=== PATIENT | female | born 1945 | race Caucasian/White ===

== ENCOUNTER → 2022-01-06 | Outpatient (CLI) | payer MEDICARE, BC, SELFPAY ==
--- NOTE | 2022-01-06 12:54 | ECHOD_ITS ---
Reason For Study: AFIB/FLUTTER Procedure This was a 2D Doppler, Color Flow transthoracic echocardiogram. Exam performed in department. Left Ventricle Normal LV size. Left ventricular systolic function is normal. The estimated ejection fraction is 55 %. Normal diastology for age. No regional wall motion abnormalities noted. Right Ventricle Normal RV size. Normal systolic function. Atria The left atrium is mildly enlarged. Normal right atrium. Mitral Valve Normal mitral valve. Tricuspid Valve Normal tricuspid valve. Aortic Valve Trisinus/trileaflet aortic valve. Pulmonic Valve Normal pulmonic valve. Great Vessels Normal aortic root. The pulmonary artery is normal size. Normal inferior vena cava. Pericardium/Pleural No pericardial effusion. MMode/2D Measurements & Calculations LVIDd: 4.5 cm IVSd: 0.91 cm LVOT diam: 2.0 cm LVIDs: 3.0 cm LVPWd: 0.97 cm LVOT area: 3.1 cm2 RVDd: 3.0 cm FS: 33.0 % Ao root diam: 3.1 cm LAV(MOD-bp): 73.2 ml LA A4 area: 23.8 cm2 LAV(MOD-bp) Indexed: 37.7 ml/m2 LAV(MOD-sp2): 73.8 ml LAV(MOD-sp4): 74.2 ml LA dimension(2D): 3.8 cm RA A4 area: 20.1 cm2 Time Measurements MV dec time: 0.25 sec Doppler Measurements & Calculations MV E max robi: 93.7 cm/sec Lat Peak E' Robi: 11.1 cm/sec Med Peak E' Robi: 9.5 cm/sec MV A max robi: 78.0 cm/sec E/E' lat: 8.4 E/E' med: 9.9 MV E/A: 1.2 MV dec slope: 375.1 cm/sec2 Ao V2 max: 186.8 cm/sec LV V1 max: 123.8 cm/sec Ao max P.0 mmHg LV V1 max P.2 mmHg Ao V2 mean: 124.2 cm/sec LV V1 mean P.4 mmHg Ao mean P.2 mmHg LV V1 mean: 87.3 cm/sec Ao V2 VTI: 43.5 cm LV V1 VTI: 29.2 cm TRISHA(I,D): 2.1 cm2 TRISHA(V,D): 2.0 cm2 SV(LVOT): 89.3 ml PA V2 max: 164.3 cm/sec ECHO/Echo Complete Interpretation Summary Normal LV size. Left ventricular systolic function is normal. The estimated ejection fraction is 55 %. Normal tricuspid valve. Trisinus/trileaflet aortic valve. The left atrium is mildly enlarged. Normal diastology for age. Ordering Physician: Mark Lay Referring Physician: Jeramie Alba Performed By: Shaylee Benavidez RDCS, RVT
== END | disposition home or self-care (01) ==
LOC: CVS 12:52
PROVIDERS: PCP Family Medicine; Referring Provider Internal Medicine Cardiovascular Disease; Visit Provider Internal Medicine Cardiovascular Disease
DX: I48.0 Paroxysmal atrial fibrillation (principal)
CPT/HCPCS: 93306

== ENCOUNTER 2022-01-15 19:15 | Inpatient (IN) | payer MEDICARE, BC, SELFPAY ==
[2022-01-15 19:31] VITALS: BMI 35.9
[2022-01-15 19:42] VITALS: BP 130/85; PULSE 61; RESP 16; TEMP 36.4; O2SAT 96
[2022-01-15 22:00] VITALS: PULSE 62; RESP 16; O2SAT 96
[2022-01-15] MEDS: Acetaminophen 500 MG Tablet 1000 MG PO (22:04)
[2022-01-15] MEDS: APIXABAN 5 MG TABLET PO (22:07)
[2022-01-15] MEDS: Senna/Docusate Sodium 1 Tablet 2 TABLET PO (22:07)
[2022-01-15 22:38] VITALS: BP 136/86; PULSE 76; RESP 16; TEMP 36.3; O2SAT 96
[2022-01-16] MEDS: Acetaminophen 500 MG Tablet 1000 MG PO ×3 (07:16→22:26)
[2022-01-16] MEDS: Multivitamins,Therapeutic Tablet 1 TABLET PO (07:17)
[2022-01-16] MEDS: oxyCODONE 5 MG Tablet PO ×2 (07:17→22:53)
[2022-01-16 07:59] LABS: Absolute Lymphocyte Count 2.54 X10^3/uL (0.83-4.51); Absolute Neutrophil Count 6.5 X10^3/uL (2.0-7.7); Basophil# 0.02 X10^3/uL; Basophil% 0.2 % (0-1); Eosinophil# 0.05 X10^3/uL; Eosinophils% 0.5 % (0-5); Hematocrit 34.3 % (37-47); Hemoglobin 11.2 g/dL (12.0-15.0); Lymphocyte # 2.54 X10^3/ul (0.83-4.51); Lymphocyte % 23.9 % (19-41); Mean Corp Hgb Conc 32.7 g/dL (32-36); Mean Corpuscular Hgb 30.9 pg (27.0-32.0); Mean Corpuscular Volume 94.5 fL (81-99); Mean Platelet Vol. 12.7 fl (6.2-12.0); Monocyte# 1.45 X10^3/uL; Monocyte% 13.6 % (0-10); NRBC Flagged by Analyzer 0 % (0-5); Neutrophil # 6.54 X10^3/uL (2.7-7.7); Neutrophil % 61.5 % (47-70); Platelet Count 213 K/mm3 (150-450); RBC Distribution Width CV 13.7 % (11.6-14.6); RBC Distribution Width SD 47.9 fl (35.1-43.9); Red Blood Count 3.63 M/mm3 (4.2-5.4); White Blood Count 10.6 K/mm3 (4.4-11.0)
[2022-01-16 08:13] LABS: Magnesium 2.2 mg/dL (1.6-2.6)
[2022-01-16 08:22] LABS: ALB/GLOB Ratio 0.9 RATIO (0.9-2.4); AST(SGOT) 39 U/L (15-37); Alanine Aminotransfer ALT/SGPT 40 U/L (13-56); Albumin, Serum 3.2 g/dL (3.2-5.0); Alkaline Phosphatase 61 U/L (45-117); Anion Gap 3 (5-15); BUN 25 mg/dL (7-18); BUN/Creat Ratio 30.6 RATIO (10-20); Calcium,Total 9.5 mg/dL (8.5-10.1); Chloride 103 mmol/L (98-107); Creatinine, Serum 0.82 mg/dL (0.55-1.02); EST Glomerular Filtration Rate 72 mL/min (>60); Est Glom Filt Rate - Afr Amer 87 mL/min (>60); Estimated Creatinine Clearance 46.16 ml/min; Globulin 3.7 g/dL (2.2-4.2); Glucose 108 mg/dL (74-106); Potassium 4.2 mmol/L (3.5-5.1); Protein, Total 6.9 g/dL (6.4-8.2); Sodium Level 137 mmol/L (136-145)
[2022-01-16 08:23] LABS: Phosphorus 3.3 mg/dL (2.5-4.9)
[2022-01-16] MEDS: Sertraline 50 MG Tablet 25 MG PO (08:47)
[2022-01-16] MEDS: Cefadroxil 500 MG CAPSULE PO ×2 (08:47→22:08)
[2022-01-16] MEDS: Cholecalciferol (VIT D3) 25 MCG TABLET (1,000 UNITS) PO (08:47)
[2022-01-16 08:48] VITALS: PULSE 66
[2022-01-16] MEDS: Metoprolol(XL)Succ 50 MG Tablet PO (08:48)
[2022-01-16] MEDS: Lisinopril 5 MG Tablet PO (08:48)
[2022-01-16] MEDS: APIXABAN 5 MG TABLET PO ×2 (08:48→22:08)
[2022-01-16] MEDS: Pantoprazole Sodium 40 MG Tablet PO (08:50)
[2022-01-16] MEDS: Senna/Docusate Sodium 1 Tablet 2 TABLET PO (08:50)
[2022-01-16] MEDS: Ascorbic Acid 500 MG Tablet PO (08:50)
[2022-01-16 09:02] VITALS: BP 123/60; PULSE 66; RESP 16; TEMP 36.4; O2SAT 99
--- NOTE | 2022-01-16 13:00 | NURSING ---
Patient reported she was tired and fatigued during therapy session and staff had assisted patient to lay down. This nurse told patient to drink more water post op to prevent dehydration. Patient changed code status after this nurse explained to her what each discipline meant. Patient thinks that her niece has her Living Will and POA papers but she does not think she can get them from niece and she is not sure where her copies are. Message left for SW to help patient on this topic.
[2022-01-16 15:30] VITALS: O2SAT 99
[2022-01-16 20:35] VITALS: BP 129/49; PULSE 67; RESP 16; TEMP 36.4; O2SAT 98
--- NOTE | 2022-01-17 00:03 | NURSING ---
PT REMAINS IS CALMER BUT CONTINUES TO BE MOANING IN PAIN FROM L KNEE WHICH PT STATES CAME ON SUDDENLY AT 2245 01/16/22. ICE IS IN PLACE, [facility] CLINICAL ACCOUNT SPECIALIST TO WILDA IGLESIAS-HOSPITALIST.
--- NOTE | 2022-01-17 00:17 | NURSING ---
DR IGLESIAS INFORMED OF PT'S UNRELIEVED L KNEE PAIN, BUT THAT PT HAS,JUST NOW, APPEARED TO FALL ASLEEP. ORDERS GIVEN.
[2022-01-17] MEDS: oxyCODONE 5 MG Tablet PO ×5 (02:37→23:33)
--- NOTE | 2022-01-17 02:44 | NURSING ---
Pt given prn Oxycodone 5 mg per order @ 2253 01/16/22, next dose given at 0237 01/17/22 with error of given early. With time change this shift, medication was given in 4 hour parameter per order.
[2022-01-17] MEDS: Acetaminophen 500 MG Tablet 1000 MG PO ×3 (06:31→21:04)
[2022-01-17 08:53] VITALS: BP 117/57; PULSE 67; RESP 18; TEMP 37.1; O2SAT 98
[2022-01-17 09:05] VITALS: O2SAT 98
[2022-01-17] MEDS: APIXABAN 5 MG TABLET PO ×2 (09:42→21:03)
[2022-01-17] MEDS: Senna/Docusate Sodium 1 Tablet 2 TABLET PO ×2 (09:42→21:04)
[2022-01-17 09:43] VITALS: PULSE 67
[2022-01-17] MEDS: Cholecalciferol (VIT D3) 25 MCG TABLET (1,000 UNITS) PO (09:43)
[2022-01-17] MEDS: Multivitamins,Therapeutic Tablet 1 TABLET PO (09:43)
[2022-01-17] MEDS: Lisinopril 5 MG Tablet PO (09:43)
[2022-01-17] MEDS: Metoprolol(XL)Succ 50 MG Tablet PO (09:43)
[2022-01-17] MEDS: Pantoprazole Sodium 40 MG Tablet PO (09:44)
[2022-01-17] MEDS: Sertraline 50 MG Tablet 25 MG PO (09:44)
[2022-01-17] MEDS: Ascorbic Acid 500 MG Tablet PO (09:45)
[2022-01-17] MEDS: Cefadroxil 500 MG CAPSULE PO ×2 (09:45→21:03)
--- NOTE | 2022-01-17 10:46 | HP.PCM_ITS ---
HPI - General General Date of Admission: 01/15/22 Date of Service: 01/17/22 Chief Complaint: Debility due to recent TKA HPI Narrative CONCHA SLADE, is a 76 YO F with a PMH of hypertension, osteoarthritis, obesity, paroxysmal atrial fibrillation, dry macular degeneration, seasonal allergies, skin cancer, anxiety (on Sertraline) and chronic anticoagulation with apixaban who presents to the acute rehab unit at [facility] on 01/15/22 with physical debility following a TKA of the left knee on 01/14/22. She lives alone in a condo and is not able to care for herself at this time. She will have 3 hours of therapy daily to restore function/independence at or near her level prior to the TKA. [facility] Medical History Anxiety Chronic anticoagulation Dyspnea on minimal exertion Enlarged LA (left atrium) Essential hypertension Headache History of malignant neoplasm of skin Intermittent palpitations Left knee pain Obesity Osteoarthritis Paroxysmal atrial fibrillation Home Medications apixaban 5 mg tablet (Eliquis) 5 mg PO BID blood thinner 12/18/21 [History Last Taken Unknown] ascorbate calcium (vitamin C) 500 mg tablet 500 mg PO DAILY supplement 12/18/21 [History Last Taken Unknown] cholecalciferol (vitamin D3) 25 mcg (1,000 unit) capsule 25 mcg PO DAILY supplement 12/18/21 [History Last Taken Unknown] lisinopril 5 mg tablet 5 mg PO DAILY HTN 12/18/21 [History Last Taken Unknown] metoprolol succinate 50 mg tablet,extended release 24 hr 50 mg PO DAILY 12/18/21 [History Last Taken Unknown] multivitamin 1 tab PO DAILY supplement 12/18/21 [History Last Taken Unknown] omeprazole 40 mg capsule,delayed release 40 mg PO DAILY stomach 12/18/21 [History Last Taken Unknown] sertraline 25 mg tablet (Zoloft) 25 mg PO DAILY depression 12/18/21 [History Last Taken Unknown] Allergy/AdvReac Type Severity Reaction Status Date / Time No Known Allergies Allergy Unverified 12/18/21 14:31 Family History Other Cancer Surgical History H/O arthroscopy of knee History of appendectomy History of cataract surgery History of cholecystectomy History of cosmetic surgery History of left knee replacement History of tonsillectomy Social History (Updated 01/17/22 @ 11:[address] Tanisha Jain DO) household members: other details: Lives alone. She is a . housing: [facility] number of children: 0 current occupational status: retired leisure activities: games do you think of yourself as: straight/heterosexual current gender identity: female Smoking Status: Never smoker alcohol intake: never substance use type: does not use ROS Constitutional Constitutional: Reports difficulty sleeping and fatigue; Denies anorexia, change in weight, chills, fever(s), night sweats or weakness Eyes Eyes: Denies blurry vision, change in vision, eye pain or loss of vision ENT HEENT: Reports abnormal hearing; Denies dysphagia, headache(s), hearing loss, nasal congestion or sore throat Cardiovascular Cardiovascular: Reports dyspnea on exertion; Denies chest pain, edema, lightheadedness, orthopnea, palpitations, paroxysmal nocturnal dyspnea or syncope Respiratory/Chest Respiratory/Chest: Reports shortness of breath with exertion; Denies cough, dyspnea, shortness of breath at rest or wheezing Gastrointestinal Gastrointestinal: Denies abdominal pain, constipation, diarrhea, dyspepsia, hematemesis, hematochezia, nausea or vomiting Genitourinary Genitourinary: Denies dysuria, hematuria, nocturia, urinary frequency, urinary hesitancy, urinary incontinence or urinary urgency Musculoskeletal Musculoskeletal: Reports joint pain and other Details: Left knee pain.....This is only POD #3 from L TKR ; Denies back pain, joint swelling or neck pain Integumentary Integumentary: Denies alopecia or jaundice Neurologic Neurologic: Reports weakness; Denies confusion, disequilibrium, dizziness, focal weakness, headache(s), paresthesias, seizures or tremor(s) Psychiatric Psychiatric: Reports anxiety; Denies depression, homicidal ideation or suicidal ideation Endocrine Endocrinology: Denies change in body appearance, polydipsia or polyuria Hematologic/Lymphatic Hematologic/Lymphatic: Reports easy bleeding, easy bruising and other Details: She is chronically anticoagulated with Eliquis for paroxysmal atrial fibrillation. ; Denies lymphadenopathy Allergic/Immunologic Allergic/Immunologic: Denies rhinitis, eczemia or asthma Vital Signs Vital Signs Vital Signs: 01/16/22 15:30 01/16/22 20:35 01/16/22 22:05 Temperature 97.6 F L Temperature Source Temporal Pulse Rate 67 Pulse Strength Normal (2+) Respiratory Rate 16 Blood Pressure 129/49 H Blood Pressure Mean 75 Blood Pressure Source Monitor Blood Pressure Position Sitting Blood Pressure Location Right Arm Pulse Ox 99 98 Oxygen Delivery Method Room Air Room Air 01/17/22 08:53 01/17/22 08:55 01/17/22 09:43 Temperature 98.7 F Temperature Source Temporal Pulse Rate 67 67 Pulse Strength Normal (2+) Respiratory Rate 18 Blood Pressure 117/57 L Blood Pressure Mean 77 Blood Pressure Source Monitor Blood Pressure Position Sitting Blood Pressure Location Left Arm Pulse Ox 98 Oxygen Delivery Method Room Air 01/17/22 09:05 Temperature Temperature Source Pulse Rate Pulse Strength Respiratory Rate Blood Pressure Blood Pressure Mean Blood Pressure Source Blood Pressure Position Blood Pressure Location Pulse Ox 98 Oxygen Delivery Method Room Air Weight Weight: 217 lb 2.485 oz Body Mass Index (BMI) 35.9 Physical Exam Const alert, oriented x3 and no apparent distress Constitutional Narrative: Making good eye contact, appropriate General Appearance: cooperative, comfortable, well kempt and well developed HEENT HEENT Narrative: Mucous membranes are dry Eyes PERRL, EOMs intact bilaterally, conjunctivae normal and no scleral icterus Neck no lymphadenopathy, supple, no JVD, No nodes and no carotid bruits Chest Chest: symmetrical chest wall rise Resp normal respiratory effort, no use of accessory muscles and clear to auscultation bilaterally Resp Narrative: Not tachypneic and no conversational dyspnea. Cardio S1 normal heart sound, S2 normal heart sound, no murmurs, no rub and no gallops Cardio Narrative: Irreg irreg with good rate control. GI normal to inspection, nondistended, normoactive bowel sounds, soft to palpation and non-tender GI Narrative: No guarding with palpation. Extremity normal capillary refill and no clubbing, cyanosis or edema Extremity Narrative: Intact sensation in both feet. Skin Skin Narrative: No rashes, no skin breakdown. Rashes: no rashes Wound Narrative: I will examine the wound when the dressing is to be changed. Neuro oriented x3, CN's II-XII intact bilaterally, moves all extremities, no focal motor deficits and no sensory deficits noted Motor Exam: strength 5/5 throughout Psych affect normal Psych Narrative: Appropriate, making good eye contact. Able to stay on topic and focus. No flight of ideas. Does not appear anxious or depressed. Conversant and relating well to staff. Appearance: grossly normal Attitude: calm Results Lab / Micro Data Result Diagrams: 01/16/22 07:08 01/16/22 07:08 Assessment & Plan Assessment/Plan (1) Physical debility: (2) History of left knee replacement: (3) Acute blood loss as cause of postoperative anemia: (4) Paroxysmal atrial fibrillation: (5) Chronic anticoagulation: (6) Essential hypertension: (7) Obesity: PLAN: Plan PLAN PT for gait stability OT for ADL's ST for evaluation Analgesics as needed Bowel protocol Fall precautions Assess for Anxiety/Depression GI prophylaxis - she is chronically on Protonix DVT prophylaxis with TEDhose and Eliquis which is takes for PAF Follow up with Dr. Jeramie Alba and Dr. Edmond (orthopedic surgeon at [facility]) following DC from Rehab. She has seen Dr. Lay from cardiology. AM lab including CMP, CBC, Mag and Phos were all personally reviewed today Unit Exclusion This patient is an acute care inpatient being housed in the excluded unit because of capacity issues related to the disaster or emergency.: Yes Charges/Coding Visit Charges Inpatient E&M: 56021 Init Hosp L2
--- NOTE | 2022-01-17 11:53 | NURSING ---
Patient has been encouraged to increase PO fluid intake since admission. Patient needs constant reminders. This nurse told patient she has 500cc in her water pitcher and it needs to be consumed by this afternoon. Patient agreed. Patient reported, I never drink enough.
[2022-01-17] MEDS: VIT C/E/ZN/COPPR/LUTEIN/ZEAXAN 1 EACH CAPSULE PO (17:56)
[2022-01-17 21:05] VITALS: BP 139/70; PULSE 75; RESP 18; TEMP 36.4; O2SAT 96
--- NOTE | 2022-01-18 03:03 | NURSING ---
REVIEWED AND AGREE WITH EMBEDDED PROCESSOR'S FUNCTIONAL ASSESSMENT AND HANDOFF CHARTING.
[2022-01-18] MEDS: oxyCODONE 5 MG Tablet PO ×3 (03:38→13:37)
[2022-01-18] MEDS: Acetaminophen 500 MG Tablet 1000 MG PO ×3 (06:29→20:55)
[2022-01-18 07:27] VITALS: BP 136/64; PULSE 68; RESP 18; TEMP 35.8; O2SAT 96
[2022-01-18] MEDS: Cholecalciferol (VIT D3) 25 MCG TABLET (1,000 UNITS) PO (07:50)
[2022-01-18] MEDS: Ascorbic Acid 500 MG Tablet PO (07:50)
[2022-01-18] MEDS: VIT C/E/ZN/COPPR/LUTEIN/ZEAXAN 1 EACH CAPSULE PO ×2 (07:50→16:31)
[2022-01-18] MEDS: Sertraline 50 MG Tablet 25 MG PO (07:50)
[2022-01-18] MEDS: Pantoprazole Sodium 40 MG Tablet PO (07:51)
[2022-01-18] MEDS: Senna/Docusate Sodium 1 Tablet 2 TABLET PO (07:51)
[2022-01-18] MEDS: Multivitamins,Therapeutic Tablet 1 TABLET PO (07:54)
[2022-01-18 10:12] VITALS: PULSE 68
[2022-01-18] MEDS: Metoprolol(XL)Succ 50 MG Tablet PO (10:12)
[2022-01-18] MEDS: APIXABAN 5 MG TABLET PO ×2 (10:12→20:54)
[2022-01-18] MEDS: Lisinopril 5 MG Tablet PO (10:12)
[2022-01-18] MEDS: Cefadroxil 500 MG CAPSULE PO ×2 (10:12→20:54)
--- NOTE | 2022-01-18 13:35 | CASEMGMT ---
Social Work Team meeting held. Patient present. No support person present. Patient reports main support people to be patient adrian that lives in [place] and patient friend, Tiffany. Patient reports plan to discharge to home alone at time of discharge. This social services communicating to patient that Medicare approved 11 days for patient on the Rehab Unit with discharge on or by 01/26. Patient voiced understanding and inquired about options if patient is not able to discharge to home on 01/26. This social services communicating patient insurance benefits through Medicare and educated patient on skilled benefit. Patient reports to want TCU if patient is unable to discharge to home alone. This social services voiced understanding and will make note on patient chart if patient is not able to discharge to the community within the 11 days provided by Medicare. Patient to be re-teamed next week. Patient to continue with further care and treatment on the Rehab Unit. Patient declined for this social services to contact any support person in regards to team meeting, patient reports plan to contact Tiffany. Social Work to continue to follow. Sam SANTANA, JAN
--- NOTE | 2022-01-18 13:45 | NURSING ---
Per Dr. Jain order, pt to have Oxycodone 10mg at HS nightly, order added.
--- NOTE | 2022-01-18 15:14 | PCM.RU.PYE ---
Admission Information Primary Diagnosis:: Debility due to recent left total knee replacement. Status Changes from Prescreening?: No changes Identified Actual Problem List:: Skin Intergrity, Pain, ALteration in Cmfrt, Alteration in Sleep, Mobility Impaired and Alteration-Leisure Activ. Potential Problem List:: DVT, Bleeding, Infection, UTI, Aspiration, Falls, Skin Integrity and Depression Risk of Complications DVT: RAPHAEL Gil and - (She was started back on apixaban for paroxysmal atrial fibrillation which will also prevent DVT.) Bleeding: Monitor Lab Values, Nursing to Teach Precautions for anti-coagulation therapy., Wound, if applicable, to be assessed every shift. and Stroke patients assessed for lethargy or change in status. Infection: Clinical Staff to Monitor for S/S of infection: and S/S of infection include fever, redness, warmth, etc. Urinary Tract Infection: Monitor for frequency, burning, discomfort, or incontinence. and Nursing will obtain urine sample for urinalysis and C&S when ordered. Aspiration: Clinical staff will monitor for coughing, drooling, congestion., Speech will evaluate swallowing and dsyphasia. and Nursing will monitor patient swallowing during meals. Falls: Patient will be evaluated for Fall Precautions and Patient will be placed on Fall Precautions as indicated per protocol. Skin Breakdown: Nursing will assess skin daily using assessment tool. and Nursing will place on Skin Breakdown Precautions as indicated. Pain: Clinical staff will assess patient's pain level per protocol., Medications will be given, if needed, and the pain level reassessed. and Other methods: Massage, distraction, decrease stimulus, etc. used PRN. Plan of Care Patient requires physician specializing in physical medicine and rehab oversight to provide close medical supervision of rehab issues including: Pain Management, Sleep Problems, Bowel and Bladder, Medical and co-morbidity Management, DVT prophylaxis, Rehabilitation Leadership and Coordination of treatment team Patient needs Physical Therapy: For a minimum of 1 hour and At least 5 out of 7 days Patient needs Physical Therapy to improve:: Mobility, Strengthening, Transfers, Stretching, ROM, Endurance, Stairs, Gait and Balance Patient needs Occupational Therapy: For a minimum of 1 hour and At least 5 out of 7 days Patient needs Occupational Therapy to improve ADL's incl.: Eating, Grooming, Bathing, Dressing, Toileting, Toilet transfers, Community Reintegration, Higher functioning activities, Household tasks, Adaptive Equipment, Splinting and Other activities as determined Patient requires 24/7 Rehabilitation Nursing for: Pain Issues, Identifying and preventing risk factors, Monitoring and reporting current medical conditions, Assisting with ambulation, transfer, and all ADL's, Teaching patients about disease process and medications, Family teaching, Providing safe environment, Bowel and Bladder Issues, Skin integrity and Medication Management Patient needs Venue Coordinator/ Case Management for: Discharge Planning, Arranging Home Equipment or Services and Family Interventions Patient needs Dietary and Nutrition Services for: Adequate Nutrition, Nutritional Supplements and Nutritional Education Goals Patient will remain: free from falls and or injury at time of discharge. Patient will perform bed mobility at: MOD I level of assist. Patient will complete transfers from bed to chair at: MOD I level of assist. Patient will ambulate: 100 feet and with LRD Patient will propel wheelchair: - (150 feet with least restrictive adaptive device at mod I) Patient will complete upper body dressing at: MOD I level of assist. Patient will complete lower body dressing at: MOD I level of assist. (With adaptive equipment) Patient will complete toileting at: MOD I level of assist. Patient will perform bathing at: MOD I level of assist. Patient will complete grooming at: MOD I level of assist. Patient will complete home management skills at: MOD I level of assist. Patient will achieve: - (2 steps with left grab bar at mod I) Patient will have pain level of: of 3 or less Patient's skin will: remain intact Patient will receive: adequate nutrition. Discharge Planning Pt Prognosis for Sig. Practical Improv. w/in Reasonable Time: Good Estimated Length of stay (days): 21 Anticipated D/C Destination: Home with Home Health Was Preadmission Assessment Accurate?: Yes
--- NOTE | 2022-01-18 15:20 | PN_ITS ---
Subjective Subjective Kalie was seen on team rounds today. No family was available to participate however her niece who lives in [place] will be assisting her when she is discharged. Her friend from [place] brought her Pres[employer]Vision in yesterday and the anxiety about being without has resolved. Afebrile VSS Maintaining appropriate oxygen saturation on RA Oral intake is good Discussed with nursing - no problems that need addressed Reviewed the PT/OT/ST notes Medication list reviewed. She awoke last night with severe pain. she tells me the pain seems worse at night. she was able to do therapy today with 5 mg of Oxycodone. She denies AP, SOB, calf pain, N/V/abd pain, confusion, lightheadedness, dysuria. Has been urinating frequently. PVR's are 0-35. Objective Data Objective Data Vital Signs: Vital Signs Temp Pulse Resp BP Pulse Ox O2 Del Method 96.5 F L 68 18 136/64 H 96 Room Air 01/18/22 07:27 01/18/22 10:12 01/18/22 07:27 01/18/22 07:27 01/18/22 07:27 01/18/22 07:27 Oxygen Delivery Method Room Air Weight: 217 lb 2.485 oz Body Mass Index (BMI) 35.9 Intake & Output: Intake and Output for Last 24 Hours 01/17/22 01/17/22 01/18/22 00:59 23:59 23:59 Intake Total Output Total Balance Lab / Micro Data Result Diagrams: 01/16/22 07:08 01/16/22 07:08 Physical Exam Const alert, oriented x3 and no apparent distress Constitutional Narrative: Making good eye contact, appropriate General Appearance: cooperative and comfortable Resp normal respiratory effort, no use of accessory muscles and clear to auscultation bilaterally Resp Narrative: Not tachypneic and no conversational dyspnea. Cardio S1 normal heart sound, S2 normal heart sound, no murmurs, no rub and no gallops Cardio Narrative: Irreg irreg with good rate control. GI normal to inspection, nondistended, normoactive bowel sounds, soft to palpation and non-tender GI Narrative: No guarding with palpation. Extremity normal capillary refill Extremity Narrative: Intact sensation in both feet. Skin Skin Narrative: No rashes, no skin breakdown. Rashes: no rashes Wound Narrative: I will examine the wound when the dressing is to be changed. Neuro Motor Exam: strength 5/5 throughout Psych affect normal Psych Narrative: Appropriate, making good eye contact. Able to stay on topic and focus. No flight of ideas. Does not appear anxious or depressed. Conversant and relating well to staff. Assessment & Plan Assessment/Plan (1) Physical debility: (2) History of left knee replacement: (3) Acute blood loss as cause of postoperative anemia: (4) Paroxysmal atrial fibrillation: (5) Chronic anticoagulation: (6) Essential hypertension: (7) Obesity: PLAN: Plan 1. Continue therapy 2. Increase oxycodone to 10 mg at at bedtime only Charges/Coding Visit Charges Inpatient E&M: 09841 Subs Hosp L1
[2022-01-18 15:28] VITALS: O2SAT 95
[2022-01-18 19:17] VITALS: BP 150/50; PULSE 70; RESP 20; TEMP 36.6; O2SAT 98
[2022-01-18 20:47] VITALS: BP 139/46; PULSE 69; RESP 18; TEMP 36.3; O2SAT 98
[2022-01-18] MEDS: oxyCODONE 5 MG Tablet 10 MG PO (20:55)
[2022-01-19] VITALS (7 sets, daily range): BP systolic 116–138; BP diastolic 50–57; PULSE 70; RESP 18–19; TEMP 36.6–37.1; O2SAT 96–97
[2022-01-19] MEDS: oxyCODONE 5 MG Tablet PO ×5 (02:35→18:51)
--- NOTE | 2022-01-19 03:24 | NURSING ---
Reviewed and agree with Iraida Gil LPN, documentation and assessment charting.
[2022-01-19] MEDS: Acetaminophen 500 MG Tablet 1000 MG PO ×3 (06:34→22:14)
[2022-01-19] MEDS: Sertraline 50 MG Tablet 25 MG PO (08:37)
[2022-01-19] MEDS: Multivitamins,Therapeutic Tablet 1 TABLET PO (08:37)
[2022-01-19] MEDS: Ascorbic Acid 500 MG Tablet PO (08:37)
[2022-01-19] MEDS: Metoprolol(XL)Succ 50 MG Tablet PO (08:39)
[2022-01-19] MEDS: Lisinopril 5 MG Tablet PO (08:40)
[2022-01-19] MEDS: Cefadroxil 500 MG CAPSULE PO ×2 (08:40→22:15)
[2022-01-19] MEDS: Cholecalciferol (VIT D3) 25 MCG TABLET (1,000 UNITS) PO (08:41)
[2022-01-19] MEDS: Senna/Docusate Sodium 1 Tablet 2 TABLET PO ×2 (08:41→22:15)
[2022-01-19] MEDS: APIXABAN 5 MG TABLET PO ×2 (08:41→22:15)
[2022-01-19] MEDS: VIT C/E/ZN/COPPR/LUTEIN/ZEAXAN 1 EACH CAPSULE PO ×2 (08:42→17:51)
[2022-01-19] MEDS: Pantoprazole Sodium 40 MG Tablet PO (08:42)
--- NOTE | 2022-01-19 15:42 | CHAPLAIN ---
Type of Pastoral Visit _x__ Initial Visit ___ Follow-up Visit ___ On-call Visit ___ General Patient Visit ___ Spiritual Assessment ___ Family Conference ___ Bereavement ___ Rapid Response ___ Code Blue ___ Other (describe below) Pastoral Care Referral From _x__ Patient ___ Family ___ Nurse ___ Physician ___ [facility] ___ Pharmacy Student ___ Other (describe below) Sacrament/Intervention _x__ Active listening ___ Anointing ___ Confucianism ___ Bereavement ___ Communion ___ Carmita exploration ___ _x__ Life review _x__ Prayer ___ Reconciliation ___ Sacrament of Sick _x__ Supportive presence ___ Wedding ___ Other (describe below) Pastoral Comments patient is very welcoming and invites this knowledge management consultant for discussion; pt describes her surgery and recent move back to [place], [place] from [place]; pt is thankful to be close to [facility] and appreciates good care received here so far; pt has very little family support but has some friends that are available in the area for help; pt will be looking for a bahai connection and more involvement once her health improves; pt gives more life review about moves and being a for last 17 years; pt welcomes presence and prayers for spiritual care support
[2022-01-19] MEDS: oxyCODONE 5 MG Tablet 10 MG PO (22:15)
[2022-01-20] VITALS (7 sets, daily range): BP systolic 128–146; BP diastolic 48–69; PULSE 62–101; RESP 16–18; TEMP 36.6–36.8; O2SAT 94–98
[2022-01-20] MEDS: oxyCODONE 5 MG Tablet PO ×3 (03:06→14:25)
[2022-01-20] MEDS: Acetaminophen 500 MG Tablet 1000 MG PO ×3 (05:59→21:42)
[2022-01-20] MEDS: Multivitamins,Therapeutic Tablet 1 TABLET PO (07:42)
[2022-01-20] MEDS: VIT C/E/ZN/COPPR/LUTEIN/ZEAXAN 1 EACH CAPSULE PO ×2 (07:43→16:54)
--- NOTE | 2022-01-20 10:21 | PCM.PROGNOTE ---
Subjective Subjective Afebrile VSS-blood pressure is well controlled with no hypotension. Maintaining appropriate oxygen saturation on RA Oral intake is adequate Discussed with nursing - no problems that need addressed Reviewed the PT/OT/ST notes Medication list reviewed. Kalie is complaining that she had severe pain when doing her physical therapy this morning. She did not take an oxycodone until around 8 AM and it had not kicked in yet when she started PT. After it became effective she would able to complete her physical therapy session. She got 10 mg of gabapentin last night at bedtime and still woke up approximately 4 AM and took another 5 mg. She describes the pain at times as electric shock like pain. Kalie denies lightheadedness, vertigo, chest pain, shortness of breath at rest, nausea/vomiting/heartburn, abdominal pain, dysuria, calf tenderness and palpitations. Her only real complaints are pain in the left knee and not sleeping well at night due to pain. Objective Data Objective Data Vital Signs: Vital Signs Temp Pulse Resp BP Pulse Ox O2 Del Method 97.8 F 65 16 144/69 H 98 Room Air 01/20/22 08:08 01/20/22 08:08 01/20/22 08:08 01/20/22 08:08 01/20/22 08:08 01/20/22 08:08 Oxygen Delivery Method Room Air Weight: 217 lb 2.485 oz Body Mass Index (BMI) 35.9 Intake & Output: Intake and Output for Last 24 Hours 01/18/22 01/19/22 01/20/22 23:59 23:59 23:59 Intake Total 240 / 240 Balance 240 / 240 Lab / Micro Data Result Diagrams: 01/16/22 07:08 01/16/22 07:08 Physical Exam Const alert, oriented x3 and no apparent distress Constitutional Narrative: Sitting in the recliner at the bedside. Resp normal respiratory effort and clear to auscultation bilaterally Cardio regular rate, regular rhythm and no gallops GI normal to inspection, nondistended, normoactive bowel sounds, soft to palpation and non-tender GI Narrative: No guarding with palpation Extremity no calf tenderness Extremity Narrative: The L knee incision is intact with no juana-incisional redness and no DC, serous or purulent. General Extremity: edema left (expected due to recent L TKR. BEATRIZ wraps are in place. ) Skin General Skin Exam: no breakdown Rashes: no rashes Psych Psych Narrative: Anxious and overwhelmed. Her house in [place] sold 1 day after her surgery. She recently moved to [place] from [place]. There were some problems with her house in [place] and she got less than what she would have liked for it. She is worried about her finances and going home too soon. She lives by herself. I suspect all this is affecting her perception of pain/pain tolerance. Assessment & Plan Assessment/Plan (1) Left knee pain: (2) Physical debility: (3) History of left knee replacement: (4) Acute blood loss as cause of postoperative anemia: PLAN: Plan 1. Schedule 5 milligrams of oxycodone 3 times daily and continue 10 mg at at bedtime. She does not always remember to ask for pain medications. 2. Add Gabapentin 200 mg at 2100 to improve pain control at night and allow her to sleep through the night. I suspect the electric shock pain' is radicular, possibly due to positioning in surgery. 3. Continue therapy. Charges/Coding Visit Charges Inpatient E&M: 37468 Subs Hosp L2
[2022-01-20] MEDS: Lisinopril 5 MG Tablet PO (10:40)
[2022-01-20] MEDS: Cholecalciferol (VIT D3) 25 MCG TABLET (1,000 UNITS) PO (10:40)
[2022-01-20] MEDS: Ascorbic Acid 500 MG Tablet PO (10:40)
[2022-01-20] MEDS: Sertraline 50 MG Tablet 25 MG PO (10:40)
[2022-01-20] MEDS: Metoprolol(XL)Succ 50 MG Tablet PO (10:40)
[2022-01-20] MEDS: Cefadroxil 500 MG CAPSULE PO ×2 (10:40→21:41)
[2022-01-20] MEDS: APIXABAN 5 MG TABLET PO ×2 (10:40→21:41)
[2022-01-20] MEDS: Pantoprazole Sodium 40 MG Tablet PO (10:41)
[2022-01-20] MEDS: Senna/Docusate Sodium 1 Tablet 2 TABLET PO (10:41)
[2022-01-20] MEDS: Gabapentin 100 MG Capsule 200 MG PO (20:42)
[2022-01-20] MEDS: oxyCODONE 5 MG Tablet 10 MG PO (21:40)
[2022-01-21] VITALS (8 sets, daily range): BP systolic 98–122; BP diastolic 38–67; PULSE 62–88; RESP 16–18; TEMP 36.4–37.2; O2SAT 96–100
[2022-01-21] MEDS: oxyCODONE 5 MG Tablet PO ×3 (05:13→17:29)
[2022-01-21] MEDS: Acetaminophen 500 MG Tablet 1000 MG PO ×3 (06:19→21:35)
[2022-01-21] MEDS: VIT C/E/ZN/COPPR/LUTEIN/ZEAXAN 1 EACH CAPSULE PO ×2 (08:26→17:29)
[2022-01-21] MEDS: Multivitamins,Therapeutic Tablet 1 TABLET PO (08:26)
[2022-01-21] MEDS: Cefadroxil 500 MG CAPSULE PO ×2 (10:35→21:35)
[2022-01-21] MEDS: Pantoprazole Sodium 40 MG Tablet PO (10:36)
[2022-01-21] MEDS: Metoprolol(XL)Succ 50 MG Tablet PO (10:36)
[2022-01-21] MEDS: APIXABAN 5 MG TABLET PO ×2 (10:36→21:36)
[2022-01-21] MEDS: Senna/Docusate Sodium 1 Tablet 2 TABLET PO ×2 (10:36→21:35)
[2022-01-21] MEDS: Cholecalciferol (VIT D3) 25 MCG TABLET (1,000 UNITS) PO (10:37)
[2022-01-21] MEDS: Sertraline 50 MG Tablet 25 MG PO (10:37)
[2022-01-21] MEDS: Ascorbic Acid 500 MG Tablet PO (10:37)
[2022-01-21] MEDS: Lisinopril 5 MG Tablet PO (10:37)
[2022-01-21] MEDS: Gabapentin 100 MG Capsule 200 MG PO (21:35)
[2022-01-21] MEDS: oxyCODONE 5 MG Tablet 10 MG PO (22:19)
[2022-01-22] VITALS (7 sets, daily range): BP systolic 106–134; BP diastolic 55–71; PULSE 62–71; RESP 16–18; TEMP 36.2–37.2; O2SAT 95–98
[2022-01-22] MEDS: Acetaminophen 500 MG Tablet 1000 MG PO ×3 (05:20→21:23)
[2022-01-22] MEDS: oxyCODONE 5 MG Tablet PO ×3 (05:25→17:21)
[2022-01-22] MEDS: VIT C/E/ZN/COPPR/LUTEIN/ZEAXAN 1 EACH CAPSULE PO ×2 (07:57→17:23)
[2022-01-22] MEDS: Senna/Docusate Sodium 1 Tablet 2 TABLET PO ×2 (08:04→21:22)
[2022-01-22] MEDS: Cefadroxil 500 MG CAPSULE PO ×2 (08:04→21:24)
[2022-01-22] MEDS: APIXABAN 5 MG TABLET PO ×2 (08:05→21:22)
[2022-01-22] MEDS: Metoprolol(XL)Succ 50 MG Tablet PO (08:05)
[2022-01-22] MEDS: Ascorbic Acid 500 MG Tablet PO (08:05)
[2022-01-22] MEDS: Multivitamins,Therapeutic Tablet 1 TABLET PO (08:05)
[2022-01-22] MEDS: Sertraline 50 MG Tablet 25 MG PO (08:06)
[2022-01-22] MEDS: Pantoprazole Sodium 40 MG Tablet PO (08:06)
[2022-01-22] MEDS: Cholecalciferol (VIT D3) 25 MCG TABLET (1,000 UNITS) PO (08:06)
[2022-01-22] MEDS: Lisinopril 5 MG Tablet PO (08:07)
--- NOTE | 2022-01-22 13:25 | CASEMGMT ---
Addendum entered by Sophie Juarez 01/22/22 16:24: 7000 started in HENS. w/c transport scheduled through [facility] for 01/26 at 1300 Addendum entered by Sophie Juarez 01/22/22 16:16: Appeal is filed. . Notified pt [facility] is able to accept pt. Pt requested w/c transport as she has no family/friends to take her. Pt still would more time on RU, if appeal is won, but DC plan is [facility]. SW offered to complete advanced directives. Pt denied at this time. Pt has [employer] service rack card to contact and make an appt at a later date [facility]. Pt appreciative. Original Note: Social Work Received update that TCU may not have a bed available for pt's DC date 01/26. SW met with pt to discuss above. Introduced self and role. Explained about TCU's bed availability and requesting alternate choice. Pt flustered and still not feeling ready to go; was looking forward to going to TCU. Pt explained she felt robbed of the first three days since she was admitted on a Tuesday evening. Acknowledged feelings and educated to Medicare appeal rights. Pt interested in appealing. Provided Medicare letter with appeal information and encouraged to contact today to hopefully have an outcome by DC date. SW also provided pt with printed list of SNFs with quality and resource data via [employer] to choose other choices. Pt very interested in [facility] and wants that to be her first choice now for several personal reasons. SW agreed to update TCU and make referral to [facility]. Referral made via [facility]. [facility] is able to accept pt on 01/26. Pt removed from TCU list. Plan: DC to [facility] skilled 01/26 Sophie Juarez, MAX EUGENE
[2022-01-22] MEDS: Gabapentin 100 MG Capsule 200 MG PO (21:22)
[2022-01-22] MEDS: oxyCODONE 5 MG Tablet 10 MG PO (21:23)
[2022-01-23 00:56] VITALS: BP 123/56; PULSE 68; RESP 18; TEMP 37.2; O2SAT 98
[2022-01-23] MEDS: Acetaminophen 500 MG Tablet 1000 MG PO ×3 (05:37→21:01)
[2022-01-23] MEDS: oxyCODONE 5 MG Tablet PO ×3 (05:37→16:29)
[2022-01-23] MEDS: VIT C/E/ZN/COPPR/LUTEIN/ZEAXAN 1 EACH CAPSULE PO ×2 (08:57→16:29)
[2022-01-23] MEDS: Multivitamins,Therapeutic Tablet 1 TABLET PO (08:57)
[2022-01-23 09:02] VITALS: BP 129/57; PULSE 63; RESP 16; TEMP 36.1; O2SAT 95
[2022-01-23] MEDS: Pantoprazole Sodium 40 MG Tablet PO (09:59)
[2022-01-23] MEDS: APIXABAN 5 MG TABLET PO ×2 (09:59→21:02)
[2022-01-23] MEDS: Senna/Docusate Sodium 1 Tablet 2 TABLET PO ×2 (09:59→21:02)
[2022-01-23 10:00] VITALS: PULSE 63
[2022-01-23] MEDS: Metoprolol(XL)Succ 50 MG Tablet PO (10:00)
[2022-01-23] MEDS: Sertraline 50 MG Tablet 25 MG PO (10:01)
[2022-01-23] MEDS: Cholecalciferol (VIT D3) 25 MCG TABLET (1,000 UNITS) PO (10:01)
[2022-01-23] MEDS: Ascorbic Acid 500 MG Tablet PO (10:01)
[2022-01-23] MEDS: Lisinopril 5 MG Tablet PO (10:02)
[2022-01-23 19:00] VITALS: BP 129/62; PULSE 72; RESP 18; TEMP 36.7; O2SAT 97
[2022-01-23 19:38] VITALS: BP 105/34; PULSE 55; RESP 16; TEMP 37.1; O2SAT 96
[2022-01-23] MEDS: Gabapentin 100 MG Capsule 200 MG PO (21:02)
[2022-01-23 21:16] VITALS: BP 129/62
[2022-01-23] MEDS: oxyCODONE 5 MG Tablet 10 MG PO (22:52)
[2022-01-24 01:00] VITALS: BP 125/76; PULSE 72; RESP 18; TEMP 36.7; O2SAT 97
[2022-01-24] MEDS: oxyCODONE 5 MG Tablet PO ×3 (04:12→16:52)
[2022-01-24] MEDS: Acetaminophen 500 MG Tablet 1000 MG PO ×3 (06:24→23:22)
[2022-01-24 07:52] VITALS: BP 143/66; PULSE 62; RESP 16; TEMP 36.6; O2SAT 96
[2022-01-24] MEDS: Multivitamins,Therapeutic Tablet 1 TABLET PO (08:06)
[2022-01-24] MEDS: APIXABAN 5 MG TABLET PO ×2 (08:06→23:24)
[2022-01-24] MEDS: VIT C/E/ZN/COPPR/LUTEIN/ZEAXAN 1 EACH CAPSULE PO ×2 (08:06→16:52)
[2022-01-24] MEDS: Pantoprazole Sodium 40 MG Tablet PO (08:06)
[2022-01-24 08:07] VITALS: PULSE 62
[2022-01-24] MEDS: Ascorbic Acid 500 MG Tablet PO (08:07)
[2022-01-24] MEDS: Senna/Docusate Sodium 1 Tablet 2 TABLET PO ×2 (08:07→23:23)
[2022-01-24] MEDS: Metoprolol(XL)Succ 50 MG Tablet PO (08:07)
[2022-01-24] MEDS: Sertraline 50 MG Tablet 25 MG PO (08:08)
[2022-01-24] MEDS: Lisinopril 5 MG Tablet PO (08:08)
[2022-01-24] MEDS: Cholecalciferol (VIT D3) 25 MCG TABLET (1,000 UNITS) PO (08:08)
[2022-01-24] MEDS: Gabapentin 100 MG Capsule PO (16:52)
[2022-01-24 20:00] VITALS: BP 120/41; PULSE 71; RESP 16; TEMP 36.9; O2SAT 97
[2022-01-24] MEDS: Gabapentin 100 MG Capsule 200 MG PO (20:06)
[2022-01-24] MEDS: Arthritis Pain Compound 60 CLICK TUBE TOPICAL (23:22)
[2022-01-24] MEDS: oxyCODONE 5 MG Tablet 10 MG PO (23:24)
[2022-01-25] MEDS: oxyCODONE 5 MG Tablet PO ×3 (05:49→17:13)
[2022-01-25] MEDS: Acetaminophen 500 MG Tablet 1000 MG PO ×4 (05:49→23:51)
[2022-01-25] MEDS: VIT C/E/ZN/COPPR/LUTEIN/ZEAXAN 1 EACH CAPSULE PO ×2 (07:42→17:13)
[2022-01-25] MEDS: Multivitamins,Therapeutic Tablet 1 TABLET PO (07:43)
[2022-01-25] MEDS: Gabapentin 100 MG Capsule PO ×2 (07:45→17:14)
[2022-01-25 10:00] VITALS: BP 107/52; PULSE 64; RESP 18; TEMP 37.3; O2SAT 99
[2022-01-25] MEDS: Arthritis Pain Compound 60 CLICK TUBE TOPICAL ×2 (10:07→23:52)
[2022-01-25] MEDS: Pantoprazole Sodium 40 MG Tablet PO (10:08)
[2022-01-25] MEDS: APIXABAN 5 MG TABLET PO ×2 (10:08→22:14)
[2022-01-25 10:09] VITALS: BP 107/52; PULSE 64
[2022-01-25] MEDS: Sertraline 50 MG Tablet 25 MG PO (10:09)
[2022-01-25] MEDS: Ascorbic Acid 500 MG Tablet PO (10:09)
[2022-01-25] MEDS: Lisinopril 5 MG Tablet PO (10:09)
[2022-01-25] MEDS: Cholecalciferol (VIT D3) 25 MCG TABLET (1,000 UNITS) PO (10:09)
[2022-01-25] MEDS: Metoprolol(XL)Succ 50 MG Tablet PO (10:09)
[2022-01-25] MEDS: Senna/Docusate Sodium 1 Tablet 2 TABLET PO ×2 (10:09→22:14)
--- NOTE | 2022-01-25 12:05 | PCM.PROGNOTE ---
Subjective Subjective Kaile was seen on team rounds today. No family was available. Afebrile VSS Maintaining appropriate oxygen saturation on RA Oral intake is good Discussed with nursing - Kalie is c/o inadequate pain control multiple times a day. She apparently was crying for 3 hours this morning prior to breakfast but, after she ate breakfast she was fine and has no complained since then. Reviewed the PT/OT/ST notes Medication list reviewed. Arthritis pain cream was added to the drug regimen yesterday and also Gabapentin 100 mg BID. She is also getting 5 mg of Oxycodone TID and 10 mg at HS. She is on scheduled Tylenol. This is Post op day #11. She continues to c/o severe electric shock like pain in the left knee. She tells me that she has been sleeping well at night since the Gabapentin was added. Gabapentin 100 mg BID was added to her drug regimen yesterday and arthritis pain cream was also added to her drug regimen. She tells me that the cream is helping but, wonders if she could have it TID. She continues to be very anxious about what the insurance will pay for and what medications will be covered. She is also concerned about having to pay for transportation to the [facility]. She denies chest pain, shortness of breath, palpitations, lightheadedness, nausea/vomiting, abdominal pain, dysuria and calf pain. Objective Data Objective Data Vital Signs: Vital Signs Temp Pulse Resp BP Pulse Ox O2 Del Method 99.1 F 64 18 107/52 L 99 Room Air 01/25/22 10:00 01/25/22 10:09 01/25/22 10:00 01/25/22 10:09 01/25/22 10:00 01/25/22 10:00 Oxygen Delivery Method Room Air Weight: 217 lb 2.485 oz Body Mass Index (BMI) 35.9 Lab / Micro Data Result Diagrams: 01/16/22 07:08 01/16/22 07:08 Physical Exam Const alert and oriented x3 Constitutional Narrative: Very anxious with many questions during rounds, mostly about what insurance will cover and how much medications will cost. General Appearance: cooperative Resp normal respiratory effort and clear to auscultation bilaterally Resp Narrative: No conversational dyspnea. Cardio regular rate, regular rhythm and no gallops Cardio Narrative: She has never been in AF any time I have examined her while she has been in rehab GI normal to inspection, nondistended, normoactive bowel sounds, soft to palpation and non-tender Extremity Extremity Narrative: I could not examine the left knee today because she was sitting in the recliner and her pant leg is too tight to raise it above the knee. She will not get dressed until I examine the knee in the AM prior to DC. Skin General Skin Exam: no breakdown Rashes: no rashes Assessment & Plan Assessment/Plan (1) Physical debility: PLAN: Continue therapy (2) History of left knee replacement: (3) Acute blood loss as cause of postoperative anemia: (4) Left knee pain: (5) Anxiety: PLAN: Plan 1. BMP and CBC in the AM. 2. Increase the arthritis pain cream to 3 times daily 3. Ice to the left knee after each therapy session and as needed 4. DC to [facility] tomorrow for additional therapy prior to returning home to live by herself. 5. Increase the Sertraline to 50 mg daily to help with anxiety. Charges/Coding Visit Charges Inpatient E&M: 98956 Subs Hosp L2
--- NOTE | 2022-01-25 13:42 | CASEMGMT ---
Addendum entered by Sophie Juarez 01/26/22 09:35: 7000 completed and DC paperwork sent to [facility]. Original Note: Social Work IDT met with patient for Team meeting. Discussed patient's progress in PT/OT/SN. Educated to Medicare approval of 11 days with DC 01/26. Pt did appeal and lost appeal. Plan remains for pt to DC to [facility] SNF, skilled 01/26. W/C transport scheduled for 1300. No other needs. Plan: DC 01/26, [facility] skilled [facility]
--- NOTE | 2022-01-25 15:25 | CHAPLAIN ---
Type of Pastoral Visit ___ Initial Visit _x__ Follow-up Visit ___ On-call Visit ___ General Patient Visit ___ Spiritual Assessment ___ Family Conference ___ Bereavement ___ Rapid Response ___ Code Blue ___ Other (describe below) Pastoral Care Referral From _x__ Patient ___ Family ___ Nurse ___ Physician ___ Property Portfolio Officer ___ Radiation Officer ___ Other (describe below) Sacrament/Intervention _x__ Active listening ___ Anointing ___ Lutheran ___ Bereavement ___ Communion ___ Carmita exploration ___ _x__ Life review _x__ Prayer ___ Reconciliation ___ Sacrament of Sick ___ Supportive presence ___ Wedding ___ Other (describe below) Pastoral Comments patient is sitting in chair and waves arm to come on in and visit with her; pt is upbeat in attitude and speaks of going tomorrow to [facility] which she is thankful for; pt states her progress; pt gives some more life review and general conversation; pt is positive about her care; prayer welcomed
--- NOTE | 2022-01-25 16:47 | TREXTCAR_ITS ---
Diet Diet Order/Speech Therapy: 01/15/22 20:23 Diet: Regular - General Routine Orders/Code Status Enema Type: Fleetz Enema Frequency: Daily PRN Suppository Type: Dulcolax 10mg Suppository Frequency: Daily PRN O2 Liters per Minute: 1-2 O2 Frequency: PRN Keep PO Greater than or Equal to (%): 90 Code Status: Full Code Wound(s) Left Knee: Wound Type: Surgical Incision (Left knee) Therapies Weight Bearing: Weight bearing as tolerated (Left leg) Extremity Affected:: Left Lower Physical Therapy: Eval and Treat Occupational Therapy: Eval and Treat Problem/Diagnosis (1) Physical debility: Status: Acute Code(s): R53.81 - Other malaise (2) History of left knee replacement: Status: Acute Code(s): Z96.652 - Presence of left artificial knee joint Plan: Elective surgery on 01/14/[address] Veras at [facility]. (3) Acute blood loss as cause of postoperative anemia: Status: Acute Code(s): D62 - Acute posthemorrhagic anemia (4) Paroxysmal atrial fibrillation: Status: Chronic Code(s): I48.0 - Paroxysmal atrial fibrillation Plan: On chronic anticoagulation with Eliquis. Comment: Diagnosed 07/2020 (5) Chronic anticoagulation: Status: Acute Code(s): Z79.01 - intermediate designer (current) use of anticoagulants (6) Essential hypertension: Status: Chronic Code(s): I10 - Essential (primary) hypertension Comment: Controlled (7) Obesity: Status: Chronic Code(s): E66.9 - Obesity, unspecified Plan 1. Discharge to the [facility] on 01/26/2022 for additional fpc prior to returning home. 2. Continue oxycodone 5 mg p.o. 3 times daily, acetaminophen 1 g p.o. every 6 hours, gabapentin 200 mg at at bedtime and 100 mg twice daily and compounded arthritis cream (Baclofen, Lidocaine and Voltaren) TID Allergies/Procedures Done in Hospital Allergies No Known Allergies Allergy (Unverified 12/18/21 14:31) Procedures: None Type of Care/Length of Stay Estimated LOS: Convalescent Care Less Than 30 days Type of Care Needed: Skilled Rehab Potential: Good Prognosis: Good Additional Orders/Day of Discharge H&P will serve as current which was dated: 01/17/22 Day of Discharge: 01/26/22 Dietary and Speech Recommendations Dietitian Recommendations/Changes: Please consult if change in pt nutritional status Follow Up Care Please follow up with your Primary Care Physician in: Dr. Jeramie Alba following discharge from the [facility]. Please Follow Up With: Dr. Edmond When: 02/17/2022 at 09:30. Discharge Plan Admission Admit Date/Time: 01/15/22 19:15 Primary Reason for Your Visit: Physical debility secondary to left total knee replacement on 01/14/2022. Attending Provider: Tanisha Jain Primary Care Provider: Jeramie Alba Instructions Additional Instructions / Restrictions: 1. Apply ice to the L knee after therapy and PRN for pain control. Discharge Orders/Prescriptions Prescriptions: New Arthritis Pain Compound cream 2 click topical TID Qty: 1 5RF Rx Instructions: Only available at [facility] retail pharmacy. Apply TID to the Left knee sparing the incision. ondansetron HCl 8 mg Tablet 4 mg PO Q8H PRN PRN (Reason: NAUSEA) Qty: 1 0RF acetaminophen 500 mg Tablet 1,000 mg PO Q6 Qty: 0 0RF magnesium hydroxide 400 mg/5 mL Suspension 30 ml PO .PRN X 1 PRN (Reason: Constipation) Qty: 0 0RF bisacodyl 10 mg Suppository 10 mg MD .PRN X 1 PRN (Reason: Constipation) Qty: 0 0RF gabapentin 100 mg Capsule 200 mg PO 2100 Qty: 1 0RF gabapentin 100 mg Capsule 100 mg PO BIDCM Qty: 1 0RF albuterol sulfate 90 mcg/actuation Hfa Aerosol Inhaler 2 puff inhalation Q4H PRN PRN (Reason: SHORTNESS OF BREATH) Qty: 1 0RF sertraline 50 mg Tablet 50 mg PO DAILY Qty: 1 0RF oxycodone 5 mg Tablet 5 - 10 mg PO 0500,1100,1700,2200 7 Days Qty: 35 0RF Rx Instructions: 5 mg at 0500,1100,1700 and 10 mg at 2200 sennosides-docusate sodium [Stool Softener-Stimulant Laxat] 8.6-50 mg Tablet 2 tab PO BID Qty: 1 0RF PreserVision AREDS-2 250-90-40-1 mg Capsule 1 ea PO BIDCM Qty: 1 0RF Continued metoprolol succinate 50 mg tablet extended release 24 hr 50 mg PO DAILY omeprazole 40 mg capsule,delayed release(DR/EC) 40 mg PO DAILY Eliquis 5 mg tablet 5 mg PO BID lisinopril 5 mg tablet 5 mg PO DAILY multivitamin Tablet 1 tab PO DAILY ascorbate calcium (vitamin C) 500 mg tablet 500 mg PO DAILY cholecalciferol (vitamin D3) 25 mcg (1,000 unit) capsule 25 mcg PO DAILY Discontinued sertraline [Zoloft] 25 mg tablet 25 mg PO DAILY Referrals / Follow Up: Dr Edmond [Other] - 02/17/22 9:30 am (x-rays prior) Jeramie Alba MD [Primary Care Provider] - 05/10/22 2:00 pm Disposition Disposition (needs filled in before D/C Order can be placed): [facility]
[2022-01-25 19:09] VITALS: BP 131/53; PULSE 60; RESP 18; TEMP 36.6; O2SAT 96
[2022-01-25] MEDS: Gabapentin 100 MG Capsule 200 MG PO (20:41)
[2022-01-25] MEDS: oxyCODONE 5 MG Tablet 10 MG PO (22:15)
[2022-01-26] MEDS: oxyCODONE 5 MG Tablet PO ×3 (05:01→16:15)
[2022-01-26 05:41] LABS: Hematocrit 31.6 % (37-47); Hemoglobin 10.3 g/dL (12.0-15.0); Mean Corp Hgb Conc 32.6 g/dL (32-36); Mean Corpuscular Hgb 30.7 pg (27.0-32.0); Mean Corpuscular Volume 94.3 fL (81-99); Mean Platelet Vol. 11.7 fl (6.2-12.0); Platelet Count 334 K/mm3 (150-450); RBC Distribution Width CV 13.2 % (11.6-14.6); RBC Distribution Width SD 45.8 fl (35.1-43.9); Red Blood Count 3.35 M/mm3 (4.2-5.4); White Blood Count 6.3 K/mm3 (4.4-11.0)
[2022-01-26] MEDS: Acetaminophen 500 MG Tablet 1000 MG PO ×2 (05:47→13:46)
[2022-01-26] MEDS: Arthritis Pain Compound 60 CLICK TUBE TOPICAL ×2 (05:53→13:49)
[2022-01-26 06:06] LABS: Anion Gap 6 (5-15); BUN 21 mg/dL (7-18); BUN/Creat Ratio 25.5 RATIO (10-20); Calcium,Total 8.9 mg/dL (8.5-10.1); Chloride 103 mmol/L (98-107); Creatinine, Serum 0.82 mg/dL (0.55-1.02); EST Glomerular Filtration Rate 72 mL/min (>60); Est Glom Filt Rate - Afr Amer 87 mL/min (>60); Estimated Creatinine Clearance 45.44 ml/min; Glucose 105 mg/dL (74-106); Sodium Level 138 mmol/L (136-145)
[2022-01-26 08:04] VITALS: BP 130/59; PULSE 69; RESP 16; TEMP 36.9; O2SAT 96
[2022-01-26] MEDS: APIXABAN 5 MG TABLET PO (08:32)
[2022-01-26] MEDS: Gabapentin 100 MG Capsule PO ×2 (08:32→16:14)
[2022-01-26] MEDS: Multivitamins,Therapeutic Tablet 1 TABLET PO (08:32)
[2022-01-26] MEDS: VIT C/E/ZN/COPPR/LUTEIN/ZEAXAN 1 EACH CAPSULE PO (08:32)
[2022-01-26 08:33] VITALS: PULSE 69
[2022-01-26] MEDS: Ascorbic Acid 500 MG Tablet PO (08:33)
[2022-01-26] MEDS: Cholecalciferol (VIT D3) 25 MCG TABLET (1,000 UNITS) PO (08:33)
[2022-01-26] MEDS: Pantoprazole Sodium 40 MG Tablet PO (08:33)
[2022-01-26] MEDS: Metoprolol(XL)Succ 50 MG Tablet PO (08:33)
[2022-01-26] MEDS: Sertraline 50 MG Tablet PO (08:34)
[2022-01-26] MEDS: Lisinopril 5 MG Tablet PO (08:34)
[2022-01-26] MEDS: Senna/Docusate Sodium 1 Tablet 2 TABLET PO (08:35)
--- NOTE | 2022-01-26 12:08 | PCM.DC.SUM ---
Providers Date of Admission: 01/15/22 Date of Discharge: 01/26/22 Primary Care Physician: Dr. Jeramie Alba MD Reason For Visit: Debility post L TKR Diagnosis Discharge Diagnosis (1) Physical debility: Status: Acute Code(s): R53.81 - Other malaise Plan: Continue therapy (2) History of left knee replacement: Status: Acute Code(s): Z96.652 - Presence of left artificial knee joint (3) Acute blood loss as cause of postoperative anemia: Status: Acute Code(s): D62 - Acute posthemorrhagic anemia (4) Left knee pain: Status: Acute Code(s): M25.562 - Pain in left knee (5) Anxiety: Status: Acute Code(s): F41.9 - Anxiety disorder, unspecified Plan 1. DC to [facility] today for additional therapy prior to returning home. 2. All morning lab today was personally reviewed and the HGBA dropped from 11.2 on 01/17/2020 2-10.3 on 01/26/2022. I suspect this is secondary to expected blood loss from the surgery. We will have the [facility] check a Hemoccult stool after she arrives there. Kidney function is stable and the creatinine is 0.82. 3. She is sleeping well at night and she feels the recent changes in her medications is helping with the pain. 4. she was given a RX for the compounded arthritis cream she is using on the left knee. [facility] Retail pharmacy is the only place she will be able to fill this RX. If she runs out and does not want to refill Voltaren Gel can be used instead. Z 5. Zoloft was recently increased to 50 mg daily to better treat her anxiety. Medications at Discharge Home Medications apixaban 5 mg tablet (Eliquis) 5 mg PO BID blood thinner 12/18/21 ascorbate calcium (vitamin C) 500 mg tablet 500 mg PO DAILY supplement 12/18/21 cholecalciferol (vitamin D3) 25 mcg (1,000 unit) capsule 25 mcg PO DAILY supplement 12/18/21 lisinopril 5 mg tablet 5 mg PO DAILY HTN 12/18/21 metoprolol succinate 50 mg tablet,extended release 24 hr 50 mg PO DAILY 12/18/21 multivitamin 1 tab PO DAILY supplement 12/18/21 omeprazole 40 mg capsule,delayed release 40 mg PO DAILY stomach 12/18/21 Arthritis Pain Compound 2 click topical TID #1 BOTTLE 01/25/22 acetaminophen 500 mg tablet 1,000 mg PO Q6 #0 tabs 01/25/22 albuterol sulfate 90 mcg/actuation aerosol inhaler 2 puff inhalation Q4H PRN PRN SHORTNESS OF BREATH #1 g 01/25/22 bisacodyl 10 mg rectal suppository 10 mg AK .PRN X 1 PRN Constipation #0 ea 01/25/22 gabapentin 100 mg capsule 100 mg PO BIDCM #1 cap 01/25/22 gabapentin 100 mg capsule 200 mg PO 2100 #1 cap 01/25/22 magnesium hydroxide 400 mg/5 mL oral suspension 30 ml PO .PRN X 1 PRN Constipation #0 mL 01/25/22 ondansetron HCl 8 mg tablet 4 mg PO Q8H PRN PRN NAUSEA #1 TAB 01/25/22 oxycodone 5 mg tablet 5 - 10 mg PO 0500,1100,1700,2200 7 days #35 tabs 01/25/22 sennosides 8.6 mg-docusate sodium 50 mg tablet (Stool Softener-Stimulant Laxative) 2 tab PO BID #1 TAB 01/25/22 sertraline 50 mg tablet 50 mg PO DAILY #1 TAB 01/25/22 vit C 250 mg-vit E 90 mg-zinc 40 mg-copper 1 yd-tbogic-dftnub capsule (PreserVision AREDS-2) 1 ea PO BIDCM #1 cap 01/25/22 Hospital Course Operations total knee replacement (01/14/2022 at [facility] by Dr. Edmond.) Procedures None Summary of Care Provided Minutes Spent on Discharge: 35 Hospital Course: KALIE SLADE, is a 76 YO F with a PMH of hypertension, osteoarthritis, obesity, paroxysmal atrial fibrillation, dry macular degeneration, seasonal allergies, skin cancer, anxiety (on Sertraline) and chronic anticoagulation with apixaban who presented to the acute rehab unit at [facility] on 01/15/22 with physical debility following a TKA of the left knee on 01/14/22 at [facility] by Dr. Edmond.? She lives alone in a condo and is not able to care for herself at this time.? She will have 3 hours of therapy daily to restore function/independence at or near her level prior to the TKA.? We have had a difficult time controlling Kalie's pain to her satisfaction. I suspect in addition pain associated with the surgery she has radicular pain in the left knee which she describes as shock like. She was on Scheduled Oxycodone 5 mg TID and 10 mg at HS and was still not sleeping due to pain. She was also receiving Scheduled Tylenol. Gabapentin 200 mg was added to the drug regimen and she began sleeping better at night. She continued to c/o severe pain in the left knee in the AM until her scheduled Oxycodone kicked in. Gabapentin 100 mg BID was added in addition to the 200 mg at HS. We also added a compounded arthritic cream to the Left knee TID. On the day of DC Kalie feels her pain is under adequate control. Kalie has had a lot of change in her life recently. She moved to [place] from [place] recently and sold her home ( for loss than she wanted to get). She purchased a condo in [place]. She is perseverating on finances and what insurance will cover for her post-op rehabilitation and what medications are covered by insurance. She has mild flight of ideas and is anxious. Sertraline was increased to 50 mg daily on 01/25/22 to better control her anxiety. If this continues to be a problem I would consider adding Buspar to her drug regimen. Kalie did well in therapy. At the time of discharge from rehab she was independent with eating and standby assist for grooming. She is requiring minimal assistance with bathing and she is supervision/set up for upper body dressing. She still needs minimal assistance with lower body dressing. She is standby assist for toilet transfer and supervision/set up for toileting. She is contact-guard assist for tub/shower transfer. She he is mod assist of 1 to go from supine to sitting and standby for sit to stand and stand pivot. She is using a wheeled walker. She can negotiate 3 steps at 4 inches with 2 handrails at standby assist/contact-guard assist but failed attempt with 1 handrail.....she has 1 HR to enter her condo. She has ambulated up to 160 feet with a front wheel walker and standby assist. The left knee jennifer at times. Lab on the day of discharge shows a hemoglobin of 10.3 which is down from 11.2 at admission. Stool is brown and she has no epigastric pain or nausea. BMP is remarkable for an elevated BUN at 21 which is actually decreased from admission. Her creatinine is stable at 0.82 and potassium was 4. Calcium is within normal limits. Kalie was transferred to the [facility] on 01/26/2022 for additional therapy prior to [facility] Will have [facility] check a hemoccult stool and also repeat a HH in 5-7 days. Physical Exam Const alert, oriented x3 and no apparent distress Constitutional Narrative: Smiling and talkative. Slept well last night. General Appearance: cooperative Eyes PERRL and EOMs intact bilaterally Eyes Narrative: No scleral icterus, no conjunctival injection and no discharge from the eyes. Resp normal respiratory effort, normal air movement and clear to auscultation bilaterally Resp Narrative: No conversational dyspnea Effort and Inspection: Negative for tachypneic Cardio regular rate, regular rhythm, no murmurs and no gallops Cardio Narrative: She has been in a regular rhythm with no ectopy every time I examined her during her admission to acute rehab. GI normal to inspection, nondistended, normoactive bowel sounds, soft to palpation and non-tender Extremity no calf tenderness Extremity Narrative: There is swelling of the Left knee, less than at admission. Mild swelling of the the left ankle. Skin General Skin Exam: no breakdown Rashes: no rashes Neuro CN's II-XII intact bilaterally and no focal motor deficits Psych Psych Narrative: Anxious and perseverating on finances and money. Appearance: appropriate Weight / BMI Weight Weight: 217 lb 2.485 oz Body Mass Index (BMI) 35.9 ABG / Lab / Microbiology Data Result Diagrams: 01/26/22 05:27 01/26/22 05:27 Laboratory: Laboratory Results - last 24 hr 01/26/22 05:27: WBC 6.3, RBC 3.35 L, Hgb 10.3 L, Hct 31.6 L, MCV 94.3, MCH 30.7, MCHC 32.6, RDW Std Deviation 45.8 H, RDW Coeff of Osiris 13.2, Plt Count 334, MPV 11.7 01/26/22 05:27: Sodium 138, Potassium 4.0, Chloride 103, Carbon Dioxide 29.0, Anion Gap 6, BUN 21 H, Creatinine 0.82, Estim Creat Clear Calc 45.44, Est GFR (MDRD) Af Amer 87, Est GFR (MDRD) Non-Af 72, BUN/Creatinine Ratio 25.5 H, Glucose 105, Calcium 8.9 Microbiology: Microbiology 01/26/22 08:43 Nasal Secretion SARS-CoV-2 Antigen (Rapid) - Final D/C Instructions Please Follow Up With: Dr. Edmond Meaningful Use Info Meaningful Use Diagnoses (Choose all that apply): None applicable Discharge Plan Admission Admit Date/Time: 01/15/22 19:15 Primary Reason for Your Visit: Physical debility secondary to left total knee replacement on 01/14/2022. Attending Provider: Tanisha Jain Primary Care Provider: Jeramie Alba Instructions Additional Instructions / Restrictions: 1. Apply ice to the L knee after therapy and PRN for pain control. Discharge Orders/Prescriptions Prescriptions: New Arthritis Pain Compound cream 2 click topical TID Qty: 1 5RF Rx Instructions: Only available at [facility] retail pharmacy. Apply TID to the Left knee sparing the incision. ondansetron HCl 8 mg Tablet 4 mg PO Q8H PRN PRN (Reason: NAUSEA) Qty: 1 0RF acetaminophen 500 mg Tablet 1,000 mg PO Q6 Qty: 0 0RF magnesium hydroxide 400 mg/5 mL Suspension 30 ml PO .PRN X 1 PRN (Reason: Constipation) Qty: 0 0RF bisacodyl 10 mg Suppository 10 mg AK .PRN X 1 PRN (Reason: Constipation) Qty: 0 0RF gabapentin 100 mg Capsule 200 mg PO 2100 Qty: 1 0RF gabapentin 100 mg Capsule 100 mg PO BIDCM Qty: 1 0RF albuterol sulfate 90 mcg/actuation Hfa Aerosol Inhaler 2 puff inhalation Q4H PRN PRN (Reason: SHORTNESS OF BREATH) Qty: 1 0RF sertraline 50 mg Tablet 50 mg PO DAILY Qty: 1 0RF oxycodone 5 mg Tablet 5 - 10 mg PO 0500,1100,1700,2200 7 Days Qty: 35 0RF Rx Instructions: 5 mg at 0500,1100,1700 and 10 mg at 2200 sennosides-docusate sodium [Stool Softener-Stimulant Laxat] 8.6-50 mg Tablet 2 tab PO BID Qty: 1 0RF PreserVision AREDS-2 250-90-40-1 mg Capsule 1 ea PO BIDCM Qty: 1 0RF Continued metoprolol succinate 50 mg tablet extended release 24 hr 50 mg PO DAILY omeprazole 40 mg capsule,delayed release(DR/EC) 40 mg PO DAILY Eliquis 5 mg tablet 5 mg PO BID lisinopril 5 mg tablet 5 mg PO DAILY multivitamin Tablet 1 tab PO DAILY ascorbate calcium (vitamin C) 500 mg tablet 500 mg PO DAILY cholecalciferol (vitamin D3) 25 mcg (1,000 unit) capsule 25 mcg PO DAILY Discontinued sertraline [Zoloft] 25 mg tablet 25 mg PO DAILY Referrals / Follow Up: Dr Edmond [Other] - 02/17/22 9:30 am (x-rays prior) Jeramie Alba MD [Primary Care Provider] - 05/10/22 2:00 pm Disposition Disposition (needs filled in before D/C Order can be placed): Assisted Facility Charges/Coding Visit Charges Inpatient E&M: 34795 Disch Hosp
--- NOTE | 2022-01-26 17:41 | NURSING ---
[facility] Report called to Susannah
[2022-01-26 17:43] VITALS: BP 128/70; PULSE 70; RESP 17; TEMP 37; O2SAT 97
== END 2022-01-26 17:45 | disposition skilled nursing facility (03) | DRG 560 ==
PROVIDERS: Admitting Provider Internal Medicine; PCP Family Medicine; Visit Provider Internal Medicine
DX: Z47.1 Aftercare following joint replacement surgery (principal); D62 Acute posthemorrhagic anemia; I48.0 Paroxysmal atrial fibrillation; F41.9 Anxiety disorder, unspecified; I10 Essential (primary) hypertension; E66.9 Obesity, unspecified; Z60.2 Problems related to living alone; Z79.01 Long term (current) use of anticoagulants; Z96.652 Presence of left artificial knee joint; Z68.35 Body mass index [BMI] 35.0-35.9, adult; Z79.899 Other long term (current) drug therapy
CPT/HCPCS: 36415; 80048; 80053; 83735; 84100; 85025; 85027; 87811; 97110; 97116; 97162; 97166; 97530; 97535; 97802; 99251; G0463

== ENCOUNTER → 2022-04-09 | Outpatient (CLI) | payer MEDICARE, BC, SELFPAY ==
[2022-04-09 15:22] LABS: Hematocrit 43.4 % (37-47); Hemoglobin 13.8 g/dL (12.0-15.0); Mean Corp Hgb Conc 31.8 g/dL (32-36); Mean Corpuscular Hgb 28.6 pg (27.0-32.0); Mean Platelet Vol. 12.3 fl (6.2-12.0); Platelet Count 310 K/mm3 (150-450); RBC Distribution Width CV 14.6 % (11.6-14.6); RBC Distribution Width SD 48.2 fl (35.1-43.9); Red Blood Count 4.82 M/mm3 (4.2-5.4); White Blood Count 9.8 K/mm3 (4.4-11.0)
[2022-04-09 16:00] LABS: Anion Gap 7 (5-15); BUN 18 mg/dL (7-18); BUN/Creat Ratio 19.4 RATIO (10-20); Calcium,Total 9.3 mg/dL (8.5-10.1); Chloride 104 mmol/L (98-107); Creatinine, Serum 0.93 mg/dL (0.55-1.02); EST Glomerular Filtration Rate 62 mL/min (>60); Est Glom Filt Rate - Afr Amer 75 mL/min (>60); Glucose 127 mg/dL (74-106); Potassium 4.1 mmol/L (3.5-5.1); Sodium Level 140 mmol/L (136-145)
== END | disposition home or self-care (01) ==
LOC: MTLAB 13:48
PROVIDERS: PCP Family Medicine; Referring Provider Nurse Practitioner Gerontology; Visit Provider Nurse Practitioner Gerontology
DX: R55 Syncope and collapse (principal); Z79.01 Long term (current) use of anticoagulants; Z86.2 Personal history of diseases of the blood and blood-forming organs and certain disorders involving the immune mechanism
CPT/HCPCS: 36415; 80048; 85027

== ENCOUNTER 2022-04-13 02:01 | Emergency (ER) | payer MEDICARE, BC, SELFPAY ==
[2022-04-13 02:02] VITALS: BP 166/76; PULSE 73; RESP 18; TEMP 36.6; O2SAT 99; BMI 36.6
--- NOTE | 2022-04-13 02:20 | EKG12_ITS ---
Test Reason : NAUSEA & V Blood Pressure : / mmHG Vent. Rate : 072 BPM Atrial Rate : 072 BPM P-R Int : 168 ms QRS Dur : 080 ms QT Int : 408 ms P-R-T Axes : 031 021 -41 degrees QTc Int : 446 ms Sinus rhythm with Premature atrial complexes Nonspecific ST and T wave abnormality Abnormal ECG Confirmed by TYLER TELLEZ, AIDA ([id number]), sports editor AVINASH GARCIA ([id number]) on 04/15/2022 10:11:56 AM Referred By: BONITA Confirmed By:AIDA SCOTT MD
--- NOTE | 2022-04-13 02:20 | CT_ITS ---
INDICATION: pain, vomiting EXAMINATION: CT ABDOMEN AND PELVIS WITH CONTRAST - CT Abdomen And Pelvis W/ Contrast Injection TECHNIQUE: Helically acquired images were obtained of the abdomen and pelvis following IV contrast. A radiation dose optimization technique was used for this scan. IV Contrast dosage and agent: Oral contrast: None. COMPARISON: None. FINDINGS: LOWER CHEST: Lung bases are clear. No cardiomegaly or pericardial effusion. LIVER: Homogeneous. No focal mass. GALLBLADDER AND BILIARY TREE: Cholecystectomy. No intra- or extrahepatic biliary ductal dilation. PANCREAS: No focal cystic or solid mass. SPLEEN: Normal size without focal cystic or solid mass. ADRENAL GLANDS: No nodules. KIDNEYS AND URETERS: Normal renal size and position. No hydronephrosis. PERITONEUM: No ascites or free air. No other fluid collection. BOWEL: No stomach or bowel distension. Sigmoid diverticulosis. No focal inflammatory change. LYMPH NODES: No enlarged mesenteric or retroperitoneal lymph nodes. VESSELS: Aorta is non-dilated. URINARY BLADDER: Unremarkable. REPRODUCTIVE ORGANS: No pelvic masses. ABDOMINAL WALL: No discrete abdominal or pelvic wall hernia. BONES: No lytic or blastic abnormality. CT/Abdomen/Pelvis W IV Cont ONLY IMPRESSION: Sigmoid diverticulosis. Electronically Signed: Iris Montez MD at 3:25 EST ,
--- NOTE | 2022-04-13 02:21 | EX.ED.GENINJ ---
HPI History of Present Illness Chief Complaint: Nausea/Vomiting Informant: patient Narrative Narrative: Patient presents with nausea vomiting abdominal pain. The triage note says she has an episode of dizziness that was similar to March. Patient denies that when I talk with her specifically. She states on 18 March she had an episode where she got lightheaded dizziness and felt like she was going to pass out. She went into her room and did pass out onto her bed but no injury. She had a mild episode of this last . But she did not pass out. She saw her primary physician. They think it might of been runs of A. zenon because she does have a history of atrial fibrillation. Episode tonight. Tonight she stated that she was a little bit queasy when she went to bed. But she woke up at about midnight. She had more nausea and she vomited a couple times. When she was vomiting she felt mildly lightheaded but it was nothing like she had at the beginning of March or last . She was not presyncopal with it. She did not have chest pain with it. She is not dizzy or lightheaded now. She states after vomiting she started to get some abdominal pain. She states she cannot say where it is because it moves all over the place. She does not have routine nausea and vomiting. She has not seen any blood in the vomitus nor in the stool recently. No fevers or chills. She cannot think of anything she ate that caused this. Prior surgeries in her abdomen include appendicitis and cholecystectomy. She is on Eliquis and is taking it twice a day. Patient also states that she lives alone at home. She gets concerned when things like this happen. This is certainly understandable. [facility] Medical History Anxiety Chronic anticoagulation Dyspnea on minimal exertion Enlarged LA (left atrium) Essential hypertension Headache History of malignant neoplasm of skin Intermittent palpitations Left knee pain Obesity Osteoarthritis Paroxysmal atrial fibrillation Home Medications apixaban 5 mg tablet (Eliquis) 5 mg PO BID blood thinner 12/18/21 [History Last Taken Unknown] ascorbate calcium (vitamin C) 500 mg tablet 500 mg PO DAILY supplement 12/18/21 [History Last Taken Unknown] cholecalciferol (vitamin D3) 25 mcg (1,000 unit) capsule 25 mcg PO DAILY supplement 12/18/21 [History Last Taken Unknown] lisinopril 5 mg tablet 5 mg PO DAILY HTN 12/18/21 [History Last Taken Unknown] metoprolol succinate 50 mg tablet,extended release 24 hr 50 mg PO DAILY 12/18/21 [History Last Taken Unknown] multivitamin 1 tab PO DAILY supplement 12/18/21 [History Last Taken Unknown] omeprazole 40 mg capsule,delayed release 40 mg PO DAILY stomach 12/18/21 [History Last Taken Unknown] Arthritis Pain Compound 2 click topical TID #1 BOTTLE 01/25/22 [Rx Last Taken Unknown] acetaminophen 500 mg tablet 1,000 mg PO Q6 #0 tabs 01/25/22 [Rx Last Taken Unknown] albuterol sulfate 90 mcg/actuation aerosol inhaler 2 puff inhalation Q4H PRN PRN SHORTNESS OF BREATH #1 g 01/25/22 [Rx Last Taken Unknown] bisacodyl 10 mg rectal suppository 10 mg KS .PRN X 1 PRN Constipation #0 ea 01/25/22 [Rx Last Taken Unknown] gabapentin 100 mg capsule 200 mg PO 2100 #1 cap 01/25/22 [Rx Last Taken Unknown] magnesium hydroxide 400 mg/5 mL oral suspension 30 ml PO .PRN X 1 PRN Constipation #0 mL 01/25/22 [Rx Last Taken Unknown] sertraline 50 mg tablet 50 mg PO DAILY #1 TAB 01/25/22 [Rx Last Taken Unknown] vit C 250 mg-vit E 90 mg-zinc 40 mg-copper 1 [id number] capsule (PreserVision AREDS-2) 1 ea PO BIDCM #1 cap 01/25/22 [Rx Last Taken Unknown] cephalexin 500 mg capsule 500 mg PO Q12 #14 CAPSULES 04/13/22 [Rx Last Taken Unknown] gabapentin 100 mg capsule 100 mg PO DAILY 04/13/22 [History Last Taken Unknown] ondansetron 4 mg disintegrating tablet 4 mg PO Q8H PRN PRN Nausea #10 tabs 04/13/22 [Rx Last Taken Unknown] Allergy/AdvReac Type Severity Reaction Status Date / Time No Known Allergies Allergy Unverified 12/18/21 14:31 Family History Other Cancer Surgical History H/O arthroscopy of knee History of appendectomy History of cataract surgery History of cholecystectomy History of cosmetic surgery History of left knee replacement History of tonsillectomy Social History (Updated 01/17/22 @ 11:[address] Tanisha Jain DO) household members: other details: Lives alone. She is a . housing: [facility] number of children: 0 current occupational status: retired leisure activities: games Smoking Status: Never smoker alcohol intake: never substance use type: does not use ROS ROS ED Constitutional Constitutional ED: Denies chills or fever(s) Eyes Eyes: Denies change in vision ENT ENT ED: Denies rhinorrhea or sore throat Cardiovascular Cardiovascular: Denies chest pain, palpitations or racing heartbeat Respiratory/Chest Respiratory/Chest: Denies cough or dyspnea Gastrointestinal Gastrointestinal: Reports abdominal pain, nausea and vomiting; Denies constipation, diarrhea or melena Genitourinary Genitourinary ED: Denies hematuria or urinary frequency Musculoskeletal Musculoskeletal: Denies myalgias Integumentary Denies rash Neurologic Neurologic: Denies headache(s) Psychiatric Psychiatric: Reports anxiety Endocrine Endocrinology: Denies polydipsia or polyuria Hematologic/Lymphatic Hematologic/Lymphatic: Reports easy bleeding and easy bruising; Denies lymphadenopathy Allergic/Immunologic Allergic/Immunologic ED: Denies urticaria EXAM Physical Exam Narrative Exam Narrative: Patient is awake and alert. She is sitting calmly in bed. She is holding an emesis bag but no vomiting initially. HEENT: Mucous membranes are minimally dry. No nasal discharge Neck shows no JVD Lungs are clear no pain with a deep breath. Oxygen saturation is normal. Heart is regular without murmur gallop or rub. She has a normal sinus rhythm with occasional PACs on the monitor. No sign of atrial fibrillation. Peripheral pulses are equal. Abdomen is soft. Bowel sounds are slightly increased over baseline. She has some mild mid abdomen to epigastric tenderness but no rebound or guarding. She states the pain that she has in her abdomen moves all over the place. There is no rash or hernia that is felt. : No suprapubic or CVA tenderness Extremities show no mottling. She has peripheral pulses. No edema. No tenderness. Patient is anxious but she also looks a bit uncomfortable which is certainly contributing to this. While I am in the room she then starts getting dry heaves. At this point we believes we can get her some medicines to help her. Const Vital Signs: 04/13/22 02:02 04/13/22 04:27 Temperature 97.8 F Temperature Source Temporal Pulse Rate 73 79 Respiratory Rate 18 16 Blood Pressure 166/76 H Blood Pressure Mean 106 Pulse Ox 99 98 Oxygen Delivery Method Room Air MDM MDM MDM Narrative Medical decision making narrative: My independent interpretation of the patient's CT of the abdomen with IV contrast shows no sign of obstruction or ileus. I see no inflammatory changes. No mass. I see no bleeding or free air. Official reading by radiology showed some sigmoid diverticulosis but no sign of diverticulitis. Patient's white count was significantly elevated at 23,200. Although this can certainly happen with demargination pain this is concerning for infection. Electrolytes show no marked abnormalities. Glucose was mildly up at 154. Mild dehydration with an elevated BUN to creatinine ratio. Patient was treated with some IV fluids. Liver function test and lipase showed no abnormality. Urine was cloudy with increased leukocyte Estrace white cells and 1+ bacteria. This was a clean-catch. I talk with the patient more about urinary symptoms. She was hesitating. She said she has had some problems urinating over the last few weeks maybe a month. But it did not seem to occur with just the symptoms today. She states she has to go to the bathroom quickly but does not urinate much volume and it does not have much force. She occasionally has noted an odor but it has not been consistent. It does not burn. I discussed options with her. She states she has been concerned about the urine because this is new over the last few weeks. For this reason with her symptoms the urine and her white count we will treat this as UTI. My initial thought is that she may need to come in for admission. But she states her abdomen feels fine. She did not want the morphine so she did not get that. She did get the Zofran. She has no nausea now. She feels very well. She would like to go home. I explained that antibiotics can cause upset stomach. But we will give Rocephin that will cover her for the first 24 hours and then she can start oral antibiotics. I will write for Zofran if needed. But if she develops recurrent pain, fevers, vomiting, cannot keep the meds down or any other concerns she needs to return. Urine has been sent for culture. She will follow-up with her physician later this week. Lab Data Labs: Laboratory Results - last 24 hr 04/13/22 04/13/22 04/13/22 02:12 02:12 02:35 WBC 23.2 H RBC 4.67 Hgb 13.0 Hct 41.9 MCV 89.7 MCH 27.8 MCHC 31.0 L RDW Std Deviation 48.3 H RDW Coeff of Osiris 14.7 H Plt Count 287 MPV 11.9 Immature Gran % (Auto) 0.400 Neut % (Auto) 83.8 H Lymph % (Auto) 8.3 L Luce % (Auto) 6.9 Eos % (Auto) 0.4 Baso % (Auto) 0.2 Absolute Neuts (auto) 19.4 H Absolute Lymphs (auto) 1.92 Nucleated RBC % 0 Differential Comment SCANNED Diff Path Review July foll Sodium 141 Potassium 4.0 Chloride 107 Carbon Dioxide 26.0 Anion Gap 8 BUN 19 H Creatinine 0.92 Estim Creat Clear Calc 40.50 Est GFR (MDRD) Af Amer 76 Est GFR (MDRD) Non-Af 63 BUN/Creatinine Ratio 20.7 H Glucose 154 H Calcium 9.2 Total Bilirubin 0.30 AST 24 ALT 29 Alkaline Phosphatase 90 Troponin I High Sens 6 Total Protein 7.7 Albumin 3.9 Globulin 3.8 Albumin/Globulin Ratio 1.0 Lipase 143 Urine Color Yellow Urine Clarity Sl. Cloudy Urine pH 5.0 Ur Specific [place] 1.030 Urine Protein 30 H Urine Glucose (UA) Normal Urine Ketones 5 H Urine Occult Blood 10 H Urine Nitrite Negative Urine Bilirubin Negative Urine Urobilinogen Normal Ur Leukocyte Esterase 500 H Urine RBC 0-5 SEEN Urine WBC 10-25 SEEN Ur Squamous Epith Cells 0 SEEN Urine Bacteria 1+ Urine Mucus 0 SEEN Radiography Diagnostic Testing: Clinical Impression(s) from Imaging Studies Abdomen/Pelvis CT 04/13/22 02:20 IMPRESSION: Sigmoid diverticulosis. Electronically Signed: Iris Montez MD at 3:25 EST , EKG Initial EKG: Comments: My independent interpretation of an EKG done for nonspecific abdominal pain and history of atrial fibrillation shows actually a normal sinus rhythm with overall rate of 72. There are occasional premature atrial contractions but no PVCs. Nonspecific ST and T wave flattening but no sign of acute ST elevation or depression. KS interval, QRS duration and QTc are normal. Discharge Plan Triage Chief Complaint: Nausea/Vomiting ED Provider: Parminder Hernandez Dx/Rx/DC Orders Clinical Impression: Acute UTI, Leukocytosis, Nausea and vomiting Instructions: Urinary Tract Infections in Women, ED Vomiting (Adult) Prescriptions: New cephalexin [cephalexin] 500 mg capsule 500 mg PO Q12 Qty: 14 0RF ondansetron [ondansetron] 4 mg tablet,disintegrating 4 mg PO Q8H PRN PRN (Reason: Nausea) Qty: 10 0RF No Action metoprolol succinate 50 mg tablet extended release 24 hr 50 mg PO DAILY omeprazole 40 mg capsule,delayed release(DR/EC) 40 mg PO DAILY Eliquis 5 mg tablet 5 mg PO BID lisinopril 5 mg tablet 5 mg PO DAILY multivitamin Tablet 1 tab PO DAILY ascorbate calcium (vitamin C) 500 mg tablet 500 mg PO DAILY cholecalciferol (vitamin D3) 25 mcg (1,000 unit) capsule 25 mcg PO DAILY Arthritis Pain Compound cream 2 click topical TID Qty: 1 5RF Rx Instructions: Only available at [facility] retail pharmacy. Apply TID to the Left knee sparing the incision. acetaminophen 500 mg Tablet 1,000 mg PO Q6 Qty: 0 0RF magnesium hydroxide 400 mg/5 mL Suspension 30 ml PO .PRN X 1 PRN (Reason: Constipation) Qty: 0 0RF bisacodyl 10 mg Suppository 10 mg KS .PRN X 1 PRN (Reason: Constipation) Qty: 0 0RF gabapentin 100 mg Capsule 200 mg PO 2100 Qty: 1 0RF albuterol sulfate 90 mcg/actuation Hfa Aerosol Inhaler 2 puff inhalation Q4H PRN PRN (Reason: SHORTNESS OF BREATH) Qty: 1 0RF sertraline 50 mg Tablet 50 mg PO DAILY Qty: 1 0RF PreserVision AREDS-2 250-90-40-1 mg Capsule 1 ea PO BIDCM Qty: 1 0RF gabapentin 100 mg capsule 100 mg PO DAILY Primary Care Provider: Jeramie Alba Referrals: Jeramie Alba MD [Primary Care Provider] - 3-5 Days Disposition Disposition: Home, Self Care
[2022-04-13 02:28] LABS: Absolute Lymphocyte Count 1.92 X10^3/uL (0.83-4.51); Absolute Neutrophil Count 19.4 X10^3/uL (2.0-7.7); Basophil# 0.05 X10^3/uL; Basophil% 0.2 % (0-1); Eosinophil# 0.09 X10^3/uL; Eosinophils% 0.4 % (0-5); Hematocrit 41.9 % (37-47); Lymphocyte # 1.92 X10^3/ul (0.83-4.51); Lymphocyte % 8.3 % (19-41); Mean Corpuscular Hgb 27.8 pg (27.0-32.0); Mean Corpuscular Volume 89.7 fL (81-99); Mean Platelet Vol. 11.9 fl (6.2-12.0); Monocyte# 1.61 X10^3/uL; Monocyte% 6.9 % (0-10); NRBC Flagged by Analyzer 0 % (0-5); Neutrophil # 19.43 X10^3/uL (2.7-7.7); Neutrophil % 83.8 % (47-70); POSITIVE DIFFERENTIAL YES; Platelet Count 287 K/mm3 (150-450); RBC Distribution Width CV 14.7 % (11.6-14.6); RBC Distribution Width SD 48.3 fl (35.1-43.9); Red Blood Count 4.67 M/mm3 (4.2-5.4); White Blood Count 23.2 K/mm3 (4.4-11.0)
[2022-04-13 02:35] LABS: Differential Indicated SCAN CRITERIA MET
[2022-04-13 02:38] LABS: Color, Urine Yellow (Yellow); Glucose, Dipstick Normal (Normal); Ketone-Dipstick 5 mg/dl (Negative); Leukocyte Esterase-Dipstick 500 /ul (Negative); Mucous, Urine 0 SEEN /hpf (<or=2+); Nitrite-Dipstick Negative (Negative); Occult Blood-Urine 10 /ul (Negative); Protein-Dipstick 30 mg/dl (Negative); Squamous Epithelial Cells - UA 0 SEEN /hpf (5-10); Urine Bilirubin Dipstick Negative (Negative); Urine Clarity Sl. Cloudy (Clear); Urine Urobilinogen Normal (Normal)
[2022-04-13] MEDS: Ondansetron 4 MG/2 ML Vial IV (02:40)
[2022-04-13 02:45] LABS: Bacteria 1+ /hpf (None Seen); Red Blood Cells-Urine 0-5 SEEN /hpf (0-5); White Blood Cells 10-25 SEEN /hpf (0-5)
[2022-04-13 02:46] LABS: AST(SGOT) 24 U/L (15-37); Alanine Aminotransfer ALT/SGPT 29 U/L (13-56); Albumin, Serum 3.9 g/dL (3.2-5.0); Alkaline Phosphatase 90 U/L (45-117); Anion Gap 8 (5-15); BUN 19 mg/dL (7-18); BUN/Creat Ratio 20.7 RATIO (10-20); Calcium,Total 9.2 mg/dL (8.5-10.1); Chloride 107 mmol/L (98-107); Creatinine, Serum 0.92 mg/dL (0.55-1.02); EST Glomerular Filtration Rate 63 mL/min (>60); Est Glom Filt Rate - Afr Amer 76 mL/min (>60); Globulin 3.8 g/dL (2.2-4.2); Glucose 154 mg/dL (74-106); Lipase 143 U/L (73-393); Protein, Total 7.7 g/dL (6.4-8.2); Sodium Level 141 mmol/L (136-145); Troponin-I HS 6 pg/mL (3.0-54.0)
[2022-04-13 02:53] LABS: Differential Comment SCANNED
[2022-04-13] MEDS: Ceftriaxone 1 GM/50 ML BAG IV (04:06)
[2022-04-13 04:27] VITALS: PULSE 79; RESP 16; O2SAT 98
[2022-04-13 12:34] LABS: Pathologist Review Reviewed
== END 2022-04-13 04:27 | disposition home or self-care (01) ==
PROVIDERS: Emergency Provider Emergency Medicine; PCP Family Medicine; Visit Provider Emergency Medicine
DX: N39.0 Urinary tract infection, site not specified (principal); I48.0 Paroxysmal atrial fibrillation; I10 Essential (primary) hypertension; Z79.01 Long term (current) use of anticoagulants; Z79.899 Other long term (current) drug therapy
CPT/HCPCS: 74177; 80053; 81001; 83690; 84484; 85025; 87086; 87088; 93005; 96361; 96365; 96375; 99285; J7030; Q9967; A4216; J2405

== ENCOUNTER → 2022-04-28 | Outpatient (CLI) | payer MEDICARE, BC, SELFPAY ==
--- NOTE | 2022-04-28 16:34 | STRESSREP ---
Stress Test Report Pharmacologic myocardial perfusion stress test. 77-year-old lady with a history of angina and syncope Resting EKG demonstrates with a rate of 62 bpm. Resting blood pressure is 142/70 mmHg. 0.4 mg of regadenoson was infused per usual protocol followed by rapid intravenous saline flush injection. Continuous EKG monitoring was performed. The maximum heart rate was 92 bpm which was 64% of max impacted heart rate the maximum workload was 1 metabolic equivalent. At rest there were no ST or T wave changes noted to suggest ischemia and at peak infusion nonspecific ST changes were noted which did not meet the criteria for ischemia. No clinical angina is noted. The final blood pressure was 140/70 mmHg. Myocardial perfusion protocol. 12 mCi of technetium 99m sestamibi was injected at rest. 0.4 mg of regadenoson was infused per usual protocol. At peak infusion 34.9 mCi of technetium 99m sestamibi was injected stress images were obtained stress and rest images were reconstructed and compared in the short axis vertical long and horizontal long axis. Gated images were also obtained. Perfusion SPECT analysis: Review of the stress images demonstrate normal uptake of tracer noted in all areas of the myocardium. The resting images similar demonstrated normal uptake of tracer noted in all areas of the myocardium. No areas of reversibility are noted to suggest ischemia and no previous infarct is noted. Gated SPECT analysis: The gated ejection fraction is 74%. Conclusion: Normal pharmacologic myocardial perfusion stress test. Preserved ejection fraction.
== END | disposition home or self-care (01) ==
LOC: CVS 07:06
PROVIDERS: PCP Family Medicine; Visit Provider Nurse Practitioner Gerontology
DX: R55 Syncope and collapse (principal); I20.8 Other forms of angina pectoris
CPT/HCPCS: 78452; 93017; A9500; A4216; J2785

== ENCOUNTER 2022-06-29 09:30 | Outpatient (RCR) | payer MEDICARE, BC, SELFPAY ==
--- NOTE | 2022-03-23 12:50 | HP.PTEVAL ---
Patient's Visit Information CONCHA SLADE is a 77 year old F referred to Physical Therapy by PEYTON MOHAMUD with a diagnosis of L TKR S/P 01-13-2022. Date of Evaluation: 03/23/22 Physical Therapist: WENDI Estrella - Visit Plan Frequency: 2x /Week Duration: 2 Months Plan: 2X/ week for 8 weeks for L knee AROM, PROM, gait training, strengthening, functional activities with HEP - Subjective Pt S/P L TKR on 01-14-2022. Pt reports that her R knee hurts more now than the L knee. [facility] to REHAB at [place] and then had PT at [facility] and then had home PT. Now she is here for PT. She has been walking with the cane for about 3 weeks now. At home she gets around the house without the cane but she does not go out without the cane and she can hold onto stuff at home. She is back to driving. She lives alone in one story home. She reports that she has some trouble getting out of a chair. She has a walk in shower so no trouble getting in and out. 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 Pt fell at home the other day and was kind of light headed and nausea and she was flat on her back on the floor and does not remember falling. She feels that she was dehydrated. She did not hurt her knee. She was not hurt. - Pain L knee Pain Intensity (Out of 10): 1 Pain Intensity Range: 6 Comment: with movement and walking R knee pain Pain Intensity (Out of 10): 8 - Objective Gait: Walks with a straight cane with slow gait pattern with increase WB on the R LE and decrease stride length. L Knee AROM: 0- 107. R knee AROM: 0-112. MMT: R hip flex 8.1# and L hip flex 6.8#. R knee ext 13.7# and L knee ext 8,9#. R knee flex 12.7# and L knee flex 7.2#. L knee patella girth 48.7. L knee 6 inch suprapatellar 59.4. SLR on the L AA is needed 2 X 10. Pt likes to ER her her hip in supine and with gait. TU.74 - Balance/Special Test Scores Lower Extremity Functional Score: 21 WOMAC Total Score: 54 WOMAC Percentatge: 43.7500 - Goals Goal 1:: I HEP Goal Time Frame: 4-6 Weeks Goal 2:: Increase L knee AROM to 120 degrees flexion Goal Time Frame: 4-6 Weeks Goal 3:: Be able to walk without AD and without antalgic gait Goal Time Frame: 4-6 Weeks Goal 4:: Be able to go up and down the steps recip with 1 hand rail Goal Time Frame: 4-6 Weeks - Rehabilitation Potential Rehabilitation Potential: Good - Anticipated Interventions Patient/Client Instruction: Educate patient on: Condition, Plan of Care For the Purpose of:: To decrease pain, To increase ROM, To improve nutrient delivery to tissue, To improve muscle performance and motor function, To improve ability to perform ADL's, To increase tolerance to activity/condition/position, To improve performance and independence with ADL's, To decrease level of supervision to perform tasks, To improve ability of physical actions for home/community/work/leisure, To improve gait and locomotor functions, To improve health of tissue, To decrease soft tissue restriction, To increase flexibility/ROM, To improve balance Therapeutic Exercise to Include: Strength training, Endurance training, Postural training, Flexibilty training, Gait and locomotor training, Neuromotor development, Passive ROM, Active ROM For the Purpose of:: To decrease pain, To increase ROM, To improve nutrient delivery to tissue, To improve muscle performance and motor function, To improve ability to perform ADL's, To increase tolerance to activity/condition/position, To improve performance and independence with ADL's, To decrease level of supervision to perform tasks, To improve ability of physical actions for home/community/work/leisure, To improve gait and locomotor functions, To improve health of tissue, To decrease soft tissue restriction, To increase flexibility/ROM Functional Training to Include: Gait training For the Purpose of:: To improve gait and locomotor functions, To improve safety with gait Manual Therapy Techniques to Include: Mobilization, Passive ROM, Soft tissue mobilization For the Purpose of:: To increase ROM, To improve nutrient delivery to tissue Cryotherapy (ice pack, ice massage): Yes Thermo therapy (hot pack): Yes For the Purpose of:: To decrease pain, To increase ROM, To improve nutrient delivery to tissue Thank you for the opportunity to evaluate your patient. For Medicare and Medicare HMO plans, please review the plan of care and approve it. It will need to be FAXED BACK to us at [phone] for Medicare purposes. For Medicare only, by signing this I certify the plan of care. Please let me know if there are questions or concerns regarding this plan of care. Physician Signature: Date:
--- NOTE | 2022-04-16 13:34 | HP.PTREVAL_ITS ---
PEYTON MOHAMUD, It has been my pleasure to treat CONCHA SLADE over the last 8 visits for L TKR S/P 01-13-2022. Please see the progress note below for an update on the physical therapy plan of care! Subjective: It was in the hospital for a UTI... had to call the squad. She had the full work up. Her white count was high and that indicated an infection. Pt feels that she still needs to work on more ROM and strength. Objective/Function: Stairs: L knee AROM: Gait: HEP: Plan Plan: May want to slow the pace of her ex due to poor breathing but still challenge the pt at the same time. 2X/ week for 8 weeks for L knee AROM, PROM, gait training, strengthening, functional activities with HEP Balance/Gait/Functional tests - Balance/Special Test Scores Lower Extremity Functional Score: 40 WOMAC Total Score: 54 WOMAC Percentage: 43.7500 Goals Goal 1:: I HEP Goal Time Frame: 4-6 Weeks Goal 2:: Increase L knee AROM to 120 degrees flexion Goal Time Frame: 4-6 Weeks Goal 3:: Be able to walk without AD and without antalgic gait Goal Time Frame: 4-6 Weeks Goal 4:: Be able to go up and down the steps recip with 1 hand rail Goal Time Frame: 4-6 Weeks Anticipated Interventions Patient/Client Instruction: Educate patient on: Condition, Plan of Care For the Purpose of:: To decrease pain, To increase ROM, To improve nutrient delivery to tissue, To improve muscle performance and motor function, To improve ability to perform ADL's, To increase tolerance to activity/condition/position, To improve performance and independence with ADL's, To decrease level of supervision to perform tasks, To improve ability of physical actions for home/community/work/leisure, To improve gait and locomotor functions, To improve health of tissue, To decrease soft tissue restriction, To increase flexibility/ROM, To improve balance Therapeutic Exercise to Include: Strength training, Endurance training, Postural training, Flexibilty training, Gait and locomotor training, Neuromotor development, Passive ROM, Active ROM For the Purpose of:: To decrease pain, To increase ROM, To improve nutrient delivery to tissue, To improve muscle performance and motor function, To improve ability to perform ADL's, To increase tolerance to activity/condition/position, To improve performance and independence with ADL's, To decrease level of supervision to perform tasks, To improve ability of physical actions for home/community/work/leisure, To improve gait and locomotor functions, To improve health of tissue, To decrease soft tissue restriction, To increase flexibility/ROM Functional Training to Include: Gait training For the Purpose of:: To improve gait and locomotor functions, To improve safety with gait Manual Therapy Techniques to Include: Mobilization, Passive ROM, Soft tissue m obilization For the Purpose of:: To increase ROM, To improve nutrient delivery to tissue Cryotherapy (ice pack, ice massage): Yes Thermo therapy (hot pack): Yes For the Purpose of:: To decrease pain, To increase ROM, To improve nutrient delivery to tissue Please do not hesitate to contact me at [phone] by phone or if you have questions or concerns regarding this new plan of care! Sincerely, Izabel Carlos, MPT
--- NOTE | 2022-06-01 10:58 | HP.PTREVAL_ITS ---
PEYTON MOHAMUD, It has been my pleasure to treat CONCHA SLADE over the last 25 visits for L TKR S/P 01-13-2022. Please see the progress note below for an update on the physical therapy plan of care! Subjective: She said the Dr said it could take a year to get better. She said that both legs hurt with sit to stand, steps. No pain with walking. She sees the Dr in January at a year check up. She complains of sensitivity across the front of the L knee to the touch. She has trouble getting in and out of a low car. Objective/Function: R knee ext 15.2 and L knee ext 12. R knee flex 9.9 and L 9#. Sit to stand: pt needs UE to get out of a chair and has increase pain in the front of B knees. Gait: walks with good recip gait pattern. Stairs: up the stairs with the L and has to really pull self up with B hand rails.. Pt has decreased ability to eccentric lower herself with 2 hand rails on the L knee bend. L knee flex 117 degress and -1 degree from full ext Plan Plan: Pt is trying Volterin for her pain. Continue 2X/ week for 4 weeks (next 2 weeks on the machines and start teaching indep set up and then after 2 weeks see if can re start some small step ups, sit to stands, and stairs. May do a little MT if needed due to pain of the L knee musculature). Balance/Gait/Functional tests - Balance/Special Test Scores Lower Extremity Functional Score: 41 WOMAC Total Score: 54 WOMAC Percentage: 43.7500 Goals Goal 1:: I HEP and I gym set up for silver sneakers on machines in the gym Goal Time Frame: 4-6 Weeks Goal 2:: Increase L knee AROM to 120 degrees flexion Goal Time Frame: 4-6 Weeks Goal Progress: Progressing Goal 3:: Be able to walk without AD and without antalgic gait Goal Time Frame: 4-6 Weeks Goal Progress: Goal Met Goal 4:: Be able to go up and down the steps recip with 1 hand rail Goal Time Frame: 4-6 Weeks Goal Progress: Progressing Goal 5:: L knee MMT improve (on 06-01-22 L knee ext 12 and L knee flex 9) Anticipated Interventions Patient/Client Instruction: Educate patient on: Condition, Plan of Care For the Purpose of:: To decrease pain, To increase ROM, To improve nutrient delivery to tissue, To improve muscle performance and motor function, To improve ability to perform ADL's, To increase tolerance to activity/condition/position, To improve performance and independence with ADL's, To decrease level of supervision to perform tasks, To improve ability of physical actions for home/community/work/leisure, To improve gait and locomotor functions, To improve health of tissue, To decrease soft tissue restriction, To increase flexibility/ROM, To improve balance Therapeutic Exercise to Include: Strength training, Endurance training, Postural training, Flexibilty training, Gait and locomotor training, Neuromotor developm ent, Passive ROM, Active ROM For the Purpose of:: To decrease pain, To increase ROM, To improve nutrient delivery to tissue, To improve muscle performance and motor function, To improve ability to perform ADL's, To increase tolerance to activity/condition/position, To improve performance and independence with ADL's, To decrease level of supervision to perform tasks, To improve ability of physical actions for home/community/work/leisure, To improve gait and locomotor functions, To improve health of tissue, To decrease soft tissue restriction, To increase flexibility/ROM Functional Training to Include: Gait training For the Purpose of:: To improve gait and locomotor functions, To improve safety with gait Manual Therapy Techniques to Include: Mobilization, Passive ROM, Soft tissue mobilization For the Purpose of:: To increase ROM, To improve nutrient delivery to tissue Cryotherapy (ice pack, ice massage): Yes Thermo therapy (hot pack): Yes For the Purpose of:: To decrease pain, To increase ROM, To improve nutrient delivery to tissue Please do not hesitate to contact me at [phone] by phone or if you have questions or concerns regarding this new plan of care! Sincerely, Izabel Carlos, MPT
--- NOTE | 2022-06-29 11:36 | HP.PTDCSUM ---
It has been my pleasure to treat CONCHA SLADE referred by PEYTON MOHAMUD, with the diagnosis of L TKR S/P 01-13-2022 for a total of 31 visit(s). Discharge Date: 06/29/22 Please see the following information for a summary of their discharge status. Subjective: Pt reports that she wants to do and see another Dr since she has pain in B knees. She reports that going down the stairs was a little easier today. L knee Pain Intensity (Out of 10): 2 R knee pain Pain Intensity (Out of 10): 2 % Improvement: 75 Objective/Function: Stairs: up with 2 hand rails recip at times. She pulls herself up with the handrails and struggles to get full drive through her LE's. Going down the steps are not a continous motion B. L knee AROM: 0-120 L knee flexion. L knee strength: 13.8. 14.1. 11.4 and 8.7 Goal 1:: I HEP and I gym set up for silver sneakers on machines in the gym Goal Progress: Goal Met Goal 2:: Increase L knee AROM to 120 degrees flexion Goal Progress: Goal Met Goal 3:: Be able to walk without AD and without antalgic gait Goal Progress: Goal Met Goal 4:: Be able to go up and down the steps recip with 1 hand rail Goal Progress: Progressing Goal 5:: L knee MMT improve (on 06-01-22 L knee ext 12 and L knee flex 9) Goal Progress: Goal Met Plan: DC PT to I gym routine Discharge Comments: DC PT to HEP and I gym routine. If there are questions or concerns regarding this patient's physical therapy, please feel free to call me at [phone]. Thank you for the referral of this patient. Sincerely, Izabel Carlos, MPT Balance/Gait/Functional tests - Balance/Special Test Scores Lower Extremity Functional Score: 31 WOMAC Total Score: 54 WOMAC Percentage: 43.7500
== END 2022-06-29 19:00 | disposition home or self-care (01) ==
LOC: PT 09:30
PROVIDERS: PCP Family Medicine
DX: Z47.1 Aftercare following joint replacement surgery (principal); Z96.652 Presence of left artificial knee joint; M17.11 Unilateral primary osteoarthritis, right knee
CPT/HCPCS: 97110; 97164; 97530

== ENCOUNTER 2022-07-24 00:29 | Emergency (ER) | payer MEDICARE, BC, SELFPAY ==
[2022-07-24 00:30] VITALS: BP 159/99; PULSE 112; RESP 18; TEMP 36.7; O2SAT 97; BMI 41.5
--- NOTE | 2022-07-24 01:29 | EKG12_ITS ---
Test Reason : DYSRHYTHMIA Blood Pressure : / mmHG Vent. Rate : 104 BPM Atrial Rate : 119 BPM P-R Int : 000 ms QRS Dur : 068 ms QT Int : 312 ms P-R-T Axes : 000 008 264 degrees QTc Int : [address] & T wave abnormality, consider inferior ischemia ST & T wave abnormality, consider anterolateral ischemia Abnormal ECG Confirmed by NANCY TELLEZ, SHERINE ([id number]), photo editor AVINASH GARCIA ([id number]) on 07/26/2022 11:30:13 A M Referred By: RADHA Confirmed By:PILY CRUZ MD
[2022-07-24 01:39] LABS: Absolute Lymphocyte Count 1.22 X10^3/uL (0.83-4.51); Absolute Neutrophil Count 13.5 X10^3/uL (2.0-7.7); Basophil# 0.03 X10^3/uL; Basophil% 0.2 % (0-1); Eosinophil# 0.07 X10^3/uL; Eosinophils% 0.4 % (0-5); Hematocrit 42.9 % (37-47); Hemoglobin 13.8 g/dL (12.0-15.0); Lymphocyte # 1.22 X10^3/ul (0.83-4.51); Lymphocyte % 7.5 % (19-41); Mean Corp Hgb Conc 32.2 g/dL (32-36); Mean Corpuscular Hgb 29.9 pg (27.0-32.0); Mean Corpuscular Volume 93.1 fL (81-99); Mean Platelet Vol. 12.3 fl (6.2-12.0); Monocyte# 1.33 X10^3/uL; Monocyte% 8.2 % (0-10); NRBC Flagged by Analyzer 0 % (0-5); Neutrophil # 13.45 X10^3/uL (2.7-7.7); Neutrophil % 83.1 % (47-70); Platelet Count 270 K/mm3 (150-450); RBC Distribution Width CV 13.8 % (11.6-14.6); RBC Distribution Width SD 46.6 fl (35.1-43.9); Red Blood Count 4.61 M/mm3 (4.2-5.4); White Blood Count 16.2 K/mm3 (4.4-11.0)
[2022-07-24] MEDS: Ondansetron 4 MG/2 ML Vial IV (01:42)
[2022-07-24 01:57] LABS: AST(SGOT) 20 U/L (15-37); Alanine Aminotransfer ALT/SGPT 24 U/L (13-56); Albumin, Serum 3.8 g/dL (3.2-5.0); Alkaline Phosphatase 80 U/L (45-117); Anion Gap 10 (5-15); BUN 12 mg/dL (7-18); BUN/Creat Ratio 14.4 RATIO (10-20); Calcium,Total 9.5 mg/dL (8.5-10.1); Chloride 106 mmol/L (98-107); Creatinine, Serum 0.83 mg/dL (0.55-1.02); EST Glomerular Filtration Rate 71 mL/min (>60); Est Glom Filt Rate - Afr Amer 85 mL/min (>60); Estimated Creatinine Clearance 44.89 ml/min; Globulin 3.8 g/dL (2.2-4.2); Glucose 162 mg/dL (74-106); Lipase 28 U/L (13-75); Potassium 3.9 mmol/L (3.5-5.1); Protein, Total 7.6 g/dL (6.4-8.2); Sodium Level 142 mmol/L (136-145)
--- NOTE | 2022-07-24 02:25 | ED.VIS.GI ---
HPI HPI - GI History of Present Illness Chief Complaint: Nausea/Vomiting Informant: patient Abdominal Pain/Flank Pain Onset: Today Context: Gradual Onset Timing: Waxes and wanes Quality: Cramping Location: RLQ and LLQ Worsened by: Nothing Relieved by: Nothing Nausea/Vomiting/Emesis GI Symptom: Positive for Nausea and Vomiting Onset: Today Quality: Positive for Nonbilious; Negative for Blood streaks, Coffee ground or Hematemesis Diarrhea/Melena/Hematochezia GI Symptom: Negative for Diarrhea, Melena or Hematochezia Associated Symptoms Associated Symptoms: Positive for Frequency; Negative for Dysuria or Hematuria Narrative Narrative: Patient presents with nausea, vomiting, and abdominal pain that began tonight. Patient states her pain is mainly over the lower abdomen. Patient describes it as cramping. Patient states it waxes and wanes. Patient states nothing makes it worse and nothing makes it better. Patient denies any hematemesis or coffee-ground emesis. Patient states she is just vomiting up yellow stomach contents. Patient states she has had loose stools but denies any diarrhea, melena, or hematochezia. Patient admits to some urinary frequency but denies any dysuria or hematuria. Patient states that she can feel some palpitations tonight. Patient states it feels similar to episodes of atrial fibrillation. [facility] Medical History Anxiety Chronic anticoagulation Dyspnea on minimal exertion Enlarged LA (left atrium) Essential hypertension Headache History of malignant neoplasm of skin Intermittent palpitations Left knee pain Obesity Osteoarthritis Paroxysmal atrial fibrillation Home Medications ascorbate calcium (vitamin C) 500 mg tablet 500 mg PO DAILY supplement 12/18/21 [History Last Taken Unknown] cholecalciferol (vitamin D3) 25 mcg (1,000 unit) capsule 25 mcg PO DAILY supplement 12/18/21 [History Last Taken Unknown] lisinopril 5 mg tablet 5 mg PO DAILY HTN 12/18/21 [History Last Taken Unknown] multivitamin 1 tab PO DAILY supplement 12/18/21 [History Last Taken Unknown] omeprazole 40 mg capsule,delayed release 40 mg PO DAILY stomach 12/18/21 [History Last Taken Unknown] Arthritis Pain Compound 2 click topical TID #1 BOTTLE 01/25/22 [Rx Last Taken Unknown] acetaminophen 500 mg tablet 1,000 mg PO Q6 #0 tabs 01/25/22 [Rx Last Taken Unknown] albuterol sulfate 90 mcg/actuation aerosol inhaler 2 puff inhalation Q4H PRN PRN SHORTNESS OF BREATH #1 g 01/25/22 [Rx Last Taken Unknown] bisacodyl 10 mg rectal suppository 10 mg DE .PRN X 1 PRN Constipation #0 ea 01/25/22 [Rx Last Taken Unknown] gabapentin 100 mg capsule 200 mg PO 2100 #1 cap 01/25/22 [Rx Last Taken Unknown] magnesium hydroxide 400 mg/5 mL oral suspension 30 ml PO .PRN X 1 PRN Constipation #0 mL 01/25/22 [Rx Last Taken Unknown] sertraline 50 mg tablet 50 mg PO DAILY #1 TAB 01/25/22 [Rx Last Taken Unknown] vit C 250 mg-vit E 90 mg-zinc 40 mg-copper 1 [id number] capsule (PreserVision AREDS-2) 1 ea PO BIDCM #1 cap 01/25/22 [Rx Last Taken Unknown] cephalexin 500 mg capsule 500 mg PO Q12 #14 CAPSULES 04/13/22 [Rx Last Taken Unknown] gabapentin 100 mg capsule 100 mg PO DAILY 04/13/22 [History Last Taken Unknown] ondansetron 4 mg disintegrating tablet 4 mg PO Q8H PRN PRN Nausea #10 tabs 04/13/22 [Rx Last Taken Unknown] apixaban 5 mg tablet (Eliquis) 5 mg PO BID blood thinner #180 tabs 04/14/22 [Rx Last Taken Unknown] metoprolol succinate 50 mg tablet,extended release 24 hr 50 mg PO BID 04/30/22 [History Last Taken Unknown] Allergy/AdvReac Type Severity Reaction Status Date / Time No Known Allergies Allergy Unverified 07/24/22 00:35 Family History Other Cancer Surgical History H/O arthroscopy of knee History of appendectomy History of cataract surgery History of cholecystectomy History of cosmetic surgery History of left knee replacement History of tonsillectomy Social History household members: other details: Lives alone. She is a . housing: condominium number of children: 0 current occupational status: retired leisure activities: games Smoking Status: Never smoker alcohol intake: never substance use type: does not use ROS ROS ED Constitutional Constitutional ED: Reports chills and subjective; Denies fever(s) Eyes Eyes: Denies blurry vision or change in vision ENT ENT ED: Denies rhinorrhea or sore throat Cardiovascular Cardiovascular: Reports palpitations; Denies chest pain Respiratory/Chest Respiratory/Chest: Reports cough and dyspnea Gastrointestinal Gastrointestinal: Reports abdominal pain, nausea and vomiting Genitourinary Genitourinary ED: Denies dysuria or hematuria Musculoskeletal Musculoskeletal: Denies back pain or neck pain Integumentary Denies abscess or rash Neurologic Neurologic: Reports headache(s); Denies weakness Allergic/Immunologic Allergic/Immunologic ED: Denies mouth swelling or urticaria EXAM Physical Exam Const Vital Signs: 07/24/22 00:30 07/24/22 02:39 07/24/22 03:39 Temperature 98.1 F Temperature Source Temporal Pulse Rate 112 H 110 H 117 H Respiratory Rate 18 18 18 Blood Pressure 159/99 H 166/81 H 137/73 H Blood Pressure Mean 119 109 94 Pulse Ox 97 97 95 Oxygen Delivery Method Room Air Room Air Room Air Positive well nourished and well developed General Appearance ED: well developed HEENT Reports moist mucous membranes Neck supple and no JVD Resp normal respiratory effort and clear to auscultation bilaterally Cardio regular rate Rhythm: abnormal rhythm irregularly irregular GI normal to inspection, nondistended, normoactive bowel sounds Palpation: soft and tender LLQ, RLQ and suprapubic Extremity normal to inspection General Extremety ED: Negative for edema or tenderness General Extremity: Negative for edema Neuro oriented x3, CN's II-XII intact bilaterally and no sensory deficits noted Sensorium / Orientation: alert Motor Exam: strength 5/5 throughout Psych mental status grossly normal Skin no rashes or lesions noted MDM MDM MDM Narrative Medical decision making narrative: Differential diagnosis includes atrial fibrillation, cardiac ischemia, pneumonia, bowel obstruction, pancreatitis, gastroenteritis, urinary tract infection, and pyelonephritis. CT scan of the abdomen pelvis will be obtained to assess for bowel obstruction and perforation. CBC will be obtained to assess for leukocytosis and anemia. Comprehensive metabolic profile will be obtained to assess for hepatic function, renal function, and electrolyte abnormality. Lipase will be obtained to assess for pancreatitis. EKG will be obtained to assess for cardiac dysrhythmia and cardiac ischemia. Urinalysis will be obtained to assess for urinary tract infection and hematuria. Lab Data Attestation: I reviewed the patient's lab results. Lab results narrative: CBC was reviewed. There is a mild leukocytosis of 16.2. Comprehensive metabolic profile was reviewed. Glucose was slightly elevated at 162. The remainder was within normal limits. Lipase was reviewed and was normal. Labs: Laboratory Results - last 24 hr 07/24/22 07/24/22 07/24/22 00:36 00:36 02:35 WBC 16.2 H RBC 4.61 Hgb 13.8 Hct 42.9 MCV 93.1 MCH 29.9 MCHC 32.2 RDW Std Deviation 46.6 H RDW Coeff of Osiris 13.8 Plt Count 270 MPV 12.3 H Immature Gran % (Auto) 0.600 Neut % (Auto) 83.1 H Lymph % (Auto) 7.5 L Steele % (Auto) 8.2 Eos % (Auto) 0.4 Baso % (Auto) 0.2 Absolute Neuts (auto) 13.5 H Absolute Lymphs (auto) 1.22 Nucleated RBC % 0 Sodium 142 Potassium 3.9 Chloride 106 Carbon Dioxide 26.0 Anion Gap 10 BUN 12 Creatinine 0.83 Estim Creat Clear Calc 44.89 Est GFR (MDRD) Af Amer 85 Est GFR (MDRD) Non-Af 71 BUN/Creatinine Ratio 14.4 Glucose 162 H Calcium 9.5 Total Bilirubin 0.40 AST 20 ALT 24 Alkaline Phosphatase 80 Total Protein 7.6 Albumin 3.8 Globulin 3.8 Albumin/Globulin Ratio 1.0 Lipase 28 Urine Color Yellow Urine Clarity Clear Urine pH 6.0 Ur Specific Pelham 1.015 Urine Protein 15 H Urine Glucose (UA) Normal Urine Ketones 5 H Urine Occult Blood Negative Urine Nitrite Negative Urine Bilirubin Negative Urine Urobilinogen Normal Ur Leukocyte Esterase Negative Urine RBC 0 SEEN Urine WBC 0 SEEN Ur Squamous Epith Cells 0 SEEN Urine Bacteria 0 SEEN Urine Mucus 0 SEEN Radiography Diagnostic Testing: Clinical Impression(s) from Imaging Studies Abdomen/Pelvis CT 07/24/22 03:18 IMPRESSION: 1. No acute abnormalities identified in the abdomen/pelvis. 2. Diverticular disease of the colon but no diverticulitis. Electronically Signed: Dario Bustamante MD at 3:59 EDT Reading Location ID and State: [facility] / [place] Tel , Service support , CT scan of the abdomen pelvis was obtained. There is no acute abnormality noted. There is no free air or free fluid. There is diverticulosis but no evidence of diverticulitis. This was interpreted by the radiologist and was also reviewed by myself. EKG Initial EKG: Attestation: I personally reviewed and interpreted this EKG as follows: Interpretation: Atrial Fibrillation (104) and Non-Specific ST Changes Comments: EKG was obtained. On my independent interpretation, it showed a atrial fibrillation with a rate of 104. QRS interval was normal at 68 ms. QTc interval was normal at 410 ms. Temple was normal. There are nonspecific ST-T wave changes. Prior EKG tracings: available for review Prior: Unchanged (04/28/2022) Treatment and Re-Evaluation :: Patient was given IV fluids here. Patient was given Zofran. Patient is feeling better on reevaluation. Patient was advised of her findings. Patient was instructed to continue her medications as previously prescribed. Patient was instructed to follow-up with her primary care physician in 5 to 7 days. Under good and was agreeable with the plan. All questions were answered. Discharge Plan Triage Chief Complaint: Nausea/Vomiting ED Provider: Oz Segundo Dx/Rx/DC Orders Clinical Impression: Abdominal pain, Nausea and vomiting, Atrial fibrillation Instructions: ED Abdominal Pain Unkn Cause Fem Prescriptions: No Action omeprazole 40 mg capsule,delayed release(DR/EC) 40 mg PO DAILY lisinopril 5 mg tablet 5 mg PO DAILY multivitamin Tablet 1 tab PO DAILY ascorbate calcium (vitamin C) 500 mg tablet 500 mg PO DAILY cholecalciferol (vitamin D3) 25 mcg (1,000 unit) capsule 25 mcg PO DAILY Arthritis Pain Compound cream 2 click topical TID Qty: 1 5RF Rx Instructions: Only available at [facility] retail pharmacy. Apply TID to the Left knee sparing the incision. acetaminophen 500 mg Tablet 1,000 mg PO Q6 Qty: 0 0RF magnesium hydroxide 400 mg/5 mL Suspension 30 ml PO .PRN X 1 PRN (Reason: Constipation) Qty: 0 0RF bisacodyl 10 mg Suppository 10 mg DE .PRN X 1 PRN (Reason: Constipation) Qty: 0 0RF gabapentin 100 mg Capsule 200 mg PO 2100 Qty: 1 0RF albuterol sulfate 90 mcg/actuation Hfa Aerosol Inhaler 2 puff inhalation Q4H PRN PRN (Reason: SHORTNESS OF BREATH) Qty: 1 0RF sertraline 50 mg Tablet 50 mg PO DAILY Qty: 1 0RF PreserVision AREDS-2 250-90-40-1 mg Capsule 1 ea PO BIDCM Qty: 1 0RF gabapentin 100 mg capsule 100 mg PO DAILY cephalexin [cephalexin] 500 mg capsule 500 mg PO Q12 Qty: 14 0RF ondansetron [ondansetron] 4 mg tablet,disintegrating 4 mg PO Q8H PRN PRN (Reason: Nausea) Qty: 10 0RF Eliquis 5 mg tablet 5 mg PO BID Qty: 180 4RF metoprolol succinate 50 mg tablet extended release 24 hr 50 mg PO BID Primary Care Provider: Jeramie Alba Referrals: Jeramie Alba MD [Primary Care Provider] - 5-7 Days Melanie Jorge MD [Med Staff - Active Staff] - [facility] appointment Disposition Disposition: Home, Self Care
[2022-07-24 02:39] VITALS: BP 166/81; PULSE 110; RESP 18; O2SAT 97
[2022-07-24 02:41] LABS: Bacteria 0 SEEN /hpf (None Seen); Color, Urine Yellow (Yellow); Glucose, Dipstick Normal (Normal); Ketone-Dipstick 5 mg/dl (Negative); Leukocyte Esterase-Dipstick Negative /ul (Negative); Mucous, Urine 0 SEEN /hpf (<or=2+); Nitrite-Dipstick Negative (Negative); Occult Blood-Urine Negative /ul (Negative); Protein-Dipstick 15 mg/dl (Negative); Red Blood Cells-Urine 0 SEEN /hpf (0-5); Specific Gravity, Urine 1.015 (1.002-1.030); Squamous Epithelial Cells - UA 0 SEEN /hpf (5-10); Urine Bilirubin Dipstick Negative (Negative); Urine Clarity Clear (Clear); Urine Urobilinogen Normal (Normal); White Blood Cells 0 SEEN /hpf (0-5)
--- NOTE | 2022-07-24 03:18 | CT_ITS ---
EXAM: CT ABDOMEN AND PELVIS WITH INTRAVENOUS CONTRAST CLINICAL INDICATION: Abdominal pain -- IV PO Contrast TECHNIQUE: Helically acquired images were obtained of the abdomen and pelvis with intravenous contrast. This CT exam was performed using one or more of the following dose reduction techniques: automated exposure control, adjustment of the mA and/or kV according to patient size, and/or use of iterative reconstruction technique. CONTRAST: Oral and IV Gastrografin and 100mL Isovue-370 COMPARISON: 04/13/2022 FINDINGS: LOWER THORAX: Unremarkable. Lung bases are clear. No cardiomegaly. No significant pericardial effusion. ABDOMEN: LIVER: Unremarkable. Homogeneous. No focal mass. GALLBLADDER AND BILE DUCTS: Cholecystectomy. No intra- or extrahepatic biliary ductal dilation. PANCREAS: Some atrophy of the pancreas. No focal cystic or solid mass. No inflammation around the pancreas. SPLEEN: Unremarkable. Normal size without focal cystic or solid mass. ADRENALS: Unremarkable. No nodules. KIDNEYS AND URETERS: Unremarkable. Normal renal size and position. No urinary stone or renal obstruction. STOMACH AND BOWEL: Diverticular disease of the colon but no diverticulitis. No stomach or bowel distention. PELVIS: APPENDIX: No evidence of acute appendicitis. BLADDER: Unremarkable. REPRODUCTIVE: Unremarkable as visualized. No mass. ABDOMEN and PELVIS: INTRAPERITONEAL SPACE: Unremarkable. No ascites or other fluid collection. No free air. BONES/JOINTS: Degenerative changes of the spine. No suspicious lytic or blastic abnormality. SOFT TISSUES: Unremarkable. No discrete abdominal or pelvic wall hernia. VASCULATURE: Unremarkable. Abdominal aorta is non-dilated. LYMPH NODES: Unremarkable. No enlarged lymph nodes. CT/Abdomen/Pelvis WITH Contrast IMPRESSION: 1. No acute abnormalities identified in the abdomen/pelvis. 2. Diverticular disease of the colon but no diverticulitis. Electronically Signed: Dario Bustamante MD at 3:59 EDT ,
[2022-07-24 03:39] VITALS: BP 137/73; PULSE 117; RESP 18; O2SAT 95
[2022-07-24 04:25] VITALS: BP 127/71; PULSE 107; RESP 18; O2SAT 100
== END 2022-07-24 04:27 | disposition home or self-care (01) ==
PROVIDERS: Emergency Provider Emergency Medicine; PCP Family Medicine; Visit Provider Emergency Medicine
DX: R11.2 Nausea with vomiting, unspecified (principal); I48.0 Paroxysmal atrial fibrillation; R10.32 Left lower quadrant pain; R10.31 Right lower quadrant pain; I10 Essential (primary) hypertension; Z90.49 Acquired absence of other specified parts of digestive tract; Z79.01 Long term (current) use of anticoagulants; Z79.899 Other long term (current) drug therapy
CPT/HCPCS: 74177; 80053; 81001; 83690; 85025; 93005; 96361; 96374; 99285; J7040; Q9967; A4216; J2405

== ENCOUNTER → 2022-09-17 | Outpatient (CLI) | payer MEDICARE, BC, SELFPAY ==
--- NOTE | 2022-09-17 12:48 | BI_ITS ---
MAMMOGRAPHY - BILATERAL SCREENING REASON FOR EXAM: Female, 77 years old. Routine annual screening examination. PERTINENT HISTORY: Aunt with breast cancer. TECHNIQUE: Digital bilateral breast lan (3D mammographic acquisition) in the CC and MLO projections. 2-D mediolateral oblique (MLO) and craniocaudad (CC) views of both breasts were obtained. CAD: Full Field Digital Mammography with Computer Added Detection was performed. COMPARISON: Comparison is made with prior outside examination dated September 08, 2021. FINDINGS: Breast Composition: There are scattered areas of fibroglandular density. There are no dominant masses or suspicious calcifications. Stable fat-containing bilateral axillary lymph nodes. No other significant abnormalities are identified. There has been no significant change since the prior study. BI/SCRN MAMM (CAD)W/LAN BILAT IMPRESSION: Stable bilateral screening mammogram. Yearly follow-up mammogram recommended. (A) ASSESSMENT CATEGORY: BIRADS Category 2: Benign. A letter regarding these results will be sent to the patient by the facility within 30 days. Approximately 10% of breast cancers are not detected by mammography. A normal mammogram should not delay biopsy of a clinically suspicious abnormality. [id number] Electronically Signed: Davon Russo MD at 8:34 EDT ,
== END | disposition home or self-care (01) ==
LOC: OPBI 12:44
PROVIDERS: PCP Family Medicine; Visit Provider Family Medicine
DX: Z12.31 Encounter for screening mammogram for malignant neoplasm of breast (principal)
CPT/HCPCS: 77063; 77067

== ENCOUNTER → 2022-12-22 | Outpatient (CLI) | payer MEDICARE, BC, SELFPAY ==
--- NOTE | 2022-12-22 09:14 | RAD_ITS ---
INDICATION: Cough, WILSON EXAMINATION/TECHNIQUE: X-RAY - XR Chest 2 Views COMPARISON: FINDINGS: LINES/DEVICES: None. LUNGS: No consolidation, edema or effusion. No pneumothorax. MEDIASTINUM AND CARDIOVASCULAR STRUCTURES: Cardiac silhouette not enlarged. Central airways and mediastinal contour are unremarkable. BONES AND SOFT TISSUES: Unremarkable. RAD/Chest PA and Lateral IMPRESSION: No radiographic evidence of acute cardiopulmonary disease. Electronically Signed: Delroy Everett MD at 11:59 EDT ,
[2022-12-22 10:15] LABS: Absolute Lymphocyte Count 1.19 X10^3/uL (0.83-4.51); Absolute Neutrophil Count 5.9 X10^3/uL (2.0-7.7); Basophil# 0.03 X10^3/uL; Basophil% 0.4 % (0-1); Eosinophil# 0.18 X10^3/uL; Eosinophils% 2.2 % (0-5); Hematocrit 44.2 % (37-47); Hemoglobin 13.8 g/dL (12.0-15.0); Lymphocyte # 1.19 X10^3/ul (0.83-4.51); Lymphocyte % 14.3 % (19-41); Mean Corp Hgb Conc 31.2 g/dL (32-36); Mean Corpuscular Hgb 29.6 pg (27.0-32.0); Mean Corpuscular Volume 94.8 fL (81-99); Mean Platelet Vol. 12.2 fl (6.2-12.0); Monocyte# 0.95 X10^3/uL; Monocyte% 11.4 % (0-10); NRBC Flagged by Analyzer 0 % (0-5); Neutrophil # 5.94 X10^3/uL (2.7-7.7); Neutrophil % 71.5 % (47-70); Platelet Count 330 K/mm3 (150-450); RBC Distribution Width CV 14.3 % (11.6-14.6); RBC Distribution Width SD 50.1 fl (35.1-43.9); Red Blood Count 4.66 M/mm3 (4.2-5.4); White Blood Count 8.3 K/mm3 (4.4-11.0)
[2022-12-22 10:51] LABS: Anion Gap 1 (5-15); BUN 14 mg/dL (7-18); BUN/Creat Ratio 15.2 RATIO (10-20); Calcium,Total 9.9 mg/dL (8.5-10.1); Chloride 106 mmol/L (98-107); Creatinine, Serum 0.92 mg/dL (0.55-1.02); EST Glomerular Filtration Rate 63 mL/min (>60); Est Glom Filt Rate - Afr Amer 76 mL/min (>60); Glucose 132 mg/dL (74-106); Potassium 3.7 mmol/L (3.5-5.1); Sodium Level 140 mmol/L (136-145)
[2022-12-22 10:55] LABS: BNP,B-Type NATRIURETIC PEPTIDE 66.5 pg/mL (0-100)
== END | disposition home or self-care (01) ==
LOC: RAD 09:12
PROVIDERS: PCP Family Medicine; Referring Provider Nurse Practitioner Gerontology; Visit Provider Nurse Practitioner Gerontology
DX: R06.09 Other forms of dyspnea (principal); R05.9 Cough, unspecified; R53.83 Other fatigue
CPT/HCPCS: 36415; 71046; 80048; 83880; 85025

== ENCOUNTER → 2023-01-14 | Outpatient (CLI) | payer MEDICARE, BC, SELFPAY | END | disposition home or self-care (01) | LOC: PSN 13:52 | PROVIDERS: PCP Family Medicine; Referring Provider Nurse Practitioner Gerontology; Visit Provider Nurse Practitioner Gerontology | DX: I48.0 Paroxysmal atrial fibrillation (principal) | CPT/HCPCS: 93225; 93226 ==

== ENCOUNTER → 2023-03-23 | Day surgery (SDC) | payer MEDICARE, BC, SELFPAY ==
--- NOTE | 2023-03-15 16:02 | PCM.HP.BLA ---
History and Physical Date of Admission: 03/23/23 This is a pleasant 78-year-old lady who presents for a cardioversion. She has a history of paroxysmal atrial fibrillation, and hypertension. Her atrial fibrillation has been controlled on metoprolol and she has been taking Eliquis. She recently relocated from [place] and thinks that she had a stress test over there. She had a temporal artery biopsy on 01/31/2023. She held her Eliquis 2 days prior and restarted after her procedure. Her most recent Holter monitor demonstrated atrial fibrillation 99%. From a cardiac standpoint, the patient is doing well. She does acknowledge heart palpitations. She describes this as thumping sensation. She denies chest pain, pressure or heaviness. She does have SOB with exertion. She denies Orthopnea, and PND. She does not have bleeding issues; no blood in urine, stool or nosebleeds. She does acknowledge fatigue. She denies myalgias, or claudication. She does not have edema, or sudden weight gain. She denies dizziness, lightheadedness, syncopal or near syncopal episodes, and headaches. Intake Vital Signs See EMR Allergies See EMR Medications See EMR [facility] Medical History Acute sinusitis, unspecified Anxiety Chronic anticoagulation Dyspnea on minimal exertion Enlarged LA (left atrium) Essential hypertension Headache History of malignant neoplasm of skin Intermittent palpitations Left knee pain Obesity Osteoarthritis Paroxysmal atrial fibrillation Surgical History H/O arthroscopy of knee History of appendectomy History of cataract surgery History of cholecystectomy History of cosmetic surgery History of left knee replacement History of tonsillectomy Family History Other Cancer Social History household members: other details: Lives alone. She is a . housing: [facility] number of children: 0 current occupational status: retired leisure activities: games Smoking Status: Never smoker alcohol intake: never substance use type: does not use ROS Const Const: Positive for fatigue; Negative for weakness, fever(s), headache(s), chills, frequent falls, weight gain or weight loss Eyes Eyes: Negative for blind spots, loss of peripheral vision, transient loss of vision, blurry vision, change in vision, double vision, floaters or tunnel vision ENT ENT: Negative for headache(s), dizziness, Nosebleed/epistaxis, balance problems or neck pain Cardio Chest Pain: No Palpitations: Yes (thumping) Edema: None Muscle aches with walking: None Resp Respiratory: Positive for SOB with activity; Negative for SOB at rest or SOB orthopnea\SOB lying down GI GI: Negative nausea, vomiting, heartburn, bloating, vomiting blood/hematemesis, bright, red blood in stools or black,tarry stools Musc Musc: Negative for muscle aches/ myalgia, muscle weakness, joint pain or balance problems Neuro Neuro: Negative for dizziness, lightheadedness, near syncope, syncope, orthostatic symptoms, frequent falls, headache(s), weakness, blurry vision or double vision Luis M Hematologic/Lymphatic: Negative for easy bleeding or easy bruising Endo Endo: Positive for fatigue Cardiology Exam Const Appearance: cooperative, healthy appearing, no acute distress, well developed and well groomed Nutritional Appearance: average body habitus, well nourished and obese Orientation: alert, awake and oriented x3 Head Head: normal to inspection, normocephalic and atraumatic Ears: hearing grossly normal bilaterally and external ears normal Nose: external nose normal and nares normal Face and Sinus: face symmetric Eyes General: appearance normal, both eyes and all related structures Eyelids: eyelids normal Conjunctivae: conjunctivae normal Pupils: PERRL, normal by confrontation and accommodation normal EOM: EOM intact bilaterally Neck Neck: normal visual inspection, trachea midline and no JVD JVD: +5 Carotids: normal carotid upstroke and bounding pulses Chest Chest inspection: normal inspection of the chest, symmetric chest movement and normal respiratory effort Auscultation: Bilateral: Clear to Auscultation Cardio Palpation: normal PMI Rate: regular rate Rhythm: irregularly irregular Heart sounds: S1 normal, S2 normal and normal, physiologic split S2; Negative rub, gallop or murmur GI GI: normal to inspection, soft and obese Neuro General: patient alert, patient awake, patient oriented x3, gait normal, moves all extremities and no focal sensory deficit Skin Skin: no rashes or lesions noted Extremities Pulses: Normal: Right Posterior Tibial Pulse, Left Posterior Tibial Pulse, Right Radial Pulse and Left Radial Pulse Lower Extremity Edema: None: Bilateral Musculoskel Musculoskeletal: No joint tenderness Psych Psychological: normal affect Supplemental Info Supplemental Information Echocardiogram 01/06/2022: Interpretation Summary Normal LV size. Left ventricular systolic function is normal. The estimated ejection fraction is 55 %. Normal tricuspid valve. Trisinus/trileaflet aortic valve. The left atrium is mildly enlarged. Normal diastology for age. Stress Test 04/28/2022: Pharmacologic myocardial perfusion stress test. 77-year-old lady with a history of angina and syncope Resting EKG demonstrates with a rate of 62 bpm. Resting blood pressure is 142/70 mmHg. 0.4 mg of regadenoson was infused per usual protocol followed by rapid intravenous saline flush injection. Continuous EKG monitoring was performed. The maximum heart rate was 92 bpm which was 64% of max impacted heart rate the maximum workload was 1 metabolic equivalent. At rest there were no ST or T wave changes noted to suggest ischemia and at peak infusion nonspecific ST changes were noted which did not meet the criteria for ischemia. No clinical angina is noted. The final blood pressure was 140/70 mmHg. Myocardial perfusion protocol. 12 mCi of technetium 99m sestamibi was injected at rest. 0.4 mg of regadenoson was infused per usual protocol. At peak infusion 34.9 mCi of technetium 99m sestamibi was injected stress images were obtained stress and rest images were reconstructed and compared in the short axis vertical long and horizontal long axis. Gated images were also obtained. Perfusion SPECT analysis: Review of the stress images demonstrate normal uptake of tracer noted in all areas of the myocardium. The resting images similar demonstrated normal uptake of tracer noted in all areas of the myocardium. No areas of reversibility are noted to suggest ischemia and no previous infarct is noted. Gated SPECT analysis: The gated ejection fraction is 74%. Conclusion: Normal pharmacologic myocardial perfusion stress test. Preserved ejection fraction. Assessment and Plan Assessment and Plan (1) Paroxysmal atrial fibrillation: Status: Acute Comment: Diagnosed 07/2020 Plan: Patient has a history of paroxysmal atrial fibrillation. Her echocardiogram from 01/06/2022 demonstrated an ejection fraction of 55%, and mildly enlarged left atrium. Her recent Holter monitor demonstrated atrial fibrillation 99%. This was reviewed with her. Her recent EKG demonstrated atrial fibrillation/flutter, heart rate 107bpm. She does acknowledge palpitations, fatigue, and WILSON. She will proceed with a cardioversion. Cardioversion instructions given to patient, and she verbalizes understanding. She was instructed to not miss any doses of Eliquis. She will continue metoprolol succinate 50mg twice daily, and Eliquis 5mg twice daily. She will continue to monitor for any concerning symptoms of atrial fibrillation.
[2023-03-16 16:49] LABS: Anion Gap 4 (5-15); BUN 14 mg/dL (7-18); BUN/Creat Ratio 13.6 RATIO (10-20); Calcium,Total 9.1 mg/dL (8.5-10.1); Chloride 106 mmol/L (98-107); Creatinine, Serum 1.03 mg/dL (0.55-1.02); EST Glomerular Filtration Rate 55 mL/min (>60); Est Glom Filt Rate - Afr Amer 67 mL/min (>60); Glucose 210 mg/dL (74-106); Sodium Level 139 mmol/L (136-145)
[2023-03-22 07:39] VITALS: BMI 41.3
--- OUTSIDE RECORDS SUMMARY | 2023-03-23 11:31 | XMS RPT_ITS | CCD ---
Author Name Unknown Address [address] [facility] [address] [place] [address] Organization [facility] Care Team Providers Care Survival Specialist Name Role Phone Jeramie Allan MD Primary Care Provider PROVIDER, UNKNOWN Referring Unavailable Jeramie Allan Attending Unavailable Jerrell, Jeramie Primary Care Unavailable PROVIDER, UNKNOWN Referring Unavailable HUE JENKINS Attending Unavailable Jerrell, Jeramie Primary Care Unavailable PROVIDER, UNKNOWN Referring Unavailable Hernandez Jenny Attending Unavailable Jerrell, Jeramie Primary Care Unavailable PROVIDER, UNKNOWN Referring Unavailable Jerrell, Jeramie Attending Unavailable Jerrell, Jeramie Primary Care Unavailable Jeramie Allan MD Primary Care Provider Jeramie Allan MD Primary Care Provider Jeramie Allan MD Primary Care Provider JERRELL, JERAMIE Primary Care Unavailable KOLYCHEV, LUKE Referring Unavailable KOLYCHEV, LUKE Attending Unavailable JERRELLONEILJERAMIE Attending Unavailable JERRELL, JERAMIE Primary Care Unavailable JERRELL, JERAMIE Primary Care Unavailable JANELL FERREIRA Attending Unavailable KOLYCHEV, LUKE Referring Unavailable JERRELL, JERAMIE Primary Care Unavailable KOLYCHEV, LUKE Attending Unavailable SAUD MOHAMUD Attending Unavailable JERRELL, JERAMIE Primary Care Unavailable AUGUSTINEALDEDU Farley Attending Unavailable JERRELL, JERAMIE Attending Unavailable JERRELL, JERAMIE Primary Care Unavailable JERRELL, JERAMIE Attending Unavailable JERRELL, JERAMIE Primary Care Unavailable AUGUSTINEALDO, EDU Attending Unavailable AUGUSTINEALDO, EDU Admitting Unavailable JERRELL, JERAMIE Primary Care Unavailable JERRELL, JERAMIE Primary Care Unavailable JERRELL, JERAMIE Primary Care Unavailable HERNANDEZ, JENNY Attending Unavailable JERRELL, JERAMIE Primary Care Unavailable JERRELL, JERAMIE Primary Care Unavailable BRIDENTHAL, JANELL Attending Unavailable JERRELL, JERAMIE Referring Unavailable JERRELL, JERAMIE Primary Care Unavailable KOLYCHEV, LUKE Attending Unavailable JERRELL, JERAMIE Primary Care Unavailable KOLYCHEV, LUKE Attending Unavailable JERRELL, JERAMIE Primary Care Unavailable JERRELL, JERAMIE Primary Care Unavailable CIRALDO, EDU Attending Unavailable KOLYCHEV, LUKE Referring Unavailable JERRELL, JERAMIE Primary Care Unavailable CIRALDO, EDU Attending Unavailable JERRELL, JERAMIE Primary Care Unavailable KOLYCHEV, LUKE Attending Unavailable SAUD MOHAMUD Referring Unavailable JERRELL, JERAMIE Primary Care Unavailable HERNANDEZ, JENNY Attending Unavailable BONFIGLIMartine SAUD Referring Unavailable HERNANDEZ, JENNY Attending Unavailable JERRELL, JERAMIE Primary Care Unavailable JERRELL, JERAMIE Primary Care Unavailable BRIDENTHAL, JANELL Attending Unavailable JERRELL, JERAMIE Primary Care Unavailable BRIDENTHAL, JANELL Attending Unavailable JERRELL, JERAMIE Attending Unavailable JERRELL, JERAMIE Primary Care Unavailable BRIDENTHAL, AJNELL Attending Unavailable KOLYCHEV, LUKE Referring Unavailable JERRELL, JERAMIE Primary Care Unavailable KOLYCHEV, LUKE Attending Unavailable Allergies Allergy Classification Reported Allergen(s) Allergy Type Date of Onset Reaction(s) Facility (20 sources) Rosuvastatin calcium Propensity to adverse reactions 06-17-2022 [facility] [employer] Phone: Medications Current Medications Medication Drug Class(es) Dates Sig (Normalized) Sig (Original) acetaminophen 325 mg / oxyCODONE hydrochloride 5 mg oral tablet (2 sources) Opioid Agonist Start: 01-31-2023 End: 02-05-2023 take 1 tablet by mouth every six hours as needed for pain oxyCODONE-acetami nophen (Percocet) 5-325 MG tablet Take 1 tablet by mouth every 6 hours as needed for severe pain (7-10) for up to 5 days. 15 tablet 0 01/31/2023 02/05/2023 Active apixaban 5 mg oral tablet (20 sources) Factor Xa Inhibitor Start: 02-15-2022 take 1 tablet by mouth in the morning apixaban (Eliquis) 5 MG tablet Take 1 tablet (5 mg) by mouth in the morning and 1 tablet (5 mg) before bedtime. 180 tablet 1 02/15/2022 Active Completed/Discontinued Medications Medication Drug Class(es) Dates Sig (Normalized) Sig (Original) acetaminophen 500 mg oral tablet (12 sources) Start: 01-31-2023 End: 01-31-2023 acetaminophen (Tylenol) tablet 1,000 mg Problems Active Problems Problem Classification Problem Date Documented Da te Episodic/Chronic Administrative/social admission (5 sources) Patient encounter status; Translations: [Other specified counseling] Onset: 02-15-2023 02-15-2023 Episodic Cardiac dysrhythmias (20 sources) Paroxysmal atrial fibrillation; Translations: [Paroxysmal atrial fibrillation] Onset: 11-04-2021 11-04-2021 Chronic Chronic obstructive pulmonary disease and bronchiectasis (6 sources) Bronchitis; Translations: [Bronchitis, not specified as acute or chronic] Onset: 10-14-2021 Resolved: 11-04-2021 Episodic Disorders of lipid metabolism (20 sources) Hypercholesterolemia ; Translations: [Pure hypercholesterolemia , unspecified] Onset: 06-16-2022 06-16-2022 Chronic Essential hypertension (20 sources) Hypertensive disorder; Translations: [Essential (primary) hypertension] Onset: 11-04-2021 11-04-2021 Chronic Headache; including migraine (3 sources) Episodic paroxysmal hemicrania; Translations: [Episodic paroxysmal hemicrania, not intractable] Onset: 12-26-2021 12-06-2022 Chronic Osteoarthritis (20 sources) Osteoarthritis of left knee joint; Translations: [Unilateral primary osteoarthritis, left knee] Onset: 02-10-2017 02-10-2017 Chronic Other bone disease and musculoskeletal deformities (2 sources) Other specified disorders of bone density and structure, unspecified site; Translations: [Oth disrd of bone density and structure, unspecified site] Onset: 11-18-2021 Episodic Other connective tissue disease (20 sources) History of total knee arthroplasty; Translations: [Presence of left artificial knee joint] Onset: 01-14-2022 01-14-2022 Chronic Other connective tissue disease (2 sources) Presence of left artificial knee joint; Translations: [Presence of left artificial knee joint] Onset: 01-14-2022 Chronic Other lower respiratory disease (14 sources) Cough; Translations: [Subacute cough] Onset: 01-19-2023 01-19-2023 Episodic Other lower respiratory disease (2 sources) Wheezing; Translations: [Wheezing] Onset: 01-19-2023 Episodic Other non-traumatic joint disorders (1 source) Pain in left knee; Translations: [Pain in left knee] Episodic Other non-traumatic joint disorders (2 sources) Pain in left knee; Translations: [Pain in left knee] Onset: 10-14-2021 Episodic Other upper respiratory disease (20 sources) Seasonal allergy; Translations: [Other seasonal allergic rhinitis] Onset: 03-01-2016 03-01-2016 Chronic Residual codes; unclassified (2 sources) Asymptomatic menopausal state; Translations: [Asymptomatic menopausal state] Onset: 11-18-2021 Episodic Retinal detachments; defects; vascular occlusion; and retinopathy (20 sources) Degenerative disorder of macula ; Translations: [Unspecified macular degeneration] Onset: 03-01-2016 03-01-2016 Chronic Systemic lupus erythematosus and connective tissue disorders (10 sources) Temporal arteritis; Translations: [Other giant cell arteritis] Onset: 01-31-2023 01-20-2023 Chronic Unclassified (2 sources) Advanced Directives Onset: 02-15-2023 Unclassified (2 sources) Post-op; Translations: [Post-op] Onset: 05-26-2022 Past or Other Problems Problem Classification Problem Date Documented Date Episodic/Chronic Blindness and vision defects (16 sources) Eye / vision finding; Translations: [Unspecified visual disturbance] Onset: 12-06-2022 12-06-2022 Episodic Conditions associated with dizziness or vertigo (20 sources) Dizziness; Translations: [Dizziness and giddiness] Onset: 03-30-2022 03-31-2022 Episodic Diabetes mellitus without complication (20 sources) Hyperglycemia; Translations: [Hyperglycemia, unspecified] Onset: 05-10-2022 05-10-2022 Episodic Headache; including migraine (20 sources) Headache; Translations: [Nonintractable headache] Onset: 12-08-2021 12-08-2021 Episodic Mood disorders (16 sources) Mood disorders Onset: 11-08-2022 11-08-2022 Nausea and vomiting (20 sources) Nausea and vomiting; Translations: [Nausea with vomiting, unspecified] Onset: 08-17-2022 08-17-2022 Episodic Other connective tissue disease (20 sources) Spasm; Translations: [Other muscle spasm] Onset: 05-10-2022 05-10-2022 Episodic Other connective tissue disease (20 sources) Muscle pain; Translations: [Myalgia, unspecified site] Onset: 06-17-2022 06-17-2022 Episodic Other connective tissue disease (20 sources) Paraparesis; Translations: [Other symptoms and signs involving the musculoskeletal system] Onset: 08-17-2022 08-17-2022 Episodic Other connective tissue disease (20 sources) Pain in left thumb; Translations: [Pain in left finger(s)] Onset: 08-17-2022 08-17-2022 Episodic Other connective tissue disease (2 sources) Other symptoms and signs involving the musculoskeletal system; Translations: [Other symptoms and signs involving the musculoskeletal system] Onset: 08-17-2022 Episodic Other inflammatory condition of skin (13 sources) Itching of skin; Translations: [Pruritus, unspecified] Onset: 06-17-2022 06-17-2022 Episodic Other inflammatory condition of skin (16 sources) Pruritus, unspecified; Translations: [Unspecified pruritic disorder] Onset: 06-17-2022 06-17-2022 Episodic Other nervous system disorders (20 sources) Impairment of balance; Translations: [Other abnormalities of gait and mobility] Onset: 11-04-2021 11-04-2021 Episodic Other non-traumatic joint disorders (12 sources) Shoulder pain; Translations: [Pain in right shoulder] Onset: 11-04-2021 11-04-2021 Episodic Other non-traumatic joint disorders (15 sources) Pain in right shoulder; Translations: [Pain in joint, shoulder region] Onset: 11-04-2021 12-26-2021 Episodic Other screening for suspected conditions (not mental disorders or infectious disease) (6 sources) Encounter for screening for diabetes mellitus; Translations: [Encounter for screening for cardiovascular disorders] Onset: 05-10-2022 Episodic Other skin disorders (20 sources) Dry hair; Translations: [Other hair color and hair shaft abnormalities] Onset: 06-17-2022 06-17-2022 Episodic Other skin disorders (2 sources) Other hair color and hair shaft abnormalities; Translations: [Other hair color and hair shaft abnormalities] Onset: 06-17-2022 Episodic Residual codes; unclassified (20 sources) Menopause present; Translations: [Asymptomatic menopausal state] Onset: 10-14-2021 2 Episodic Residual codes; unclassified (16 sources) Forgetful; Translations: [Other general symptoms and signs] Onset: 12-06-2022 12-06-2022 Episodic Sprains and strains (20 sources) Low back strain; Translations: [Strain of muscle, fascia and tendon of lower back, initial encounter] Onset: 08-17-2022 08-17-2022 Episodic Syncope (20 sources) Syncope; Translations: [Syncope and collapse] Onset: 03-31-2022 03-31-2022 Episodic Results Test Name Value Interpretation Reference Range Facil ity Vital Signs Date Time Vital Sign Value Performing Clinician Faci lity 02-28-2023 12:35-0500 Body height 157.5 cm Luke Terry MD Work Phone: [facility] [employer] 02-28-2023 12:35-0500 Body mass index (BMI) [Ratio] 41.88 kg/m2 Luke Terry MD Work Phone: [facility] [employer] 02-28-2023 12:35-0500 Body weight 103.87 kg Luke Terry MD Work Phone: [facility] [employer] 02-28-2023 12:35-0500 Diastolic blood pressure 68 mm[Hg] Luke Terry MD Work Phone: [facility] 02-28-2023 12:35-0500 Heart rate 74 /min Luke Terry MD Work Phone: [facility] 02-28-2023 12:35-0500 Systolic blood pressure 133 mm[Hg] Luke Terry MD Work Phone: [facility] [employer] 02-15-2023 14:58-0500 Body height 157.5 cm Janell Ferreira GARNISHMENT SPECIALIST - MAINFRAME SYSTEMS ENGINEER Work Phone: [facility] [employer] 02-15-2023 14:58-0500 Body mass index (BMI) [Ratio] 41.7 kg/m2 Janell Ferreira GARNISHMENT SPECIALIST - MAINFRAME SYSTEMS ENGINEER Work Phone: [facility] [employer] 02-15-2023 14:58-0500 Body temperature 97.7 [degF] Janell Barkerenthal GARNISHMENT SPECIALIST - MAINFRAME SYSTEMS ENGINEER Work Phone: [employer] 02-15-2023 14:58-0500 Body weight 103.42 kg Janell Bridenthal GARNISHMENT SPECIALIST - MAINFRAME SYSTEMS ENGINEER Work Phone: [facility] [employer] 02-15-2023 14:58-0500 Diastolic blood pressure 65 mm[Hg] Janell Mjenthal GARNISHMENT SPECIALIST - MAINFRAME SYSTEMS ENGINEER Work Phone: [facility] [employer] 02-15-2023 14:58-0500 Heart rate 75 /min Janell Mjenthal GARNISHMENT SPECIALIST - MAINFRAME SYSTEMS ENGINEER Work Phone: [facility] [employer] 02-15-2023 14:58-0500 SaO2% (BldA) [Mass fraction] 98 % Janell Barkerenthal GARNISHMENT SPECIALIST - MAINFRAME SYSTEMS ENGINEER Work Phone: [facility] [employer] 02-15-2023 14:58-0500 Systolic blood pressure 139 mm[Hg] Janell Bridenthal GARNISHMENT SPECIALIST - MAINFRAME SYSTEMS ENGINEER Work Phone: [facility] [employer] 02-10-2023 12:23-0500 Body height 157.5 cm Edu Fish MD Work Phone: [facility] [employer] 02-10-2023 12:23-0500 Body mass index (BMI) [Ratio] 41.7 kg/m2 Edu Fish MD Work Phone: [facility] [employer] 02-10-2023 12:23-0500 Body weight 103.42 kg Edu Fish MD Work Phone: [facility] 01-31-2023 11:28-0500 Diastolic blood pressure 72 mm[Hg] Edu Fish MD Work Phone: [facility] 01-31-2023 11:28-0500 Heart rate 97 /min Edu Fish MD Work Phone: [facility] 01-31-2023 11:28-0500 Respiratory rate 16 /min Edu Fish MD Work Phone: [facility] 01-31-2023 11:28-0500 SaO2% (BldA) [Mass fraction] 97 % Edu Fish MD Work Phone: [facility] [employer] 01-31-2023 11:28-0500 Systolic blood pressure 138 mm[Hg] Edu Fish MD Work Phone: [facility] [employer] 01-31-2023 09:55-0500 Body temperature 97 [degF] Edu Fish MD Work Phone: [facility] [employer] 01-28-2023 10:53-0500 Body height 157.5 cm Luke Terry MD Work Phone: [facility] 01-28-2023 10:53-0500 Diastolic blood pressure 83 mm[Hg] Luke Terry MD Work Phone: [facility] 01-28-2023 10:53-0500 Heart rate 71 /min Luke Terry MD Work Phone: [facility] 01-28-2023 10:53-0500 Systolic blood pressure 147 mm[Hg] Luke Terry MD Work Phone: [facility] 01-20-2023 13:35-0500 Body height 157.5 cm Edu Fish MD Work Phone: [facility] 01-20-2023 13:35-0500 Body mass index (BMI) [Ratio] 42.43 kg/m2 Edu Fish MD Work Phone: [facility] [employer] 01-20-2023 13:35-0500 Body weight 105.23 kg Edu Fish MD Work Phone: [facility] 01-20-2023 13:35-0500 Diastolic blood pressure 82 mm[Hg] Edu Fish MD Work Phone: [facility] 01-20-2023 13:35-0500 Heart rate 70 /min Edu Fish MD Work Phone: [facility] 01-20-2023 13:35-0500 Systolic blood pressure 152 mm[Hg] Edu Fish MD Work Phone: [facility] 12-31-2022 10:24-0400 Body height 157.5 cm Luke Terry MD Work Phone: [facility] 12-31-2022 10:24-0400 Body mass index (BMI) [Ratio] 40.86 kg/m2 Luke Terry MD Work Phone: [facility] [employer] 12-31-2022 10:24-0400 Body weight 101.33 kg Luke Terry MD Work Phone: [facility] [employer] 12-31-2022 10:24-0400 Diastolic blood pressure 75 mm[Hg] Luke Terry MD Work Phone: [facility] [employer] 12-31-2022 10:24-0400 Heart rate 64 /min Luke Terry MD Work Phone: [facility] [employer] 12-31-2022 10:24-0400 Systolic blood pressure 146 mm[Hg] Luke Terry MD Work Phone: [facility] [employer] 12-06-2022 13:11-0400 Body height 157.5 cm Jeramie Allan MD Work Phone: [facility] [employer] 12-06-2022 13:11-0400 Body mass index (BMI) [Ratio] 41.45 kg/m2 Jeramie Allan MD Work Phone: [facility] [employer] 12-06-2022 13:11-0400 Body weight 102.78 kg Jeramie Allan MD Work Phone: [facility] [employer] 12-06-2022 13:11-0400 Diastolic blood pressure 79 mm[Hg] Jeramie Allan MD Work Phone: [facility] [employer] 12-06-2022 13:11-0400 Heart rate 71 /min Jeramie Allan MD Work Phone: [facility] 12-06-2022 13:11-0400 SaO2% (BldA) [Mass fraction] 96 % Jeramie Allan MD Work Phone: [facility] 12-06-2022 13:11-0400 Systolic blood pressure 117 mm[Hg] Jeramie Allan MD Work Phone: [facility] 11-08-2022 09:23-0400 Body height 157.5 cm Jeramie Allan MD Work Phone: [facility] [employer] 11-08-2022 09:23-0400 Body mass index (BMI) [Ratio] 43.68 kg/m2 Jeramie Allan MD Work Phone: [facility] 11-08-2022 09:23-0400 Body weight 108.32 kg Jeramie Allan MD Work Phone: [facility] 11-08-2022 09:23-0400 Diastolic blood pressure 75 mm[Hg] Jeramie Allan MD Work Phone: [facility] [employer] 11-08-2022 09:23-0400 Heart rate 75 /min Jeramie Allan MD Work Phone: [facility] 11-08-2022 09:23-0400 SaO2% (BldA) [Mass fraction] 95 % Jeramie Allan MD Work Phone: [facility] 11-08-2022 09:23-0400 Systolic blood pressure 122 mm[Hg] Jeramie Allan MD Work Phone: [facility] [employer] 08-17-2022 11:12-0400 Body height 157.5 cm Jeramie Allan MD Work Phone: [employer] 08-17-2022 11:12-0400 Body mass index (BMI) [Ratio] 40.6 kg/m2 Jeramie Allan MD Work Phone: [facility] 08-17-2022 11:12-0400 Body weight 100.7 kg Jeramie Allan MD Work Phone: [facility] 08-17-2022 11:12-0400 Diastolic blood pressure 72 mm[Hg] Jeramie Allan MD Work Phone: [facility] [employer] 08-17-2022 11:12-0400 Heart rate 80 /min Jeramie Allan MD Work Phone: [facility] 08-17-2022 11:12-0400 SaO2% (BldA) [Mass fraction] 96 % Jeramie Allan MD Work Phone: [facility] [employer] 08-17-2022 11:12-0400 Systolic blood pressure 136 mm[Hg] Jeramie Allan MD Work Phone: [facility] 07-14-2022 10:06-0400 Body mass index (BMI) [Ratio] 40.24 kg/m2 Janell Bridenthal GARNISHMENT SPECIALIST - MAINFRAME SYSTEMS ENGINEER Work Phone: [facility] 07-14-2022 10:06-0400 Body weight 99.79 kg Janell Bridenthal GARNISHMENT SPECIALIST - MAINFRAME SYSTEMS ENGINEER Work Phone: [facility] 07-14-2022 10:06-0400 Diastolic blood pressure 68 mm[Hg] Janell Bridenthal GARNISHMENT SPECIALIST - MAINFRAME SYSTEMS ENGINEER Work Phone: [facility] [employer] 07-14-2022 10:06-0400 Heart rate 75 /min Janell Bridenthal GARNISHMENT SPECIALIST - MAINFRAME SYSTEMS ENGINEER Work Phone: [facility] 07-14-2022 10:06-0400 Respiratory rate 20 /min Janell Bridenthal GARNISHMENT SPECIALIST - MAINFRAME SYSTEMS ENGINEER Work Phone: [facility] 07-14-2022 10:06-0400 SaO2% (BldA) [Mass fraction] 96 % Janell Bridenthal GARNISHMENT SPECIALIST - MAINFRAME SYSTEMS ENGINEER Work Phone: [facility] 07-14-2022 10:06-0400 Systolic blood pressure 128 mm[Hg] Janell Bridenthal GARNISHMENT SPECIALIST - MAINFRAME SYSTEMS ENGINEER Work Phone: [facility] 06-17-2022 09:03-0400 Body mass index (BMI) [Ratio] 39.14 kg/m2 Janell Bridenthal GARNISHMENT SPECIALIST - MAINFRAME SYSTEMS ENGINEER Work Phone: [facility] [employer] 06-17-2022 09:03-0400 Body weight 97.07 kg Janell Bridenthal GARNISHMENT SPECIALIST - MAINFRAME SYSTEMS ENGINEER Work Phone: [facility] [employer] 06-17-2022 09:03-0400 Diastolic blood pressure 68 mm[Hg] Janell Bridenthal GARNISHMENT SPECIALIST - MAINFRAME SYSTEMS ENGINEER Work Phone: [facility] [employer] 06-17-2022 09:03-0400 Heart rate 87 /min Janell Bridenthal GARNISHMENT SPECIALIST - MAINFRAME SYSTEMS ENGINEER Work Phone: [facility] [employer] 06-17-2022 09:03-0400 Respiratory rate 20 /min Janell Bridenthal GARNISHMENT SPECIALIST - MAINFRAME SYSTEMS ENGINEER Work Phone: [facility] 06-17-2022 09:03-0400 SaO2% (BldA) [Mass fraction] 98 % Janell Bridenthal GARNISHMENT SPECIALIST - MAINFRAME SYSTEMS ENGINEER Work Phone: [facility] 06-17-2022 09:03-0400 Systolic blood pressure 124 mm[Hg] Janell Bridenthal GARNISHMENT SPECIALIST - MAINFRAME SYSTEMS ENGINEER Work Phone: [facility] 01-01-2022 14:06-0400 Diastolic blood pressure 80 mm[Hg] Jenny Hernandez MD Work Phone: [facility] 01-01-2022 14:06-0400 Systolic blood pressure 164 mm[Hg] Jenny Hernandez MD Work Phone: [facility] 01-01-2022 13:03-0400 Body height 158.8 cm Jenny Hernandez MD Work Phone: [facility] 01-01-2022 13:03-0400 Body mass index (BMI) [Ratio] 37.62 kg/m2 Jenny Hernandez MD Work Phone: [facility] 01-01-2022 13:03-0400 Body temperature 98.01 [degF] Jenny Hernandez MD Work Phone: [facility] 01-01-2022 13:03-0400 Body weight 94.8 kg Jenny Hernandez MD Work Phone: [facility] 01-01-2022 13:03-0400 Heart rate 62 /min Jenny Hernandez MD Work Phone: [facility] 01-01-2022 13:03-0400 Respiratory rate 16 /min Jenny Hernandez MD Work Phone: [facility] 01-01-2022 13:03-0400 SaO2% (BldA) [Mass fraction] 100 % Jenny Hernandez MD Work Phone: [facility] Encounters Encounter Date Encounter Type Care Provider Facility Start: 03-21-2023 Telephone encounter Janell Claudia merritt GARNISHMENT SPECIALIST - MAINFRAME SYSTEMS ENGINEER Work Phone: [facility] Start: 03-12-2023 Telephone encounter Melanie Castillo dalila GARNISHMENT SPECIALIST - MAINFRAME SYSTEMS ENGINEER Work Phone: [facility] Procedures Date Procedure Procedure Detail Performing Clinician Start: 11-08-2022 Adult depression scr eening assessment Jeramie Allan MD Work Phone: Start: 10-18-2022 Lipid 1996 panel - S tao or Plasma Janell Barkerenthal GARNISHMENT SPECIALIST - MAINFRAME SYSTEMS ENGINEER Work Phone: Start: 09-20-2022 Lipid 1996 panel - S tao or Plasma Jeramie Allan MD Work Phone: Start: 06-17-2022 Glucose [Mass/volume ] in Serum or Plasma Janell Ferreira GARNISHMENT SPECIALIST - MAINFRAME SYSTEMS ENGINEER Work Phone: Start: 06-15-2022 Lipid 1996 panel - S tao or Plasma Sudha Iniguez RN Start: 05-26-2022 Follow-up visit Follow-up JENNY MCKEE [facility] Start: 01-01-2022 Blood count complete automated Iris Gonzalez MD Work Phone: Start: 01-01-2022 Ecg routine ecg w/le ast 12 lds w/i&r Iris Gonzalez MD Work Phone: Start: 10-14-2021 Radiologic exam ches t 2 views Jeramie Allan MD Work Phone: Start: 10-14-2021 Radiologic examinati on knee 1/2 views Hue Jenkins MD Work Phone: Plan of Treatment Date Care Activity Detail Author Start: 12-26-2031 DTaP/Tdap/Td vaccine (2 - Td or Tdap) DTaP/Tdap/Td vaccine (2 - Td or Tdap) [facility] Start: 12-26-2031 DTaP/Tdap/Td Vaccines (2 - Td or Tdap) DTaP/Tdap/Td Vaccines (2 - Td or Tdap) [facility] [facility] Start: 12-26-2031 DTaP/Tdap/Td Vaccines (3 - Td or Tdap) DTaP/Tdap/Td Vaccines (3 - Td or Tdap) [facility] Start: 10-19-2027 Lipid panel Lipid Panel [facility] Start: 09-21-2027 Lipid panel Lipid Panel [facility] Start: 06-16-2027 Lipid panel Lipid Panel [facility] Start: 12-09-2023 Medicare Annual Wellness (AWV) Medicare Annual Wellness (AWV) [facility] Start: 11-21-2023 End: 11-21-2023 Patient encounter procedure 11/21/2023 9:00 AM EDT Office Visit [facility] [address] [place] [id number] Jeramie Allan MD [address] [place] [id number] [facility] Start: 11-09-2023 Depression Screening Depression Screening [facility] Start: 05-31-2023 End: 05-31-2023 Patient encounter procedure 05/31/2023 11:15 AM EDT Office Visit [address] [phone] Luke Terry MD [address] [place] [address] [id number] [facility] Start: 05-19-2023 Diabetes mellitus screening Diabetes Screening [facility] Start: 05-09-2023 End: 05-09-2023 Patient encounter procedure 05/09/2023 9:30 AM EST Office Visit [facility] [address] [place] [address] [place] [address] Jeramie Allan MD [address] [place] [id number] [facility] Start: 03-02-2023 End: 03-02-2023 Patient encounter procedure 03/02/2023 1:15 PM EST Office Visit [address] [phone] Luke Terry MD [address] [place] [id number] [facility] Start: 02-28-2023 End: 02-29-2024 Erythrocyte sedimentation rate Sedimentation rate, automated Lab Routine Temporal arteritis ([facility]/HCC) (HCC) Expected: 02/28/2023 (Approximate), Expires: 02/29/2024 [facility] Work Phone: Immunizations Immunization Date Immunization Notes Care Provider [facility] 03-19-2023 RSV, recombinant, protein subunit RSVpreF, adjuvant reconstituted, 0.5 mL, PF Janell Ferreira GARNISHMENT SPECIALIST - MAINFRAME SYSTEMS ENGINEER Work Phone: [facility] 03-02-2023 COVID-19, mRNA, LNP- S, PF, nelson-sucrose, 30 mcg/0.3 mL Melanie Mcdonough GARNISHMENT SPECIALIST - MAINFRAME SYSTEMS ENGINEER Work Phone: [facility] 12-06-2022 influenza, high dose seasonal, preservative-free Jeramie Allan MD Work Phone: [facility] 02-10-2022 tuberculin skin test ; purified protein derivative solution, intradermal Janell Hanna GARNISHMENT SPECIALIST - MAINFRAME SYSTEMS ENGINEER Work Phone: [facility] 01-27-2022 tuberculin skin test ; purified protein derivative solution, intradermal Janell Ferreira GARNISHMENT SPECIALIST - [facility] Work Phone: [facility] 01-03-2022 Covid-19, Pfizer Bivalent Booster, (Age 12y+), Im, 30 Mcg/0e Sudha Iniguez RN [facility] 12-25-2021 diphtheria, tetanus toxoids and acellular pertussis vaccine Janellgabrielle Ramirezal GARNISHMENT SPECIALIST - MAINFRAME SYSTEMS ENGINEER Work Phone: [facility] 12-25-2021 tetanus toxoid, redu jody diphtheria toxoid, and acellular pertussis vaccine, adsorbed Jenny Hernandez MD Work Phone: [facility] Work Phone: 12-04-2021 Influenza, FLUZONE ( age 65 y+), High Dose, 0.7mL Jenny Hernandez MD Work Phone: [facility] 12-04-2021 influenza virus vaccine, unspecified formulation Jeramie Allan MD Work Phone: [facility] 12-01-2021 Influenza, injectabl e, quadrivalent, preservative free Janellgabrielle Ramirezal GARNISHMENT SPECIALIST - [facility] Work Phone: [facility] 11-03-2021 Pneumococcal conjuga te PCV20, PF (Prevnar 20) Jenny Hernandez MD Work Phone: [facility] 06-10-2021 COVID-19, MODERNA BL UE border, Primary or Immunocompromised, (age 12y+), IM, 100 mcg/0.5mL Jenny Hernandez MD Work Phone: [facility] Work Phone: 05-20-2021 Moderna SARS-CoV-2 Vaccination Jeramie Allan MD Work Phone: [facility] 02-18-2021 zoster vaccine recombinant Jenny Hernandez MD Work Phone: [facility] Work Phone: 01-09-2021 COVID-19, MODERNA BL UE border, Primary or Immunocompromised, (age 12y+), IM, 100 mcg/0.5mL Jenny Hernandez MD Work Phone: [facility] Work Phone: 12-23-2020 influenza, injectabl e, quadrivalent, preservative free Jeramie Allan MD Work Phone: [facility] 11-25-2020 zoster vaccine recombinant Jenny Hernandez MD Work Phone: [facility] Work Phone: 05-01-2020 COVID-19, MODERNA BL UE border, Primary or Immunocompromised, (age 12y+), IM, 100 mcg/0.5mL Jenny Hernandez MD Work Phone: [facility] Work Phone: 04-03-2020 COVID-19, MODERNA BL UE border, Primary or Immunocompromised, (age 12y+), IM, 100 mcg/0.5mL Jenny Hernandez MD Work Phone: [facility] Work Phone: 03-18-2020 Modern SARS-CoV-2 Vaccination Jeramie Allan MD Work Phone: [facility] 11-30-2018 influenza, high dose seasonal, preservative-free Jeramie Allan MD Work Phone: [facility] Work Phone: 12-12-2014 influenza, high dose seasonal, preservative-free Jeramie Allan MD Work Phone: [facility] Work Phone: 12-12-2014 pneumococcal conjuga te vaccine, 13 valent Jeramie Allan MD Work Phone: [facility] Work Phone: 07-16-2014 pneumococcal conjuga te vaccine, 13 valent Jenny Hernandez MD Work Phone: [facility] Work Phone: 02-11-2005 influenza virus vaccine, unspecified formulation Jenny Hernandez MD Work Phone: [facility] Work Phone: 01-29-2002 influenza virus vaccine, unspecified formulation Jenny Hernandez MD Work Phone: [facility] Work Phone: 12-31-2000 influenza virus vaccine, unspecified formulation Jenny Hernandez MD Work Phone: [facility] Work Phone: Payers Date Payer Category Payer Unknown 2015 Unknown [id number] 2010 Medicare [id number] 2010 Medicare 1945 Unknown [id number] 1945 Unknown [id number] 1945 Unknown [id number] 1945 Unknown [id number] Social History Date Type Detail Facility Start: 10-14-2021 End: 01-26-2023 Tobacco smoking status WIIS Never smoked tobacco [facility] Work Phone: Start: 10-14-2021 End: 01-26-2023 Tobacco use and exposure Smokeless tobacco non-user [facility] Work Phone: Start: 10-14-2021 End: 02-28-2023 Alcohol intake Current non-drinker of alcohol (finding) [facility] Work Phone: Start: 10-13-2021 History SDOH Financial 5 [facility] Work Phone: Start: 10-13-2021 History SDOH Food Worry 1 [facility] Work Phone: Start: 10-13-2021 History SDOH Transpo rt Med 2 [employer] Work Phone: Start: 1945 Sex Assigned At Not on file S [employer] Work Phone: Start: 10-03-2021 End: 12-06-2022 Exposure to SARS-CoV-2 (event) Not sure [employer] Start: 11-04-2021 History SDOH Alcohol Std Drinks 0 [employer] Work Phone: Start: 08-17-2022 End: 11-08-2022 History of Social function [facility] Start: 08-17-2022 End: 11-08-2022 Tobacco use panel [facility] Frequency of Alcohol Consumption Not on file [facility] (I/We) worried wheth er (my/our) food would run out before (I/we) got money to buy more. Never true [facility] In the past 12 month s, was there a time when you were not able to pay the mortgage or rent on time? No [facility] History of tobacco use Passive smoker [facility] Medical Equipment Procedure Code Equipment Code Equipment Origin al Text Equipment Identifier Dates Cement Bone Simp robby P Full Dose - [id number] Start: 01-14-2022 Femoral [id number], [id number] FDA Start: 01-14-2022 Attune Medial Do me Pat 35mm - [id number] FDA Start: 01-14-2022 Cement Bone Simp robby P Full Dose - [id number] Start: 01-14-2022 Attune Fb Tib Ba se Sz 5 Ayden - [id number], [id number] FDA Start: 01-14-2022 Tibial Insert [id number], [id number] FDA Start: 01-14-2022 Clinical Notes 01-01-2022 to 03-22-2023 Telephone Encounter - Najmaquinton Castillo - 03/22/2023 8:12 AM ESTTelephone Encounter - Najma Anna - 03/22/2023 8:12 AM ESTTelephone Encounter - Najmaquinton Castillo - 03/21/2023 5:09 PM ESTPatient Instructions Note Date & Type Note Facility 03-22-2023 Telephone encounter Note Last read by Kalie Ferrera at 5:15 PM on 03/21/2023. [facility] 03-22-2023 Miscellaneous Notes Last read by Kalie Ferrera at 5:15 PM on 03/21/2023. Called patient no answer, if patient returns phone call please advise of Fiorella's response. Also sent [employer] message. I am unaware of it being secondary to anesthesia, I do know certain vitamin deficiencies can contribute to brittle or strawlike hair. Your thyroid was normal when we checked it in the past. It looks like you already take several multivitamins. Make sure that you are getting a minimum of 30 micrograms of Biotin daily in the supplements (most likely you are getting enough) . Patient stopped in and was concerned about her hair feeling like straw, she said someone mentioned to her it could be from the anesthesia from a surgery that she recently had, she asked if I could ask you if that could be? Thank you! documented in this encounter [facility] 03-21-2023 Telephone encounter Note Called patient no answer, if patient returns phone call please advise of Fiorella's response. Also sent [employer] message. [facility] 03-21-2023 Telephone encounter Note I am unaware of it being secondary to anesthesia, I do know certain vitamin deficiencies can contribute to brittle or strawlike hair. Your thyroid was normal when we checked it in the past. It looks like you already take several multivitamins. Make sure that you are getting a minimum of 30 micrograms of Biotin daily in the supplements (most likely you are getting enough) . [facility] 03-21-2023 Telephone encounter Note Previously sent on 03/15/2023 [facility] 03-21-2023 Miscellaneous Notes Previously sent on 03/15/2023 Prescription Request: Last medication check: 01/19/23 Last physical exam: 11/08/22 Next scheduled appointment: 05/09/23 Last date of refill on this medication 09/03/22 90 day 1 refill documented in this encounter [facility] 03-21-2023 Telephone encounter Note Patient stopped in and was concerned about her hair feeling like straw, she said someone mentioned to her it could be from the anesthesia from a surgery that she recently had, she asked if I could ask you if that could be? Thank you! [facility] 03-15-2023 Telephone encounter Note Prescription Request: Last medication check: 01/19/23 Last physical exam: 11/08/22 Next scheduled appointment: 05/09/23 Last date of refill on this medication 09/03/22 90 day 1 refill [facility] 02-28-2023 History of Present illness Narrative Department of Neurological Sciences Impression: Diagnosis Plan 1. Temporal arteritis (CMS/HCC) (HCC) Sedimentation rate, automated Sedimentation rate, automated ESR normalized. Temporal artery bx is normal. Reports improvement in head pain frequency and temporal tenderness. Plan: Taper off prednisone over 2 weeks. Check ESR in 1-2 months. If she has worsening of temporal pains and ESR becomes elevated then will plan on empiric Actemra. May continue gabapentin. Orders Placed This Encounter Procedures Sedimentation rate, automated Standing Status: Future Number of Occurrences: 1 Standing Expiration Date: 02/29/2024 CHIEF COMPLAINT: Chief Complaint Patient presents with Follow-up Headache Patient is having terrible pain in her back. Headaches have not been as frequent or severe. HISTORY OF PRESENT ILLNESS: The patient is a 78 y.o. female with a history of atrial fibrillation, COPD, low back pain, hypertension, vertigo who presents for follow up of possible CGA. 12/31/22: Symptoms started several years ago. She can get dull aches behind her eyes or the back of her head. Last week had severe and sharp/stabbing pain x2 over the right temporoparietal lobe that lasted <60 seconds. She had no associated ipsilateral neck pain, facial pain. She denies associated ipsilateral lacrimation, miosis, conjunctival injection, nasal congestion. She is not aware of any triggers. She affirms having hot flashes with associated bilateral forehead sweating but cannot temporally relate hot flashes to her head pains. She affirms history of macular degeneration, notices a suggs cloud in the center of right eye when reading, symptoms started few months ago. Sees ophthalmology. Did not try any medications for head pains. Denies fevers, jaw claudication, transient visual obscurations, syncope, pain with valsalva, other focal neurological symptoms. ESR 27 MRI brain: 1. No acute intracranial abnormalities. No enhancing lesions. 2. Generalized brain parenchymal volume loss and mild chronic microvascular ischemic changes in the supratentorial white matter. 01/25/23: Awaiting temporal artery bx. Started prednisone, now on 30mg daily. Continues with shooting pains and temporal tenderness. Did not try gabapentin. No neck stiffness, fever, jaw claudication, visual dysfunction. Temporal artery bx: negative ESR 15 on 02/17/23 02/28/23: Reports some improvement of temporal pain. No longer occur daily. Continues with hot flashes/diaphoresis. She tapered down prednisone to 10mg daily. Attributes her visual impairment to AMD, denies amaurosis fugax. Did not see her dental coordinator recently. Requests gabapentin refills. Reports increasing back pains. Past Medical History: Past Medical History: Diagnosis Date A-fib (CMS/HCC) (HCC) Atrial fibrillation (HCC) Cancer (CMS/HCC) (HCC) skin- facial squamous cell COPD (chronic obstructive pulmonary disease) (HCC) Fractures 1980 multiple ribs GERD (gastroesophageal reflux disease) HTN (hypertension) Osteoarthritis Vertigo Past Surgical History: Past Surgical History: Procedure Laterality Date APPENDECTOMY 04/1952 CATARACT EXTRACTION Bilateral 2017 CHOLECYSTECTOMY 1996 COLONOSCOPY N/A COSMETIC SURGERY N/A 1981 facial repair and plastic- nose KNEE CARTILAGE SURGERY Left 09/2003 meniscus OTHER SURGICAL HISTORY Left 01/31/2023 left temporal artery biopsy SKIN CANCER EXCISION Left 10/2005 nose TONSILLECTOMY 02/1953 TOTAL KNEE ARTHROPLASTY Left 01/14/2022 UPPER GASTROINTESTINAL ENDOSCOPY N/A Medications: Outpatient Medications Prior to Visit Medication Sig Dispense Refill apixaban (Eliquis) 5 MG tablet Take 1 tablet (5 mg) by mouth in the morning and 1 tablet (5 mg) before bedtime. 180 tablet 1 ascorbid acid ER (Vitamin C) 500 MG ER tablet Take by mouth in the morning. Calcium Ascorbate 500 MG tablet Take 500 mg by mouth. cholecalciferol (Vitamin D-3) 25 MCG (1000 UT) capsule Take by mouth. ezetimibe (Zetia) 10 MG tablet Take 1 tablet (10 mg) by mouth daily. 90 tablet 1 Glucosamine-Chondroitin 500-400 MG capsule Take 1 tablet by mouth in the morning. lisinopril 5 MG tablet Take 1 tablet (5 mg) by mouth daily. 90 tablet 1 metoprolol succinate XL (Toprol-XL) 100 MG 24 hr tablet Take 1 tablet by mouth twice daily 180 tablet 1 Multiple Vitamins-Minerals (MULTI COMPLETE PO) Take 1 tablet by mouth in the morning. Multiple Vitamins-Minerals (PRESERVISION AREDS 2+MULTI VIT PO) Take 1 tablet by mouth in the morning and 1 tablet in the evening. [place]-3 Fatty Acids (FISH OIL PO) Take 1 capsule by mouth in the morning. omeprazole (PriLOSEC) [address] capsule Take 1 capsule (40 mg) by mouth in the morning and 1 capsule (40 mg) in the evening. Take before meals. 180 capsule 1 Probiotic, Lactobacillus, capsule Take 1 capsule by mouth daily (with breakfast). 1 capsule 0 gabapentin (Neurontin) 100 MG capsule Take 1 capsule (100 mg) by mouth 3 times daily. 30 capsule 2 predniSONE (Deltasone) 20 MG tablet Take 2 tablets (40 mg) by mouth daily for 14 days, THEN 1.5 tablets (30 mg) daily for 14 days, THEN 1 tablet (20 mg) daily for 14 days, THEN 0.5 tablets (10 mg) daily. 93 tablet 0 Facility-Administered Medications Prior to Visit Medication Dose Route Frequency Provider Last Rate Last Admin betamethasone acetate-betamethasone sodium phosphate (Celestone) injection 12 mg 12 mg Intra-artICUlar Once Saud Mohamud PA-C lidocaine (Xylocaine) 1 % injection 8 mL 8 mL Injection Once Saud Mohamud PA-C Allergies: Crestor [rosuvastatin] Social History: Social History Socioeconomic History Marital status: Spouse name: Not on file Number of children: Not on file Years of education: Not on file Highest education level: Not on file Occupational History Not on file Tobacco Use Smoking status: Never Passive exposure: Past Smokeless tobacco: Never Vaping Use Vaping Use: Never used Substance and Sexual Activity Alcohol use: No Drug use: No Sexual activity: Not Currently Other Topics Concern Not on file Social History Narrative Not on file Social Determinants of Health Financial Resource Strain: Low Risk (11/08/2022) Overall Financial Resource Strain (CARDIA) Difficulty of Paying Living Expenses: Not hard at all Food Insecurity: No Food Insecurity (11/08/2022) Hunger Vital Sign Worried About Running Out of Food in the Last Year: Never true Ran Out of Food in the Last Year: Never true Transportation Needs: No Transportation Needs (11/08/2022) PRAPARE - Transportation Lack of Transportation (Medical): No Lack of Transportation (Non-Medical): No Physical Activity: Inactive (11/08/2022) Exercise Vital Sign Days of Exercise per Week: 0 days Minutes of Exercise per Session: 0 min Stress: Not on file Social Connections: Not on file Intimate Partner Violence: Not on file Housing Stability: Low Risk (11/08/2022) Housing Stability Vital Sign Unable to Pay for Housing in the Last Year: No Number of Places Lived in the Last Year: 1 Unstable Housing in the Last Year: No Family History: Family History Problem Relation Name Age of Onset Cancer Mother ovarian cancer Cancer Father leukemia REVIEW OF SYSTEMS: Positive for tinnitus, choking, chest tightness, muscle pain No fevers, significant weight loss, hearing loss, , dysphagia PHYSICAL EXAM: Vitals: BP 133/68 (BP Location: Left arm, Patient Position: Sitting) Pulse 74 Ht 5' 2 (1.575 m) Wt 229 lb (104 kg) BMI 41.88 kg/m General: The patient was well developed, in no acute distress. HEENT: Normocephalic, atraumatic. Conjunctiva, lids, pupils, and irises clear. Oral mucosa is moist. Abdomen: Soft, non-tender, non-distended. Positive bowel sounds. Skin (Restricted to face and distal upper and lower extremities): Unremarkable. Musculoskeletal: No tenderness observed. Neurological Examination: Mental Status: Patient is currently awake, alert, and oriented to person, place, and time. Able to state the reason for today's visit and can recall events leading up to this visit. Speech is fluent without any evidence of dysphasia. Cranial Nerves: II Optic: Pupils equal and reactive. Visual hernandez full. No papilledema appreciated on fundoscopic exam. III Oculomotor, IV Trochlear, Abducens: Extraocular movements intact. No nystagmus. No gaze palsy or paresis. No ptosis. V Trigeminal: Facial sensation normal and symmetric in V1-V3 distribution. VII Facial: Facial strength normal and symmetric. VIII Vestibulocochlear: Hearing intact bilaterally. IX Glossopharyngeal / X Vagus: Palate elevates symmetrically and uvula midline. XI Accessory: Shoulder shrug symmetric. XII Hypoglossal: Tongue midline with normal bilateral strength. Motor Examination: Full 5/5 strength in bilateral upper and lower extremities to confrontation. Sensory Examination: Sensation intact to light touch Gait Examination: Uses arms to stand Steady gait documented in this encounter [facility] 02-28-2023 Instructions Luke Terry MD - 02/28/2023 11:45 AM EST I placed order for ESR, please do the bloodwork in 2-3 months documented in this encounter [facility] 02-28-2023 Note Recommend both COVID -19 booster and RSV vaccine [facility] 02-15-2023 History of Present illness Narrative Patient was verified by name and . Images from the original note were not included. 02/15/2023 Kalie Ferrera (: 1945) is a 78 y.o. female , Established patient, here for evaluation of the following chief complaint(s): Advanced Directives ASSESSMENT/PLAN: 1. Advanced care planning/counseling discussion Advance Care Planning: The patient has capacity to make healthcare and advanced care planning decisions Yes The patient's identified surrogate decision maker is patient will be naming Fiorella Sandoval as her HCPOA, she is her late 's niece. Patient does not have any Discussion participants: PatientAdvanced Care Planning We discussed goals of care related to the patient's current health as documented below: Patient currently wishes to be full code. We discussed [id number] concerns identified by the patient/surrogate, including Patient states that she was terminally ill, unconscious or unable to communicate and it did not appear that her condition would improve, that she would not want life sustaining interventions. Reviewed in detail [facility] Living Will packet. Interventions reviewed: Resuscitation procedures (CPR), Mechanical ventilator support, and tube feeds, parenteral nutrition. Advance Care Planning Documents: Healthcare Power of Pot Filler: Other to be completed-patient will be naming Fiorella Nick. (Already listed as emergency contact) Financial Power of Pot Filler: Not completed Living Will: patient is in the process of completing a living will forms. Code Status: Full Code In addition to the time spent evaluating and managing the patient's medical diagnoses above, 30 minutes of this encounter was spent discussing advanced care planning documented above. Follow up for with primary care provider as scheduled. SUBJECTIVE/OBJECTIVE: ANA Ferrera (: 1945) is a 78 y.o. female , Established patient, here for the evaluation of the following chief complaint(s): Advanced Directives Patient presents today to further discuss advanced directives. Prior to Admission medications Medication Sig Start Date End Date Taking? Authorizing Provider apixaban (Eliquis) 5 MG tablet Take 1 tablet (5 mg) by mouth in the morning and 1 tablet (5 mg) before bedtime. 02/15/22 Yes Jeramie Allan MD ascorbid acid ER (Vitamin C) 500 MG ER tablet Take by mouth in the morning. Yes Historical Provider, Calcium Ascorbate 500 MG tablet Take 500 mg by mouth. 12/18/21 Yes Historical Provider, cholecalciferol (Vitamin D-3) 25 MCG (1000 UT) capsule Take by mouth. 12/18/21 Yes Historical Provider, ezetimibe (Zetia) 10 MG tablet Take 1 tablet (10 mg) by mouth daily. 10/19/22 Yes Janell Ferreira APRN - MAINFRAME SYSTEMS ENGINEER gabapentin (Neurontin) 100 MG capsule Take 1 capsule (100 mg) by mouth 3 times daily. 01/28/23 Yes Luke Terry MD Glucosamine-Chondroitin 500-400 MG capsule Take 1 tablet by mouth in the morning. Yes Historical Provider, lisinopril 5 MG tablet Take 1 tablet (5 mg) by mouth daily. 01/18/23 Yes Jeramie Allan MD metoprolol succinate XL (Toprol-XL) 100 MG 24 hr tablet Take 1 tablet by mouth twice daily 09/03/22 Yes JOANNE Calderon CNP Multiple Vitamins-Minerals (MULTI COMPLETE PO) Take 1 tablet by mouth in the morning. Yes Historical Provider, Multiple Vitamins-Minerals (PRESERVISION AREDS 2+MULTI VIT PO) Take 1 tablet by mouth in the morning and 1 tablet in the evening. Yes Historical Provider, [place]-3 Fatty Acids (FISH OIL PO) Take 1 capsule by mouth in the morning. Yes Historical Provider, omeprazole (PriLOSEC) [address] capsule Take 1 capsule (40 mg) by mouth in the morning and 1 capsule (40 mg) in the evening. Take before meals. 11/08/22 Yes Jeramie Allan MD predniSONE (Deltasone) 20 MG tablet Take 2 tablets (40 mg) by mouth daily for 14 days, THEN 1.5 tablets (30 mg) daily for 14 days, THEN 1 tablet (20 mg) daily for 14 days, THEN 0.5 tablets (10 mg) daily. 01/11/23 04/23/23 Yes Luke Terry MD Probiotic, Lactobacillus, capsule Take 1 capsule by mouth daily (with breakfast). 11/08/22 Yes JOANNE Calderon CNP Review of Systems Vitals: 02/15/23 1458 BP: 139/65 Pulse: 75 Temp: 36.5 C (97.7 F) TempSrc: Temporal SpO2: 98% Weight: 228 lb (103 kg) Height: 5' 2 (1.575 m) Physical Exam Constitutional: General: She is not in acute distress. Appearance: Normal appearance. She is not ill-appearing. HENT: Head: Normocephalic and atraumatic. Pulmonary: Effort: Pulmonary effort is normal. Neurological: Mental Status: She is alert and oriented to person, place, and time. Psychiatric: Mood and Affect: Mood normal. Behavior: Behavior normal. Thought Content: Thought content normal. Judgment: Judgment normal. An electronic signature was used to authenticate this note. JOANNE Freeman CNP 02/15/2023 5:21 PM documented in this encounter [facility] 02-10-2023 History of Present illness Narrative Well healed no infection path ok suture sout documented in this encounter [facility] 01-31-2023 Note Patient: Kalie Ferrera Procedure Summary Date: 01/31/23 Room / Location: [place] OR 2 / [facility] OR Anesthesia Start: 900 Anesthesia Stop: 954 Procedure: LIGATION OR BIOPSY TEMPORAL ARTERY (Head) Diagnosis: Other giant cell arteritis (HCC) (Other giant cell arteritis (HCC) [M31.6]) Surgeons: Edu Fish MD Responsible Provider: No Anesthesiologist - MD Liz Anesthesia Type: general ASA Status: 3 Anesthesia Type: general Vitals Value Taken Time BP 117/68 01/31/23 1000 Temp 97 01/31/23 1002 Pulse 111 01/31/23 1002 Resp 15 01/31/23 1002 SpO2 98 % 01/31/23 1002 Vitals shown include unfiled device data. Anesthesia Post Evaluation No notable events documented. Patient can be discharged once all PACU criteria has been met. [facility] 01-31-2023 Note Patient: Kalie Ferrera Procedure Summary Date: 01/31/23 Room / Location: [place] OR / [facility] Anesthesia Start: 900 Anesthesia Stop: 954 Procedure: LIGATION OR BIOPSY TEMPORAL ARTERY (Head) Diagnosis: Other giant cell arteritis (HCC) (Other giant cell arteritis (HCC) [M31.6]) Surgeons: Edu Fish MD Responsible Provider: No Anesthesiologist - MD Liz Anesthesia Type: general ASA Status: 3 Anesthesia Type: general Vitals Value Taken Time BP 117/68 01/31/23 1000 Temp 97 01/31/23 1002 Pulse 90 01/31/23 1001 Resp 15 01/31/23 1002 SpO2 99 % 01/31/23 1001 Vitals shown include unfiled device data. Anesthesia Post Evaluation Patient location during evaluation: PACU Patient participation: complete - patient participated Level of consciousness: awake and alert Pain management: satisfactory to patient Multimodal analgesia pain management approach Airway patency: patent Two or more strategies used to mitigate risk of obstructive sleep apnea Cardiovascular status: acceptable and hemodynamically stable Respiratory status: acceptable Hydration status: acceptable Comments: Patient received an inhalational anesthetic Patient exhibits three or more risk factors for PONV Patient received at leaset 2 prophylactic Rx PONV anti-emetic agents of different classes preop and/or intraop Anesthesia time was 60 minutes or longer Anesthesai administered was General (inhalational or TIVA) or Neuraxial block At least one body temperature greater than 95.8F/35.5C achieved within the 30 mins immediately prior to or the 15 minutes immediately following anesthesia end time Patient was administered multimodal pain management (two or more drugs and/or interventions excluding systemic opioids) in the periopeartive period occurring at some time between 6 hours prior to anesthesia start time until discharged from PACU No notable events documented. MIPS #[id number] PONV Patient received an inhalational anesthetic (4554F) MIPS # 424 Perioperative Temperature Management Anesthesia time was 60 minutes or longer (4255F) MIPS #477 Multimodal Pain Management Not emergent case MIPS #404 Anesthesiology Smoking Abstinence The patient is not a current smoker (e.g. cigarette, cigar, pipe, e-cigarette/vaping/marijuana) If no stop here (G9644) I completed my handoff to the receiving clinician during which we: 1. Identified the patient 2. Identified the responsible provider 3. Reviewed the pertinent medical history 4. Discussed the surgical course 5. Reviewed intra-op anesthesia management and issues during anesthesia 6. Set expectations for post-procedure period 7. Allowed opportunity for questions and acknowledgement of understanding. [facility] 01-31-2023 Note Airway Date/Time: 01/31/2023 9:32 AM Urgency: scheduled General Information and Staff Patient location during procedure: Procedural Resident/SKETCHER: JOANNE Bergeron CRNA Performed: SKETCHER Performed by: JOANNE Bergeron CRNA Authorized by: JOANNE Bergeron CRNA Indications and Patient Condition Indications for airway management: anesthesia Sedation level: Asleep Preoxygenated: yes Patient position: sniffing Mask difficulty assessment: 0 - not attempted Final Airway Details Final airway type: supraglottic airway Successful airway: Igel Size 4 Number of attempts at approach: 1 Additional Comments Atraumatic placement. dentition intact [facility] 01-31-2023 Note DEPARTMENT OF SURGER Y OPERATIVE NOTE DATE OF PROCEDURE: 01/31/2023 ATTENDING SURGEON: Edu Bliss MD ELECTRICAL TRANSMISSION ENGINEER: 0 PREOPERATIVE DIAGNOSIS: Rule out temporal arteritis POSTOPERATIVE DIAGNOSIS: Same OPERATION: Left temporal artery biopsy ANESTHESIA: General ESTIMATED BLOOD LOSS: Taiwanese HISTORY: Patient has had elevated sed rate severe pain in the left forehead and some vision changes in the left eye she presents for temporal artery biopsy PROCEDURE: Under a general anesthetic a 1/2 inch incision layer above the left ear over the temporal artery 2-1/2 cm section was dissected free tied off proximally distally with 2-0 Vicryl skin closed with 3 and 4-0 Vicryl sterile dressings applied surgery tolerates well specimen processing usual [facility] 01-31-2023 Hospital Discharge instructions Temo Rice RN - 01/31/2023 10:06 AM EST Anesthesia and Activity: For the first [address], operate heavy or dangerous machinery Do not drink any alcohol or take sleeping pills. Do not make major decisions or sign important papers. You may not be able to think clearly. You are at a higher risk of falling for at least 24 hours. Take extra care when you get up. Do not change positions quickly. Ask for help if you feel unsteady when you try to walk. Start with a light diet when you are fully awake. This includes things that are easy to swallow like soups, pudding, jello, toast and eggs. Slowly progress to your normal diet. Call the doctor if you Have trouble breathing Upset stomach or vomiting more than 3 times in the next 2 days Dizziness May shower in 2 days. Rest today. Call office to make follow up appointment for 10 days. The following attachments cannot be sent through Care Everywhere.Vasculitis Discharge Instructions ([place]ese)documented in this encounter [facility] 01-31-2023 Note Sugery History and P hysical CC: Surgery HPI: Kalie Ferrera is a 78 y.o. female who presents for temporal artery biopsy left Past Medical History: Diagnosis Date A-fib (CMS/HCC) (HCC) Atrial fibrillation (HCC) Cancer (CMS/HCC) (HCC) skin- facial squamous cell COPD (chronic obstructive pulmonary disease) (HCC) Fractures 1980 multiple ribs GERD (gastroesophageal reflux disease) HTN (hypertension) Osteoarthritis Vertigo Past Surgical History: Procedure Laterality Date APPENDECTOMY 04/1952 CATARACT EXTRACTION Bilateral 2017 CHOLECYSTECTOMY 1997 COLONOSCOPY N/A COSMETIC SURGERY N/A 1981 facial repair and plastic- nose KNEE CARTILAGE SURGERY Left 09/2003 meniscus SKIN CANCER EXCISION Left 10/2005 nose TONSILLECTOMY 02/1953 TOTAL KNEE ARTHROPLASTY Left 01/14/2022 UPPER GASTROINTESTINAL ENDOSCOPY N/A Family History Problem Relation Name Age of Onset Cancer Mother ovarian cancer Cancer Father leukemia Social History Socioeconomic History Marital status: Spouse name: Not on file Number of children: Not on file Years of education: Not on file Highest education level: Not on file Occupational History Not on file Tobacco Use Smoking status: Never Passive exposure: Past Smokeless tobacco: Never Vaping Use Vaping Use: Never used Substance and Sexual Activity Alcohol use: No Drug use: No Sexual activity: Not Currently Other Topics Concern Not on file Social History Narrative Not on file Social Determinants of Health Financial Resource Strain: Low Risk (11/08/2022) Overall Financial Resource Strain (CARDIA) Difficulty of Paying Living Expenses: Not hard at all Food Insecurity: No Food Insecurity (11/08/2022) Hunger Vital Sign Worried About Running Out of Food in the Last Year: Never true Ran Out of Food in the Last Year: Never true Transportation Needs: No Transportation Needs (11/08/2022) PRAPARE - Transportation Lack of Transportation (Medical): No Lack of Transportation (Non-Medical): No Physical Activity: Inactive (11/08/2022) Exercise Vital Sign Days of Exercise per Week: 0 days Minutes of Exercise per Session: 0 min Stress: Not on file Social Connections: Not on file Intimate Partner Violence: Not on file Housing Stability: Low Risk (11/08/2022) Housing Stability Vital Sign Unable to Pay for Housing in the Last Year: No Number of Places Lived in the Last Year: 1 Unstable Housing in the Last Year: No Patient Active Problem List Diagnosis Date Noted Subacute cough 01/19/2023 Forgetfulness 12/06/2022 Visual changes 12/06/2022 Lumbar strain, initial encounter 08/17/2022 Weakness of both lower extremities 08/17/2022 Thumb pain, left 08/17/2022 Nausea and vomiting 08/17/2022 Pruritus, unspecified 06/17/2022 Myalgia 06/17/2022 Dry hair 06/17/2022 Elevated glucose 06/17/2022 Hypercholesterolemia 06/16/2022 Hyperglycemia 05/10/2022 Muscle spasm 05/10/2022 Syncope 03/31/2022 Dizziness 03/31/2022 S/P total knee arthroplasty, left 01/14/2022 Nonintractable headache 12/08/2021 Paroxysmal atrial fibrillation (HCC) 11/04/2021 Acute pain of right shoulder 11/04/2021 Balance problems 11/04/2021 Hypertension 11/04/2021 Menopause 10/14/2021 Primary osteoarthritis of left knee 02/10/2017 Macular degeneration 03/01/2016 Seasonal allergies 03/01/2016 @MEDHMEDS@ Review of Systems Constitutional: Negative for fatigue, acute illness Otherwise negative except for presenting complaints Objective: Vitals: 01/31/23 1128 BP: 138/72 Pulse: 97 Resp: 16 Temp: SpO2: 97% There is no height or weight on file to calculate BMI. General: alert, no acute distress, cooperative Neck: Supple, No thyromegaly Lymph Nodes: No lymphadenopathy Lungs: Non labored Heart: HR Regular, BP Stable Abdomen: Soft, NT, ND, No Hernia noted Skin: Warm, dry Extremities: extremities normal, strength atraumatic, no cyanosis or edema Assessment: Patient is a 78 y.o. female who presents for Surgery Plan: -Plan for biopsy temp artery -To OR under gen anesthesia Edu Bliss MD [facility] 01-31-2023 Note Discharged to friend Tiffany's home. . Accompanied by Tiffany . AVS and education reviewed with patient and Tiffany, both verbalized understanding. Mode of transportation private vehicle Belongings sent. [facility] 01-31-2023 Note Formatting of this n ote might be different from the original. Images from the original note were not included. DEPARTMENT OF SURGERY OPERATIVE NOTE DATE OF PROCEDURE: 01/31/2023 ATTENDING SURGEON: Edu Bliss MD ELECTRICAL TRANSMISSION ENGINEER: 0 PREOPERATIVE DIAGNOSIS: Rule out temporal arteritis POSTOPERATIVE DIAGNOSIS: Same OPERATION: Left temporal artery biopsy ANESTHESIA: General ESTIMATED BLOOD LOSS: [place]ese HISTORY: Patient has had elevated sed rate severe pain in the left forehead and some vision changes in the left eye she presents for temporal artery biopsy PROCEDURE: Under a general anesthetic a 1/2 inch incision layer above the left ear over the temporal artery 2-1/2 cm section was dissected free tied off proximally distally with 2-0 Vicryl skin closed with 3 and 4-0 Vicryl sterile dressings applied surgery tolerates well specimen processing usual [facility] 01-31-2023 Note Formatting of this n ote might be different from the original. Images from the original note were not included. DEPARTMENT OF SURGERY OPERATIVE NOTE DATE OF PROCEDURE: 01/31/2023 ATTENDING SURGEON: Edu Bliss MD ELECTRICAL TRANSMISSION ENGINEER: 0 PREOPERATIVE DIAGNOSIS: Rule out temporal arteritis POSTOPERATIVE DIAGNOSIS: Same OPERATION: Left temporal artery biopsy ANESTHESIA: General ESTIMATED BLOOD LOSS: [place]ese HISTORY: Patient has had elevated sed rate severe pain in the left forehead and some vision changes in the left eye she presents for temporal artery biopsy PROCEDURE: Under a general anesthetic a 1/2 inch incision layer above the left ear over the temporal artery 2-1/2 cm section was dissected free tied off proximally distally with 2-0 Vicryl skin closed with 3 and 4-0 Vicryl sterile dressings applied surgery tolerates well specimen processing usual [facility] 01-31-2023 Miscellaneous Notes Images from the original note were not included. DEPARTMENT OF SURGERY OPERATIVE NOTE DATE OF PROCEDURE: 01/31/2023 ATTENDING SURGEON: Edu Bliss MD ELECTRICAL TRANSMISSION ENGINEER: 0 PREOPERATIVE DIAGNOSIS: Rule out temporal arteritis POSTOPERATIVE DIAGNOSIS: Same OPERATION: Left temporal artery biopsy ANESTHESIA: General ESTIMATED BLOOD LOSS: [place]ese HISTORY: Patient has had elevated sed rate severe pain in the left forehead and some vision changes in the left eye she presents for temporal artery biopsy PROCEDURE: Under a general anesthetic a 1/2 inch incision layer above the left ear over the temporal artery 2-1/2 cm section was dissected free tied off proximally distally with 2-0 Vicryl skin closed with 3 and 4-0 Vicryl sterile dressings applied surgery tolerates well specimen processing usual Small guaze and multiple steri strips in place to left voodoo. No drainage or shadowing visible. Surgical site left voodoo, oozing blood. Cleaned and reinforced with 2x2 guaze and paper tape. Surgeon at bedside, ok to discharge. Advises to apply pressure for 10 minutes should wound begin to ooze post discharge. Discharged to friend Tiffany's home. . Accompanied by Tiffany . AVS and education reviewed with patient and Tiffany, both verbalized understanding. Mode of transportation private vehicle Belongings sent. documented in this encounter [facility] 01-31-2023 History and physical note [facility] History and Physical CC: Surgery HPI: Kalie Ferrera is a 78 y.o. female who presents for temporal artery biopsy left Past Medical History: Diagnosis Date A-fib (CMS/HCC) (HCC) Atrial fibrillation (HCC) Cancer (CMS/HCC) (HCC) skin- facial squamous cell COPD (chronic obstructive pulmonary disease) (HCC) Fractures 1980 multiple ribs GERD (gastroesophageal reflux disease) HTN (hypertension) Osteoarthritis Vertigo Past Surgical History: Procedure Laterality Date APPENDECTOMY 04/1952 CATARACT EXTRACTION Bilateral 2017 CHOLECYSTECTOMY 1996 COLONOSCOPY N/A COSMETIC SURGERY N/A 1980 facial repair and plastic- nose KNEE CARTILAGE SURGERY Left 09/2003 meniscus SKIN CANCER EXCISION Left 10/2005 nose TONSILLECTOMY 02/1953 TOTAL KNEE ARTHROPLASTY Left 01/14/2022 UPPER GASTROINTESTINAL ENDOSCOPY N/A Family History Problem Relation Name Age of Onset Cancer Mother ovarian cancer Cancer Father leukemia Social History Socioeconomic History Marital status: Spouse name: Not on file Number of children: Not on file Years of education: Not on file Highest education level: Not on file Occupational History Not on file Tobacco Use Smoking status: Never Passive exposure: Past Smokeless tobacco: Never Vaping Use Vaping Use: Never used Substance and Sexual Activity Alcohol use: No Drug use: No Sexual activity: Not Currently Other Topics Concern Not on file Social History Narrative Not on file Social Determinants of Health Financial Resource Strain: Low Risk (11/08/2022) Overall Financial Resource Strain (CARDIA) Difficulty of Paying Living Expenses: Not hard at all Food Insecurity: No Food Insecurity (11/08/2022) Hunger Vital Sign Worried About Running Out of Food in the Last Year: Never true Ran Out of Food in the Last Year: Never true Transportation Needs: No Transportation Needs (11/08/2022) PRAPARE - Transportation Lack of Transportation (Medical): No Lack of Transportation (Non-Medical): No Physical Activity: Inactive (11/08/2022) Exercise Vital Sign Days of Exercise per Week: 0 days Minutes of Exercise per Session: 0 min Stress: Not on file Social Connections: Not on file Intimate Partner Violence: Not on file Housing Stability: Low Risk (11/08/2022) Housing Stability Vital Sign Unable to Pay for Housing in the Last Year: No Number of Places Lived in the Last Year: 1 Unstable Housing in the Last Year: No Patient Active Problem List Diagnosis Date Noted Subacute cough 01/19/2023 Forgetfulness 12/06/2022 Visual changes 12/06/2022 Lumbar strain, initial encounter 08/17/2022 Weakness of both lower extremities 08/17/2022 Thumb pain, left 08/17/2022 Nausea and vomiting 08/17/2022 Pruritus, unspecified 06/17/2022 Myalgia 06/17/2022 Dry hair 06/17/2022 Elevated glucose 06/17/2022 Hypercholesterolemia 06/16/2022 Hyperglycemia 05/10/2022 Muscle spasm 05/10/2022 Syncope 03/31/2022 Dizziness 03/31/2022 S/P total knee arthroplasty, left 01/14/2022 Nonintractable headache 12/08/2021 Paroxysmal atrial fibrillation (HCC) 11/04/2021 Acute pain of right shoulder 11/04/2021 Balance problems 11/04/2021 Hypertension 11/04/2021 Menopause 10/14/2021 Primary osteoarthritis of left knee 02/10/2017 Macular degeneration 03/01/2016 Seasonal allergies 03/01/2016 @MEDHMEDS@ Review of Systems Constitutional: Negative for fatigue, acute illness Otherwise negative except for presenting complaints Objective: Vitals: 01/31/23 1128 BP: 138/72 Pulse: 97 Resp: 16 Temp: SpO2: 97% There is no height or weight on file to calculate BMI. General: alert, no acute distress, cooperative Neck: Supple, No thyromegaly Lymph Nodes: No lymphadenopathy Lungs: Non labored Heart: HR Regular, BP Stable Abdomen: Soft, NT, ND, No Hernia noted Skin: Warm, dry Extremities: extremities normal, strength atraumatic, no cyanosis or edema Assessment: Patient is a 78 y.o. female who presents for Surgery Plan: -Plan for biopsy temp artery -To OR under gen anesthesia Edu Bliss MD [facility] 01-31-2023 History and physical note [facility] History and Physical CC: Surgery HPI: Kalie Ferrera is a 78 y.o. female who presents for temporal artery biopsy left Past Medical History: Diagnosis Date A-fib (CMS/HCC) (HCC) Atrial fibrillation (HCC) Cancer (CMS/HCC) (HCC) skin- facial squamous cell COPD (chronic obstructive pulmonary disease) (HCC) Fractures 1980 multiple ribs GERD (gastroesophageal reflux disease) HTN (hypertension) Osteoarthritis Vertigo Past Surgical History: Procedure Laterality Date APPENDECTOMY 04/1952 CATARACT EXTRACTION Bilateral 2017 CHOLECYSTECTOMY 1996 COLONOSCOPY N/A COSMETIC SURGERY N/A 1980 facial repair and plastic- nose KNEE CARTILAGE SURGERY Left 09/2003 meniscus SKIN CANCER EXCISION Left 10/2005 nose TONSILLECTOMY 02/1953 TOTAL KNEE ARTHROPLASTY Left 01/14/2022 UPPER GASTROINTESTINAL ENDOSCOPY N/A Family History Problem Relation Name Age of Onset Cancer Mother ovarian cancer Cancer Father leukemia Social History Socioeconomic History Marital status: Spouse name: Not on file Number of children: Not on file Years of education: Not on file Highest education level: Not on file Occupational History Not on file Tobacco Use Smoking status: Never Passive exposure: Past Smokeless tobacco: Never Vaping Use Vaping Use: Never used Substance and Sexual Activity Alcohol use: No Drug use: No Sexual activity: Not Currently Other Topics Concern Not on file Social History Narrative Not on file Social Determinants of Health Financial Resource Strain: Low Risk (11/08/2022) Overall Financial Resource Strain (CARDIA) Difficulty of Paying Living Expenses: Not hard at all Food Insecurity: No Food Insecurity (11/08/2022) Hunger Vital Sign Worried About Running Out of Food in the Last Year: Never true Ran Out of Food in the Last Year: Never true Transportation Needs: No Transportation Needs (11/08/2022) PRAPARE - Transportation Lack of Transportation (Medical): No Lack of Transportation (Non-Medical): No Physical Activity: Inactive (11/08/2022) Exercise Vital Sign Days of Exercise per Week: 0 days Minutes of Exercise per Session: 0 min Stress: Not on file Social Connections: Not on file Intimate Partner Violence: Not on file Housing Stability: Low Risk (11/08/2022) Housing Stability Vital Sign Unable to Pay for Housing in the Last Year: No Number of Places Lived in the Last Year: 1 Unstable Housing in the Last Year: No Patient Active Problem List Diagnosis Date Noted Subacute cough 01/19/2023 Forgetfulness 12/06/2022 Visual changes 12/06/2022 Lumbar strain, initial encounter 08/17/2022 Weakness of both lower extremities 08/17/2022 Thumb pain, left 08/17/2022 Nausea and vomiting 08/17/2022 Pruritus, unspecified 06/17/2022 Myalgia 06/17/2022 Dry hair 06/17/2022 Elevated glucose 06/17/2022 Hypercholesterolemia 06/16/2022 Hyperglycemia 05/10/2022 Muscle spasm 05/10/2022 Syncope 03/31/2022 Dizziness 03/31/2022 S/P total knee arthroplasty, left 01/14/2022 Nonintractable headache 12/08/2021 Paroxysmal atrial fibrillation (HCC) 11/04/2021 Acute pain of right shoulder 11/04/2021 Balance problems 11/04/2021 Hypertension 11/04/2021 Menopause 10/14/2021 Primary osteoarthritis of left knee 02/10/2017 Macular degeneration 03/01/2016 Seasonal allergies 03/01/2016 @MEDHMEDS@ Review of Systems Constitutional: Negative for fatigue, acute illness Otherwise negative except for presenting complaints Objective: Vitals: 01/31/23 1128 BP: 138/72 Pulse: 97 Resp: 16 Temp: SpO2: 97% There is no height or weight on file to calculate BMI. General: alert, no acute distress, cooperative Neck: Supple, No thyromegaly Lymph Nodes: No lymphadenopathy Lungs: Non labored Heart: HR Regular, BP Stable Abdomen: Soft, NT, ND, No Hernia noted Skin: Warm, dry Extremities: extremities normal, strength atraumatic, no cyanosis or edema Assessment: Patient is a 78 y.o. female who presents for Surgery Plan: -Plan for biopsy temp artery -To OR under gen anesthesia Edu Bliss MD documented in this encounter [facility] 01-31-2023 Note Formatting of this n ote might be different from the original. Small guaze and multiple steri strips in place to left voodoo. No drainage or shadowing visible. [facility] 01-31-2023 Note Formatting of this n ote might be different from the original. Surgical site left voodoo, oozing blood. Cleaned and reinforced with 2x2 guaze and paper tape. Surgeon at bedside, ok to discharge. Advises to apply pressure for 10 minutes should wound begin to ooze post discharge. [facility] 01-31-2023 Note Formatting of this n ote might be different from the original. Discharged to friend Tiffany's home. . Accompanied by Tiffany . AVS and education reviewed with patient and Tiffany, both verbalized understanding. Mode of transportation private vehicle Belongings sent. [facility] 01-31-2023 Note Formatting of this n ote might be different from the original. Small guaze and multiple steri strips in place to left voodoo. No drainage or shadowing visible. [facility] 01-31-2023 Note Formatting of this n ote might be different from the original. Surgical site left voodoo, oozing blood. Cleaned and reinforced with 2x2 guaze and paper tape. Surgeon at bedside, ok to discharge. Advises to apply pressure for 10 minutes should wound begin to ooze post discharge. [facility] 01-31-2023 Note Formatting of this n ote might be different from the original. Discharged to friend Tiffany's home. . Accompanied by Tiffany . AVS and education reviewed with patient and Tiffany, both verbalized understanding. Mode of transportation private vehicle Belongings sent. [facility] 01-28-2023 Note Addended by: ASHISH LANDIS on: 02/17/2023 03:51 PM Modules accepted: Orders [facility] 01-28-2023 History of Present illness Narrative Department of Neurological Sciences Impression: Diagnosis Plan 1. Stabbing headache 2. Temporal arteritis (CMS/HCC) (HCC) Sedimentation rate, automated Sedimentation rate, automated Continues with shooting pains and temporal tenderness on prednisone. MRI brain images reviewed: microvascular disease and atrophy identified, no microhemorrages. Plan: Continue slow prednisone taper. Proceed with temporal artery biopsy. Trial of gabapentin as previously recommended. Repeat ESR We will consider transitioning to Actemra after her Bx is complete. Orders Placed This Encounter Procedures Sedimentation rate, automated Standing Status: Future Number of Occurrences: 1 Standing Expiration Date: 01/29/2024 CHIEF COMPLAINT: Chief Complaint Patient presents with Follow-up FU MRI HISTORY OF PRESENT ILLNESS: The patient is a 77 y.o. 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 12/31/22: Symptoms started several years ago. She can get dull aches behind her eyes or the back of her head. Last week had severe and sharp/stabbing pain x2 over the right temporoparietal lobe that lasted <60 seconds. She had no associated ipsilateral neck pain, facial pain. She denies associated ipsilateral lacrimation, miosis, conjunctival injection, nasal congestion. She is not aware of any triggers. She affirms having hot flashes with associated bilateral forehead sweating but cannot temporally relate hot flashes to her head pains. She affirms history of macular degeneration, notices a suggs cloud in the center of right eye when reading, symptoms started few months ago. Sees ophthalmology. Did not try any medications for head pains. Denies fevers, jaw claudication, transient visual obscurations, syncope, pain with valsalva, other focal neurological symptoms. ESR 27 MRI brain: 1. No acute intracranial abnormalities. No enhancing lesions. 2. Generalized brain parenchymal volume loss and mild chronic microvascular ischemic changes in the supratentorial white matter. : Awaiting temporal artery bx. Started prednisone, now on 30mg daily. Continues with shooting pains and temporal tenderness. Did not try gabapentin. No neck stiffness, fever, jaw claudication, visual dysfunction. Past Medical History: Past Medical History: Diagnosis Date A-fib (CMS/HCC) (HCC) Atrial fibrillation (HCC) Cancer (CMS/HCC) (HCC) skin- facial squamous cell COPD (chronic obstructive pulmonary disease) (HCC) Fractures 1980 multiple ribs GERD (gastroesophageal reflux disease) HTN (hypertension) Osteoarthritis Vertigo Past Surgical History: Past Surgical History: Procedure Laterality Date APPENDECTOMY 04/1952 CATARACT EXTRACTION Bilateral 2017 CHOLECYSTECTOMY 1996 COLONOSCOPY N/A COSMETIC SURGERY N/A 1980 facial repair and plastic- nose KNEE CARTILAGE SURGERY Left 09/2003 meniscus SKIN CANCER EXCISION Left 10/2005 nose TONSILLECTOMY 02/1953 TOTAL KNEE ARTHROPLASTY Left 01/14/2022 UPPER GASTROINTESTINAL ENDOSCOPY N/A Medications: Outpatient Medications Prior to Visit Medication Sig Dispense Refill apixaban (Eliquis) 5 MG tablet Take 1 tablet (5 mg) by mouth in the morning and 1 tablet (5 mg) before bedtime. 180 tablet 1 ascorbid acid ER (Vitamin C) 500 MG ER tablet Take by mouth in the morning. Calcium Ascorbate 500 MG tablet Take 500 mg by mouth. cholecalciferol (Vitamin D-3) 25 MCG (1000 UT) capsule Take by mouth. ezetimibe (Zetia) 10 MG tablet Take 1 tablet (10 mg) by mouth daily. 90 tablet 1 Glucosamine-Chondroitin 500-400 MG capsule Take 1 tablet by mouth in the morning. lisinopril 5 MG tablet Take 1 tablet (5 mg) by mouth daily. 90 tablet 1 metoprolol succinate XL (Toprol-XL) 100 MG 24 hr tablet Take 1 tablet by mouth twice daily 180 tablet 1 Multiple Vitamins-Minerals (MULTI COMPLETE PO) Take 1 tablet by mouth in the morning. Multiple Vitamins-Minerals (PRESERVISION AREDS 2+MULTI VIT PO) Take 1 tablet by mouth in the morning and 1 tablet in the evening. [place]-3 Fatty Acids (FISH OIL PO) Take 1 capsule by mouth in the morning. omeprazole (PriLOSEC) [address] capsule Take 1 capsule (40 mg) by mouth in the morning and 1 capsule (40 mg) in the evening. Take before meals. 180 capsule 1 predniSONE (Deltasone) 20 MG tablet Take 2 tablets (40 mg) by mouth daily for 14 days, THEN 1.5 tablets (30 mg) daily for 14 days, THEN 1 tablet (20 mg) daily for 14 days, THEN 0.5 tablets (10 mg) daily. 93 tablet 0 Probiotic, Lactobacillus, capsule Take 1 capsule by mouth daily (with breakfast). 1 capsule 0 Facility-Administered Medications Prior to Visit Medication Dose Route Frequency Provider Last Rate Last Admin betamethasone acetate-betamethasone sodium phosphate (Celestone) injection 12 mg 12 mg Intra-artICUlar Once Saud Mohamud PA-C lidocaine (Xylocaine) 1 % injection 8 mL 8 mL Injection Once Saud Mohamud PA-C Allergies: Crestor [rosuvastatin] Social History: Social History Socioeconomic History Marital status: Spouse name: Not on file Number of children: Not on file Years of education: Not on file Highest education level: Not on file Occupational History Not on file Tobacco Use Smoking status: Never Passive exposure: Past Smokeless tobacco: Never Vaping Use Vaping Use: Never used Substance and Sexual Activity Alcohol use: No Drug use: No Sexual activity: Not Currently Other Topics Concern Not on file Social History Narrative Not on file Social Determinants of Health Financial Resource Strain: Low Risk (11/08/2022) Overall Financial Resource Strain (CARDIA) Difficulty of Paying Living Expenses: Not hard at all Food Insecurity: No Food Insecurity (11/08/2022) Hunger Vital Sign Worried About Running Out of Food in the Last Year: Never true Ran Out of Food in the Last Year: Never true Transportation Needs: No Transportation Needs (11/08/2022) PRAPARE - Transportation Lack of Transportation (Medical): No Lack of Transportation (Non-Medical): No Physical Activity: Inactive (11/08/2022) Exercise Vital Sign Days of Exercise per Week: 0 days Minutes of Exercise per Session: 0 min Stress: Not on file Social Connections: Not on file Intimate Partner Violence: Not on file Housing Stability: Low Risk (11/08/2022) Housing Stability Vital Sign Unable to Pay for Housing in the Last Year: No Number of Places Lived in the Last Year: 1 Unstable Housing in the Last Year: No Family History: Family History Problem Relation Name Age of Onset Cancer Mother ovarian cancer Cancer Father leukemia REVIEW OF SYSTEMS: Positive for tinnitus, choking, chest tightness, muscle pain, headache No fevers, significant weight loss, hearing loss, tinnitus, dysphagia PHYSICAL EXAM: Vitals: BP (!) 147/83 (BP Location: Left arm, Patient Position: Sitting) Pulse 71 Ht 5' 2 (1.575 m) BMI 41.15 kg/m General: The patient was well developed, in no acute distress. HEENT: Normocephalic, atraumatic. Conjunctiva, lids, pupils, and irises clear. Oral mucosa is moist. Abdomen: Soft, non-tender, non-distended. Positive bowel sounds. Skin (Restricted to face and distal upper and lower extremities): Unremarkable. Musculoskeletal: No tenderness observed. Neurological Examination: Mental Status: Patient is currently awake, alert, and oriented to person, place, and time. Able to state the reason for today's visit and can recall events leading up to this visit. Speech is fluent without any evidence of dysphasia. Cranial Nerves: II Optic: Pupils equal and reactive. Visual hernandez full. No papilledema appreciated on fundoscopic exam. III Oculomotor, IV Trochlear, Abducens: Extraocular movements intact. No nystagmus. No gaze palsy or paresis. No ptosis. V Trigeminal: Facial sensation normal and symmetric in V1-V3 distribution. VII Facial: Facial strength normal and symmetric. VIII Vestibulocochlear: Hearing intact bilaterally. IX Glossopharyngeal / X Vagus: Palate elevates symmetrically and uvula midline. XI Accessory: Shoulder shrug symmetric. XII Hypoglossal: Tongue midline with normal bilateral strength. Motor Examination: Full 5/5 strength in bilateral upper and lower extremities to confrontation. Sensory Examination: Sensation intact to light touch Gait Examination: Uses arms to stand Steady gait documented in this encounter [facility] 01-28-2023 Instructions Luke Terry MD - 01/28/2023 10:45 AM EST Research Actemra documented in this encounter [facility] 01-26-2023 Note Patient: Kalie Ferrera Procedure Information Date/Time: 01/31/23 0900 Procedure: LIGATION OR BIOPSY TEMPORAL ARTERY Location: [facility] 2 / [facility] OR Surgeons: Edu Fish MD Relevant Problems Anesthesia (-) Delayed emergence from anesthesia (-) Difficult intravenous access (-) Family history of malignant hyperthermia (-) Motion sickness (-) JANKI (obstructive sleep apnea) (-) PONV (postoperative nausea and vomiting) Cardio (+) Hypercholesterolemia (+) Hypertension (+) Paroxysmal atrial fibrillation (HCC) Neuro/Psych (+) Nonintractable headache (+) Weakness of both lower extremities Pulmonary (-) JANKI (obstructive sleep apnea) Past Medical History: Past Medical History: No date: A-fib (CMS/HCC) (HCC) No date: Atrial fibrillation (HCC) No date: Cancer (CMS/HCC) (HCC) Comment: skin- facial squamous cell No date: COPD (chronic obstructive pulmonary disease) ([facility]) 1980: Fractures Comment: multiple ribs No date: GERD (gastroesophageal reflux disease) No date: HTN (hypertension) No date: Osteoarthritis No date: Vertigo Past Surgical History: Past Surgical History: 04/1952: APPENDECTOMY 2017: CATARACT EXTRACTION; Bilateral 1996: CHOLECYSTECTOMY No date: COLONOSCOPY; N/A 1980: COSMETIC SURGERY; N/A Comment: facial repair and plastic- nose 09/2003: KNEE CARTILAGE SURGERY; Left Comment: meniscus 10/2005: SKIN CANCER EXCISION; Left Comment: nose 02/1953: TONSILLECTOMY 01/14/2022: TOTAL KNEE ARTHROPLASTY; Left No date: UPPER GASTROINTESTINAL ENDOSCOPY; N/A Social History: TOBACCO: reports that she has never smoked. She has been exposed to tobacco smoke. She has never used smokeless tobacco. ETOH: reports no history of alcohol use. Social History Substance and Sexual Activity Drug Use No Family History: Family History Problem Relation Name Age of Onset ? Cancer Mother ovarian cancer ? Cancer Father leukemia Screening: Postmenopausal Clinical information reviewed: Tobacco Allergies Meds Med Hx Surg Hx OB Status Fam Hx Soc Hx Physical Exam Airway Mallampati: III TM distance: >3 FB Neck ROM: full Mouth Open: normal Cardiovascular Comments: IMPRESSION: SINUS RHYTHM ATRIAL PREMATURE COMPLEX LVH WITH SECONDARY REPOLARIZATION ABNORMALITY Compared to ECG 01/14/2022 18:53:44 Left ventricular hypertrophy now present ST (T wave) deviation no longer present Electronically Signed On 01-27-2023 7:58:35 EST by [facility] (+) Missing Comments: missing teeth - couple top and bottom nothing loose or broken no partials or dentures + crowns Pulmonary Abdominal Anesthesia Plan patient is NPO appropriate Any family history or previous problems with anesthesia no ASA 3 general Any family history or previous problems with anesthesia no The patient is not a current smoker. Anesthetic plan and risks discussed with patient. JANKI Screening STOP-Bang Total Score: 3 Labs: Lab Results Component Value Date WBC 7.9 01/01/2022 HGB 11.4 (L) 01/15/2022 HCT 34.6 (L) 01/15/2022 MCV 90.2 01/01/2022 Lab Results Component Value Date NA 140 12/22/2022 K 3.7 12/22/2022 CL 106 12/22/2022 CO2 33 (A) 12/22/2022 BUN 14 12/22/2022 CREATININE 0.86 11/08/2022 GLUCOSE 126 (H) 11/08/2022 CALCIUM 9.9 12/22/2022 PROT 6.9 11/08/2022 ALKPHOS 68 11/08/2022 AST 23 11/08/2022 ALT 24 11/08/2022 EGFR 70 11/08/2022 GLOB 2.6 11/08/2022 No echocardiogram results found for the past 14 days 01/26/23 ECG 12-LEAD (Preliminary) This result has not been signed. Information might be incomplete. Impression SINUS RHYTHM ATRIAL PREMATURE COMPLEX LVH WITH SECONDARY REPOLARIZATION ABNORMALITY Compared to ECG 01/14/2022 18:53:44 Left ventricular hypertrophy now present ST (T wave) deviation no longer present [facility] 01-26-2023 Note Comprehensive PreSur gical History and Physical ? Name: Kalie Ferrera : 1945 (Age-78 y.o.) Date of Service: Pt seen/examined on 01/26/2023 Procedure Information Date/Time: 01/31/23 0900 Procedure: LIGATION OR BIOPSY TEMPORAL ARTERY Location: [facility] / [facility] OR Surgeons: Edu Fish MD Chief Complaint: Other giant cell arteritis ASSESSMENT/PLAN: Patient is considered intermediate risk for this low/intermediate risk procedure/surgery noted above ([facility] sx on 01/31) with no reducible risk factors. Based on the above evaluation, the benefits of the planned procedure likely exceed the risks. The patient is medically optimized to proceed with the planned procedure without any further cardiopulmonary testing. 1) Other giant cell arteritis Managed per surgery 2) COPD/Asthma Per patient, feels at baseline Using rescue inhaler couple times a month Continue inhalers day of surgery 3) Atrial Fibrillation, paroxysmal Currently taking eliquis, BB Follows with PCP, [facility] cardiology Dr Mark Lay EKG ordered Hold AC per PAT protocol 2 days 4) HTN Currently taking metoprolol, lisinopril BP Readings from Last 3 Encounters: 01/26/23 (!) 164/85 01/20/23 (!) 152/82 01/19/23 137/81 5) HLD Currently taking zetia 6) GERD Stable. Currently taking PPI Avoidance of triggers encouraged 7) Obesity BMI 41 Visit Type: Pre-Admission Testing Visit Labs Ordered: NO - COMPLETE PRIOR TO PAT VISIT Sleep Referral Ordered: NO - NEGATIVE SCREEN PER SLEEP REFERRAL PROTOCOL Total time spent (which include face to face and non face to face encounters) : 45 minutes Toxic drug monitoring/narrow therapeutic index drug monitoring : # Drug name : lisinopril, eliquis # Route administered : po # Method of monitoring : bmp, cbc PAT Protocol referenced includes: 1. Anesthesia Lab Protocol Orders 2. Perioperative Cardiovascular Risk Assessment 3. Anesthesia Assessment 4. Pain Assessment and Acute Pain Service Consult (if appropriate) 5. Medical Clearance/Consult from Internal Medicine (IMS) 6. Shower/Wash Order (for designated surgeries) 7. JANKI Screen and Sleep Clinic Referral (if appropriate) History Of Present Illness: 78 y.o. female who presents with chief complaint mentioned above. Per surgeon's note Patient c/o stabbing headaches and a soft tissue mass. Mass is located on the left temporal artery . Mass was first noticed 3 months ago. Mass has left temporal artery in size. Mass has associated symptoms of moderate tenderness. Inflammatory markers mildly elevated. Pt has seen the surgeon and elected for above procedure. Denies Hx of DM, JANKI, CAD, CHF, DC, TIA/CVA, DVT/PE Hx problems with anesthesia? -no Dental? - missing teeth - couple top and bottom nothing loose or broken no partials or dentures + crowns Snore at night? - no Past Medical History: Past Medical History: No date: A-fib (CMS/HCC) ([facility]) No date: Atrial fibrillation ([facility]) No date: Cancer (CMS/[facility]) ([facility]) Comment: skin- facial squamous cell No date: COPD (chronic obstructive pulmonary disease) ([facility]) 1980: Fractures Comment: multiple ribs No date: GERD (gastroesophageal reflux disease) No date: HTN (hypertension) No date: Osteoarthritis No date: Vertigo Past Surgical History: Past Surgical History: 04/1952: APPENDECTOMY 2017: CATARACT EXTRACTION; Bilateral 1996: CHOLECYSTECTOMY No date: COLONOSCOPY; N/A 1980: COSMETIC SURGERY; N/A Comment: facial repair and plastic- nose 09/2003: KNEE CARTILAGE SURGERY; Left Comment: meniscus 10/2005: SKIN CANCER EXCISION; Left Comment: nose 02/1953: TONSILLECTOMY 01/14/2022: TOTAL KNEE ARTHROPLASTY; Left No date: UPPER GASTROINTESTINAL ENDOSCOPY; N/A Medications Prior to Admission: Current Outpatient Medications: apixaban (Eliquis) 5 MG tablet, Take 1 tablet (5 mg) by mouth in the morning and 1 tablet (5 mg) before bedtime., Disp: 180 tablet, Rfl: 1 ascorbid acid ER (Vitamin C) 500 MG ER tablet, Take by mouth in the morning., Disp: , Rfl: Calcium Ascorbate 500 MG tablet, Take 500 mg by mouth., Disp: , Rfl: cholecalciferol (Vitamin D-3) 25 MCG (1000 UT) capsule, Take by mouth., Disp: , Rfl: ezetimibe (Zetia) 10 MG tablet, Take 1 tablet (10 mg) by mouth daily., Disp: 90 tablet, Rfl: 1 Glucosamine-Chondroitin 500-400 MG capsule, Take 1 tablet by mouth in the morning., Disp: , Rfl: lisinopril 5 MG tablet, Take 1 tablet (5 mg) by mouth daily., Disp: 90 tablet, Rfl: 1 metoprolol succinate XL (Toprol-XL) 100 MG 24 hr tablet, Take 1 tablet by mouth twice daily, Disp: 180 tablet, Rfl: 1 Multiple Vitamins-Minerals (MULTI COMPLETE PO), Take 1 tablet by mouth in the morning., Disp: , Rfl: Multiple Vitamins-Minerals (PRESERVISION AREDS 2+MULTI VIT PO), Take 1 tablet by mouth in the morning (more content not included)... [facility] 01-20-2023 Note HPI/IMPRESSION: Soft Tissue Mass: Patient presents for evaluation of a soft tissue mass. Mass is located on the left temporal artery . Mass was first noticed 3 months ago. Mass has left temporal artery in size. Mass has associated symptoms of moderate tenderness. Past Medical History: Diagnosis Date A-fib (CMS/HCC) (HCC) Atrial fibrillation (HCC) Cancer (CMS/HCC) (HCC) skin- facial squamous cell Cancer (CMS/HCC) (HCC) skin- facial- squamous cell COPD (chronic obstructive pulmonary disease) (HCC) COPD (chronic obstructive pulmonary disease) (HCC) GERD (gastroesophageal reflux disease) GERD (gastroesophageal reflux disease) HTN (hypertension) Hypertension Osteoarthritis Osteoarthritis Vertigo Past Surgical History: Procedure Laterality Date APPENDECTOMY 04/1952 CATARACT EXTRACTION Bilateral 2017 CHOLECYSTECTOMY 1996 COLONOSCOPY N/A COLONOSCOPY COLONOSCOPY COSMETIC SURGERY N/A 1980 facial repair and plastic- nose KNEE CARTILAGE SURGERY Left 09/2003 SKIN CANCER EXCISION Left 10/2005 nose SKIN CANCER EXCISION 10/2005 TONSILLECTOMY 02/1953 TOTAL KNEE ARTHROPLASTY Left 01/14/2022 UPPER GASTROINTESTINAL ENDOSCOPY N/A Current Outpatient Medications Medication Sig Dispense Refill apixaban (Eliquis) 5 MG tablet Take 1 tablet (5 mg) by mouth in the morning and 1 tablet (5 mg) before bedtime. 180 tablet 1 ascorbid acid ER (Vitamin C) 500 MG ER tablet Take by mouth in the morning. Calcium Ascorbate 500 MG tablet Take 500 mg by mouth. cholecalciferol (Vitamin D-3) 25 MCG (1000 UT) capsule Take by mouth. ezetimibe (Zetia) 10 MG tablet Take 1 tablet (10 mg) by mouth daily. 90 tablet 1 Glucosamine-Chondroitin 500-400 MG capsule Take 1 tablet by mouth in the morning. lisinopril 5 MG tablet Take 1 tablet (5 mg) by mouth daily. 90 tablet 1 metoprolol succinate XL (Toprol-XL) 100 MG 24 hr tablet Take 1 tablet by mouth twice daily 180 tablet 1 Multiple Vitamins-Minerals (MULTI COMPLETE PO) Take 1 tablet by mouth in the morning. Multiple Vitamins-Minerals (PRESERVISION AREDS 2+MULTI VIT PO) Take 1 tablet by mouth in the morning. [place]-3 Fatty Acids (FISH OIL PO) Take 1 capsule by mouth in the morning. omeprazole (PriLOSEC) [address] capsule Take 1 capsule (40 mg) by mouth in the morning and 1 capsule (40 mg) in the evening. Take before meals. 180 capsule 1 predniSONE (Deltasone) 20 MG tablet Take 2 tablets (40 mg) by mouth daily for 14 days, THEN 1.5 tablets (30 mg) daily for 14 days, THEN 1 tablet (20 mg) daily for 14 days, THEN 0.5 tablets (10 mg) daily. 93 tablet 0 Probiotic, Lactobacillus, capsule Take 1 capsule by mouth daily (with breakfast). 1 capsule 0 Current Facility-Administered Medications Medication Dose Route Frequency Provider Last Rate Last Admin betamethasone acetate-betamethasone sodium phosphate (Celestone) injection 12 mg 12 mg Intra-artICUlar Once Saud Mhoamud PA-C lidocaine (Xylocaine) 1 % injection 8 mL 8 mL Injection Once Saud Mohamud PA-C Allergies Allergen Reactions Crestor [Rosuvastatin] Muscle pain Reviewof Systems: Review of Systems Physical Exam: BP (!) 152/82 (BP Location: Right arm, Patient Position: Sitting, BP Cuff Size: Large adult) Pulse 70 Ht 5' 2 (1.575 m) Wt 232 lb (105 kg) BMI 42.43 kg/m? Physical Exam tender temporal artery TreatmentPatient counseled on risks,benefits, and alternatives of treatment plan at length while in the office today. Patient states an understanding and willingness to proceed with plan. No orders of the defined types were placed in this encounter. Follow Up: Follow up for after surgery. Encounter Diagnosis Name Primary? Temporal arteritis (CMS/HCC) (HCC) Edu Bliss MD, [email or web address] [facility] 01-20-2023 History of Present illness Narrative HPI/IMPRESSION: Soft Tissue Mass: Patient presents for evaluation of a soft tissue mass. Mass is located on the left temporal artery . Mass was first noticed 3 months ago. Mass has left temporal artery in size. Mass has associated symptoms of moderate tenderness. Past Medical History: Diagnosis Date A-fib (CMS/HCC) (HCC) Atrial fibrillation (HCC) Cancer (CMS/HCC) (HCC) skin- facial squamous cell Cancer (CMS/HCC) (HCC) skin- facial- squamous cell COPD (chronic obstructive pulmonary disease) (HCC) COPD (chronic obstructive pulmonary disease) (HCC) GERD (gastroesophageal reflux disease) GERD (gastroesophageal reflux disease) HTN (hypertension) Hypertension Osteoarthritis Osteoarthritis Vertigo Past Surgical History: Procedure Laterality Date APPENDECTOMY 04/1952 CATARACT EXTRACTION Bilateral 2017 CHOLECYSTECTOMY 1996 COLONOSCOPY N/A COLONOSCOPY COLONOSCOPY COSMETIC SURGERY N/A 1981 facial repair and plastic- nose KNEE CARTILAGE SURGERY Left 09/2003 SKIN CANCER EXCISION Left 10/2005 nose SKIN CANCER EXCISION 10/2005 TONSILLECTOMY 02/1953 TOTAL KNEE ARTHROPLASTY Left 01/14/2022 UPPER GASTROINTESTINAL ENDOSCOPY N/A Current Outpatient Medications Medication Sig Dispense Refill apixaban (Eliquis) 5 MG tablet Take 1 tablet (5 mg) by mouth in the morning and 1 tablet (5 mg) before bedtime. 180 tablet 1 ascorbid acid ER (Vitamin C) 500 MG ER tablet Take by mouth in the morning. Calcium Ascorbate 500 MG tablet Take 500 mg by mouth. cholecalciferol (Vitamin D-3) 25 MCG (1000 UT) capsule Take by mouth. ezetimibe (Zetia) 10 MG tablet Take 1 tablet (10 mg) by mouth daily. 90 tablet 1 Glucosamine-Chondroitin 500-400 MG capsule Take 1 tablet by mouth in the morning. lisinopril 5 MG tablet Take 1 tablet (5 mg) by mouth daily. 90 tablet 1 metoprolol succinate XL (Toprol-XL) 100 MG 24 hr tablet Take 1 tablet by mouth twice daily 180 tablet 1 Multiple Vitamins-Minerals (MULTI COMPLETE PO) Take 1 tablet by mouth in the morning. Multiple Vitamins-Minerals (PRESERVISION AREDS 2+MULTI VIT PO) Take 1 tablet by mouth in the morning. [place]-3 Fatty Acids (FISH OIL PO) Take 1 capsule by mouth in the morning. omeprazole (PriLOSEC) [address] capsule Take 1 capsule (40 mg) by mouth in the morning and 1 capsule (40 mg) in the evening. Take before meals. 180 capsule 1 predniSONE (Deltasone) 20 MG tablet Take 2 tablets (40 mg) by mouth daily for 14 days, THEN 1.5 tablets (30 mg) daily for 14 days, THEN 1 tablet (20 mg) daily for 14 days, THEN 0.5 tablets (10 mg) daily. 93 tablet 0 Probiotic, Lactobacillus, capsule Take 1 capsule by mouth daily (with breakfast). 1 capsule 0 Current Facility-Administered Medications Medication Dose Route Frequency Provider Last Rate Last Admin betamethasone acetate-betamethasone sodium phosphate (Celestone) injection 12 mg 12 mg Intra-artICUlar Once Saud Mohamud PA-C lidocaine (Xylocaine) 1 % injection 8 mL 8 mL Injection Once Saud Mohamud PA-C Allergies Allergen Reactions Crestor [Rosuvastatin] Muscle pain Reviewof Systems: Review of Systems Physical Exam: BP (!) 152/82 (BP Location: Right arm, Patient Position: Sitting, BP Cuff Size: Large adult) Pulse 70 Ht 5' 2 (1.575 m) Wt 232 lb (105 kg) BMI 42.43 kg/m Physical Exam tender temporal artery TreatmentPatient counseled on risks,benefits, and alternatives of treatment plan at length while in the office today. Patient states an understanding and willingness to proceed with plan. No orders of the defined types were placed in this encounter. Follow Up: Follow up for after surgery. Encounter Diagnosis Name Primary? Temporal arteritis ([facility]) ([facility]) Edu Bliss MD, [email or web address] documented in this encounter [facility] 01-12-[address] Sagrario tapia faxed. [facility] History of Present illness Narrative Department of Neurological Sciences Impression: Diagnosis Plan 1. Stabbing headache [facility] MR brain w and wo contrast Sedimentation rate, automated Sedimentation rate, automated Presents with head pains lasting seconds. Head pains can be bilateral or unilateral, stabbing or dull. Has temporal tenderness to palpation on exam. Ddx: includes stabbing headache, cervicogenic headache, secondary headache/GCA. Plan: MRI brain ESR Trial of gabapentin. Orders Placed This Encounter Procedures MR brain w and wo contrast Standing Status: Future Standing Expiration Date: 01/01/2024 Sedimentation rate, automated Standing Status: Future Number of Occurrences: 1 Standing Expiration Date: 01/01/2024 CHIEF COMPLAINT: Chief Complaint Patient presents with New Patient The patient states that she is having pain the migrates in the head. The last week, she has the severe pain in the right side of the head. HISTORY OF PRESENT ILLNESS: The patient is a 77 y.o. female with a history of atrial fibrillation, COPD, low back pain, hypertension, vertigo who presents with head pains . Symptoms started several years ago. She can get dull aches behind her eyes or the back of her head. Last week had severe and sharp/stabbing pain x2 over the right temporoparietal lobe that lasted <60 seconds. She had no associated ipsilateral neck pain, facial pain. She denies associated ipsilateral lacrimation, miosis, conjunctival injection, nasal congestion. She is not aware of any triggers. She affirms having hot flashes with associated bilateral forehead sweating but cannot temporally relate hot flashes to her head pains. She affirms history of macular degeneration, notices a suggs cloud in the center of right eye when reading, symptoms started few months ago. Sees ophthalmology. Did not try any medications for head pains. Denies fevers, jaw claudication, transient visual obscurations, syncope, pain with valsalva, other focal neurological symptoms. Past Medical History: Past Medical History: Diagnosis Date A-fib (CMS/HCC) (HCC) Atrial fibrillation (HCC) Cancer (CMS/HCC) (HCC) skin- facial squamous cell Cancer (CMS/HCC) (HCC) skin- facial- squamous cell COPD (chronic obstructive pulmonary disease) (HCC) COPD (chronic obstructive pulmonary disease) (HCC) GERD (gastroesophageal reflux disease) GERD (gastroesophageal reflux disease) HTN (hypertension) Hypertension Osteoarthritis Osteoarthritis Vertigo Past Surgical History: Past Surgical History: Procedure Laterality Date APPENDECTOMY 04/1952 CATARACT EXTRACTION Bilateral 2017 CHOLECYSTECTOMY 1996 COLONOSCOPY N/A COLONOSCOPY COLONOSCOPY COSMETIC SURGERY N/A 1980 facial repair and plastic- nose KNEE CARTILAGE SURGERY Left 09/2003 SKIN CANCER EXCISION Left 10/2005 nose SKIN CANCER EXCISION 10/2005 TONSILLECTOMY 02/1953 TOTAL KNEE ARTHROPLASTY Left 01/14/2022 UPPER GASTROINTESTINAL ENDOSCOPY N/A Medications: Outpatient Medications Prior to Visit Medication Sig Dispense Refill apixaban (Eliquis) 5 MG tablet Take 1 tablet (5 mg) by mouth in the morning and 1 tablet (5 mg) before bedtime. 180 tablet 1 ascorbid acid ER (Vitamin C) 500 MG ER tablet Take by mouth in the morning. Calcium Ascorbate 500 MG tablet Take 500 mg by mouth. cholecalciferol (Vitamin D-3) 25 MCG (1000 UT) capsule Take by mouth. ezetimibe (Zetia) 10 MG tablet Take 1 tablet (10 mg) by mouth daily. 90 tablet 1 Glucosamine-Chondroitin 500-400 MG capsule Take 1 tablet by mouth in the morning. lisinopril 5 MG tablet Take 1 tablet by mouth once daily 90 tablet 1 metoprolol succinate XL (Toprol-XL) 100 MG 24 hr tablet Take 1 tablet by mouth twice daily 180 tablet 1 Multiple Vitamins-Minerals (MULTI COMPLETE PO) Take 1 tablet by mouth in the morning. Multiple Vitamins-Minerals (PRESERVISION AREDS 2+MULTI VIT PO) Take 1 tablet by mouth in the morning. [place]-3 Fatty Acids (FISH OIL PO) Take 1 capsule by mouth in the morning. omeprazole (PriLOSEC) [address] capsule Take 1 capsule (40 mg) by mouth in the morning and 1 capsule (40 mg) in the evening. Take before meals. 180 capsule 1 Probiotic, Lactobacillus, capsule Take 1 capsule by mouth daily (with breakfast). 1 capsule 0 Facility-Administered Medications Prior to Visit Medication Dose Route Frequency Provider Last Rate Last Admin betamethasone acetate-betamethasone sodium phosphate (Celestone) injection 12 mg 12 mg Intra-artICUlar Once Saud Mohamud PA-C lidocaine (Xylocaine) 1 % injection 8 mL 8 mL Injection Once Saud Mohamud PA-C Allergies: Crestor [rosuvastatin] Social History: Social History Socioeconomic History Marital status: Spouse name: Not on file Number of children: Not on file Years of education: Not on file Highest education level: Not on file Occupational History Not on file Tobacco Use Smoking status: Never Smokeless tobacco: Never Vaping Use Vaping Use: Never used Substance and Sexual Activity Alcohol use: No Drug use: No Sexual activity: Not Currently Other Topics Concern Not on file Social History Narrative Not on file Social Determinants of Health Financial Resource Strain: Low Risk (11/08/2022) Overall Financial Resource Strain (CARDIA) Difficulty of Paying Living Expenses: Not hard at all Food Insecurity: No Food Insecurity (11/08/2022) Hunger Vital Sign Worried About Running Out of Food in the Last Year: Never true Ran Out of Food in the Last Year: Never true Transportation Needs: No Transportation Needs (11/08/2022) PRAPARE - Transportation Lack of Transportation (Medical): No Lack of Transportation (Non-Medical): No Physical Activity: Inactive (11/08/2022) Exercise Vital Sign Days of Exercise per Week: 0 days Minutes of Exercise per Session: 0 min Stress: Not on file Social Connections: Not on file Intimate Partner Violence: Not on file Housing Stability: Low Risk (11/08/2022) Housing Stability Vital Sign Unable to Pay for Housing in the Last Year: No Number of Places Lived in the Last Year: 1 Unstable Housing in the Last Year: No Family History: Family History Problem Relation Name Age of Onset Cancer Mother ovarian cancer Cancer Father leukemia REVIEW OF SYSTEMS: Positive for tinnitus, choking, chest tightness, palpitations, muscle pain, headache No fevers, significant weight loss, hearing loss, tinnitus, dysphagia, photosensitivity, visual disturbances, chest tightness, chest pain, shortness of breath, palpitations, abdominal pain, nausea, heat intolerance, dysuria, joint pain, imbalance, dizziness,, seizures, confusion, anxiety, depression. PHYSICAL EXAM: Vitals: BP (!) 146/75 (BP Location: Right arm, Patient Position: Sitting) Pulse 64 Ht 5' 2 (1.575 m) Wt 223 lb 6.4 oz (101 kg) BMI 40.86 kg/m General: The patient was well developed, in no acute distress. HEENT: Normocephalic, atraumatic. Conjunctiva, lids, pupils, and irises clear. Oral mucosa is moist. Neck: No carotid bruits. Full range of motion. No nuchal rigidity or neck tenderness to palpation. Cardiovascular: Regular rate and rhythm. No murmurs. Arms and legs are warm and well-perfused. No clubbing, cyanosis or edema. Lungs: Clear to auscultation. Abdomen: Soft, non-tender, non-distended. Positive bowel sounds. Skin (Restricted to face and distal upper and lower extremities): Unremarkable. Musculoskeletal: No tenderness observed. Neurological Examination: Mental Status: Patient is currently awake, alert, and oriented to person, place, and time. Able to state the reason for today's visit and can recall events leading up to this visit. Speech is fluent without any evidence of dysphasia. Cranial Nerves: II Optic: Pupils equal and reactive. Visual hernandez full. No papilledema appreciated on fundoscopic exam. III Oculomotor, IV Trochlear, Abducens: Extraocular movements intact. No nystagmus. No gaze palsy or paresis. No ptosis. V Trigeminal: Facial sensation normal and symmetric in V1-V3 distribution. VII Facial: Facial strength normal and symmetric. VIII Vestibulocochlear: Hearing intact bilaterally. IX Glossopharyngeal / X Vagus: Palate elevates symmetrically and uvula midline. XI Accessory: Shoulder shrug symmetric. XII Hypoglossal: Tongue midline with normal bilateral strength. Motor Examination: Full 5/5 strength in bilateral upper and lower extremities to confrontation. Normal muscle bulk. No obvious atrophy or fasciculations seen. No pronator drift. Normal tone. No rigidity. No tremor. Sensory Examination: Sensation intact to light touch, pinprick, temperature, and vibration bilaterally throughout. No extinction to double simultaneous stimulation. Reflexes: 1-2+ reflexes in biceps, triceps, brachioradialis, patella, and Achilles bilaterally. No clonus. Cerebellar Examination: There is no overt dysmetria nor dysdiadochokinesia with [id number] or rapid alternating movements. Gait Examination: Uses arms to stand Steady gait documented in this encounter [facility] 12-21-2022 Telephone encounter Note Noted. Agree with disposition. [facility] 12-21-2022 Miscellaneous Notes Noted. Agree with disposition. S: Patient spoke with [facility] nurse regarding cough and cold B: Onset of symptoms/concern yesterday A: Pt has a cold with cough. Chest is tight and nose and head is tight. Cough is dry. No fever but feels hot. Symptoms started yesterday. Had a sore throat yesterday but better today. Voice is affected. Feels very fatigued. Has sob normally and states not any worse. Pt has been having head pain for several months off and on. Scheduled for neurologist. The head pain has not gotten worse. Not blowing anything out of her nose, but will occasionally get a clear runny nose after eating. Denies chest pain, wheezing, coughing up blood, dizziness ear pain, or n/v. Covid test was negative. Pt has a-fib and taking eliquis. Pt has an appointment with Radiology Specialist this afternoon. Asking for an appointment this morning. There are no appointments this morning that [facility] nurse can schedule. R: Home care advice given to pt. Pt to try otc robitussin or mucinex, cough drops, vicks rub, hot tea with honey , humidifier and keep well hydrated. Patient understands care advice and states will call later in the week if not improving. Instructed to call back any further questions or concerns or worsening symptoms. Reason for Disposition Cough with cold symptoms (e.g., runny nose, postnasal drip, throat clearing) Protocols used: [id number] documented in this encounter [facility] 12-21-2022 Telephone encounter Note S: Patient spoke with [facility] nurse regarding cough and cold B: Onset of symptoms/concern yesterday A: Pt has a cold with cough. Chest is tight and nose and head is tight. Cough is dry. No fever but feels hot. Symptoms started yesterday. Had a sore throat yesterday but better today. Voice is affected. Feels very fatigued. Has sob normally and states not any worse. Pt has been having head pain for several months off and on. Scheduled for neurologist. The head pain has not gotten worse. Not blowing anything out of her nose, but will occasionally get a clear runny nose after eating. Denies chest pain, wheezing, coughing up blood, dizziness ear pain, or n/v. Covid test was negative. Pt has a-fib and taking eliquis. Pt has an appointment with Radiology Specialist this afternoon. Asking for an appointment this morning. There are no appointments this morning that [facility] nurse can schedule. R: Home care advice given to pt. Pt to try otc robitussin or mucinex, cough drops, vicks rub, hot tea with honey , humidifier and keep well hydrated. Patient understands care advice and states will call later in the week if not improving. Instructed to call back any further questions or concerns or worsening symptoms. Reason for Disposition Cough with cold symptoms (e.g., runny nose, postnasal drip, throat clearing) Protocols used: [id number] [facility] 12-06-2022 Note Addended by: JERAMIE ALLAN on: 12/08/2022 01:01 PM Modules accepted: Level of Service [facility] 12-06-2022 Evaluation + Plan note Associated Problem(s): Visual changes Encouraged her to contact her eye doctor. [facility] 12-06-2022 Miscellaneous Notes Associated Problem(s): Visual changes Encouraged her to contact her eye doctor. Associated Problem(s): Forgetfulness Reassurance that this usually does not mean she is headed towards dementia, sometimes it just means there is too much going on in your brain but if it continues and she continues to have concerns we can have her evaluated by geriatric assessment for dementia. Associated Problem(s): Nonintractable headache Headaches are of a unusual type, she has no associated symptoms and they are becoming more frequent, will have her seen by neurology documented in this encounter [facility] 12-06-2022 Evaluation + Plan note Associated Problem(s): Forgetfulness Reassurance that this usually does not mean she is headed towards dementia, sometimes it just means there is too much going on in your brain but if it continues and she continues to have concerns we can have her evaluated by geriatric assessment for dementia. [facility] 12-06-2022 Evaluation + Plan note Associated Problem(s): Nonintractable headache Headaches are of a unusual type, she has no associated symptoms and they are becoming more frequent, will have her seen by neurology [facility] 12-06-2022 History of Present illness Narrative Patient verified by last name and date of . Images from the original note were not included. 12/06/2022 Kalie Ferrera (: 1945) is a 77 y.o. female , Established patient, here for evaluation of the following chief complaint(s): Pain ([place] area and now have areas on top of head /Magnolia pain is sharp ), Eye Problem (Fell like eyes are not quite right have been to eye doctor ), Hot Flashes, Other (Pt wonders if it is ok to do Voltaren Gel since she is on blood thinner?//Asking about taking Tumeric and something different than fish oil), Back Pain (Lower - seeing Dr Horn ), Immunizations (Wonders if she should get RSV vaccine ), and Memory Loss (The last month) ASSESSMENT/PLAN: 1. Episodic paroxysmal hemicrania, not intractable Assessment & Plan: Headaches are of a unusual type, she has no associated symptoms and they are becoming more frequent, will have her seen by neurology Orders: - [facility] 2. Forgetfulness Assessment & Plan: Reassurance that this usually does not mean she is headed towards dementia, sometimes it just means there is too much going on in your brain but if it continues and she continues to have concerns we can have her evaluated by geriatric assessment for dementia. 3. Visual changes Assessment & Plan: Encouraged her to contact her eye doctor. Follow up if symptoms worsen or fail to improve. SUBJECTIVE/OBJECTIVE: ANA Bernabe comes in today complaining of headaches that she says have been ongoing for years however they have gotten worse and more frequent lately they started off as sharp stabbing headaches in the temporal region bilateral she said it could be anywhere from 1 to 2 minutes apart or could be hours apart. Now she says they have moved to becoming more of it achy type headache up into the parietal region. She denies any nausea or vomiting with that she says she has been having some visual changes but she did not really associating them with the headaches. She says she did see her eye doctor about 2 to 3 months ago. She also had a question about using Voltaren gel which I reassured her is fine. She also is concerned because she says she has been forgetting things, she says she could not remember her address where she lived prior to moving to [place] and she said she lived there for 21 years. And she also was trying to remember the name of a lady that used to sell herbal stuff and she could not initially remember the name but she did remember it before she left. Review of Systems Constitutional: Negative for chills and fever. HENT: Negative for congestion, ear pain, sinus pressure and sinus pain. Eyes: Positive for visual disturbance. Negative for photophobia. Respiratory: Negative for shortness of breath. Cardiovascular: Negative for chest pain and palpitations. Neurological: Positive for headaches. Negative for numbness. Psychiatric/Behavioral: Negative for dysphoric mood. The patient is not nervous/anxious. Vitals: 12/06/22 1311 BP: 117/79 Pulse: 71 SpO2: 96% Weight: 226 lb 9.6 oz (103 kg) Height: 5' 2 (1.575 m) Physical Exam Vitals and nursing note reviewed. Constitutional: General: She is not in acute distress. Appearance: Normal appearance. HENT: Head: Normocephalic and atraumatic. Mouth/Throat: Mouth: Mucous membranes are moist. Pharynx: Oropharynx is clear. Eyes: Extraocular Movements: Extraocular movements intact. Conjunctiva/sclera: Conjunctivae normal. Pupils: Pupils are equal, round, and reactive to light. Cardiovascular: Rate and Rhythm: Normal rate and regular rhythm. Heart sounds: Normal heart sounds. No murmur heard. Pulmonary: Effort: Pulmonary effort is normal. Breath sounds: Normal breath sounds. Musculoskeletal: Cervical back: Neck supple. Lymphadenopathy: Cervical: No cervical adenopathy. Neurological: Mental Status: She is alert. Cranial Nerves: Cranial nerves 2-12 are intact. Coordination: Romberg sign negative. Coordination normal. [id number] Test and Heel to Jones Test normal. Rapid alternating movements normal. Gait: Gait and tandem walk normal. Psychiatric: Attention and Perception: Attention and perception normal. Mood and Affect: Mood and affect normal. Speech: Speech normal. Behavior: Behavior normal. Behavior is cooperative. Cognition and Memory: Cognition normal. An electronic signature was used to authenticate this note. Jeramie Allan MD 12/06/2022 2:51 PM After obtaining consent, and per orders of Dr. Allan, injection of high dose flu vaccine given in left deltoid by Cristina Pepe. Patient instructed to report any adverse reaction immediately. documented in this encounter [facility] 11-08-2022 Evaluation + Plan note Associated Problem(s): Hyperglycemia Stable, will get fasting blood work. [facility] 11-08-2022 Evaluation + Plan note Associated Problem(s): Hypercholesterolemia Controlled, continue Zetia 10 mg daily [facility] 11-08-2022 Miscellaneous Notes Associated Problem(s): Hyperglycemia Stable, will get fasting blood work. Associated Problem(s): Hypercholesterolemia Controlled, continue Zetia 10 mg daily Associated Problem(s): Paroxysmal atrial fibrillation (CMS/HCC) (HCC) Stable, continue metoprolol 100 mg daily and Eliquis 5 mg twice a day. Associated Problem(s): Hypertension Controlled, continue lisinopril 5 mg and metoprolol 100 mg daily documented in this encounter [facility] 11-08-2022 Evaluation + Plan note Associated Problem(s): Paroxysmal atrial fibrillation (CMS/HCC) (HCC) Stable, continue metoprolol 100 mg daily and Eliquis 5 mg twice a day. [facility] 11-08-2022 Evaluation + Plan note Associated Problem(s): Hypertension Controlled, continue lisinopril 5 mg and metoprolol 100 mg daily [facility] 11-08-2022 History of Present illness Narrative Patient verified by last name and date of . Images from the original note were not included. [facility] [address] [id number] Visit type: Established Patient Reason for Visit: Medicare Annual Wellness Visit Subsequent, Blood Work, and Health Maintenance (Hep c screening- refuse) Assessment and Plan Problem List Items Addressed This Visit Circulatory Paroxysmal atrial fibrillation (CMS/HCC) (HCC) Stable, continue metoprolol 100 mg daily and Eliquis 5 mg twice a day. Hypertension Controlled, continue lisinopril 5 mg and metoprolol 100 mg daily Other Hyperglycemia Stable, will get fasting blood work. Relevant Orders Comprehensive metabolic panel Hypercholesterolemia Controlled, continue Zetia 10 mg daily Other Visit Diagnoses Medicare annual wellness visit, subsequent - Primary Follow up in about 6 months (around 05/11/2023). Natali Jade comes in today for annual Medicare well visit, she has no new complaints at this time. She had a 6 gel injection in her right knee and she says it seems to be doing fairly well at this time, her blood pressure seems to be controlled, her A-fib seems to be stable at this time she has had no recent palpitations. Her blood sugars have been somewhat elevated in the past we will recheck that today and we will recheck her cholesterol. I have reviewed and reconciled the medication list with the patient today. Current Outpatient Medications Medication Sig Dispense Refill apixaban (Eliquis) 5 MG tablet Take 1 tablet (5 mg) by mouth in the morning and 1 tablet (5 mg) before bedtime. 180 tablet 1 ascorbid acid ER (Vitamin C) 500 MG ER tablet Take by mouth in the morning. Calcium Ascorbate 500 MG tablet Take 500 mg by mouth. cholecalciferol (Vitamin D-3) 25 MCG (1000 UT) capsule Take by mouth. ezetimibe (Zetia) 10 MG tablet Take 1 tablet (10 mg) by mouth daily. 90 tablet 1 Glucosamine-Chondroitin 500-400 MG capsule Take 1 tablet by mouth in the morning. lisinopril 5 MG tablet Take 1 tablet by mouth once daily 90 tablet 1 metoprolol succinate XL (Toprol-XL) 100 MG 24 hr tablet Take 1 tablet by mouth twice daily 180 tablet 1 Multiple Vitamins-Minerals (MULTI COMPLETE PO) Take 1 tablet by mouth in the morning. Multiple Vitamins-Minerals (PRESERVISION AREDS 2+MULTI VIT PO) Take 1 tablet by mouth in the morning. [place]-3 Fatty Acids (FISH OIL PO) Take 1 capsule by mouth in the morning. omeprazole (PriLOSEC) [address] capsule Take 1 capsule (40 mg) by mouth in the morning and 1 capsule (40 mg) in the evening. Take before meals. 180 capsule 1 Current Facility-Administered Medications Medication Dose Route Frequency Provider Last Rate Last Admin betamethasone acetate-betamethasone sodium phosphate (Celestone) injection 12 mg 12 mg Intra-artICUlar Once Saud Mohamud PA-C lidocaine (Xylocaine) 1 % injection 8 mL 8 mL Injection Once Saud Mohamud PA-C Medications Discontinued During This Encounter Medication Reason acetaminophen (Tylenol) 500 MG tablet albuterol 108 (90 Base) MCG/ACT inhaler ASCORBIC ACID PO meloxicam (Mobic) 15 MG tablet ondansetron ODT (Zofran-ODT) 4 MG disintegrating tablet Probiotic Product (Acidophilus) chewable tablet sertraline (Zoloft) 25 MG tablet omeprazole (PriLOSEC) [address] capsule Dose adjustment List of current healthcare providers: Patient Care Team: Jeramie Allan MD as PCP - General Over the past 2 weeks, how often have you been bothered by any of the following problems? Trouble falling or staying asleep, or sleeping too much: Not at all Feeling tired or having little energy: Several days Poor appetite or overeating: Not at all Feeling bad about yourself - or that you are a failure or have let yourself or your family down: Not at all Trouble concentrating on things, such as reading the newspaper or watching television: Not at all Moving or speaking so slowly that other people could have noticed? Or the opposite - being so fidgety or restless that you have been moving around a lot more than usual.: Not at all Thoughts that you would be better off or hurting yourself in some way: Not at all Patient Health Questionnaire-9 Score: 1 The following health maintenance schedule was reviewed with the patient and provided in printed form in the after visit summary: Health Maintenance Topic Date Due Medicare Annual Wellness (AWV) Never done Hepatitis C Screening Never done Influenza Vaccine (1) 11/12/2022 Depression Screening 11/09/2023 Lipid Panel 10/19/2027 DTaP/Tdap/Td Vaccines (2 - Td or Tdap) 12/26/2031 Pneumococcal Vaccine: 65+ Years Completed Zoster Vaccines Completed Bone Density Scan Completed COVID-19 Vaccine Completed HIB Vaccines Aged Out Hepatitis B Vaccines Aged Out IPV Vaccines Aged Out Hepatitis A Vaccines Aged Out Meningococcal Vaccine Aged Out Rotavirus Vaccines Aged Out HPV Vaccines Aged Out Orders Placed This Encounter Procedures Comprehensive metabolic panel Standing Status: Future Number of Occurrences: 1 Standing Expiration Date: 11/09/2023 Health Risk Assessment: General In general, how would you say your health is?: Good In the past 7 days, have you experienced any of the following: New or Increased Pain, New or Increased Fatigue, Loneliness, Social Isolation, Stress or Anger?: (!) Yes Select all that apply: (!) New or Increased Pain Do you get the social and emotional suppport you need?: Yes Interventions: Pain Issues: seeing ortho Health Habits / Nutrition On average, how many days per week do you engage in moderate to strenous exercise (like a brisk walk)?: (!) 0 days On average, how man minutes do you engage in exercise at this level?: (!) 0 min Have you lost any weight without trying in the past 3 months? : No Have you seen the dentist within the past year?: (!) No Interventions: Dental exam overdue: Patient encouraged to make appointment with his / her dentist Hearing / Vision Do you or your family notice any trouble with your hearing that hasn't been managed with hearing aids?: No Do you have difficulty driving, watching TV, or doing any of your daily activities because of your eyesight?: (!) Yes Have you had an eye exam within the past year?: Yes No results found. Interventions: Safety Do you have a working smoke detector?: Yes Do you have any tripping hazards - loose or unsecured carpets or rugs?: No Do you have any tripping hazards - clutter in doorways, halls, or stairs?: No Do you have either shower bars, grab bars, non-slip mats or non-slip surfaces in your shower or bathtub? : Yes Do all your stairways have a railing or banister? : Yes Do you fasten your seatbelt when you are in a car?: Yes Interventions: ADL In the past 7 days, did you need help from others to perform any of the following everyday activities: Eating, dressing, grooming,bathing, toileting, or walking / balance? : No In the past 7 days, did you need help from others to take care of any of the following: laundry, housekeeping, banking / finances,shopping, telephone use, food preparation, transportation, or taking medications? : No Interventions: Living Will Do you have a living will?: No Interventions: Advance Care Planning addressed with patient today Cognitive: Cognitive Screening: Mini-Cog Clock Drawing Test (CDT): 2 Words Recalled: 3 Total Score: 5 Total Score Interpretation: Normal Mini-Cog Interventions: Fall Risk: Interventions: Fell when passed out Depression Screening: Over the past 2 weeks, how often have you been bothered by any of the following problems? Little interest or pleasure in doing things: Not at all Feeling down, depressed, or hopeless: Not at all Patient Health Questionnaire-2 Score: 0 Over the past 2 weeks, how often have you been bothered by any of the following problems? Trouble falling or staying asleep, or sleeping too much: Not at all Feeling tired or having little energy: Several days Poor appetite or overeating: Not at all Feeling bad about yourself - or that you are a failure or have let yourself or your family down: Not at all Trouble concentrating on things, such as reading the newspaper or watching television: Not at all Moving or speaking so slowly that other people could have noticed? Or the opposite - being so fidgety or restless that you have been moving around a lot more than usual.: Not at all Thoughts that you would be better off or hurting yourself in some way: Not at all Patient Health Questionnaire-9 Score: 1 If you checked off any problems on this questionnaire so far, How difficult have these problems made it for you to do your work, take care of things at home, or get along with other people?: Not difficult at all Interventions: Tobacco Use: Social History Tobacco Use Smoking Status Never Smokeless Tobacco Never Interventions: Alcohol Use: Audit Alcohol Screening Q2: How many drinks containing alcohol do you have on a typical day when you are drinking?: Patient does not drink Interventions: Drug Use: Drug Abuse Screening Test (DAST-10) Have you used drugs other than those required for medical reasons?: No Interventions: Review of Systems Constitutional: Negative for chills and fever. Respiratory: Negative for shortness of breath. Cardiovascular: Negative for chest pain and palpitations. Gastrointestinal: Negative for abdominal pain, blood in stool, constipation and diarrhea. Genitourinary: Negative for dysuria, frequency, hematuria and urgency. Neurological: Negative for weakness and numbness. Psychiatric/Behavioral: Negative for dysphoric mood. The patient is not nervous/anxious. Immunization History Administered Date(s) Administered Covid-19, Pfizer Bivalent Booster, (Age 12y+), Im, 30 Mcg/0e 01/03/2022 Influenza, High Dose Seasonal, Preservative Free 12/12/2014, 11/30/2018 Influenza, High-dose Seasonal, Quadrivalent, Preservative Free 12/04/2021 Influenza, Unspecified 12/31/2000, 01/29/2002, 02/11/2005 Influenza, injectable, quadrivalent, preservative free 12/23/2020 Moderna SARS-CoV-2 Vaccination 03/18/2020, 04/03/2020, 05/01/2020, 01/09/2021, 05/20/2021, 06/10/2021 Pneumococcal Conjugate PCV 13 07/16/2014 Pneumococcal Conjugate PCV20, Pf (Prevnar 20) 11/03/2021 Tdap 12/25/2021 Zoster, Recombinant 11/25/2020, 02/18/2021 Allergies Allergen Reactions Crestor [Rosuvastatin] Muscle pain Outpatient Medications Prior to Visit Medication Sig Dispense Refill apixaban (Eliquis) 5 MG tablet Take 1 tablet (5 mg) by mouth in the morning and 1 tablet (5 mg) before bedtime. 180 tablet 1 ascorbid acid ER (Vitamin C) 500 MG ER tablet Take by mouth in the morning. Calcium Ascorbate 500 MG tablet Take 500 mg by mouth. cholecalciferol (Vitamin D-3) 25 MCG (1000 UT) capsule Take by mouth. ezetimibe (Zetia) 10 MG tablet Take 1 tablet (10 mg) by mouth daily. 90 tablet 1 Glucosamine-Chondroitin 500-400 MG capsule Take 1 tablet by mouth in the morning. lisinopril 5 MG tablet Take 1 tablet by mouth once daily 90 tablet 1 metoprolol succinate XL (Toprol-XL) 100 MG 24 hr tablet Take 1 tablet by mouth twice daily 180 tablet 1 Multiple Vitamins-Minerals (MULTI COMPLETE PO) Take 1 tablet by mouth in the morning. Multiple Vitamins-Minerals (PRESERVISION AREDS 2+MULTI VIT PO) Take 1 tablet by mouth in the morning. [place]-3 Fatty Acids (FISH OIL PO) Take 1 capsule by mouth in the morning. omeprazole (PriLOSEC) [address] capsule Take 1 capsule by mouth once daily 90 capsule 1 acetaminophen (Tylenol) 500 MG tablet Take 1,000 mg by mouth. albuterol 108 (90 Base) MCG/ACT inhaler Inhale 2 puffs every 6 hours as needed. ASCORBIC ACID PO Take by mouth. meloxicam (Mobic) 15 MG tablet Take 1 tablet (15 mg) by mouth daily. (Patient not taking: Reported on 11/08/2022) 30 tablet 0 ondansetron ODT (Zofran-ODT) 4 MG disintegrating tablet Take 4 mg by mouth. Probiotic Product (Acidophilus) chewable tablet sertraline (Zoloft) 25 MG tablet Take 25 mg by mouth in the morning. 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 COPD (chronic obstructive pulmonary disease) (HCC) COPD (chronic obstructive pulmonary disease) (HCC) GERD (gastroesophageal reflux disease) GERD (gastroesophageal reflux disease) HTN (hypertension) Hypertension Osteoarthritis Osteoarthritis Vertigo Social History Socioeconomic History Marital status: Tobacco Use Smoking status: Never Smokeless tobacco: Never Vaping Use Vaping Use: Never used Substance and Sexual Activity Alcohol use: No Drug use: No Sexual activity: Not Currently Social Determinants of Health Financial Resource Strain: Low Risk (11/08/2022) Overall Financial Resource Strain (CARDIA) Difficulty of Paying Living Expenses: Not hard at all Food Insecurity: No Food Insecurity (11/08/2022) Hunger Vital Sign Worried About Running Out of Food in the Last Year: Never true Ran Out of Food in the Last Year: Never true Transportation Needs: No Transportation Needs (11/08/2022) PRAPARE - Transportation Lack of Transportation (Medical): No Lack of Transportation (Non-Medical): No Physical Activity: Inactive (11/08/2022) Exercise Vital Sign Days of Exercise per Week: 0 days Minutes of Exercise per Session: 0 min Housing Stability: Low Risk (11/08/2022) Housing Stability Vital Sign Unable to Pay for Housing in the Last Year: No Number of Places Lived in the Last Year: 1 Unstable Housing in the Last Year: No Past Surgical History: Procedure Laterality Date APPENDECTOMY APPENDECTOMY 04/1952 CATARACT EXTRACTION Bilateral CATARACT EXTRACTION CHOLECYSTECTOMY N/A CHOLECYSTECTOMY 1996 COLONOSCOPY N/A COLONOSCOPY COLONOSCOPY COSMETIC SURGERY N/A 1980 facial repair and plastic- nose COSMETIC SURGERY 1980 facial repair and plastic KNEE CARTILAGE SURGERY Left 09/2003 KNEE CARTILAGE SURGERY Left 09/2003 SKIN CANCER EXCISION Left 10/2005 nose SKIN CANCER EXCISION 10/2005 TONSILLECTOMY 02/1953 TONSILLECTOMY (HISTORICAL) 02/1953 TOTAL KNEE ARTHROPLASTY Left 01/14/2022 UPPER GASTROINTESTINAL ENDOSCOPY N/A Past Surgical History: Procedure Laterality Date APPENDECTOMY APPENDECTOMY 04/1952 CATARACT EXTRACTION Bilateral CATARACT EXTRACTION CHOLECYSTECTOMY N/A CHOLECYSTECTOMY 1996 COLONOSCOPY N/A COLONOSCOPY COLONOSCOPY COSMETIC SURGERY N/A 1980 facial repair and plastic- nose COSMETIC SURGERY 1980 facial repair and plastic KNEE CARTILAGE SURGERY Left 09/2003 KNEE CARTILAGE SURGERY Left 09/2003 SKIN CANCER EXCISION Left 10/2005 nose SKIN CANCER EXCISION 10/2005 TONSILLECTOMY 02/1953 TONSILLECTOMY (HISTORICAL) 02/1953 TOTAL KNEE ARTHROPLASTY Left 01/14/2022 UPPER GASTROINTESTINAL ENDOSCOPY N/A Family History Problem Relation Name Age of Onset Cancer Mother ovarian cancer Cancer Father leukemia Objective BP 122/75 Pulse 75 Ht 5' 2 (1.575 m) Wt 238 lb 12.8 oz (108 kg) SpO2 95% BMI 43.68 kg/m Physical Exam Vitals and nursing note reviewed. Constitutional: General: She is not in acute distress. Appearance: Normal appearance. HENT: Head: Normocephalic. Right Ear: Tympanic membrane, ear canal and external ear normal. Left Ear: Tympanic membrane, ear canal and external ear normal. Mouth/Throat: Mouth: Mucous membranes are moist. Pharynx: Oropharynx is clear. Eyes: Extraocular Movements: Extraocular movements intact. Pupils: Pupils are equal, round, and reactive to light. Neck: Vascular: No carotid bruit. Cardiovascular: Rate and Rhythm: Normal rate and regular rhythm. Heart sounds: Normal heart sounds. No murmur heard. Pulmonary: Effort: Pulmonary effort is normal. Breath sounds: Normal breath sounds. Abdominal: General: Bowel sounds are normal. Palpations: Abdomen is soft. Musculoskeletal: General: Normal range of motion. Cervical back: Normal range of motion. Lymphadenopathy: Cervical: No cervical adenopathy. Skin: General: Skin is warm and dry. Neurological: General: No focal deficit present. Mental Status: She is alert and oriented to person, place, and time. Psychiatric: Mood and Affect: Mood normal. Data Reviewed Labs: Imaging/Testing: Jeramie Allan MD 11/08/2022 2:19 PM documented in this encounter [facility] 10-19-2022 Telephone encounter Note Patient notified, please send the zetia to [facility] in [place]. [facility] 10-19-2022 Miscellaneous Notes Patient notified, please send the zetia to [facility] in [place]. ----- Message from JOANNE Freeman CNP sent at 10/19/2022 7:14 AM EDT ----- Lipid panel- cholesterol levels have improved. Total cholesterol 196- good, HDL good at 68, triglycerides good at 112, LDL slightly elevated at 107, but much better. Liver enzymes are ok. Recommend continuing Zetia (ezetimibe) 10 mg daily, low fat, low cholesterol diet. documented in this encounter [facility] 10-19-2022 Telephone encounter Note ----- Message from JOANNE Freeman CNP sent at 10/19/2022 7:14 AM EDT ----- Lipid panel- cholesterol levels have improved. Total cholesterol 196- good, HDL good at 68, triglycerides good at 112, LDL slightly elevated at 107, but much better. Liver enzymes are ok. Recommend continuing Zetia (ezetimibe) 10 mg daily, low fat, low cholesterol diet. [facility] 09-24-2022 Telephone encounter Note Thank you! [facility] 09-24-2022 Miscellaneous Notes Thank you! Spoke with Kalie and let her know I have everything printed out with disk and will be sent out in the mail today. She was certainly ok with that as it would be more conveniently for her that way. Name of caller: Kalie Contact phone number: [phone] Relationship to Patient: patient Provider: [facility] Practice: Ortho Chief Complaint/Reason for Call: Pt called stating that she needs the records from her sx w/ Hernandez and a disc of the imaging that was done of her knee. She would like a call when this is done and is more than willing to pick them up from the [place] office. Please advise. Thank you. Best time of day caller can be reached: Any Patient advised that office/PCP has 24-48 business hours to return their call: No documented in this encounter [facility] 09-24-2022 Telephone encounter Note Spoke with Kalie and let her know I have everything printed out with disk and will be sent out in the mail today. She was certainly ok with that as it would be more conveniently for her that way. [facility] 09-24-2022 Telephone encounter Note Name of caller: Kalie Contact phone number: [phone] Relationship to Patient: patient Provider: [facility] Practice: Ortho Chief Complaint/Reason for Call: Pt called stating that she needs the records from her sx w/ Hernandez and a disc of the imaging that was done of her knee. She would like a call when this is done and is more than willing to pick them up from the [place] office. Please advise. Thank you. Best time of day caller can be reached: Any Patient advised that office/PCP has 24-48 business hours to return their call: No [facility] 09-21-2022 Note Message released to patient as written re request for referral to Dr Chacho Allan for rt knee. Jeramie Allan MD 09/20/22 3:43 PM Note Referral done Patient's further questions if applicable: None Were all questions from office addressed or relayed to the patient from encounter: Yes [facility] 09-21-2022 Note Called the patient a nd left a detailed message that the referral was faxed and that she can call and schedule the appointment at [facility]. [facility] 09-21-2022 Telephone encounter Note Patient notified and scheduled. Please send to [facility] and sign orders [facility] 09-21-2022 Telephone encounter Note ----- Message from Janell Ferreira APRN - ROSE sent at 09/21/2022 7:39 AM EDT ----- Lipid panel- total cholesterol elevated 201. HDL- good 62, Triglycerides good at 130, LDL -too high at 123. The cholesterol levels went back to previous elevated levels when not on statin medication. Did not tolerate rosuvastatin. Recommend trying different medication that may be tolerated better. Ezetimibe 10 mg daily (Zetia), rechecking labs in 4 weeks. [facility] 09-21-2022 Miscellaneous Notes Patient notified and scheduled. Please send to [facility] and sign orders ----- Message from Janell Ferreira APRN - [employer]ER sent at 09/21/2022 7:39 AM EDT ----- Lipid panel- total cholesterol elevated 201. HDL- good 62, Triglycerides good at 130, LDL -too high at 123. The cholesterol levels went back to previous elevated levels when not on statin medication. Did not tolerate rosuvastatin. Recommend trying different medication that may be tolerated better. Ezetimibe 10 mg daily (Zetia), rechecking labs in 4 weeks. documented in this encounter [facility] 09-21-2022 Telephone encounter Note Message released to patient as written re request for referral to Dr Chacho Allan for rt knee. MD JAYLIN Swan 09/20/22 3:43 PM Note Referral done Patient's further questions if applicable: None Were all questions from office addressed or relayed to the patient from encounter: Yes [facility] 09-21-2022 Miscellaneous Notes Message released to patient as written re request for referral to Dr Chacho Allan for rt knee. Jeramie Allan MD 09/20/22 3:43 PM Note Referral done Patient's further questions if applicable: None Were all questions from office addressed or relayed to the patient from encounter: Yes Called the patient and left a detailed message that the referral was faxed and that she can call and schedule the appointment at [facility]. Referral done The patient stopped in the office asking for a referral to see Dr. Chacho Allan at [facility] for her right knee. Dr. Hernandez previously did surgery on her left knee. [facility]. Can you put in a referral or does she need to see you first. documented in this encounter [facility] 09-21-2022 Telephone encounter Note Called the patient and left a detailed message that the referral was faxed and that she can call and schedule the appointment at [facility]. [facility] 09-20-2022 Telephone encounter Note Referral done [facility] 09-20-2022 Note The patient stopped in the office asking for a referral to see Dr. Chacho Allan at [facility] for her right knee. Dr. Hernandez previously did surgery on her left knee. She is going to physical therapy at [facility] currently. Can you put in a referral or does she need to see you first. [facility] 09-20-2022 Telephone encounter Note The patient stopped in the office asking for a referral to see Dr. Chacho Allan at [facility] for her right knee. Dr. Hernandez previously did surgery on her left knee. She is going to physical therapy at [facility] currently. Can you put in a referral or does she need to see you first. [facility] 08-17-2022 Evaluation + Plan note Associated Problem(s): Nausea and vomiting Continue with Zofran as needed and follow-up with GI as scheduled. [facility] 08-17-2022 Miscellaneous Notes Associated Problem(s): Nausea and vomiting Continue with Zofran as needed and follow-up with GI as scheduled. Associated Problem(s): Balance problems Physical therapy evaluate and treat for core strengthening and balance issues. Meloxicam 15 mg daily 30 no refills Associated Problem(s): Lumbar strain, initial encounter Physical therapy evaluate and treat for core strengthening and balance issues. Meloxicam 15 mg daily 30 no refills Associated Problem(s): Weakness of both lower extremities Physical therapy evaluate and treat for core strengthening and balance issues. Meloxicam 15 mg daily 30 no refills documented in this encounter [facility] 08-17-2022 Evaluation + Plan note Associated Problem(s): Balance problems Physical therapy evaluate and treat for core strengthening and balance issues. Meloxicam 15 mg daily 30 no refills [facility] 08-17-2022 Evaluation + Plan note Associated Problem(s): Lumbar strain, initial encounter Physical therapy evaluate and treat for core strengthening and balance issues. Meloxicam 15 mg daily 30 no refills [facility] 08-17-2022 Evaluation + Plan note Associated Problem(s): Weakness of both lower extremities Physical therapy evaluate and treat for core strengthening and balance issues. Meloxicam 15 mg daily 30 no refills [facility] 08-17-2022 History of Present illness Narrative . Images from the original note were not included. 08/17/2022 Kalie Ferrera (: 1945) is a 77 y.o. female , Established patient, here for evaluation of the following chief complaint(s): Back Pain (Mid to lower back/), Atrial Fibrillation (Was vomiting in the night and sent into afib had to call squad 07/30/22 and went to [facility] ), Edema (Arms and hands ), Pain (B/l thumbs shocking pain ), and Knee Pain (Having problems going up and down steps) ASSESSMENT/PLAN: 1. Lumbar strain, initial encounter Assessment & Plan: Physical therapy evaluate and treat for core strengthening and balance issues. Meloxicam 15 mg daily 30 no refills Orders: - External referral to Physical Therapy 2. Weakness of both lower extremities Assessment & Plan: Physical therapy evaluate and treat for core strengthening and balance issues. Meloxicam 15 mg daily 30 no refills Orders: - External referral to Physical Therapy 3. Balance problems Assessment & Plan: Physical therapy evaluate and treat for core strengthening and balance issues. Meloxicam 15 mg daily 30 no refills 4. Nausea and vomiting, unspecified vomiting type Assessment & Plan: Continue with Zofran as needed and follow-up with GI as scheduled. Follow up in about 3 months (around 11/17/2022). SUBJECTIVE/OBJECTIVE: HPI -Kalie comes in today with a list of problems the top of the list is low back pain she says that if she is sitting it is fine but anytime she stands for any period of time she gets pain across her lower back. She does not remember any specific injury she has had no loss of bowel or bladder control and she has no numbness or tingling of her legs but she does have weakness of her legs but this is not new this is something that she has been dealing with and is also wondering about doing something about her leg weakness she says she has trouble standing from a sitting position, she says the wider her legs are the easier it is for her to get up. She has had her left knee replaced in the last 6 months or so. She also says she has pain at the base of both of her thumbs and on her left thumb she will get a sharp sharp stabbing pain that comes and goes she said this is happened twice in the last couple months. She also had another episode where she began having nausea and vomiting in her heart went into A-fib again she was seen in the emergency room and her work-up was negative. Cardiology was contacted and they recommended a GI consult and she already has one. Review of Systems Constitutional: Negative for chills and fever. Respiratory: Negative for shortness of breath. Cardiovascular: Negative for chest pain and palpitations. Musculoskeletal: Positive for arthralgias, back pain, gait problem and myalgias. Negative for joint swelling. Neurological: Positive for weakness. Negative for numbness. Vitals: 08/17/22 1112 BP: 136/72 Pulse: 80 SpO2: 96% Weight: 222 lb (101 kg) Height: 5' 2 (1.575 m) Physical Exam Vitals and nursing note reviewed. Constitutional: General: She is not in acute distress. Appearance: Normal appearance. HENT: Head: Normocephalic and atraumatic. Mouth/Throat: Mouth: Mucous membranes are moist. Pharynx: Oropharynx is clear. Eyes: Extraocular Movements: Extraocular movements intact. Pupils: Pupils are equal, round, and reactive to light. Cardiovascular: Rate and Rhythm: Normal rate and regular rhythm. Heart sounds: Normal heart sounds. No murmur heard. Pulmonary: Effort: Pulmonary effort is normal. Breath sounds: Normal breath sounds. Abdominal: Tenderness: There is no abdominal tenderness. Musculoskeletal: Cervical back: Neck supple. Comments: Back is straight with normal range of motion, she does have some tenderness to palpation at the insertion of the paraspinous muscles bilateral in her spine are very tight.. She has some tenderness to palpation of her thigh muscles and medial aspect of her knees bilateral Lymphadenopathy: Cervical: No cervical adenopathy. Neurological: Mental Status: She is alert. An electronic signature was used to authenticate this note. Jeramie Allan MD 08/17/2022 1:52 PM documented in this encounter [facility] 08-13-2022 Telephone encounter Note S: the patient is calling the [facility] about lower back pain B: She states it has been present several months. A: She had a knee replacement January 14 and does not know if this is the cause. She states the pain comes when she stands up and is some better with walking but it goes away with sitting. It is in the middle of the lower back without radiation. The left middle back is worse with manual pressure than the right. She is able to do her activities of daily life but finds she has to sit to cook; she cannot stand for long periods. OTC tylenol is not working. She is on Eliquis which prevents NSAID use. She verifies that she is safe and able to care for herself despite this pain. R: She is not available until Tuesday - appointment made; she will continue the heating pad and tylenol. Advised she should call back if this worsens prior to the appointment. Reason for Disposition [1] MODERATE back pain (e.g., interferes with normal activities) AND [2] present > 3 days Protocols used: Back [id number] [facility] 08-13-2022 Miscellaneous Notes S: the patient is calling the [facility] about lower back pain B: She states it has been present several months. A: She had a knee replacement January 14 and does not know if this is the cause. She states the pain comes when she stands up and is some better with walking but it goes away with sitting. It is in the middle of the lower back without radiation. The left middle back is worse with manual pressure than the right. She is able to do her activities of daily life but finds she has to sit to cook; she cannot stand for long periods. OTC tylenol is not working. She is on Eliquis which prevents NSAID use. She verifies that she is safe and able to care for herself despite this pain. R: She is not available until Tuesday - appointment made; she will continue the heating pad and tylenol. Advised she should call back if this worsens prior to the appointment. Reason for Disposition [1] MODERATE back pain (e.g., interferes with normal activities) AND [2] present > 3 days Protocols used: Back [id number] documented in this encounter [facility] 07-27-2022 Note Referral done to Dr. Darling in [facility] 07-14-2022 Evaluation + Plan note Associated Problem(s): Hypercholesterolemia Did not tolerate rosuvastatin. Does not want to try other medication at this time. Wants to try diet changes again. Will plan on checking lipid panel in 2 months. Consider trial of other statin at that time if not improved. [facility] 07-14-2022 Miscellaneous Notes Associated Problem(s): Hypercholesterolemia Did not tolerate rosuvastatin. Does not want to try other medication at this time. Wants to try diet changes again. Will plan on checking lipid panel in 2 months. Consider trial of other statin at that time if not improved. Associated Problem(s): Myalgia Reports resolved after stopping crestor. Wants to wait to trial other statin. documented in this encounter [facility] 07-14-2022 Miscellaneous Notes Associated Problem(s): Hypercholesterolemia Did not tolerate rosuvastatin. Does not want to try other medication at this time. Wants to try diet changes again. Will plan on checking lipid panel in 2 months. Consider trial of other statin at that time if not improved. Associated Problem(s): Myalgia Reports resolved after stopping crestor. Wants to wait to trial other statin. Addended by: JANELL FERREIRA on: 07/20/2022 04:53 PM Modules accepted: Level of Service documented in this encounter [facility] 07-14-2022 Evaluation + Plan note Associated Problem(s): Myalgia Reports resolved after stopping crestor. Wants to wait to trial other statin. [facility] 07-14-2022 History of Present illness Narrative Images from the original note were not included. 07/14/2022 Kalie Ferrera (: 1945) is a 77 y.o. female , Established patient, here for evaluation of the following chief complaint(s): Follow-up ASSESSMENT/PLAN: 1. Hypercholesterolemia Assessment & Plan: Did not tolerate rosuvastatin. Does not want to try other medication at this time. Wants to try diet changes again. Will plan on checking lipid panel in 2 months. Consider trial of other statin at that time if not improved. Orders: - Lipid panel 2. Myalgia Assessment & Plan: Reports resolved after stopping crestor. Wants to wait to trial other statin. Follow up for as directed pending test results. SUBJECTIVE/OBJECTIVE: HPI - Kalie Ferrera (: 1945) is a 77 y.o. female , Established patient, here for the evaluation of the following chief complaint(s): Follow-up Presents for 1 month follow-up myalgias thought to be secondary to Crestor. Patient had stopped Crestor about 6 weeks ago. Recent CMP and TSH normal, today reports symptoms are much better overall. However has new problem now of her left thumb hurting and her baseline arthritic pain in knees bothering her a little more, denies any injury to the thumb and thinks it's my arthritis acting up not interfering with ADLs. She would like to know if it would be ok to use diclofenac ointment on her thumb, knee as she is also on eliquis. She states that she does not want to try a different cholesterol medication right now because she is getting ready to eat a very low fat, low cholesterol diet and lose some weight . Prior to Admission medications Medication Sig Start Date End Date Taking? Authorizing Provider acetaminophen (Tylenol) 500 MG tablet Take 1,000 mg by mouth. 01/25/22 Historical Provider, albuterol 108 (90 Base) MCG/ACT inhaler Inhale 2 puffs every 6 hours as needed. 03/01/16 Historical Provider, apixaban (Eliquis) 5 MG tablet Take 1 tablet (5 mg) by mouth in the morning and 1 tablet (5 mg) before bedtime. 02/15/22 Jeramie Allan MD ASCORBIC ACID PO Take by mouth. Historical Provider, ascorbid acid ER (Vitamin C) 500 MG ER tablet Take by mouth in the morning. Historical Provider, Calcium Ascorbate 500 MG tablet Take 500 mg by mouth. 12/18/21 Historical Provider, cholecalciferol (Vitamin D-3) 25 MCG (1000 UT) capsule Take by mouth. 12/18/21 Historical Provider, Glucosamine-Chondroitin 500-400 MG capsule Take 1 tablet by mouth in the morning. Historical Provider, lisinopril 5 MG tablet Take 1 tablet (5 mg) by mouth daily. 03/16/22 Jeramie Allan MD metoprolol succinate XL (Toprol-XL) 100 MG 24 hr tablet Take 1 tablet (100 mg) by mouth 2 times daily. 05/10/22 Jeramie Allan MD Multiple Vitamins-Minerals (MULTI COMPLETE PO) Take 1 tablet by mouth in the morning. Historical Provider, Multiple Vitamins-Minerals (PRESERVISION AREDS 2+MULTI VIT PO) Take 1 tablet by mouth in the morning. Historical ProviderMD [place]-3 Fatty Acids (FISH OIL PO) Take 1 capsule by mouth in the morning. Historical Provider, omeprazole (PriLOSEC) [address] capsule Take 1 capsule (40 mg) by mouth daily. 03/16/22 Jeramie Allan MD sertraline (Zoloft) 25 MG tablet Take 25 mg by mouth in the morning. Historical Provider, Health Maintenance Due Topic Date Due Hepatitis B Vaccines (1 of 3 - 3-dose series) Never done Medicare Annual Wellness (AWV) Never done Depression Screening Never done Hepatitis C Screening Never done Review of Systems Constitutional: Negative for activity change, appetite change, chills, fatigue and fever. HENT: Negative. Respiratory: Negative for chest tightness and shortness of breath. Cardiovascular: Negative for chest pain. Genitourinary: Negative for difficulty urinating. Musculoskeletal: Positive for arthralgias. Neurological: Negative for dizziness, light-headedness and headaches. Vitals: 07/14/22 1006 BP: 128/68 Pulse: 75 Resp: 20 SpO2: 96% Weight: 220 lb (99.8 kg) Physical Exam Constitutional: General: She is not in acute distress. Appearance: Normal appearance. She is obese. She is not ill-appearing. Cardiovascular: Rate and Rhythm: Normal rate. Rhythm irregular. Pulses: Normal pulses. Heart sounds: Normal heart sounds. Pulmonary: Effort: Pulmonary effort is normal. Breath sounds: Normal breath sounds. Musculoskeletal: Hands: Left knee: Swelling: mild. Skin: General: Skin is warm and dry. Neurological: Mental Status: She is alert and oriented to person, place, and time. An electronic signature was used to authenticate this note. JOANNE Freeman CNP 07/14/2022 7:09 AM Fixture Builder for Intimate and Non Intimate Exam Fixture Builder was declined Fixture Builder: na documented in this encounter [facility] 07-14-2022 History of Present illness Narrative Images from the original note were not included. 07/14/2022 Kalie Ferrera (: 1945) is a 77 y.o. female , Established patient, here for evaluation of the following chief complaint(s): Follow-up ASSESSMENT/PLAN: 1. Hypercholesterolemia Assessment & Plan: Did not tolerate rosuvastatin. Does not want to try other medication at this time. Wants to try diet changes again. Will plan on checking lipid panel in 2 months. Consider trial of other statin at that time if not improved. Orders: - Lipid panel 2. Myalgia Assessment & Plan: Reports resolved after stopping crestor. Wants to wait to trial other statin. Follow up for as directed pending test results. SUBJECTIVE/OBJECTIVE: HPI - Kalie Ferrera (: 1945) is a 77 y.o. female , Established patient, here for the evaluation of the following chief complaint(s): Follow-up Presents for 1 month follow-up myalgias thought to be secondary to Crestor. Patient had stopped Crestor about 6 weeks ago. Recent CMP and TSH normal, today reports symptoms are much better overall. However has new problem now of her left thumb hurting and her baseline arthritic pain in knees bothering her a little more, denies any injury to the thumb and thinks it's my arthritis acting up not interfering with ADLs. She would like to know if it would be ok to use diclofenac ointment on her thumb, knee as she is also on eliquis. She states that she does not want to try a different cholesterol medication right now because she is getting ready to eat a very low fat, low cholesterol diet and lose some weight . Prior to Admission medications Medication Sig Start Date End Date Taking? Authorizing Provider acetaminophen (Tylenol) 500 MG tablet Take 1,000 mg by mouth. 01/25/22 Historical Provider, albuterol 108 (90 Base) MCG/ACT inhaler Inhale 2 puffs every 6 hours as needed. 03/01/16 Historical Provider, apixaban (Eliquis) 5 MG tablet Take 1 tablet (5 mg) by mouth in the morning and 1 tablet (5 mg) before bedtime. 02/15/22 Jeramie Allan MD ASCORBIC ACID PO Take by mouth. Historical ProviderMD ascorbid acid ER (Vitamin C) 500 MG ER tablet Take by mouth in the morning. Historical ProviderMD Calcium Ascorbate 500 MG tablet Take 500 mg by mouth. 12/18/21 Historical ProviderMD cholecalciferol (Vitamin D-3) 25 MCG (1000 UT) capsule Take by mouth. 12/18/21 Historical ProviderMD Glucosamine-Chondroitin 500-400 MG capsule Take 1 tablet by mouth in the morning. Historical ProviderMD lisinopril 5 MG tablet Take 1 tablet (5 mg) by mouth daily. 03/16/22 Jeramie Allan MD metoprolol succinate XL (Toprol-XL) 100 MG 24 hr tablet Take 1 tablet (100 mg) by mouth 2 times daily. 05/10/22 Jeramie Allan MD Multiple Vitamins-Minerals (MULTI COMPLETE PO) Take 1 tablet by mouth in the morning. Historical ProviderMD Multiple Vitamins-Minerals (PRESERVISION AREDS 2+MULTI VIT PO) Take 1 tablet by mouth in the morning. Historical ProviderMD [place]-3 Fatty Acids (FISH OIL PO) Take 1 capsule by mouth in the morning. Historical ProviderMD omeprazole (PriLOSEC) [address] capsule Take 1 capsule (40 mg) by mouth daily. 03/16/22 Jeramie Allan MD sertraline (Zoloft) 25 MG tablet Take 25 mg by mouth in the morning. Historical ProviderMD Health Maintenance Due Topic Date Due Hepatitis B Vaccines (1 of 3 - 3-dose series) Never done Medicare Annual Wellness (AWV) Never done Depression Screening Never done Hepatitis C Screening Never done Review of Systems Constitutional: Negative for activity change, appetite change, chills, fatigue and fever. HENT: Negative. Respiratory: Negative for chest tightness and shortness of breath. Cardiovascular: Negative for chest pain. Genitourinary: Negative for difficulty urinating. Musculoskeletal: Positive for arthralgias. Neurological: Negative for dizziness, light-headedness and headaches. Vitals: 07/14/22 1006 BP: 128/68 Pulse: 75 Resp: 20 SpO2: 96% Weight: 220 lb (99.8 kg) Physical Exam Constitutional: General: She is not in acute distress. Appearance: Normal appearance. She is obese. She is not ill-appearing. Cardiovascular: Rate and Rhythm: Normal rate. Rhythm irregular. Pulses: Normal pulses. Heart sounds: Normal heart sounds. Pulmonary: Effort: Pulmonary effort is normal. Breath sounds: Normal breath sounds. Musculoskeletal: Hands: Left knee: Swelling: mild. Skin: General: Skin is warm and dry. Neurological: Mental Status: She is alert and oriented to person, place, and time. An electronic signature was used to authenticate this note. JOANNE Freeman CNP 07/14/2022 7:09 AM Fixture Builder for Intimate and Non Intimate Exam Fixture Builder was declined Fixture Builder: na documented in this encounter [facility] 07-14-2022 Instructions JOANNE Freeman CNP - 07/14/2022 10:00 AM EDT [employer] [address] [place] [address] documented in this encounter [facility] 07-14-2022 Instructions JOANNE Freeman CNP - 07/14/2022 10:00 AM EDT [employer] [address] [place] [address] documented in this encounter [facility] 07-14-2022 Note Addended by: JANELL LAM on: 07/20/2022 04:53 PM Modules accepted: Level of Service [facility] 06-17-2022 Evaluation + Plan note Associated Problem(s): Dry hair Will check TSH [facility] 06-17-2022 Miscellaneous Notes Associated Problem(s): Dry hair Will check TSH Associated Problem(s): Myalgia Possibly secondary to Crestor. Will stop Crestor reevaluate in 4 weeks, if symptoms improve, consider trial of other statin for cholesterol Associated Problem(s): Elevated glucose Fasting glucose checked today 129. Recommend checking hemoglobin A1c in 3 months documented in this encounter [facility] 06-17-2022 Evaluation + Plan note Associated Problem(s): Myalgia Possibly secondary to Crestor. Will stop Crestor reevaluate in 4 weeks, if symptoms improve, consider trial of other statin for cholesterol [facility] 06-17-2022 Evaluation + Plan note Associated Problem(s): Elevated glucose Fasting glucose checked today 129. Recommend checking hemoglobin A1c in 3 months [facility] 06-17-2022 History of Present illness Narrative Fixture Builder for Intimate and Non Intimate Exam Fixture Builder was declined Fixture Builder: na Images from the original note were not included. 06/17/2022 Kalie Ferrera (: 1945) is a 77 y.o. female , Established patient, here for evaluation of the following chief complaint(s): Back Pain and Follow-up (labs) ASSESSMENT/PLAN: 1. Myalgia Assessment & Plan: Possibly secondary to Crestor. Will stop Crestor reevaluate in 4 weeks, if symptoms improve, consider trial of other statin for cholesterol 2. Pruritus, unspecified - TSH 3. Dry hair Assessment & Plan: Will check TSH Orders: - TSH 4. Elevated glucose Assessment & Plan: Fasting glucose checked today 129. Recommend checking hemoglobin A1c in 3 months Orders: - POCT glucose manually resulted Follow up in about 1 month (around 07/17/2022) for Recheck. SUBJECTIVE/OBJECTIVE: HPI - Kalie Ferrera (: 1945) is a 77 y.o. female , Established patient, here for the evaluation of the following chief complaint(s): Back Pain and Follow-up (labs) Presents for back pain and generalized body aches x 4 weeks or so, reports worsening symptoms since starting Crestor. Patient recently started Crestor about 2 months ago. Denies any abdominal pain nausea vomiting or diarrhea no blood in the urine denies any numbness or tingling or weakness Dry hair-reports she has noticed that her hair is glue bone drier and that she has been having itching her skin seems dry. Has not tried anything for this at home. Denies any noticeable rash, no new soaps or detergents. Prior to Admission medications Medication Sig Start Date End Date Taking? Authorizing Provider apixaban (Eliquis) 5 MG tablet Take 1 tablet (5 mg) by mouth in the morning and 1 tablet (5 mg) before bedtime. 02/15/22 Yes Jeramie Allan MD acetaminophen (Tylenol) 500 MG tablet Take 1,000 mg by mouth. 01/25/22 Historical Provider, albuterol 108 (90 Base) MCG/ACT inhaler Inhale 2 puffs every 6 hours as needed. 03/01/16 Historical Provider, ASCORBIC ACID PO Take by mouth. Historical Provider, ascorbid acid ER (Vitamin C) 500 MG ER tablet Take by mouth in the morning. Historical Provider, Calcium Ascorbate 500 MG tablet Take 500 mg by mouth. 12/18/21 Historical ProviderMD cholecalciferol (Vitamin D-3) 25 MCG (1000 UT) capsule Take by mouth. 12/18/21 Historical ProviderMD Diclofenac Sodium (Voltaren) 1 % gel Apply 4 g topically 2 times daily. 05/26/22 06/25/22 Jenny Hernandez MD Glucosamine-Chondroitin 500-400 MG capsule Take 1 tablet by mouth in the morning. Historical Provider, lisinopril 5 MG tablet Take 1 tablet (5 mg) by mouth daily. 03/16/22 Jeramie Allan MD metoprolol succinate XL (Toprol-XL) 100 MG 24 hr tablet Take 1 tablet (100 mg) by mouth 2 times daily. 05/10/22 Jeramie Allan MD Multiple Vitamins-Minerals (MULTI COMPLETE PO) Take 1 tablet by mouth in the morning. Historical ProviderMD Multiple Vitamins-Minerals (PRESERVISION AREDS 2+MULTI VIT PO) Take 1 tablet by mouth in the morning. Historical Provider, [place]-3 Fatty Acids (FISH OIL PO) Take 1 capsule by mouth in the morning. Historical Provider, omeprazole (PriLOSEC) [address] capsule Take 1 capsule (40 mg) by mouth daily. 03/16/22 Jeramie Allan MD rosuvastatin (Crestor) 10 MG tablet Take 1 tablet (10 mg) by mouth daily. 06/16/22 Janell Ferreira APRN - [facility] sertraline (Zoloft) 25 MG tablet Take 25 mg by mouth in the morning. Historical Provider, rosuvastatin (Crestor) 10 MG tablet Take 1 tablet (10 mg) by mouth daily. 05/19/22 06/16/22 Jeramie Allan MD Health Maintenance Due Topic Date Due Hepatitis B Vaccines (1 of 3 - 3-dose series) Never done Medicare Annual Wellness (AWV) Never done Hepatitis C Screening Never done Review of Systems Constitutional: Negative for appetite change, chills, fatigue and fever. Respiratory: Negative for cough, chest tightness and shortness of breath. Cardiovascular: Negative for chest pain. Gastrointestinal: Negative for abdominal pain, nausea and vomiting. Increased flatus Genitourinary: Negative for difficulty urinating. Neurological: Negative for dizziness and light-headedness. Vitals: 06/17/22 0903 BP: 124/68 Pulse: 87 Resp: 20 SpO2: 98% Weight: 214 lb (97.1 kg) Physical Exam Constitutional: General: She is not in acute distress. Appearance: Normal appearance. She is obese. She is not ill-appearing. HENT: Head: Normocephalic and atraumatic. Comments: Here slightly dry fine, negative pull test Cardiovascular: Rate and Rhythm: Normal rate. Rhythm irregular. Pulses: Normal pulses. Heart sounds: Normal heart sounds. Pulmonary: Effort: Pulmonary effort is normal. Breath sounds: Normal breath sounds. Musculoskeletal: Thoracic back: Tenderness present. No spasms or bony tenderness. Normal range of motion. Lumbar back: Tenderness present. Normal range of motion. Comments: Negative seated straight leg raise bilateral Skin: General: Skin is warm and dry. Neurological: Mental Status: She is alert and oriented to person, place, and time. Psychiatric: Mood and Affect: Mood normal. Behavior: Behavior normal. An electronic signature was used to authenticate this note. JOANNE Freeman CNP 06/17/2022 9:20 AM documented in this encounter [facility] 06-17-2022 Telephone encounter Note Noted. Agree with disposition. [facility] 06-17-2022 Miscellaneous Notes Noted. Agree with disposition. S: Patient spoke with [facility] nurse regarding lower back pain B: Onset of symptoms/concern yesterday A: Pt c/o lower back pain 6-710 after shopping 4 hours. Relieved with rest. Denies shooting pain. Pt states she is due to fruit picker refill of rosuvastatin that she started taking 1 month ago. Asking if she can take something else, she thinks new back pain is side effect of rosuvastatin. R: Provided patient with appointment tomorrow at 9 am. Insurance verified. No further needs at this time. Patient instructed to call back with new or worsening symptoms. Reason for Disposition [1] Age > 50 AND [2] no history of prior similar back pain Protocols used: Back [id number] documented in this encounter [facility] 06-16-2022 Telephone encounter Note S: Patient spoke with [facility] nurse regarding lower back pain B: Onset of symptoms/concern yesterday A: Pt c/o lower back pain -09/20 after shopping 4 hours. Relieved with rest. Denies shooting pain. Pt states she is due to fruit picker refill of rosuvastatin that she started taking 1 month ago. Asking if she can take something else, she thinks new back pain is side effect of rosuvastatin. R: Provided patient with appointment tomorrow at 9 am. Insurance verified. No further needs at this time. Patient instructed to call back with new or worsening symptoms. Reason for Disposition [1] Age > 50 AND [2] no history of prior similar back pain Protocols used: Back [id number] [facility] 01-01-2022 Hospital Discharge instructions Nafisa Degroot RN - 01/01/2022 1:31 PM EDT ARRIVE 2 HOURS BEFORE SURGERY BRING A PHOTO ID AND INSURANCE CARD. HAVE A RESPONSIBLE ADULT THAT CAN TAKE YOU HOME AND STAY WITH YOU FOR 24 HOURS NO FOOD AFTER MIDNIGHT THE NIGHT BEFORE SURGERY, YOU MAY HAVE CLEAR FLUIDS UP UNTIL 2 HOURS BEFORE SURGERY. IF DIABETIC PLEASE AVOID HIGH SUGAR DRINKS WEAR LOOSE COMFORTABLE CLOTHING YOU CAN GO HOME IN. LEAVE ALL VALUABLES AT HOME, YOU MAY NEED A CO PAY FOR YOUR PRESCRIPTIONS. DO NOT USE ALCOHOL , RECREATIONAL DRUGS OR TOBACCO PRODUCTS FOR 24 HOURS BEFORE SURGERY. PLEASE WRITE DOWN ANY QUESTIONS YOU HAVE. DO NOT USE IBUPROFEN 24 HOURS BEFORE SURGERY. NO ALEVE FOR 3 DAYS. YOU MAY TAKE TYLENOL IF NEEDED HOLD VITAMINS AND SUPPLEMENTS THE WEEK BEFORE SURGERY HOLD LISINOPRIL ON THE DAY OF SURGERY HOLD ELIQUIS FOR 4 DAYS BEFORE SURGERY PER DR BARLOW CUSTOMER CONTACT SPECIALIST- PER PATIENT (CALLING OFFICE FOR CLEARANCE FORM) The following attachments cannot be sent through Care Everywhere.TKR (Total Knee Replacement): Pre-op (Taiwanese)Spinal and Epidural Anesthesia: General Info (Taiwanese)documented in this encounter [facility] Work Phone: documented in this encounter [facility] Work Phone: Evaluation note* Diagnosis Left knee pain, unspecified chronicity documented in this encounter [facility] Work Phone: Evaluation note* Diagnosis Myalgia- Primary Unspecified myalgia and myositis Pruritus, unspecified Dry hair Elevated glucose Other abnormal glucose [facility] Diagnosis Hypercholesterolemia- Primary Pure hypercholesterolemia Myalgia Unspecified myalgia and myositis [facility]* Diagnosis Hypercholesterolemia- Primary Pure hypercholesterolemia Myalgia Unspecified myalgia and myositis [facility]* Diagnosis Lumbar strain, initial encounter- Primary Weakness of both lower extremities Balance problems Abnormality of gait Nausea and vomiting, unspecified vomiting type [facility]* Diagnosis Primary osteoarthritis of right knee- Primary [facility]* Diagnosis Hypercholesterolemia- Primary Pure hypercholesterolemia [facility]* Diagnosis Hypercholesterolemia Pure hypercholesterolemia [facility]* Diagnosis Medicare annual wellness visit, subsequent- Primary Primary hypertension Unspecified essential hypertension Paroxysmal atrial fibrillation (CMS/HCC) (HCC) Atrial fibrillation Hyperglycemia Other abnormal glucose Hypercholesterolemia Pure hypercholesterolemia [facility]* Diagnosis Episodic paroxysmal hemicrania, 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 Forgetfulness Other general symptoms Visual changes [facility]* Diagnosis Stabbing headache- Primary Primary stabbing headache [facility]* Diagnosis Temporal arteritis (CMS/HCC) (HCC)- Primary Giant cell arteritis Other giant cell arteritis (HCC) [facility]* Diagnosis Stabbing headache Primary stabbing headache Other giant cell arteritis (HCC) [facility]* Diagnosis Stabbing headache- Primary Primary stabbing headache Temporal arteritis (CMS/HCC) (HCC) Giant cell arteritis Other giant cell arteritis (HCC) documented in this encounter [facility] note* Diagnosis Temporal arteritis (CMS/HCC) (HCC)- Primary Giant cell arteritis Other giant cell arteritis (HCC) documented in this encounter [facility] note* Diagnosis Temporal arteritis (CMS/HCC) (HCC)- Primary Giant cell arteritis documented in this encounter [facility] note* Diagnosis Advanced care planning/counseling discussion- Primary documented in this encounter [facility] note* Diagnosis Temporal arteritis (CMS/HCC) (HCC)- Primary Giant cell arteritis documented in this encounter [facility] for referral (narrative)* Consultation (Routine) - Pending Review Specialty Diagnoses / Procedures Referred By Roseline t Referred To Contact Orthopedic Surgery Diagnoses Primary osteoarthritis of right knee Jeramie Allan MD [address] [place] [address] Chacho Allan MD [address] [address] Referral ID Status Reason Start Date Expiration Date Visits Requested Visits Authorized [id number] Pending Review Specialty Services Required 09/20/2022 09/20/2023 1 1 [facility] for referral (narrative)* Consultation (Routine) - Pending Review Specialty Diagnoses / Procedures Referred By Contac t Referred To Contact Neurology Diagnoses Episodic paroxysmal hemicrania, not intractable Procedures IN OFFICE/OUTPATIENT NEW HIGH MDM 60-74 MINUTES [facility]ie [facility] MD [facility] [place] [address] [facility] Neuro [address] [place] [address] Referral ID Status Reason Start Date Expiration Date Visits Requested Visits Authorized [id number] Pending Review Specialty Services Required 12/06/2022 12/06/2023 1 1 [facility] Purpose Family History No Family History Records FoundNo Family History Records Found Advance Directives Documents on File Type Date Recorded Patient Corrections Nurse Expl anation Advance Directives and Living Will 01/01/2022 Latest Code Status on File Code Status Date Activated Date Inactivated Comments Full Code 01/14/2022 3:06 PM 01/15/2022 10:17 PM Code Status History Code Status Date Activated Date Inactivated Comments Full Code 01/14/2022 9:23 AM 01/14/2022 3:06 PM Documents on File Type Date Recorded Patient Corrections Nurse Expl anation Advance Directives and Living Will 01/01/2022 Latest Code Status on File Code Status Date Activated Date Inactivated Comments Full Code 01/14/2022 3:06 PM 01/15/2022 10:17 PM Code Status History Code Status Date Activated Date Inactivated Comments Full Code 01/14/2022 9:23 AM 01/14/2022 3:06 PM Latest Code Status on File Code Status Date Activated Date Inactivated Comments Full Code 01/31/2023 8:00 AM 01/31/2023 1:45 PM Code Status History Code Status Date Activated Date Inactivated Comments Full Code 01/14/2022 3:06 PM 01/15/2022 10:17 PM Full Code 01/14/2022 9:23 AM 01/14/2022 3:06 PM Latest Code Status on File Code Status Date Activated Date Inactivated Comments Full Code 01/31/2023 8:00 AM 01/31/2023 1:45 PM Code Status History Code Status Date Activated Date Inactivated Comments Full Code 01/14/2022 3:06 PM 01/15/2022 10:17 PM Full Code 01/14/2022 9:23 AM 01/14/2022 3:06 PM Reason for Referral Specialty Diagnoses / Procedures Referred By Roseline castle Referred To Contact Physical Therapy Diagnoses Lumbar strain, initial encounter Weakness of both lower extremities Procedures IN OFFICE/OUTPATIENT NEW HIGH MDM 60-74 MINUTES Jeramie Allan MD [address] [facility], [place] [address] Referral ID Status Reason Start Date Expiration Date Visits Requested Visits Authorized [id number] Authorized Eval and Treat 08/17/2022 02/13/2023 99 99 Scheduling Instructions [facility] Specialty Diagnoses / Procedures Referred By Roseline castle Referred To Contact Radiology Diagnoses Stabbing headache Procedures MR brain w and wo contrast Luke Terry MD [address] [place] [address] Referral ID Status Reason Start Date Expiration Date V isits Requested Visits Authorized [id number] Pending Review 12/31/2022 06/29/2023 1 1 Referral ID Status Reason Start Date Expiration Date Visits Re quested Visits Authorized [id number] Closed 12/31/2022 06/29/2023 1 1 Additional Source Comments Care Teams (unrecognized sec tion and content) Survival Specialist Relationship Specialty Start Date End Date Jeramie Allan MD [address] [place] [address] PCP - General Family Medicine 10/14/21 Survival Specialist Relationship Specialty Start Date End Date Jeramie Allan MD [address] [place] [address] PCP - General Family Medicine 10/14/21 Survival Specialist Relationship Specialty Start Date End Date Jeramie Allan MD [address] [place] [address] PCP - General 10/14/21 Survival Specialist Relationship Specialty Start Date End Date Jeramie Allan MD [address] [place] [address] PCP - General 10/14/21 Survival Specialist Relationship Specialty Start Date End Date Jeramie Allan MD [address] [facility] [place] [address] PCP - General 10/14/21 Survival Specialist Relationship Specialty Start Date End Date Jeramie Allan MD [address] [facility] [place] [address] PCP - General 10/14/21 Survival Specialist Relationship Specialty Start Date End Date Jeramie Allan MD [address] [facility] [place] [address] PCP - General 10/14/21 Survival Specialist Relationship Specialty Start Date End Date Jeramie Allan MD [address] [facility] [place] [address] PCP - General 10/14/21 Survival Specialist Relationship Specialty Start Date End Date Jeramie Allan MD [address] [facility] [place] [address] PCP - General 10/14/21 Survival Specialist Relationship Specialty Start Date End Date Jeramie Allan MD [address] [facility] [place] [address] PCP - General 10/14/21 Survival Specialist Relationship Specialty Start Date End Date Jeramie Allan MD [address] [facility] [place] [address] PCP - General 10/14/21 Survival Specialist Relationship Specialty Start Date End Date Jeramie Allan MD [address] [facility] [place] [address] PCP - General 10/14/21 Survival Specialist Relationship Specialty Start Date End Date Jeramie Allan MD [address] [place] [address] PCP - General 10/14/21 Survival Specialist Relationship Specialty Start Date End Date Jeramie Allan MD [address] [facility] [place] [address] PCP - General 10/14/21 Survival Specialist Relationship Specialty Start Date End Date Jeramie Allan MD [address] [facility] [place] [address] PCP - General 10/14/21 Survival Specialist Relationship Specialty Start Date End Date Jeramie Allan MD [address] [facility] [place] [address] PCP - General 10/14/21 Survival Specialist Relationship Specialty Start Date End Date Jeramie Allan MD [address] [facility] [place] [address] PCP - General 10/14/21 Survival Specialist Relationship Specialty Start Date End Date Jeramie Allan MD [address] [facility] [place] [address] PCP - General 10/14/21 Survival Specialist Relationship Specialty Start Date End Date Jeramie Allan MD [address] [facility] [place] [address] PCP - General 10/14/21 Survival Specialist Relationship Specialty Start Date End Date Jeramie Allan MD [address] [facility] [place] [address] PCP - General 10/14/21 Survival Specialist Relationship Specialty Start Date End Date Jeramie Allan MD [address] [place], [place] [id number] PCP - General 10/14/21 Survival Specialist Relationship Specialty Start Date End Date Jeramie Allan MD [address] [place], [place] [id number] PCP - General 10/14/21 Survival Specialist Relationship Specialty Start Date End Date Jeramie Allan MD [address] [place], [place] [id number] PCP - General 10/14/21 Survival Specialist Relationship Specialty Start Date End Date Jeramie Allan MD [address] [place], [place] [id number] PCP - General 10/14/21 INFORMATION SOURCE (unrecogn ized section and content) DATE CREATED AUTHOR AUTHOR'S ORGANIZ ATION 03/22/2023 [facility]ly [facility] Reason for Visit (unrecogniz ed section and content) Reason Comments Back Pain Follow-up labs Reason Comments Follow-up Reason Onset Date Comments Back Pain 08/13/2022 Reason Comments Back Pain Mid to lower back Atrial Fibrillation Was vomiting in the night and sent into afib had to call squad 07/30/22 and went to [facility] Edema Arms and hands Pain B/l thumbs shocking pain Knee Pain Having problems sowmya g up and down steps Reason Onset Date Comments Release of Information 09/20/2022 Reason Onset Date Comments Results 09/21/2022 Reason Onset Date Comments Results 10/19/2022 Reason Comments Medicare Annual Wellness Visit Subsequen t Blood Work Health Maintenance Hep c screening- ref use Reason Comments Pain [place] area and now have areas on top of head [place] pain is sharp Eye Problem Fell like eyes are n ot quite right have been to eye doctor Hot Flashes Other Pt wonders if it is ok to do Voltaren Gel since she is on blood thinner?Asking about taking Tumeric and something different than fish oil Back Pain Lower - seeing Dr Taya giron Immunizations Wonders if she shoul d get RSV vaccine Memory Loss The last month Reason Onset Date Comments Cough 12/21/2022 Reason Comments New Patient The patient states t hat she is having pain the migrates in the head. The last week, she has the severe pain in the right side of the head. Specialty Diagnoses / Procedures Referred By Contac t Referred To Contact Neurology Diagnoses Episodic paroxysmal hemicrania, not intractable Procedures IN OFFICE/OUTPATIENT [facility] 60-74 MINUTES Jeramie Allan MD [address] [place] [address], [place] [address] Luke Terry MD [address] [place] [address] Referral ID Status Reason Start Date Expiration Date V isits Requested Visits Authorized [id number] Closed Specialty Services Required 12/06/2022 12/06/2023 1 1 Reason Comments New Patient Temporal artery biop sy Specialty Diagnoses / Procedures Referred By Roseline t Referred To Contact General Surgery Diagnoses Temporal arteritis (CMS/HCC) (HCC) Procedures IN OFFICE/OUTPATIENT [facility] 60-74 MINUTES Luke Terry MD [address] [place] [address] Edu Bliss MD [address] [place] [address], [address] [place] [address] Referral ID Status Reason Start Date Expiration Date V isits Requested Visits Authorized [id number] Closed Specialty Services Required 01/11/2023 01/11/2024 1 1 Specialty Diagnoses / Procedures Referred By Roseline t Referred To Contact Radiology Diagnoses Stabbing headache Procedures MR brain w and wo contrast Luke Terry MD [address] [place] [address] Referral ID Status Reason Start Date Expiration Date Visits Re quested Visits Authorized [id number] Closed 12/31/2022 06/29/2023 1 1 Reason Comments Follow-up FU MRI Reason Onset Date Comments Records/ Imaging 09/24/2022 Specialty Diagnoses / Procedures Referred By Roseline castle Referred To Contact Diagnoses Other giant cell arteritis (HCC) Other giant cell arteritis (HCC) [M31.6] Procedures IN LIGATION/BIOPSY TEMPORAL ARTERY LIGATION OR BIOPSY TEMPORAL ARTERY Edu Bliss MD [address], [address] [place] [address] [facility] [address] [facility] [address] [place] [address] Referral ID Status Reason Start Date Expiration Date Visits Re quested Visits Authorized [id number] 1 1 Reason Comments Post-op First post op Reason Comments Advanced Directives Reason Comments Follow-up Headache Patient is having te rrible pain in her back. Headaches have not been as frequent or severe. Reason Comments Med Refill FOR RECORDS PERTAINING TO PATIENTS WHO ARE OR HAVE BEEN ENROLLED IN A CHEMICAL DEPENDENCY/SUBSTANCEABUSE PROGRAM, SOME INFORMATION MAY BE OMITTED. This clinical summary was aggregated from multiple sources. Caution should be exercised in using it in the provision of clinical care. This summary normalizes information from multiple sources, and as a consequence, information in this document may materially change the coding, format and clinical context of patient data. In addition, data may be omitted in some cases. CLINICAL DECISIONS SHOULD BE BASED ON THE PRIMARY CLINICAL RECORDS. [facility] [employer] [facility]. provides no warranty or guarantee of the accuracy or completeness of information in this document.
== END | disposition home or self-care (01) ==
LOC: CLSP 11:05
PROVIDERS: Nurse Practitioner Gerontology; PCP Family Medicine; Referring Provider Internal Medicine Cardiovascular Disease; Visit Provider Internal Medicine Cardiovascular Disease
DX: I48.0 Paroxysmal atrial fibrillation (principal); Z68.41 Body mass index [BMI] 40.0-44.9, adult; I10 Essential (primary) hypertension; E66.9 Obesity, unspecified; Z79.01 Long term (current) use of anticoagulants; Z79.899 Other long term (current) drug therapy
CPT/HCPCS: 36415; 80048; 93005

== ENCOUNTER → 2023-06-04 | Outpatient (CLI) | payer MEDICARE, BC, SELFPAY ==
[2023-06-04 12:10] LABS: Absolute Lymphocyte Count 2.26 X10^3/uL (0.83-4.51); Absolute Neutrophil Count 4.9 X10^3/uL (2.0-7.7); Basophil# 0.03 X10^3/uL; Basophil% 0.4 % (0-1); Eosinophil# 0.11 X10^3/uL; Eosinophils% 1.3 % (0-5); Hematocrit 44.3 % (37-47); Hemoglobin 14.1 g/dL (12.0-15.0); Lymphocyte # 2.26 X10^3/ul (0.83-4.51); Lymphocyte % 26.8 % (19-41); Mean Corp Hgb Conc 31.8 g/dL (32-36); Mean Corpuscular Hgb 30.2 pg (27.0-32.0); Mean Corpuscular Volume 94.9 fL (81-99); Mean Platelet Vol. 12.2 fl (6.2-12.0); Monocyte# 1.03 X10^3/uL; Monocyte% 12.2 % (0-10); NRBC Flagged by Analyzer 0 % (0-5); Neutrophil # 4.91 X10^3/uL (2.7-7.7); Neutrophil % 58.1 % (47-70); Platelet Count 278 K/mm3 (150-450); RBC Distribution Width CV 12.9 % (11.6-14.6); RBC Distribution Width SD 45.4 fl (35.1-43.9); Red Blood Count 4.67 M/mm3 (4.2-5.4); White Blood Count 8.4 K/mm3 (4.4-11.0)
[2023-06-04 12:56] LABS: ALB/GLOB Ratio 0.9 RATIO (0.9-2.4); AST(SGOT) 23 U/L (15-37); Alanine Aminotransfer ALT/SGPT 36 U/L (13-56); Albumin, Serum 3.3 g/dL (3.2-5.0); Alkaline Phosphatase 63 U/L (45-117); Anion Gap 4 (5-15); BUN 18 mg/dL (7-18); BUN/Creat Ratio 16.1 RATIO (10-20); Calcium,Total 9.1 mg/dL (8.5-10.1); Chloride 106 mmol/L (98-107); Creatinine, Serum 1.12 mg/dL (0.55-1.02); EST Glomerular Filtration Rate 50 mL/min (>60); Est Glom Filt Rate - Afr Amer 61 mL/min (>60); Globulin 3.5 g/dL (2.2-4.2); Glucose 170 mg/dL (74-106); Potassium 4.6 mmol/L (3.5-5.1); Protein, Total 6.8 g/dL (6.4-8.2); Sodium Level 140 mmol/L (136-145); T4 Free Direct 1.22 ng/dL (0.76-1.46); Thyroid Stim Hormone (TSH) 2.53 uIU/mL (0.358-3.74)
== END | disposition home or self-care (01) ==
LOC: LAB 11:37
PROVIDERS: PCP Family Medicine; Referring Provider Nurse Practitioner Family; Visit Provider Nurse Practitioner Family
DX: R53.83 Other fatigue (principal); R55 Syncope and collapse; Z79.899 Other long term (current) drug therapy
CPT/HCPCS: 36415; 80053; 83735; 84439; 84443; 85025

== ENCOUNTER → 2023-06-23 | Outpatient (CLI) | payer MEDICARE, BC, SELFPAY | END | disposition home or self-care (01) | LOC: PSN 12:26 | PROVIDERS: PCP Family Medicine; Referring Provider Nurse Practitioner Family; Visit Provider Nurse Practitioner Family | DX: I48.0 Paroxysmal atrial fibrillation (principal); Z79.899 Other long term (current) drug therapy | CPT/HCPCS: 93225; 93226; 94060; 94726; 94729 ==

== ENCOUNTER → 2023-08-18 | Outpatient (CLI) | payer MEDICARE, BC, SELFPAY ==
[2023-08-18 12:25] LABS: Erythrocyte Sedimentation Rate 8 mm/hr (0-30)
[2023-08-18 12:26] LABS: Absolute Lymphocyte Count 1.88 X10^3/uL (0.83-4.51); Absolute Neutrophil Count 4.9 X10^3/uL (2.0-7.7); Basophil# 0.04 X10^3/uL; Basophil% 0.5 % (0-1); Eosinophil# 0.08 X10^3/uL; Hematocrit 42.2 % (37-47); Hemoglobin 13.6 g/dL (12.0-15.0); Lymphocyte # 1.88 X10^3/ul (0.83-4.51); Lymphocyte % 24.1 % (19-41); Mean Corp Hgb Conc 32.2 g/dL (32-36); Mean Corpuscular Hgb 31.1 pg (27.0-32.0); Mean Corpuscular Volume 96.6 fL (81-99); Mean Platelet Vol. 12.9 fl (6.2-12.0); Monocyte# 0.84 X10^3/uL; Monocyte% 10.8 % (0-10); NRBC Flagged by Analyzer 0 % (0-5); Neutrophil # 4.91 X10^3/uL (2.7-7.7); Neutrophil % 63.1 % (47-70); Platelet Count 252 K/mm3 (150-450); RBC Distribution Width CV 13.5 % (11.6-14.6); RBC Distribution Width SD 47.9 fl (35.1-43.9); Red Blood Count 4.37 M/mm3 (4.2-5.4); White Blood Count 7.8 K/mm3 (4.4-11.0)
[2023-08-18 13:04] LABS: CRP < 2.90 mg/L (0.0-3.0)
== END | disposition home or self-care (01) ==
LOC: MTLAB 10:30
PROVIDERS: PCP Family Medicine; Referring Provider Ophthalmology; Visit Provider Ophthalmology
DX: H47.012 Ischemic optic neuropathy, left eye (principal)
CPT/HCPCS: 36415; 85025; 85652; 86140

== ENCOUNTER → 2023-09-07 | Outpatient (CLI) | payer MEDICARE, BC, SELFPAY ==
--- NOTE | 2023-09-07 11:14 | MRI_ITS ---
HISTORY: Left eye optic nerve swelling, left eye partial loss of sight and pain in head x 2-3 weeks. TECHNIQUE: Multiplanar and multisequence MR images of the brain and orbits were obtained before and after the intravenous administration of 20 cc Clariscan. 373 images. COMPARISON: None. FINDINGS: BRAIN PARENCHYMA: Multiple foci of increased T2 FLAIR signal in the bilateral cerebral white matter. No enhancing lesion in the brain parenchyma. No abnormal focus of restricted diffusion. No acute intracranial hemorrhage identified. CSF SPACES: Moderate volume loss. No significant midline shift or other mass effect.No extra-axial fluid collection. VASCULAR SYSTEM: Major intracranial flow voids are maintained. PARANASAL SINUSES AND MASTOID AIR CELLS: Atelectatic maxillary sinuses with mucosal thickening. SELLA/ORBITS: Unremarkable pituitary gland. No suprasellar mass or mass effect on the optic chiasm. Bilateral lens resections. Symmetric orbital contents without fluid collection or enhancing mass. No significant signal abnormality or enhancing lesion of the optic nerves. No preseptal fluid collection. MRI/Brain W/WO Contrast IMPRESSION: Unremarkable MRI orbits. No evidence for acute infarct or enhancing intracranial mass. Moderate chronic involutional and white matter changes. Electronically Signed: Jyoti Ruiz MD at 10:34 EDT ,
[2023-09-07 11:46] LABS: CREATININE FINGERSTICK 1.1 mg/dL (0.55-1.02)
== END | disposition home or self-care (01) ==
PROVIDERS: PCP Family Medicine; Referring Provider Ophthalmology; Visit Provider Ophthalmology
DX: H47.012 Ischemic optic neuropathy, left eye (principal)
CPT/HCPCS: 70553; A9575

== ENCOUNTER 2023-09-14 09:23 | Day surgery (SDC) | payer MEDICARE, BC, SELFPAY ==
--- NOTE | 2023-09-12 09:53 | PRE.ANES_ITS ---
Assessment & Plan Anesthesia* Anesthesia Assessment Anesthesia Assessment: Discussed sedation and/or anesthesia options, risks, benefits, and alternatives with patient/parents/legal guardian/POA. Questions invited. The patient/parents/legal guardian/POA seems to understand and agrees to proceed with anesthesia plan. Reviewed the physical assessment, medical history, allergy history and patient home medications list prior to surgery/procedure/anesthetic and documented any changes. Performed airway and anesthesia risk assessments. Focused Labs Anesthesia Preop lab: CBC WBC 7.8 K/mm3 (4.4-11.0) 08/18/23 10:31 RBC 4.37 M/mm3 (4.2-5.4) 08/18/23 10:31 Hgb 13.6 g/dL (12.0-15.0) 08/18/23 10:31 Hct 42.2 % (37-47) 08/18/23 10:31 Plt Count 252 K/mm3 (150-450) 08/18/23 10:31 CHEMISTRY Potassium 4.6 mmol/L (3.5-5.1) 06/04/23 11:40 Sodium 140 mmol/L (136-145) 06/04/23 11:40 Magnesium 2.0 mg/dL (1.6-2.6) 06/04/23 11:40 Phosphorus 3.3 mg/dL (2.5-4.9) 01/16/22 07:08 BUN 18 mg/dL (7-18) 06/04/23 11:40 Creatinine 1.12 mg/dL (0.55-1.02) H 06/04/23 11:40 Glucose 170 mg/dL (74-106) H 06/04/23 11:40 TSH 2.53 uIU/mL (0.358-3.74) 06/04/23 11:40 COAG Pre-Assessment Anesthesia History 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 When Was Last Pacemaker Check QUESTION #4 FULL TEXT: You/Your Family Experience fever (hyperthermia) with Anesthesia Last Oral Intake Last Oral intake: Last Oral Intake NPO since Meds taken in AM with sips of water? Meds patient instructed to take am of surgery PONV PONV - superintendent marine: PONV - superintendent marine Female HX of Motion Sickness HX of N/V After Surgery Non-Smoker Duration of Surgery greater than 60 minutes Number of Risk Factors PONV Score Height & Weight Height & Weight: Anesthesia: Height & Weight Height 5 ft 2 in 05/17/23 13:35 Respiratory Assessment Respiratory Assessment - superintendent marine: Respiratory Tract Infection Hx - superintendent marine Hx Respiratory Tract Infection STOP Sleep Apnea STOP Sleep Apnea - superintendent marine: STOP Sleep Apnea - superintendent marine Hx Hypertension Yes 03/23/22 08:36 Hx Sleep Apnea No 01/15/22 22:10 CPAP BIPAP Do you snore loudly (louder than talking or can be heard Do you often feel tired/ fatigued/ sleepy during daytime? Has anyone observed you stop breathing during sleep? STOP Results QUESTION #5 FULL TEXT : Do you snore loudly (louder than talking or can be heard through closed doors)? Tobacco Use History Tobacco Use History - superintendent marine: Tobacco Use History - superintendent marine Tobacco Use Smoking Status Never smoker 05/26/23 17:20 Hx Tobacco Use No 01/15/22 22:10 Years Smoking Packs Smoked per Day Smoking Cessation Date was within the last 15 years Hx Smoking Cessation Date Hx Smoking Cessation Counseling Hematologic Medial History Hematologic Hx - superintendent marine: Hematologic Medical Hx - pvc monitor Hx of Blood Transfusion Hx of Transfusion in last 3 Months Date of Last Transfusion (if within last 3 months) Ever experience any problems with transfusion(s)? Specify any problems Hx of Preganancy in last 3 Months Nurse Filling Out Transfusion & Questions: Date: Time: Patient unable to answer at this time (ie. confused, unrespo /Reproduction History /Reproductive History - superintendent marine: /Reproductive Hx- superintendent marine Hx Now Gestational Age (in weeks): EDC: Hx Hx Para Hx Section SAB PFSH Medical History Acute sinusitis, unspecified Anxiety Chronic anticoagulation Dyspnea on minimal exertion Enlarged LA (left atrium) Essential hypertension Headache History of malignant neoplasm of skin Intermittent palpitations Left knee pain Obesity Osteoarthritis Paroxysmal atrial fibrillation Home Medications ?Medication ?Instructions ?Recorded ?Last Taken ?Type ascorbate calcium (vitamin C) 500 500 mg PO DAILY supplement 12/18/21 Unknown History mg tablet cholecalciferol (vitamin D3) 25 25 mcg PO DAILY supplement 12/18/21 Unknown History mcg (1,000 unit) capsule lisinopril 5 mg tablet 5 mg PO DAILY HTN 12/18/21 Unknown History multivitamin 1 tab PO DAILY supplement 12/18/21 Unknown History omeprazole 40 mg capsule,delayed 40 mg PO DAILY stomach 12/18/21 Unknown History release acetaminophen 500 mg tablet 1,000 mg (2 x 500 mg) PO Q6 #0 tabs 01/25/22 Unknown Rx albuterol sulfate 90 mcg/actuation 2 puff inhalation Q4H PRN PRN 01/25/22 Unknown Rx aerosol inhaler SHORTNESS OF BREATH #1 g vit C 250 mg-vit E 90 mg-zinc 40 1 ea PO BIDCM #1 cap 01/25/22 Unknown Rx mg-copper 1 [id number]-mcfdok capsule (PreserVision AREDS-2) ezetimibe 10 mg tablet (Zetia) 10 mg PO DAILY 12/22/22 Unknown History gabapentin 100 mg capsule 100 mg PO TID #270 caps 01/31/23 03/23/23 Rx apixaban 5 mg tablet (Eliquis) 5 mg PO BID blood thinner #180 tabs 02/16/23 03/23/23 Rx Lactobacillus acidophilus 2,000 mmu cells PO DAILY 02/18/23 Unknown History (Acidophilus capsule) calcium carbonate (Calcium 500) 500 mg PO DAILY 02/18/23 Unknown History zfhsnakzqsd-ckkopwzyc-biic044-hyal tab PO 02/18/23 Unknown History 750 mg-100 mg-125 mg-1.65 mg tablet (Glucosamine Chondroit Complx Advan) metoprolol succinate 50 mg 100 mg PO BID 02/18/23 03/23/23 History tablet,extended release 24 hr omega-3 fatty acids-fish oil 300 cap PO DAILY 02/18/23 Unknown History mg-500 mg capsule (Fish Oil) amiodarone 200 mg tablet 200 mg PO DAILY #90 tabs 03/29/23 Unknown Rx Allergy/AdvReac Type Severity Reaction Status Date / Time No Known Allergies Allergy Verified 05/26/23 17:19 Family History Other Cancer Surgical History H/O arthroscopy of knee History of appendectomy History of biopsy of temporal artery History of cataract surgery History of cholecystectomy History of cosmetic surgery History of left knee replacement History of tonsillectomy Social History household members: other details: Lives alone. She is a . [facility]: [facility] number of children: 0 current occupational status: retired leisure activities: games Smoking Status: Never smoker alcohol intake: never substance use type: does not use Review of Systems (Anesthesia) ROS Narrative System reviewed and no additional complaints, except as documented.
[2023-09-14] VITALS (7 sets, daily range): BP systolic 116–176; BP diastolic 58–75; PULSE 55–70; RESP 18–20; TEMP 36.3–36.9; O2SAT 99–100; BMI 41.3
[2023-09-14] MEDS: Lactated Ringers 1,000 ML 15 ML IV (10:09)
--- NOTE | 2023-09-14 10:21 | PRE.ANES_ITS ---
ASA Classification* ASA Classification ASA Classification: 3 Assessment & Plan Anesthesia* Anesthesia Assessment Anesthesia Assessment: Discussed sedation and/or anesthesia options, risks, benefits, and alternatives with patient/parents/legal guardian/POA. Questions invited. The patient/parents/legal guardian/POA seems to understand and agrees to proceed with anesthesia plan. Reviewed the physical assessment, medical history, allergy history and patient home medications list prior to surgery/procedure/anesthetic and documented any changes. Performed airway and anesthesia risk assessments. Anesthesia Type Anesthesia Type: MAC (see written pre anesthesia record for full assessment) Anesthesia Focused Assessment* Temperature: 98.4 F Pulse Rate: 70 Blood Pressure: 176/65 Respiratory Rate: 20 Pulse Ox: 100 Airway Assessment Mouth opens: >3 cm Mallampati Score: II Focused Labs Anesthesia Preop lab: CBC WBC 7.8 K/mm3 (4.4-11.0) 08/18/23 10:31 RBC 4.37 M/mm3 (4.2-5.4) 08/18/23 10:31 Hgb 13.6 g/dL (12.0-15.0) 08/18/23 10:31 Hct 42.2 % (37-47) 08/18/23 10:31 Plt Count 252 K/mm3 (150-450) 08/18/23 10:31 CHEMISTRY Potassium 4.6 mmol/L (3.5-5.1) 06/04/23 11:40 Sodium 140 mmol/L (136-145) 06/04/23 11:40 Magnesium 2.0 mg/dL (1.6-2.6) 06/04/23 11:40 Phosphorus 3.3 mg/dL (2.5-4.9) 01/16/22 07:08 BUN 18 mg/dL (7-18) 06/04/23 11:40 Creatinine 1.12 mg/dL (0.55-1.02) H 06/04/23 11:40 Glucose 170 mg/dL (74-106) H 06/04/23 11:40 TSH 2.53 uIU/mL (0.358-3.74) 06/04/23 11:40 COAG Pre-Assessment Diagnosis/Proposed Procedure Planned Operative Procedure(s): RIGHT TEMPORAL ARTERY BIOPSY Anesthesia History Anesthesia History - communications officer: Anesthesia History - communications officer Hx Hospitalization No 09/13/23 10:43 Any Problems With Anesthesia No 09/13/23 10:43 Cholinesterase deficiency No 09/13/23 10:43 You/Your Family Experience No 09/13/23 10:43 fever (hyperthermia) with Relationship Recent Exposure to Contagious No 09/14/23 10:05 Disease Does patient have nerve No 09/13/23 10:43 stimulator Patient instructed to have device shut off --Does patient have Pacemaker No 09/14/23 10:05 or ICD? When Was Last Pacemaker Check QUESTION #4 FULL TEXT: You/Your Family Experience fever (hyperthermia) with Anesthesia Last Oral Intake Last Oral intake: Last Oral Intake NPO since 22:30 09/14/23 10:05 Meds taken in AM with sips of No 09/14/23 10:05 water? Meds patient instructed to take am of surgery PONV PONV - communications officer: PONV - communications officer Female Yes 09/13/23 10:43 HX of Motion Sickness No 09/13/23 10:43 HX of N/V After Surgery No 09/13/23 10:43 Non-Smoker Yes 09/13/23 10:43 Duration of Surgery greater No 09/13/23 10:43 than 60 minutes Number of Risk Factors 2 09/13/23 10:43 PONV Score Moderate Risk 09/13/23 10:43 Height & Weight Height & Weight: Anesthesia: Height & Weight Height 5 ft 2 in 09/14/23 10:05 Weight: 102.6 kg 09/14/23 10:05 Body Mass Index (BMI) 41.3 09/14/23 10:05 Respiratory Assessment Respiratory Assessment - communications officer: Respiratory Tract Infection Hx - communications officer Hx Respiratory Tract Infection No 09/13/23 10:43 STOP Sleep Apnea STOP Sleep Apnea - communications officer: STOP Sleep Apnea - communications officer Hx Hypertension Yes: CONTROLLED WITH MEDS 09/13/23 10:43 Hx Sleep Apnea No 09/13/23 10:43 CPAP No 09/13/23 10:43 BIPAP Do you snore loudly (louder No 09/13/23 10:43 than talking or can be heard Do you often feel tired/ Yes 09/13/23 10:43 fatigued/ sleepy during daytime? Has anyone observed you stop No 09/13/23 10:43 breathing during sleep? STOP Results Positive 09/13/23 10:43 QUESTION #5 FULL TEXT : Do you snore loudly (louder than talking or can be heard through closed doors)? 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 Specify any problems Hx of Preganancy in last 3 No 09/13/23 10:43 Months Nurse Filling Out Transfusion DSCHRIBER 09/13/23 10:43 & Questions: Date: 09/13/23 09/13/23 10:43 Time: 10:46 09/13/23 10:43 Patient unable to answer at this time (ie. confused, unrespo /Reproduction History /Reproductive History - communications officer: /Reproductive Hx- communications officer Hx Now No 09/13/23 10:43 Gestational Age (in weeks): EDC: Hx Hx Para Hx Section SAB No 09/13/23 10:43 Active Medications Active Medications: Current Medications Generic Name Dose Route Start Last Admin Trade Name Freq PRN Reason Stop Dose Admin Lactated Ringer's 1,000 mls @ 15 mls/hr 09/14/23 09:45 09/14/23 10:09 IV 15 mls/hr .Q48H BRANDI Administration PFSH Medical History Loss of hearing Wears glasses Post-menopausal Cancer Depression Diabetes History of steroid therapy Arthritis Bladder disease Back pain TIA (transient ischemic attack) Blackout Difficulty swallowing Gastric reflux Non-smoker COPD (chronic obstructive pulmonary disease) Shortness of breath on exertion History of pain when walking History of edema History of echocardiogram History of stress test History of Holter monitoring Cardiology follow-up encounter Acute sinusitis, unspecified History of malignant neoplasm of skin Anxiety Enlarged LA (left atrium) Chronic anticoagulation Left knee pain Dyspnea on minimal exertion Obesity Essential hypertension Intermittent palpitations Headache Osteoarthritis Paroxysmal atrial fibrillation Home Medications ?Medication ?Instructions ?Recorded ?Last Taken ?Type ascorbate calcium (vitamin C) 500 500 mg PO DAILY supplement 12/18/21 09/13/23 History mg tablet cholecalciferol (vitamin D3) 25 25 mcg PO DAILY supplement 12/18/21 09/13/23 History mcg (1,000 unit) capsule lisinopril 5 mg tablet 5 mg PO QHS HTN 12/18/21 09/13/23 22:30 History multivitamin 1 tab PO DAILY supplement 12/18/21 09/13/23 History omeprazole 40 mg capsule,delayed 40 mg PO DAILY stomach 12/18/21 09/13/23 19:00 History release vit C 250 mg-vit E 90 mg-zinc 40 1 ea PO BIDCM #1 cap 01/25/22 09/13/23 Rx mg-copper 1 [id number] capsule (PreserVision AREDS-2) ezetimibe 10 mg tablet (Zetia) 10 mg PO DAILY 12/22/22 09/13/23 09:30 History apixaban 5 mg tablet (Eliquis) 5 mg PO BID blood thinner #180 tabs 02/16/23 09/11/23 Rx Lactobacillus acidophilus 2,000 mmu cells PO DAILY 02/18/23 09/13/23 History (Acidophilus capsule) calcium carbonate (Calcium 500) 500 mg PO DAILY 02/18/23 09/13/23 History metoprolol succinate 50 mg 100 mg PO BID 02/18/23 09/13/23 22:30 History tablet,extended release 24 hr amiodarone 200 mg tablet 200 mg PO DAILY #90 tabs 03/29/23 09/13/23 09:30 Rx acetaminophen 500 mg tablet 1,000 mg PO Q6H PRN PRN pain 09/13/23 08/31/23 History prednisone 20 mg tablet 20 mg PO DAILY 09/13/23 09/13/23 09:30 History Allergy/AdvReac Type Severity Reaction Status Date / Time No Known Allergies Allergy Verified 09/14/23 10:00 Family History Other Cancer Surgical History Hx of colonoscopy History of esophagogastroduodenoscopy (EGD) Hx of oral surgery History of biopsy of temporal artery History of cosmetic surgery History of left knee replacement H/O arthroscopy of knee History of tonsillectomy History of cholecystectomy History of cataract surgery History of appendectomy Social History household members: other details: Lives alone. She is a . housing: [facility] number of children: 0 current occupational status: retired leisure activities: games Smoking Status: Never smoker alcohol intake: never substance use type: does not use Review of Systems (Anesthesia) ROS Narrative System reviewed and no additional complaints, except as documented.
--- NOTE | 2023-09-14 10:46 | HP.PCM_ITS ---
History and Physical Date of Admission: 09/14/23 Intake Vital Signs 05/16/2412:35 09/13/2407:16 Height 5 ft 2 in 5 ft 2 in Weight: 227 lb BMI 41.5 BP 126/83 H Blood Pressure Location Rt brachial Position Sitting Respiration 18 Pulse 67 Pulse Source Monitor Temp 97.2 F L Temp Source Temporal Pulse Oximetry (%) 98 Oxygen Delivery Method room air Intake Visit Reasons: R Temporal artery bypass Chief Complaint: R temporal artery biopsy Is patient in pain?: No Allergies No Known Allergies Allergy (Verified 09/13/23 08:17) Medications ?Medication ?Instructions ?Recorded ?Confirmed ?Type ascorbate calcium (vitamin C) 500 500 mg PO DAILY supplement 12/18/21 09/13/23 History mg tablet cholecalciferol (vitamin D3) 25 25 mcg PO DAILY supplement 12/18/21 09/13/23 History mcg (1,000 unit) capsule lisinopril 5 mg tablet 5 mg PO DAILY HTN 12/18/21 09/13/23 History multivitamin 1 tab PO DAILY supplement 12/18/21 09/13/23 History omeprazole 40 mg capsule,delayed 40 mg PO DAILY stomach 12/18/21 09/13/23 His tory release acetaminophen 500 mg tablet 1,000 mg (2 x 500 mg) PO Q6 #0 tabs 01/25/22 09/13/23 Rx albuterol sulfate 90 mcg/actuation 2 puff inhalation Q4H PRN PRN 01/25/22 09/13/23 Rx aerosol inhaler SHORTNESS OF BREATH #1 g vit C 250 mg-vit E 90 mg-zinc 40 1 ea PO BIDCM #1 cap 01/25/22 09/13/23 Rx mg-copper 1 [id number]-ikdshw capsule (PreserVision AREDS-2) ezetimibe 10 mg tablet (Zetia) 10 mg PO DAILY 12/22/22 09/13/23 History gabapentin 100 mg capsule 100 mg PO TID #270 caps 01/31/23 09/13/23 Rx apixaban 5 mg tablet (Eliquis) 5 mg PO BID blood thinner #180 tabs 02/16/23 09/13/23 Rx Lactobacillus acidophilus 2,000 mmu cells PO DAILY 02/18/23 09/13/23 History (Acidophilus capsule) calcium carbonate (Calcium 500) 500 mg PO DAILY 02/18/23 09/13/23 History vdfnojwasvx-mbwtrxoua-iwjz134-hyal tab PO 02/18/23 09/13/23 History 750 mg-100 mg-125 mg-1.65 mg tablet (Glucosamine Chondroit Complx Advan) metoprolol succinate 50 mg 100 mg PO BID 02/18/23 09/13/23 History tablet,extended release 24 hr omega-3 fatty acids-fish oil 300 cap PO DAILY 02/18/23 09/13/23 History mg-500 mg capsule (Fish Oil) amiodarone 200 mg tablet 200 mg PO DAILY #90 tabs 03/29/23 09/13/23 Rx Have you fallen in the past year?: No PFSH Medical History Acute sinusitis, unspecified History of malignant neoplasm of skin Anxiety Enlarged LA (left atrium) Chronic anticoagulation Left knee pain Dyspnea on minimal exertion Obesity Essential hypertension Intermittent palpitations Headache Osteoarthritis Paroxysmal atrial fibrillation Surgical History History of biopsy of temporal artery History of cosmetic surgery History of left knee replacement H/O arthroscopy of knee History of tonsillectomy History of cholecystectomy History of cataract surgery History of appendectomy Family History Other Cancer Social History household members: other details: Lives alone. She is a . housing: [facility] number of children: 0 current occupational status: retired leisure activities: games Smoking Status: Never smoker alcohol intake: never substance use type: does not use HPI HPI HPI: Patient is a 78-year-old female who is sent here for temporal artery biopsy. She had a temporal artery biopsy of the left back in 2022. It was normal. The patient is having ongoing symptoms and requiring steroids and having vision loss. She was sent for biopsy of the opposite side. ROS General General: Yes fatigue; No weight change, appetite, colon cancer, breast cancer or weakness HEENT HEENT: Yes eye surgery; No difficulty swallowing, eye injury, swollen glands or hoarseness Endo Endocrine: No thyroid disease, diabetes mellitus, thyroid cancer, Hair loss, heat intolerance or cold intolerance Musc Musculoskeletal: Yes back problems; No arthritis, rheumatoid arthritis, gout or joint pain Cardio Cardiovascular: Yes atrial fibrillation; No murmur, pacemaker, heart disease, high blood pressure, heart attack, heart stent, palpitations, shortness of breat with exertion or chest pain Psych Psychiatric: Yes depression and anxiety; No hearing voices Resp Respiratory: Yes shortness of breath, No sleep apnea, No cough, Yes COPD, No asthma, No emphysema and No wheezing Gastro Gastrointestinal: No abdominal pain, No nausea or vomiting, No diarrhea, No constipation, No blood in stool, Yes acid reflux, Yes hemorrhoids, No ulcers, No gallbladder problem and No black,tarry stools Luis M Hematologic: Yes blood thinners, No blood disorders, No bleeding, No anemia and No blood clots Neuro Neurologic: No numbness, No tingling and No weakness Exam Const General: cooperative Orientation: alert and oriented x3 HENMT Head: normal to inspection Neck Neck: normal visual inspection and full ROM Chest Chest palpation & inspection: normal inspection of the chest Resp Effort & Inspection: normal respiratory effort Auscultation: clear to auscultation bilaterally Cardio Rate: regular rate Rhythm: regular rhythm GI Inspection: non-distended Palpation: soft and nontender Skin General: no rashes or lesions noted Neuro General: patient alert and patient oriented x3 Extrem General: full ROM Psych Appearance: grossly normal Mental Status: mental status grossly normal Assessment and Plan Assessment and Plan (1) Vision loss: Status: Acute Plan: The patient has been having vision loss on the left. She had already had a temporal artery biopsy on the left last year. She was sent here by ophthalmology to have a biopsy of the right side. I discussed this with her in detail. I discussed the risks including but not limited to bleeding, infection, injury other organs such as nerves or blood vessels. Patient understands the risks and is willing to proceed. She has been holding her Eliquis and plan for surgery tomorrow. Catarino Bolton MD Pager: [facility] [address] [place] [address], [address] [place] [address] Office: I have examined the patient and the H&P has been reviewed. There are no clinical changes since date of exam.
--- NOTE | 2023-09-14 11:00 | TEM_PTH ---
PATIENT: CONCHA SLADE LOC: [facility] U#:[id number] AGE/SX: 78/F ROOM: RE09/14/[address]: Dr. Catarino Bolton MD : 1945 BED: DIS: 09/14/2023 SPEC #: [id number] RECD: 09/14/23 13:47 STATUS: GIORGI MIJARES #: [id number] MURALI: 09/14/23 11:[address]: Catarino Bolton DEPT: SURGICAL PATHOLOGY RECD BY: Ayden Hubbard ENTERED: 09/16/23 06:59 SP TYPE: TEMPORAL OTHR DR: Dr. Jeramie Alba MD Tissues: Temporal region Procedures: Surgery Specimen Level IV HEADER OPERATION: Biopsy, temporal artery PRE-OP DIAGNOSIS: Vision loss TISSUE SUBMITTED: Right temporal artery MICROSCOPIC DIAGNOSIS Right temporal artery, biopsy: Negative for giant cell arteritis. Mild intimal hyperplasia. Focal medial calcification. See comment. MAIKEL/mr 09/19/2023 COMMENT Elastic stain with matched control is used in evaluation of the specimen. Clinical correlation and appropriate follow up are necessary. MICROSCOPIC DESCRIPTION Slides are reviewed. GROSS DESCRIPTION Received in fixative is one container labeled with the patient's name and designated Right temporal artery. The specimen consists of a tubular segment of lam soft tissue measuring 2.5cm in length and 0.2cm in diameter. The specimen is serially sectioned and submitted entirely in one cassette. MAIKEL/ 09/16/2023 TC:5 CPT:15650,88413
[2023-09-14] MEDS: Lidocaine 1% (20 ml mdv) 20 ML Vial (11:21)
--- NOTE | 2023-09-14 11:50 | PCM.POST.ANE ---
Anesthesia: Postop Eval I Current Vital Signs Temperature: 97.3 F Pulse Rate: 55 Blood Pressure: 116/75 Respiratory Rate: 18 Pulse Ox: 100 Assessment Airway patent: Yes Spontaneous unlabored respirations: Yes nausea: No Vomiting: No Anesthesia Complication: No Fluid Hydration Crystalloid volume administer (ml): 800 Total IV fluid infused: 800 Progress Note Anesthesia document: Postop Eval 1 completed: Yes
--- NOTE | 2023-09-14 11:57 | OP.PCM_ITS ---
Report of Operation Date of Procedure: 09/14/23 Pre-Operative Diagnosis: Vision loss Post-Operative Diagnosis: Same Surgery/Procedure Performed:: Right temporal artery biopsy Type of Anesthesia: Local MAC Specimen's removed: Right temporal artery segment Estimated Blood Loss (mL): 5 Description of Procedure: Patient was brought back to the operating room and MAC anesthesia was induced. The right mandaeism was trimmed of hair and then inspected with ultrasound and the artery was identified and traced. Next the right mandaeism was prepped and draped. The incision marking was injected with local anesthetic. Incision was made with a scalpel. The skin was retracted. The artery was identified and sharply dissected free using scissors. A tributaries were clipped with small clips. Proximally and distally the artery was clipped with a medium clip and then the segment was removed. Hemostasis was obtained using electrocautery. There was good hemostasis and the area is irrigated and suctioned dry. The dermis was closed with interrupted 4-0 Monocryl sutures and the skin was closed with a running 4-0 Monocryl suture. Dermabond was applied and patient was brought back in stable condition. Admit VTE Documentation VTE Mechan Device Prophylaxis: SCD's
--- NOTE | 2023-09-14 12:00 | EX.PCM.DISCH ---
Discharge Instructions Diet Discharge Diet: No restrictions Activity Discharge Activity: Return to Normal Activity and May Shower Lifting Restrictions: 15 lbs for 2 days Additional Activity Instructions:: Resume Eliquis on Tuesday, take Tylenol and ibuprofen for pain Dressing / Incision Call your doctor if your incision/area has: Continuous Slow Oozing, Sudden Increased Bleeding, Increased Pain/ Swelling, Increased Redness, Foul Smelling Discharge and Swelling at the incision site Call your doctor if you observe: Fever of 101 or Higher Cleanse incision/area with: Soap & Water Follow Up Care Please Follow Up With: Catarino Bolton MD When: Please call to schedule 2 week follow up appointment. [phone] Test Results: Test results from this visit will be discussed in further detail at your follow-up appointment, if applicable. Discharge Plan Admission Attending Provider: Catarino Bolton Primary Care Provider: Jeramie Alba Instructions Print Language: [place] Discharge Orders/Prescriptions Prescriptions: No Action omeprazole 40 mg capsule,delayed release(DR/EC) 40 mg PO DAILY lisinopril 5 mg tablet 5 mg PO QHS multivitamin Tablet 1 tab PO DAILY ascorbate calcium (vitamin C) 500 mg tablet 500 mg PO DAILY cholecalciferol (vitamin D3) 25 mcg (1,000 unit) capsule 25 mcg PO DAILY ezetimibe [Zetia] 10 mg tablet 10 mg PO DAILY calcium carbonate [Calcium 500] 500 mg calcium (1,250 mg) tablet,chewable 500 mg PO DAILY Acidophilus Capsule 2,000 mmu cells PO DAILY PreserVision AREDS-2 250-90-40-1 mg Capsule 1 ea PO BIDCM Qty: 1 0RF prednisone 20 mg tablet 20 mg PO DAILY acetaminophen 500 mg Tablet 1,000 mg PO Q6H PRN PRN (Reason: pain) Eliquis 5 mg tablet 5 mg PO BID Qty: 180 4RF metoprolol succinate 50 mg tablet extended release 24 hr 100 mg PO BID amiodarone 200 mg tablet 200 mg PO DAILY Qty: 90 3RF Referrals / Follow Up: Jeramie Alba MD [Primary Care Provider] - Disposition Disposition (needs filled in before D/C Order can be placed): Home, Self Care
--- NOTE | 2023-09-14 14:43 | POSTOPAN2_ITS ---
Anesthesia Postop Eval I Sum Postop Eval Completion status Anesthesia document: Postop Eval 1 completed: Yes Anesthesia Postop Eval I Summary Anesthesia Postop Eval I Summary: Anesthesia Postop Eval I: Assessment Summary Airway patent Yes 09/14/23 11:50 MANAGER CONFIGURATION.CSIR Spontaneous unlabored Yes 09/14/23 11:50 MANAGER CONFIGURATION.CSIR respirations Mental status nausea No 09/14/23 11:50 MANAGER CONFIGURATION.CSIR Vomiting No 09/14/23 11:50 MANAGER CONFIGURATION.CSIR Anesthesia Postop Eval I: Fluid Summary Crystalloid volume administer 800 09/14/23 11:50 MANAGER CONFIGURATION.CSIR (ml) Colloids volume administered ( ml) Blood Product volume administered (ml) Total IV fluid infused 800 09/14/23 11:50 MANAGER CONFIGURATION.CSIR Anesthesia Postop Eval I: Summary Notes Anesthesia Complication No 09/14/23 11:50 MANAGER CONFIGURATION.CSIR Anesthesia Complication Comment: Post-operative progress note Anesthesia: Postop Eval II Evaluation Mental status: Awake and Calm Pain Level: 1 nausea: No Vomiting: No Complications Anesthesia Complication: No
--- NOTE | 2023-09-14 14:43 | PCM.POSTANE2 ---
Anesthesia Postop Eval I Sum Postop Eval Completion status Anesthesia document: Postop Eval 1 completed: Yes Anesthesia Postop Eval I Summary Anesthesia Postop Eval I Summary: Anesthesia Postop Eval I: Assessment Summary Airway patent Yes 09/14/23 11:50 JAVA J2EE APPLICATION DEVELOPER.CSIR Spontaneous unlabored Yes 09/14/23 11:50 JAVA J2EE APPLICATION DEVELOPER.CSIR respirations Mental status nausea No 09/14/23 11:50 JAVA J2EE APPLICATION DEVELOPER.CSIR Vomiting No 09/14/23 11:50 JAVA J2EE APPLICATION DEVELOPER.CSIR Anesthesia Postop Eval I: Fluid Summary Crystalloid volume administer 800 09/14/23 11:50 JAVA J2EE APPLICATION DEVELOPER.CSIR (ml) Colloids volume administered ( ml) Blood Product volume administered (ml) Total IV fluid infused 800 09/14/23 11:50 JAVA J2EE APPLICATION DEVELOPER.CSIR Anesthesia Postop Eval I: Summary Notes Anesthesia Complication No 09/14/23 11:50 JAVA J2EE APPLICATION DEVELOPER.CSIR Anesthesia Complication Comment: Post-operative progress note Anesthesia: Postop Eval II Evaluation Mental status: Awake and Calm Pain Level: 1 nausea: No Vomiting: No Complications Anesthesia Complication: No
== END 2023-09-14 13:00 | disposition home or self-care (01) ==
LOC: SDC 09:23 → AC 09:25
PROVIDERS: PCP Family Medicine; Referring Provider Surgery; Visit Provider Surgery
PROC: (CPT 37609; principal; 2023-09-14 10:45)
DX: H54.7 Unspecified visual loss (principal); I48.0 Paroxysmal atrial fibrillation; Z68.41 Body mass index [BMI] 40.0-44.9, adult; E66.9 Obesity, unspecified; I10 Essential (primary) hypertension; K21.9 Gastro-esophageal reflux disease without esophagitis; Z79.01 Long term (current) use of anticoagulants; Z79.899 Other long term (current) drug therapy
CPT/HCPCS: 37609; 88305; A4648; J7120; J2405

== ENCOUNTER → 2023-09-20 | Outpatient (CLI) | payer MEDICARE, BC, SELFPAY ==
--- NOTE | 2023-09-20 10:07 | BI_ITS ---
MAMMOGRAPHY - BILATERAL SCREENING REASON FOR EXAM: Female, 78 years old. Routine annual screening examination. PERTINENT HISTORY: Aunt with breast cancer. TECHNIQUE: Digital bilateral breast lan (3D mammographic acquisition) in the CC and MLO projections. 2-D mediolateral oblique (MLO) and craniocaudad (CC) views of both breasts were obtained. CAD: Full Field Digital Mammography with Computer Added Detection was performed. COMPARISON: Comparison is made with prior study September 17, 2022. FINDINGS: Breast Composition: The breasts are almost entirely fatty. There are no dominant masses or suspicious calcifications. No other significant abnormalities are identified. There has been no significant change since the prior study. BI/SCRN MAMM (CAD)W/LAN BILAT IMPRESSION: Stable bilateral screening mammogram. Yearly follow-up mammogram recommended. (A) ASSESSMENT CATEGORY: BIRADS Category 1: Negative. A letter regarding these results will be sent to the patient by the facility within 30 days. Approximately 10% of breast cancers are not detected by mammography. A normal mammogram should not delay biopsy of a clinically suspicious abnormality. [id number] Electronically Signed: Davon Russo MD at 12:26 EDT ,
== END | disposition home or self-care (01) ==
LOC: OPBI 10:05
PROVIDERS: PCP Family Medicine; Referring Provider Family Medicine; Visit Provider Family Medicine
DX: Z12.31 Encounter for screening mammogram for malignant neoplasm of breast (principal); Z80.3 Family history of malignant neoplasm of breast
CPT/HCPCS: 77063; 77067

== ENCOUNTER 2023-10-16 12:07 | Emergency (ER) | payer MEDICARE, BC, SELFPAY ==
[2023-10-16 12:10] VITALS: BP 138/86; PULSE 76; RESP 11; TEMP 35.2; O2SAT 100; BMI 42.3
--- NOTE | 2023-10-16 12:29 | RAD_ITS ---
EXAM: XR CHEST, 1 VIEW CLINICAL INDICATION: shortness of breath TECHNIQUE: Frontal view of the chest. COMPARISON: 12/22/2022 FINDINGS: LUNGS AND PLEURAL SPACES: No significant abnormality. No consolidation or edema. No pneumothorax. No effusion. HEART: No significant abnormality. Cardiac silhouette not enlarged. MEDIASTINUM: Central airways and mediastinal contour are unremarkable. BONES/JOINTS: Degenerative changes in the spine and shoulders. No acute fracture. SOFT TISSUES: No significant abnormality. VASCULATURE: Atherosclerosis. RAD/Chest 1 View (Portable) IMPRESSION: No acute findings in the chest. Electronically Signed: Bhavin Toledo DO at 13:10 EDT ,
--- NOTE | 2023-10-16 12:29 | EKG12_ITS ---
Test Reason : TACHY Blood Pressure : / mmHG Vent. Rate : 083 BPM Atrial Rate : 000 BPM P-R Int : 000 ms QRS Dur : 076 ms QT Int : 364 ms P-R-T Axes : 000 007 -87 degrees QTc Int : 427 ms Atypical Atrial Flutter with controlled ventricular response Non specific ST & T wave abnormality Abnormal ECG Confirmed by Reilly Geller ([id number]), material expeditor ALEA QUAN ([id number]) on 10/18/2023 1:55:38 PM Referred By: RADHA/PEDRO Confirmed By:Reilly Geller
--- NOTE | 2023-10-16 12:32 | EX.ED.DYSGE1 ---
HPI History of Present Illness Chief Complaint: Shortness of Breath Narrative Narrative: 70-year-old female past medical history of atrial fibrillation presents with feelings of lightheadedness, heaviness in her shoulders that has been ongoing since 7 AM when she woke up. She relates history that she was going to get ready to go to [employer] with her friend, but when she awoke felt very lightheaded. She denies vertiginous type symptoms. She felt heaviness in her shoulders. She then became short of breath. She has history of atrial fibrillation, and the nurse practitioner from cardiology recently decreased her metoprolol from 200 mg to 100 mg once a day. She takes Eliquis. She became frightened because she lives alone, she she had her medic alert button. EMS brought her in and noted atrial fibrillation on the monitor, but patient is usually in normal sinus rhythm. She denies any exacerbating or alleviating symptoms but feels short of breath and lightheaded. [facility] Medical History Loss of hearing Wears glasses Post-menopausal Cancer Depression Diabetes History of steroid therapy Arthritis Bladder disease Back pain TIA (transient ischemic attack) Blackout Difficulty swallowing Gastric reflux Non-smoker COPD (chronic obstructive pulmonary disease) Shortness of breath on exertion History of pain when walking History of edema History of echocardiogram History of stress test History of Holter monitoring Cardiology follow-up encounter Acute sinusitis, unspecified History of malignant neoplasm of skin Anxiety Enlarged LA (left atrium) Chronic anticoagulation Left knee pain Dyspnea on minimal exertion Obesity Essential hypertension Intermittent palpitations Headache Osteoarthritis Paroxysmal atrial fibrillation Home Medications ?Medication ?Instructions ?Recorded ?Last Taken ?Type ascorbate calcium (vitamin C) 500 500 mg PO DAILY supplement 12/18/21 09/13/23 History mg tablet cholecalciferol (vitamin D3) 25 25 mcg PO DAILY supplement 12/18/21 09/13/23 History mcg (1,000 unit) capsule lisinopril 5 mg tablet 5 mg PO QHS HTN 12/18/21 09/13/23 22:30 History multivitamin 1 tab PO DAILY supplement 12/18/21 09/13/23 History omeprazole 40 mg capsule,delayed 40 mg PO DAILY stomach 12/18/21 09/13/23 19:00 History release vit C 250 mg-vit E 90 mg-zinc 40 1 ea PO BIDCM #1 cap 01/25/22 09/13/23 Rx mg-copper 1 as-sbbddl-mshwbj capsule (PreserVision AREDS-2) ezetimibe 10 mg tablet (Zetia) 10 mg PO DAILY 12/22/22 09/13/23 09:30 History apixaban 5 mg tablet (Eliquis) 5 mg PO BID blood thinner #180 tabs 02/16/23 09/11/23 Rx Lactobacillus acidophilus 2,000 mmu cells PO DAILY 02/18/23 09/13/23 History (Acidophilus capsule) calcium carbonate (Calcium 500) 500 mg PO DAILY 02/18/23 09/13/23 History amiodarone 200 mg tablet 200 mg PO DAILY #90 tabs 03/29/23 09/13/23 09:30 Rx acetaminophen 500 mg tablet 1,000 mg PO Q6H PRN PRN pain 09/13/23 08/31/23 History prednisone 20 mg tablet 10 mg PO DAILY 09/29/23 Unknown History metoprolol succinate 100 mg 100 mg PO DAILY 10/04/23 Unknown History tablet,extended release 24 hr Allergy/AdvReac Type Severity Reaction Status Date / Time No Known Allergies Allergy Verified 10/04/23 15:54 Family History Other Cancer Surgical History History of temporal artery biopsy Hx of colonoscopy History of esophagogastroduodenoscopy (EGD) Hx of oral surgery History of biopsy of temporal artery History of cosmetic surgery History of left knee replacement H/O arthroscopy of knee History of tonsillectomy History of cholecystectomy History of cataract surgery History of appendectomy Social History household members: other details: Lives alone. She is a . [facility] number of children: 0 current occupational status: retired leisure activities: games Smoking Status: Never smoker alcohol intake: never substance use type: does not use ROS ROS ED ROS Narrative Constitutional: No fever, no chills. HEENT: No sore throat. No neck pain. No loss of vision. No rhinorrhea. Cardiovascular: No chest pain. Heaviness in shoulders. No palpitations. No pedal edema. Respiratory: No cough, positive shortness of breath. Abdominal: No abdominal pain. No nausea. No vomiting. Genitourinary: No dysuria. No hematuria. Musculoskeletal: No myalgias. No arthralgias. Neurologic: No headaches. No dizziness. Positive lightheadedness. Skin: No rash. No change in color. Psychiatric: No depression. No anxiety. EXAM Physical Exam Narrative Exam Narrative: Afebrile. Vital signs noted. HEENT: Normocephalic. Atraumatic. PERRL, EOMI. Neck soft and supple. No point tenderness or step off. Cardiovascular: Irregularly irregular rhythm with normal rate, no murmurs, rubs, or gallops appreciated. Respiratory: Positive tachypnea. Lungs clear to auscultation bilaterally. Gastrointestinal: Abdomen soft, nontender, with normoactive bowel sounds. No rebound or guarding. Neurological: Awake. Alert. Nonfocal, nonlateralizing. Skin: No rash. Normal color. No pallor. Musculoskeletal: No pedal edema. Full range of motion extremities. Psychiatric: Positive anxiety. Const Vital Signs: 10/16/23 12:10 10/16/23 12:16 10/16/23 12:37 Temperature 95.4 F L Temperature Source Temporal Pulse Rate 76 Pulse Rate [Lying] Pulse Rate [Sitting (for 1 minute prior to obtaining)] Pulse Rate [Standing (for 1 minute prior to obtaining)] Respiratory Rate 11 L Respiratory Effort Short of Breath Respiratory Depth Normal Respiratory Pattern Tachypnea Blood Pressure 138/86 H Blood Pressure [Lying] Blood Pressure [Sitting (for 1 minute prior to obtaining)] Blood Pressure [Standing (for 1 minute prior to obtaining)] Blood Pressure Mean 103 Blood Pressure Mean [Lying] Blood Pressure Mean [Sitting (for 1 minute prior to obtaining)] Blood Pressure Mean [Standing (for 1 minute prior to obtaining)] Pulse Ox 100 Oxygen Delivery Method Room Air Room Air Room Air 10/16/23 12:59 10/16/23 14:10 10/16/23 14:58 Temperature 97.7 F L Temperature Source Pulse Rate 88 62 Pulse Rate [Lying] 76 Pulse Rate [Sitting (for 1 minute prior to obtaining)] 75 Pulse Rate [Standing (for 1 minute prior to obtaining)] 78 Respiratory Rate 12 14 Respiratory Effort Respiratory Depth Respiratory Pattern Blood Pressure 132/82 H 124/61 H Blood Pressure [Lying] 130/75 H Blood Pressure [Sitting (for 1 minute prior to obtaining)] 155/94 H Blood Pressure [Standing (for 1 minute prior to obtaining)] 145/87 H Blood Pressure Mean 98 82 Blood Pressure Mean [Lying] 93 Blood Pressure Mean [Sitting (for 1 minute prior to obtaining)] 114 Blood Pressure Mean [Standing (for 1 minute prior to obtaining)] 106 Pulse Ox 98 99 Oxygen Delivery Method Room Air MDM MDM MDM Narrative Medical decision making narrative: Differential diagnosis includes but not limited to atrial fibrillation with RVR versus pneumonia versus anxiety versus pneumothorax. EKG was obtained and interpreted by myself independently as atrial fibrillation that is rate controlled at [address] changes. No STEMI. During the examination, patient is subjectively short of breath but hyperventilating. Chest x-ray and basic laboratory work will be obtained. I do not feel that rate controlled atrial fibrillation would be the cause of her shortness of breath. Additionally, I have low suspicion for pulmonary embolism as she is not tachycardic, she is not hypoxic, and she does take Eliquis on a daily basis. Orthostatics were obtained and are negative. Chest x-ray 1 view interpreted by myself independently shows no evidence of acute cardiopulmonary process, no pneumonia, no pneumothorax. I reviewed the radiology report which confirms my independent interpretation. I reviewed her laboratory work and she has normal white count of 7.1 with hemoglobin 14.3, hematocrit 44.3, platelet count normal at 249, sodium normal at 139 with potassium 4.0, BUN 17 with a creatinine of 1.32. While glucose is elevated to 33, she has a normal anion gap of 7 so I doubt diabetic ketoacidosis. High-sensitivity troponin is 5. I do not feel she needs serial enzymes. I feel that there is a large anxiety component to this as well. 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 She states she has an echocardiogram tomorrow morning at 10 AM. I advised her to keep this appointment and have her study performed for cardiology. She can call them in the morning. Of note, I was informed by the RN that the patient converted to normal sinus rhythm on the monitor prior to discharge. She will continue her outpatient metoprolol and Eliquis. Return instructions to the emergency department reviewed. Disposition is discharged home in stable condition. History & Record Review Discussion w/independent historian: Patient Lab Data Attestation: I reviewed the patient's lab results. Labs: Laboratory Results - last 24 hr 10/16/23 12:03 WBC 7.1 RBC 4.62 Hgb 14.3 Hct 44.3 MCV 95.9 MCH 31.0 MCHC 32.3 RDW Std Deviation 47.5 H RDW Coeff of Osiris 13.4 Plt Count 249 MPV 12.9 H Immature Gran % (Auto) 0.400 Neut % (Auto) 51.6 Lymph % (Auto) 36.3 [place] % (Auto) 10.5 H Eos % (Auto) 0.8 Baso % (Auto) 0.4 Absolute Neuts (auto) 3.6 Absolute Lymphs (auto) 2.56 Nucleated RBC % 0 Sodium 139 Potassium 4.0 Chloride 105 Carbon Dioxide 27.0 Anion Gap 7 BUN 17 Creatinine 1.32 H Estim Creat Clear Calc 39.96 Est GFR (MDRD) Af Amer 50 L Est GFR (MDRD) Non-Af 41 L BUN/Creatinine Ratio 12.9 Glucose 233 H Calcium 9.4 Troponin I High Sens 5 Radiography Diagnostic Testing: Clinical Impression(s) from Imaging Studies Chest X-Ray 10/16/23 12:29 IMPRESSION: No acute findings in the chest. Electronically Signed: Bhavin Toledo DO at 13:10 EDT , Discharge Plan Triage Chief Complaint: Shortness of Breath ED Provider: Efra Finnegan Dx/Rx/DC Orders Clinical Impression: Paroxysmal atrial fibrillation, Anxiety, Lightheadedness Instructions: ED AFIB, ED Near-Fainting, Uncertain Cause Prescriptions: No Action omeprazole 40 mg capsule,delayed release(DR/EC) 40 mg PO DAILY lisinopril 5 mg tablet 5 mg PO QHS multivitamin Tablet 1 tab PO DAILY ascorbate calcium (vitamin C) 500 mg tablet 500 mg PO DAILY cholecalciferol (vitamin D3) 25 mcg (1,000 unit) capsule 25 mcg PO DAILY ezetimibe [Zetia] 10 mg tablet 10 mg PO DAILY calcium carbonate [Calcium 500] 500 mg calcium (1,250 mg) tablet,chewable 500 mg PO DAILY Acidophilus Capsule 2,000 mmu cells PO DAILY metoprolol succinate 100 mg tablet extended release 24 hr 100 mg PO DAILY PreserVision AREDS-2 250-90-40-1 mg Capsule 1 ea PO BIDCM Qty: 1 0RF acetaminophen 500 mg Tablet 1,000 mg PO Q6H PRN PRN (Reason: pain) Eliquis 5 mg tablet 5 mg PO BID Qty: 180 4RF amiodarone 200 mg tablet 200 mg PO DAILY Qty: 90 3RF prednisone 20 mg tablet 10 mg PO DAILY Primary Care Provider: Jeramie Alba Referrals: Mark Lay MD [Med Staff - Active Staff] - 1 Day Jeramie Alba MD [Primary Care Provider] - Activity Restrictions/Additional Instructions: Take an extra metoprolol when you get home. Drink plenty of oral fluids. Call your school athletic director office tomorrow morning at 8 before your echocardiogram at 10 AM. Return with heart rate over 130 bpm, new or worsening symptoms. Print Language: Burmese Disposition Disposition: Home, Self Care Discharge Date/Time: 10/16/23 15:12
[2023-10-16] MEDS: 0.9% Normal Saline (1000mL) 1,000 ML 999 ML IV (12:36)
[2023-10-16 12:46] LABS: Absolute Lymphocyte Count 2.56 X10^3/uL (0.83-4.51); Absolute Neutrophil Count 3.6 X10^3/uL (2.0-7.7); Basophil# 0.03 X10^3/uL; Basophil% 0.4 % (0-1); Eosinophil# 0.06 X10^3/uL; Eosinophils% 0.8 % (0-5); Hematocrit 44.3 % (37-47); Hemoglobin 14.3 g/dL (12.0-15.0); Lymphocyte # 2.56 X10^3/ul (0.83-4.51); Lymphocyte % 36.3 % (19-41); Mean Corp Hgb Conc 32.3 g/dL (32-36); Mean Corpuscular Volume 95.9 fL (81-99); Mean Platelet Vol. 12.9 fl (6.2-12.0); Monocyte# 0.74 X10^3/uL; Monocyte% 10.5 % (0-10); NRBC Flagged by Analyzer 0 % (0-5); Neutrophil # 3.64 X10^3/uL (2.7-7.7); Neutrophil % 51.6 % (47-70); Platelet Count 249 K/mm3 (150-450); RBC Distribution Width CV 13.4 % (11.6-14.6); RBC Distribution Width SD 47.5 fl (35.1-43.9); Red Blood Count 4.62 M/mm3 (4.2-5.4); White Blood Count 7.1 K/mm3 (4.4-11.0)
[2023-10-16 12:59] VITALS: BP 130/75; BP 145/87; BP 155/94; PULSE 75; PULSE 76; PULSE 78
[2023-10-16 13:04] LABS: Anion Gap 7 (5-15); BUN 17 mg/dL (7-18); BUN/Creat Ratio 12.9 RATIO (10-20); Calcium,Total 9.4 mg/dL (8.5-10.1); Chloride 105 mmol/L (98-107); Creatinine, Serum 1.32 mg/dL (0.55-1.02); EST Glomerular Filtration Rate 41 mL/min (>60); Est Glom Filt Rate - Afr Amer 50 mL/min (>60); Estimated Creatinine Clearance 39.96 ml/min; Glucose 233 mg/dL (74-106); Sodium Level 139 mmol/L (136-145); Troponin-I HS 5 pg/mL (3.0-54.0)
[2023-10-16 14:10] VITALS: BP 132/82; PULSE 88; RESP 12; O2SAT 98
[2023-10-16 14:58] VITALS: BP 124/61; PULSE 62; RESP 14; TEMP 36.5; O2SAT 99
== END 2023-10-16 15:12 | disposition home or self-care (01) ==
PROVIDERS: Emergency Provider Emergency Medicine; PCP Family Medicine; Visit Provider Emergency Medicine
DX: I48.0 Paroxysmal atrial fibrillation (principal); J44.9 Chronic obstructive pulmonary disease, unspecified; E11.9 Type 2 diabetes mellitus without complications; I10 Essential (primary) hypertension; F41.9 Anxiety disorder, unspecified; Z79.01 Long term (current) use of anticoagulants; Z86.73 Personal history of transient ischemic attack (TIA), and cerebral infarction without residual deficits
CPT/HCPCS: 71045; 80048; 84484; 85025; 93005; 96360; 96361; 99285; J7030; A4216

== ENCOUNTER → 2023-10-17 | Outpatient (CLI) | payer MEDICARE, BC, SELFPAY ==
--- NOTE | 2023-10-17 10:15 | CDU_ITS ---
Reason For Study: Lightheadedness, vision loss Rt. Velocities/BP Lt. Velocities/BP Prox CCA 89.1/15.4 cm/sec. Prox CCA 84.9/16 cm/sec. Mid CCA 80.6/14.5 cm/sec. Mid CCA 63.1/10.7 cm/sec. Dist CCA 68.3/12.6 cm/sec. Dist CCA 65.7/13.3 cm/sec. Prox ICA 56.1/14.2 cm/sec. Prox ICA 51.7/13.3 cm/sec. Mid ICA 87.2/24.8 cm/sec. Mid ICA 86.3/24.8 cm/sec. Dist ICA 81.7/22.3 cm/sec. Dist ICA 74/20.1 cm/sec. Rt. ICA/CCA = 1.08. Lt. ICA/CCA = 1.37. Prox ECA 62.2/2.2 cm/sec. Prox ECA 62.2/2.9 cm/sec. Rt. Vert. 46.5/7.2 cm/sec. Lt. Vert. 62.6/14.5 cm/sec. Right Extracranial There is intimal thickening but no significant atherosclerotic plaque noted in the right common carotid artery. There is intimal thickening but no significant atherosclerotic plaque noted in the right internal carotid artery. There is intimal thickening but no significant atherosclerotic plaque noted in the right external carotid artery. Antegrade flow is noted in the right vertebral artery. Left Extracranial There is intimal thickening but no significant atherosclerotic plaque noted in the left common carotid artery. There is intimal thickening but no significant atherosclerotic plaque noted in the left internal carotid artery. There is intimal thickening but no significant atherosclerotic plaque noted in the left external carotid artery. Antegrade flow is noted in the left vertebral artery. Procedure Carotid Duplex [id number]. This is a Carotid Duplex examination using B-mode, color flow and specral Doppler. Exam performed in department. VL/Carotid Duplex Ultrasound Interpretation Summary Normal right extracranial internal carotid. Normal left extracranial internal carotid. Patent and antegrade vertebrals bilaterally. Ordering Physician: Sea Burns Referring Physician: Jeramie Alba Performed By: Mary Bell RVT
== END | disposition home or self-care (01) ==
LOC: CVS 10:10
PROVIDERS: PCP Family Medicine; Referring Provider Nurse Practitioner Family; Visit Provider Nurse Practitioner Family
DX: I65.22 Occlusion and stenosis of left carotid artery (principal); R42 Dizziness and giddiness; H54.7 Unspecified visual loss
CPT/HCPCS: 93880

== ENCOUNTER → 2023-12-30 | Outpatient (CLI) | payer MEDICARE, BC, SELFPAY ==
--- NOTE | 2023-12-30 15:44 | RAD_ITS ---
STUDY: X-RAY - LUMBAR SPINE REASON FOR EXAM: Female, 78 years old. LOWER BACK PAIN PERIPHERAL NEUROOPATHY, CHRONIC BILATERAL LOWER TECHNIQUE: XR Spine Lumbar 5 Views COMPARISON: None FINDINGS: Normal lumbar lordosis. There is no substantial scoliosis. There is a normal alignment of the vertebrae. There is multilevel endplate spondylosis of the lumbar vertebrae. There is multi-level degenerative disc disease with multi-level disc space narrowing. There are atherosclerotic vascular calcifications. The soft tissue structures are unremarkable. RAD/L/S Spine Min 4 Views IMPRESSION: Degenerative changes of the spine, as detailed above. Electronically Signed: Dario Abdi MD at 15:08 EDT ,
== END | disposition home or self-care (01) ==
LOC: RAD 15:41
PROVIDERS: PCP Family Medicine; Referring Provider Family Medicine; Visit Provider Family Medicine
DX: M54.50 Low back pain, unspecified (principal); G89.29 Other chronic pain
CPT/HCPCS: 72110

== ENCOUNTER 2024-01-09 17:30 | Outpatient (RCR) | payer SELFPAY | END 2024-01-12 23:59 | LOC: NS 17:30 | PROVIDERS: PCP Family Medicine | DX: Z71.3 Dietary counseling and surveillance (principal) ==

== ENCOUNTER → 2024-01-10 | Outpatient (CLI) | payer MEDICARE, BC, SELFPAY ==
--- NOTE | 2024-01-10 14:35 | RAD_ITS ---
INDICATION: PAIN EXAMINATION/TECHNIQUE: X-RAY - XR Pelvis 1 or 2 Views COMPARISON: No relevant prior comparison study available FINDINGS: PELVIC BONES: No displaced fracture, destructive or sclerotic lesions. Degenerative changes of the visualized lower lumbar spine. Sacroiliac joints are unremarkable. No widening of the pubic symphysis. HIPS: Mild narrowing of the right hip joint. No displaced fracture seen in this frontal view. SOFT TISSUES: No soft tissue swelling or gas. RAD/Pelvis 1 or 2 Views IMPRESSION: Mild narrowing of the right hip joint. Electronically Signed: Manoj Olivia MD at 13:55 EDT ,
[2024-01-10 18:46] LABS: ALB/GLOB Ratio 1.2 RATIO (0.9-2.4); AST(SGOT) 27 U/L (15-37); Alanine Aminotransfer ALT/SGPT 40 U/L (13-56); Albumin, Serum 3.8 g/dL (3.2-5.0); Alkaline Phosphatase 63 U/L (45-117); Anion Gap 6 (5-15); BUN 15 mg/dL (7-18); BUN/Creat Ratio 16.2 RATIO (10-20); CRP < 2.90 mg/L (0.0-3.0); Calcium,Total 9.2 mg/dL (8.5-10.1); Chloride 105 mmol/L (98-107); Creatinine, Serum 0.92 mg/dL (0.55-1.02); EST Glomerular Filtration Rate 62 mL/min (>60); Est Glom Filt Rate - Afr Amer 75 mL/min (>60); Globulin 3.2 g/dL (2.2-4.2); Glucose 109 mg/dL (74-106); Potassium 3.9 mmol/L (3.5-5.1); Rheumatoid Factor < 10.0 IU/mL (<15); Sodium Level 138 mmol/L (136-145)
[2024-01-10 19:03] LABS: Absolute Neutrophil Count 3.5 X10^3/uL (2.0-7.7); Basophil# 0.02 X10^3/uL; Basophil% 0.3 % (0-1); Eosinophil# 0.06 X10^3/uL; Hematocrit 40.4 % (37-47); Lymphocyte % 25.8 % (19-41); Mean Corp Hgb Conc 32.2 g/dL (32-36); Mean Corpuscular Volume 96.4 fL (81-99); Mean Platelet Vol. 13.8 fl (6.2-12.0); NRBC Flagged by Analyzer 0 % (0-5); Neutrophil # 3.52 X10^3/uL (2.7-7.7); Neutrophil % 60.7 % (47-70); Platelet Count 186 K/mm3 (150-450); RBC Distribution Width CV 13.5 % (11.6-14.6); RBC Distribution Width SD 48.1 fl (35.1-43.9); Red Blood Count 4.19 M/mm3 (4.2-5.4); White Blood Count 5.8 K/mm3 (4.4-11.0)
[2024-01-10 19:05] LABS: Erythrocyte Sedimentation Rate 14 mm/hr (0-30)
[2024-01-10 20:51] LABS: Hepatitis B Surface Antibody Non-Reactive; Hepatitis B Surface Antigen Non-Reactive (Nonreactive); Hepatitis C Antibody Non-Reactive (Nonreactive)
[2024-01-12 13:08] LABS: ANTINUCLEAR ANTIBODIES DIRECT Positive (Negative)
[2024-01-12 14:10] LABS: CCP IgG Antibodies 8 units (0-19)
== END | disposition home or self-care (01) ==
LOC: MTLAB 14:33
PROVIDERS: PCP Family Medicine; Referring Provider Internal Medicine Rheumatology; Visit Provider Internal Medicine Rheumatology
DX: M06.4 Inflammatory polyarthropathy (principal); M79.7 Fibromyalgia; M47.897 Other spondylosis, lumbosacral region; M17.0 Bilateral primary osteoarthritis of knee; Z96.652 Presence of left artificial knee joint
CPT/HCPCS: 36415; 72170; 80053; 85025; 85652; 86038; 86140; 86200; 86431; 86706; 86803; 87340

== ENCOUNTER 2024-01-16 15:53 | Outpatient (RCR) | payer SELFPAY | END 2024-02-11 23:59 | LOC: NS 15:53 | PROVIDERS: PCP Family Medicine | DX: Z71.3 Dietary counseling and surveillance (principal) ==

== ENCOUNTER 2024-01-21 17:40 | Emergency (ER) | payer MEDICARE, BC, SELFPAY ==
[2024-01-21 17:41] VITALS: BP 154/82; PULSE 74; RESP 16; TEMP 36.8; O2SAT 98; BMI 38.2
[2024-01-21 17:49] VITALS: O2SAT 98
[2024-01-21 18:33] LABS: Absolute Lymphocyte Count 1.33 X10^3/uL (0.83-4.51); Absolute Neutrophil Count 1.9 X10^3/uL (2.0-7.7); Basophil# 0.01 X10^3/uL; Basophil% 0.2 % (0-1); Eosinophil# 0.02 X10^3/uL; Eosinophils% 0.5 % (0-5); Hematocrit 40.7 % (37-47); Hemoglobin 13.5 g/dL (12.0-15.0); Lymphocyte # 1.33 X10^3/ul (0.83-4.51); Lymphocyte % 31.2 % (19-41); Mean Corp Hgb Conc 33.2 g/dL (32-36); Mean Corpuscular Hgb 30.7 pg (27.0-32.0); Mean Corpuscular Volume 92.5 fL (81-99); Mean Platelet Vol. 13.1 fl (6.2-12.0); Monocyte# 1.01 X10^3/uL; Monocyte% 23.7 % (0-10); NRBC Flagged by Analyzer 0 % (0-5); Neutrophil # 1.88 X10^3/uL (2.7-7.7); Neutrophil % 44.2 % (47-70); Platelet Count 201 K/mm3 (150-450); RBC Distribution Width CV 13.5 % (11.6-14.6); RBC Distribution Width SD 46.4 fl (35.1-43.9); White Blood Count 4.3 K/mm3 (4.4-11.0)
[2024-01-21 19:06] LABS: Anion Gap 8 (5-15); BUN 21 mg/dL (7-18); BUN/Creat Ratio 17.5 RATIO (10-20); Calcium,Total 9.1 mg/dL (8.5-10.1); Chloride 103 mmol/L (98-107); EST Glomerular Filtration Rate 46 mL/min (>60); Est Glom Filt Rate - Afr Amer 56 mL/min (>60); Estimated Creatinine Clearance 41.51 ml/min; Glucose 127 mg/dL (74-106); Potassium 3.5 mmol/L (3.5-5.1); Sodium Level 137 mmol/L (136-145)
[2024-01-21 19:40] VITALS: BP 161/94; PULSE 88; RESP 16; TEMP 37.1; O2SAT 98
[2024-01-21 19:46] VITALS: BP 161/94; PULSE 88; RESP 16; TEMP 37.1; O2SAT 98
== END 2024-01-21 19:51 | disposition home or self-care (01) ==
PROVIDERS: Emergency Provider Emergency Medicine; PCP Family Medicine; Visit Provider Emergency Medicine
DX: U07.1 COVID-19 (principal); J44.9 Chronic obstructive pulmonary disease, unspecified; E11.9 Type 2 diabetes mellitus without complications; Z86.73 Personal history of transient ischemic attack (TIA), and cerebral infarction without residual deficits
CPT/HCPCS: 71045; 80048; 85025; 87631; 99285; A4216

== ENCOUNTER → 2024-02-01 | Outpatient (CLI) | payer MEDICARE, BC, SELFPAY ==
[2024-02-01 14:46] LABS: Color, Urine Yellow (Yellow); Glucose, Dipstick Normal (Normal); Ketone-Dipstick Negative (Negative); Leukocyte Esterase-Dipstick 25 /ul (Negative); Nitrite-Dipstick Negative (Negative); Occult Blood-Urine Negative /ul (Negative); Protein-Dipstick 30 mg/dl (Negative); Specific Gravity, Urine 1.025 (1.002-1.030); Urine Bilirubin Dipstick Negative (Negative); Urine Clarity Clear (Clear); Urine Urobilinogen 1 mg/dl (Normal)
[2024-02-01 15:13] LABS: Protein, Urine (Random) 39.4 mg/dL (<11.9); Protein:Creat Ratio 139 mg/g CRE (0-200)
[2024-02-03 15:09] LABS: Anti-Centromere B Ab <0.2 AI (0.0-0.9); Anti-Jo <0.2 AI (0.0-0.9); Anti-Scleroderma-70 AB <0.2 AI (0.0-0.9); Anti-dsDNA Ab <1 IU/mL (0-9); SJOGREN'S Anti-SS-A test < 0.2 AI (0.0-0.9); SJOGREN'S Anti-SS-B test < 0.2 AI (0.0-0.9); Smith Ab <0.2 AI (0.0-0.9)
== END | disposition home or self-care (01) ==
LOC: MTLAB 11:23
PROVIDERS: PCP Family Medicine; Referring Provider Internal Medicine Rheumatology; Visit Provider Internal Medicine Rheumatology
DX: M06.4 Inflammatory polyarthropathy (principal); M79.7 Fibromyalgia; R76.8 Other specified abnormal immunological findings in serum
CPT/HCPCS: 36415; 81002; 82570; 84156; 86225; 86235

== ENCOUNTER 2024-03-01 12:13 | Emergency (ER) | payer MEDICARE, BC, SELFPAY ==
[2024-03-01 12:16] VITALS: BP 125/56; PULSE 77; RESP 16; TEMP 36.4; O2SAT 98
[2024-03-01 12:18] VITALS: BMI 37.8
--- NOTE | 2024-03-01 12:44 | EKG12_ITS ---
Test Reason : COUGH Blood Pressure : */* mmHG Vent. Rate : 77 BPM Atrial Rate : 234 BPM P-R Int : * ms QRS Dur : 78 ms QT Int : 398 ms P-R-T Axes : * -2 264 degrees QTcB Int : 450 ms Atrial flutter with variable A-V block ST & T wave abnormality, consider inferior ischemia ST & T wave abnormality, consider anterolateral ischemia Abnormal ECG Confirmed by TYLER TELLEZ, AIDA ([id number]), acquisition editor AVINASH GARCIA ([id number]) on 03/02/2024 8:13:24 AM Referred By: Confirmed By: AIDA SCOTT MD
--- NOTE | 2024-03-01 12:45 | EDS_ITS ---
HPI HPI - URI History of Present Illness Chief Complaint: Cough Informant: patient Onset/Context/Timing Onset: Today and Yesterday Context: Gradual Onset Timing: Continuous Current Severity: Mild Maximum Severity: Mild Associated Symptoms Associated Symptoms: Positive for Nasal Congestion and Productive Cough Narrative Narrative: 79-year-old female history of prior TIA, COPD A-fib on Eliquis. States since yesterday has had runny nose and congestion. Cough of clear sputum. No chest pain. No vomiting or diarrhea. No dysuria. Today she is at home she just put her shoes on she felt like she might pass out. Said she broke out in sweat.. Patient states a month ago she had COVID but was treated at home and did not need hospitalization. Prior similar symptoms: Yes Recent Illness/Hospitalization: No ROS ROS ED ROS Narrative Cough of clear sputum. Constitutional Constitutional ED: Denies chills or fever(s) Eyes Eyes: Denies blurry vision ENT ENT ED: Denies ear pain Cardiovascular Cardiovascular: Denies chest pain Respiratory/Chest Respiratory/Chest: Reports cough; Denies dyspnea Gastrointestinal Gastrointestinal: Denies abdominal pain Genitourinary Genitourinary ED: Denies dysuria or hematuria Musculoskeletal Musculoskeletal: Denies arthralgias Integumentary Denies abscess Neurologic Neurologic: Denies headache(s) Psychiatric Psychiatric: Denies anxiety Endocrine Endocrinology: Denies cold intolerance Hematologic/Lymphatic Hematologic/Lymphatic: Denies easy bleeding Allergic/Immunologic Allergic/Immunologic ED: Denies mouth swelling PFSH PFSH Medical History Loss of hearing Wears glasses Post-menopausal Cancer Depression Diabetes History of steroid therapy Arthritis Bladder disease Back pain TIA (transient ischemic attack) Blackout Difficulty swallowing Gastric reflux Non-smoker COPD (chronic obstructive pulmonary disease) Shortness of breath on exertion History of pain when walking History of edema History of echocardiogram History of stress test History of Holter monitoring Cardiology follow-up encounter Acute sinusitis, unspecified History of malignant neoplasm of skin Anxiety Enlarged LA (left atrium) Chronic anticoagulation Left knee pain Dyspnea on minimal exertion Obesity Essential hypertension Intermittent palpitations Headache Osteoarthritis Paroxysmal atrial fibrillation Home Medications ?Medication ?Instructions ?Recorded ?Last Taken ?Type ascorbate calcium (vitamin C) 500 500 mg PO DAILY supplement 12/18/21 09/13/23 History mg tablet cholecalciferol (vitamin D3) 25 25 mcg PO DAILY supplement 12/18/21 09/13/23 History mcg (1,000 unit) capsule multivitamin 1 tab PO DAILY supplement 12/18/21 09/13/23 History omeprazole 40 mg capsule,delayed 40 mg PO DAILY stomach 12/18/21 09/13/23 19:00 History release vit C 250 mg-vit E 90 mg-zinc 40 1 ea PO BIDCM #1 cap 01/25/22 09/13/23 Rx mg-copper 1 [id number] capsule (PreserVision AREDS-2) ezetimibe 10 mg tablet (Zetia) 10 mg PO DAILY 12/22/22 09/13/23 09:30 History Lactobacillus acidophilus 2,000 mmu cells PO DAILY 02/18/23 09/13/23 History (Acidophilus capsule) calcium carbonate (Calcium 500) 500 mg PO DAILY 02/18/23 09/13/23 History metoprolol succinate 100 mg 100 mg PO DAILY 10/04/23 Unknown History tablet,extended release 24 hr acetaminophen 650 mg 1,300 mg PO Q12H 11/28/23 Unknown History tablet,extended release (Arthritis Pain Relief (acetaminophen) ER) apixaban 5 mg tablet (Eliquis) 5 mg PO BID blood thinner #180 tabs 02/24/24 Unknown Rx amiodarone 200 mg tablet 200 mg PO DAILY #90 tabs 02/27/24 Unknown Rx Allergy/AdvReac Type Severity Reaction Status Date / Time No Known Allergies Allergy Verified 03/01/24 12:18 Family History Other Cancer Surgical History History of temporal artery biopsy Hx of colonoscopy History of esophagogastroduodenoscopy (EGD) Hx of oral surgery History of biopsy of temporal artery History of cosmetic surgery History of left knee replacement H/O arthroscopy of knee History of tonsillectomy History of cholecystectomy History of cataract surgery History of appendectomy Social History (Updated 03/01/24 @ 12:56 by Genet May) household members: none and other details: Lives alone. She is a . [facility] number of children: 0 current occupational status: retired leisure activities: games Smoking Status: Never smoker second hand exposure: Yes alcohol intake: never substance use type: does not use EXAM Physical Exam Narrative Exam Narrative: 79-year-old female no acute distress. Vital signs stable afebrile. Pulse ox 98% on room air no signs of positive. H EENT exam pupils round reactive light. Moist mucous membranes. No trauma. Neck nontender no JVD. Lungs clear to ausc ultation bilaterally. Currently no rales, rhonchi or wheezing. Equal symmetrical. No distress. Heart rate about 75 no murmur. Atrial flutter on the monitor. Chest wall ribs nontender. Abdomen soft nontender. Patient moving all 4 extremities. 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 Dorsi plantarflexion intact. Neurologically patient is awake and alert. No focal motor deficits. Answering questions and following commands. Const Vital Signs: 03/01/24 12:16 03/01/24 13:00 03/01/24 13:18 Temperature 97.6 F L 97.9 F Temperature Source Oral Oral Pulse Rate 77 75 Respiratory Rate 16 20 H Respiratory Effort Short of Breath Respiratory Pattern Tachypnea Blood Pressure 125/56 H 111/67 Blood Pressure Mean 79 81 Pulse Ox 98 95 Oxygen Delivery Method Room Air Room Air Room Air 03/01/24 14:00 Temperature 98.9 F Temperature Source Oral Pulse Rate 81 Respiratory Rate 20 H Respiratory Effort Respiratory Pattern Blood Pressure 123/72 H Blood Pressure Mean 89 Pulse Ox 96 Oxygen Delivery Method Room Air Positive well nourished and well developed; Negative for cachectic or contractures General Appearance ED: well developed and NAD; Negative for cachectic, contractures, cyanotic, diaphoretic or pallor Nutritional Appearance: Negative for cachectic HEENT Reports moist mucous membranes; Denies dry mucous membranes normocephalic Face and Sinus: Negative for sinus tenderness Mouth ED: No dry mucous membranes Mouth: No dry mucous membranes Throat: posterior oropharynx normal Eyes PERRL and EOMs intact bilaterally General Eye ED: Negative for pale conjunctiva or scleral icterus Neck no lymphadenopathy, supple and no meningeal signs Resp normal respiratory effort and clear to auscultation bilaterally Cardio S1 normal heart sound, S2 normal heart sound and no murmurs Cardio Narrative: Atrial flutter on the monitor. Rate: regular rate GI non-tender, non-distended and no masses Palpation: soft; Negative for tender or guarding Back/Spine no CVA tenderness and normal ROM General Back: Negative for CVA tenderness Cervical Spine: Negative for cervical spine tenderness Thoracic Spine / Upper Back: Negative for thoracic spinal tenderness Lumbar Spine / Lower Back: Negative for lumbar spinal tenderness Sacrum: Negative for tenderness Extremity normal to inspection and full ROM General Extremety ED: Negative for cyanosis, tenderness or other findings General Extremity: Negative for cyanosis or other findings Neuro oriented x3 and CN's II-XII intact bilaterally Sensorium / Orientation: alert, oriented to person, oriented to place and oriented to time; Negative for orientation impaired or lethargic Motor Exam: strength 5/5 throughout; Negative for general weakness or strength abnormal Psych mental status grossly normal Appearance: Negative for other Attitude: No agitated Mood & Affect: Negative for depressed, anxious or tearful Skin General Skin Exam: Negative for jaundice or pallor Lesions: no lesions Rashes: no rashes MDM MDM MDM Narrative Medical decision making narrative: 79-year-old female with URI symptoms rule out pneumonia versus COVID or flu versus viral syndrome or other etiologies. Exam is benign. Screening labs to be obtained due to her near syncope today. EKG and chest x-ray. COVID and flu. Repeat exam patient is doing well. Labs are unremarkable. Chest x-ray shows no pneumonia. She is flu a positive. Discharged home. Fluids, rest and Tylenol. Follow-up as needed. Return if worse. She will be ambulated prior to discharge. History & Record Review Discussion w/independent historian: Patient Additional record(s) reviewed:: Prior inpatient record, Prior outpatient record, Prior ED visit and Prior labs Lab Data Attestation: I reviewed the patient's lab results. Lab results narrative: CBC unremarkable. White count of 5. H&H 13.6 and 42. Platelets 185. Electrolytes show gap 6. Normal BUN and creatinine. Glucose 152. Influenza A positive. Labs: Laboratory Results - last 24 hr 03/01/24 12:56 WBC 5.2 RBC 4.58 Hgb 13.6 Hct 42.7 MCV 93.2 MCH 29.7 MCHC 31.9 L RDW Std Deviation 50.8 H RDW Coeff of Osiris 14.8 H Plt Count 185 MPV 13.1 H Immature Gran % (Auto) 0.400 Neut % (Auto) 60.7 Lymph % (Auto) 14.9 L Morris % (Auto) 23.4 H Eos % (Auto) 0.2 Baso % (Auto) 0.4 Absolute Neuts (auto) 3.2 Absolute Lymphs (auto) 0.78 L Nucleated RBC % 0 Sodium 138 Potassium 3.7 Chloride 103 Carbon Dioxide 29.0 Anion Gap 6 BUN 9 Creatinine 1.03 H Est GFR (MDRD) Af Amer 67 Est GFR (MDRD) Non-Af 55 L BUN/Creatinine Ratio 8.7 L Glucose 152 H Calcium 9.2 Radiography Chest X-Ray - ED: Read by ED Physician, Read by Radiologist, Normal, Heart, Lungs, Mediastinum, No Acute Disease and Chronic Changes Diagnostic Testing: Clinical Impression(s) from Imaging Studies Chest X-Ray 03/01/24 13:20 IMPRESSION: Pectus excavatum deformity. No acute abnormality is seen. Electronically Signed: Davon Russo MD at 13:39 EST , Chest x-ray, 2 views, AP and lateral, and both interpreted by myself and radiologist. She has no pneumonia. Chronic pectus excavatum of the sternum. No acute process. Rhythm Strip Rhythm Strip: Atrial flutter Rate: 77 Ectopy: None EKG Initial EKG: Attestation: I personally reviewed and interpreted this EKG as follows: Interpretation: Atrial Flutter Comments: Atrial flutter rate of 77 no acute signs of PR. No ST elevation. Discharge Plan Triage Chief Complaint: Cough ED Provider: Vickey Young Dx/Rx/DC Orders Clinical Impression: Influenza, Chronic anticoagulation, History of atrial fibrillation Prescriptions: No Action omeprazole 40 mg capsule,delayed release(DR/EC) 40 mg PO DAILY multivitamin Tablet 1 tab PO DAILY ascorbate calcium (vitamin C) 500 mg tablet 500 mg PO DAILY cholecalciferol (vitamin D3) 25 mcg (1,000 unit) capsule 25 mcg PO DAILY ezetimibe [Zetia] 10 mg tablet 10 mg PO DAILY calcium carbonate [Calcium 500] 500 mg calcium (1,250 mg) tablet,chewable 500 mg PO DAILY Acidophilus Capsule 2,000 mmu cells PO DAILY metoprolol succinate 100 mg tablet extended release 24 hr 100 mg PO DAILY acetaminophen [Arthritis Pain Relief (acetam)] 650 mg tablet extended release 1,300 mg PO Q12H PreserVision AREDS-2 250-90-40-1 mg Capsule 1 ea PO BIDCM Qty: 1 0RF Eliquis 5 mg tablet 5 mg PO BID Qty: 180 4RF amiodarone 200 mg tablet 200 mg PO DAILY Qty: 90 3RF Primary Care Provider: Jeramie Alba Referrals: Jeramie Alba MD [Primary Care Provider] - Print Language: Serbian
[2024-03-01 13:00] VITALS: O2SAT 98
[2024-03-01 13:13] LABS: Absolute Lymphocyte Count 0.78 X10^3/uL (0.83-4.51); Absolute Neutrophil Count 3.2 X10^3/uL (2.0-7.7); Basophil# 0.02 X10^3/uL; Basophil% 0.4 % (0-1); Eosinophil# 0.01 X10^3/uL; Eosinophils% 0.2 % (0-5); Hematocrit 42.7 % (37-47); Hemoglobin 13.6 g/dL (12.0-15.0); Lymphocyte # 0.78 X10^3/ul (0.83-4.51); Lymphocyte % 14.9 % (19-41); Mean Corp Hgb Conc 31.9 g/dL (32-36); Mean Corpuscular Hgb 29.7 pg (27.0-32.0); Mean Corpuscular Volume 93.2 fL (81-99); Mean Platelet Vol. 13.1 fl (6.2-12.0); Monocyte# 1.22 X10^3/uL; Monocyte% 23.4 % (0-10); NRBC Flagged by Analyzer 0 % (0-5); Neutrophil # 3.17 X10^3/uL (2.7-7.7); Neutrophil % 60.7 % (47-70); Platelet Count 185 K/mm3 (150-450); RBC Distribution Width CV 14.8 % (11.6-14.6); RBC Distribution Width SD 50.8 fl (35.1-43.9); Red Blood Count 4.58 M/mm3 (4.2-5.4); White Blood Count 5.2 K/mm3 (4.4-11.0)
[2024-03-01 13:18] VITALS: BP 111/67; PULSE 75; RESP 20; TEMP 36.6; O2SAT 95
--- NOTE | 2024-03-01 13:20 | RAD_ITS ---
STUDY: X-RAY CHEST REASON FOR EXAM: Female, 79 years old. Cough TECHNIQUE: PA and lateral views of the chest. COMPARISON: Comparison is made with prior study dated February 20, 2024. FINDINGS: EKG electrodes are seen. There is a pectus asked about and deformity. The lungs are clear and expanded. There is no demonstrated pleural abnormality. Normal size heart. Normal mediastinum and harmony. Normal visualized pulmonary arteries. There is atherosclerotic calcification of the aortic arch with tortuosity. There are diffuse degenerative changes of the visualized thoracic spine. Normal visualized ribs, clavicles, and shoulders. There is no demonstrated abnormality of the visualized soft tissue structures of the upper abdomen. RAD/Chest PA and Lateral IMPRESSION: Pectus excavatum deformity. No acute abnormality is seen. Electronically Signed: Davon Russo MD at 13:39 EST ,
[2024-03-01 13:21] LABS: Anion Gap 6 (5-15); BUN 9 mg/dL (7-18); BUN/Creat Ratio 8.7 RATIO (10-20); Calcium,Total 9.2 mg/dL (8.5-10.1); Chloride 103 mmol/L (98-107); Creatinine, Serum 1.03 mg/dL (0.55-1.02); EST Glomerular Filtration Rate 55 mL/min (>60); Est Glom Filt Rate - Afr Amer 67 mL/min (>60); Glucose 152 mg/dL (74-106); Potassium 3.7 mmol/L (3.5-5.1); Sodium Level 138 mmol/L (136-145)
[2024-03-01 14:00] VITALS: BP 123/72; PULSE 81; RESP 20; TEMP 37.2; O2SAT 96
[2024-03-01 15:21] VITALS: BP 116/89; PULSE 87; RESP 15; TEMP 37.2; O2SAT 96
== END 2024-03-01 15:21 | disposition home or self-care (01) ==
PROVIDERS: Emergency Provider Emergency Medicine; PCP Family Medicine; Visit Provider Emergency Medicine
DX: J11.1 Influenza due to unidentified influenza virus with other respiratory manifestations (principal); J44.9 Chronic obstructive pulmonary disease, unspecified; I48.0 Paroxysmal atrial fibrillation; E11.9 Type 2 diabetes mellitus without complications; Z79.01 Long term (current) use of anticoagulants; Z86.73 Personal history of transient ischemic attack (TIA), and cerebral infarction without residual deficits; Z86.16 Personal history of COVID-19
CPT/HCPCS: 71046; 80048; 85025; 87631; 93005; 99285; A4216

== ENCOUNTER → 2024-04-12 | Outpatient (CLI) | payer MEDICARE, BC, SELFPAY ==
[2024-04-12 18:25] LABS: CRP < 2.90 mg/L (0.0-3.0)
[2024-04-12 18:42] LABS: Absolute Lymphocyte Count 1.91 X10^3/uL (0.83-4.51); Absolute Neutrophil Count 3.5 X10^3/uL (2.0-7.7); Basophil# 0.02 X10^3/uL; Basophil% 0.3 % (0-1); Eosinophil# 0.07 X10^3/uL; Eosinophils% 1.1 % (0-5); Hematocrit 37.6 % (37-47); Hemoglobin 12.3 g/dL (12.0-15.0); Lymphocyte # 1.91 X10^3/ul (0.83-4.51); Lymphocyte % 30.2 % (19-41); Mean Corp Hgb Conc 32.7 g/dL (32-36); Mean Corpuscular Hgb 30.3 pg (27.0-32.0); Mean Corpuscular Volume 92.6 fL (81-99); Monocyte# 0.83 X10^3/uL; Monocyte% 13.1 % (0-10); NRBC Flagged by Analyzer 0 % (0-5); Neutrophil # 3.48 X10^3/uL (2.7-7.7); Neutrophil % 55.1 % (47-70); Platelet Count 206 K/mm3 (150-450); RBC Distribution Width CV 14.7 % (11.6-14.6); RBC Distribution Width SD 49.9 fl (35.1-43.9); Red Blood Count 4.06 M/mm3 (4.2-5.4); White Blood Count 6.3 K/mm3 (4.4-11.0)
[2024-04-12 18:59] LABS: Erythrocyte Sedimentation Rate 9 mm/hr (0-30)
== END | disposition home or self-care (01) ==
LOC: MTLAB 16:13
PROVIDERS: PCP Family Medicine; Referring Provider Ophthalmology; Visit Provider Ophthalmology
DX: H47.012 Ischemic optic neuropathy, left eye (principal)
CPT/HCPCS: 36415; 85025; 85652; 86140

== ENCOUNTER 2024-05-30 10:28 | Emergency (ER) | payer MEDICARE, BC, SELFPAY ==
[2024-05-30 10:30] VITALS: BP 129/58; PULSE 78; RESP 18; TEMP 36.4; O2SAT 100; BMI 37.4
--- NOTE | 2024-05-30 10:49 | EKG12_ITS ---
Test Reason : CP Blood Pressure : */* mmHG Vent. Rate : 76 BPM Atrial Rate : * BPM P-R Int : * ms QRS Dur : 78 ms QT Int : 398 ms P-R-T Axes : * -5 -89 degrees QTcB Int : [address] & T wave abnormality, consider inferior ischemia ST & T wave abnormality, consider anterolateral ischemia Abnormal ECG When compared with ECG of 01-Mar-2024 13:15, Atrial fibrillation has replaced Atrial flutter ST now depressed in Inferior leads Confirmed by TYLER TELLEZ, AIDA ([id number]), associate entertainment editor AVINASH GARCIA ([id number]) on 06/04/2024 7:38:39 AM Referred By: Confirmed By: AIDA SCOTT MD
--- NOTE | 2024-05-30 10:58 | EKG12_ITS ---
Test Reason : Blood Pressure : */* mmHG Vent. Rate : 54 BPM Atrial Rate : 54 BPM P-R Int : 192 ms QRS Dur : 82 ms QT Int : 452 ms P-R-T Axes : 74 -2 -76 degrees QTcB Int : 428 ms Sinus bradycardia T wave abnormality, consider inferior ischemia T wave abnormality, consider anterolateral ischemia Abnormal ECG When compared with ECG of 30-May-2024 10:49, MANUAL COMPARISON REQUIRED DATA IS UNCONFIRMED Confirmed by TYLER TELLEZ, AIDA ([id number]), news editor AVINASH GARCIA ([id number]) on 06/04/2024 7:34:40 AM Referred By: ANA Confirmed By: AIDA SCOTT MD
--- NOTE | 2024-05-30 11:09 | RAD_ITS ---
PROCEDURE: CHEST PA AND LATERAL 05/30/2024 REASON FOR EXAM: CHEST PAIN TECHNIQUE: Frontal and lateral views of the chest. COMPARISON: Chest x-ray of 03/01/2024. RAD/Chest PA and Lateral IMPRESSION: Right upper quadrant abdominal surgical clips are again seen. No interval osseous changes noted. Lungs appear clear of acute disease, and unchanged. No pleural effusion or pneumothorax is evident. The cardiomediastinal silhouette is stable, without evidence of cardiomegaly. No evidence of acute cardiopulmonary disease. Reading Location: [id number]
[2024-05-30] MEDS: Aspirin 81 MG TAB.CHEW 324 MG PO (11:20)
--- NOTE | 2024-05-30 11:20 | EDS_ITS ---
HPI History of Present Illness Chief Complaint: Chest Pain Narrative Narrative: Chief complaint and HPI: Shoulder heaviness and palpitations. 79-year-old female with past medical history of proximal atrial fibrillation on Eliquis, syncope, anemia presents for evaluation of shoulder heaviness and palpitations. Patient states that she follows with cardiology here at [facility]. She states she was supposed to have an appointment with Dr. Burns on Tuesday but that she canceled it due to not feeling well. She states that she had heaviness in her shoulders. She states this mostly happens in the morning. She states that Dr. Burns recommended her to half her metoprolol and wanted to place her on a Holter monitor. She states today she woke up with that same shoulder heaviness. She states she sat down and then felt palpitations. She states I know I went into atrial fibrillation. She states the palpitations and shoulder heaviness are improving. She denies any fever, chills, URI symptoms, cough, shortness of breath, abdominal pain, nausea, vomiting, bilateral lower extremity swelling. Has not missed any doses of her Eliquis. Review of systems: See HPI Medications: As listed on the chart Allergies: As listed on the chart PFSH: Per chart Vital signs: As listed on the chart. Reviewed. Physical exam: Gen: A&O x3, NAD Head: Normocephalic, atraumatic Eyes: No sclera icterus, conjunctiva clear ENT: Moist mucous membranes Neck: Trachea midline, No JVD CV: Regular rate, irregular irregular rhythm, no murmurs, no peripheral edema Resp: Lungs CTA BL, no w/r/c GI: Abd soft, non-distended, non-tender, no r/r/g Musc: Full ROM, no deformity Skin: Warm, dry Neuro: Alert, oriented, grossly intact, sensation intact Psych: Cooperative, appropriate mood and affect [facility] Medical History (Updated 05/30/24 @ 14:[address] Dirk Albright DO) Influenza A Loss of hearing Wears glasses Post-menopausal Cancer Depression Diabetes History of steroid therapy Arthritis Bladder disease Back pain TIA (transient ischemic attack) Blackout Difficulty swallowing Gastric reflux Non-smoker COPD (chronic obstructive pulmonary disease) Shortness of breath on exertion History of pain when walking History of edema History of echocardiogram History of stress test History of Holter monitoring Cardiology follow-up encounter Acute sinusitis, unspecified History of malignant neoplasm of skin Anxiety Enlarged LA (left atrium) Chronic anticoagulation Left knee pain Dyspnea on minimal exertion Obesity Essential hypertension Intermittent palpitations Headache Osteoarthritis Paroxysmal atrial fibrillation Home Medications ?Medication ?Instructions ?Recorded ?Last Taken ?Type ascorbate calcium (vitamin C) 500 500 mg PO DAILY supp lement 12/18/21 09/13/23 History mg tablet cholecalciferol (vitamin D3) 25 25 mcg PO DAILY supple ment 12/18/21 09/13/23 History mcg (1,000 unit) capsule multivitamin 1 tab PO DAILY supplement 09/13/23 History omeprazole 40 mg capsule,delayed 40 mg PO DAILY stomac h 12/18/21 09/13/23 19:00 History release vit C 250 mg-vit E 90 mg-zinc 40 1 ea PO BIDCM #1 cap 01/25/22 09/13/23 Rx mg-copper 1 [id number]-[id number] capsule (PreserVision AREDS-2) ezetimibe 10 mg tablet (Zetia) 10 mg PO DAILY 12/22/22 09/13/23 09:30 History Lactobacillus acidophilus 2,000 mmu cells PO DAILY 11/0309/13/23 History (Acidophilus capsule) calcium carbonate (Calcium 500) 500 mg PO DAILY 09/13/23 History acetaminophen 650 mg 1,300 mg PO Q12H 11/28/23 Un known History tablet,extended release (Arthritis Pain Relief (acetaminophen) ER) amiodarone 200 mg tablet 200 mg PO DAILY #90 tabs Unknown Rx albuterol sulfate 2.5 mg/3 mL 2.5 mg (3 mL) continuous 03/05/24 Unknown Clinic (0.083 %) solution for nebulization nebulization ONCE #1 mL albuterol sulfate 90 mcg/actuation 2 puff inhalation Q 6H PRN 03/05/24 Unknown Rx aerosol inhaler shortness of breath or wheez ing #8.5 grams benzonatate 200 mg capsule 200 mg PO TID PRN cough #20 caps 03/05/24 Unknown Rx doxycycline monohydrate 100 mg 100 mg PO BID #20 caps 03/05/24 Unknown Rx capsule prednisone 10 mg tablet 10 mg PO DAILY #30 tabs 02/12 06/04 Unknown Rx apixaban 5 mg tablet (Eliquis) 5 mg PO BID blood thinn er #180 tabs 03/29/24 Unknown Rx metoprolol succinate 100 mg 50 mg PO DAILY 05/29/24 Un known History tablet,extended release 24 hr Allergy/AdvReac Type Severity Reaction Status Date / Time No Known Allergies Allergy Verified 05/30/24 10:34 Family History Other Cancer Surgical History History of temporal artery biopsy Hx of colonoscopy History of esophagogastroduodenoscopy (EGD) Hx of oral surgery History of biopsy of temporal artery History of cosmetic surgery History of left knee replacement H/O arthroscopy of knee History of tonsillectomy History of cholecystectomy History of cataract surgery History of appendectomy Social History (Updated 03/01/24 @ 12:56 by Genet May) household members: none and other details: Lives alone. She is a . housing: [facility] number of children: 0 current occupational status: retired leisure activities: [employer] Smoking Status: Never smoker second hand exposure: Yes alcohol intake: never substance use type: does not use EXAM Physical Exam Const Vital Signs: 05/30/24 10:30 05/30/24 11:30 05/30/24 12:15 Temperature 97.5 F L Temperature Source Oral Pulse Rate 78 65 54 L Respiratory Rate 18 16 22 H Blood Pressure 129/58 H 128/78 H 131/93 H Blood Pressure Mean 81 94 101 Pulse Ox 100 98 97 Oxygen Delivery Method Room Air Room Air 05/30/24 13:00 05/30/24 14:00 05/30/24 14:45 Temperature Temperature Source Pulse Rate 55 L 54 L 55 L Respiratory Rate 15 19 H 17 Blood Pressure 143/65 H 149/63 H 145/66 H Blood Pressure Mean 87 88 88 Pulse Ox 95 96 100 Oxygen Delivery Method MDM MDM MDM Narrative Medical decision making narrative: 79-year-old female with past medical history of proximal atrial fibrillation on Eliquis, syncope, anemia presents for evaluation of shoulder heaviness and palpitations. Differential diagnosis includes but is not limited to atrial fibrillation, arrhythmia, electrolyte abnormality, ACS, thyroid disease. Aspirin ordered. Cardiac workup ordered. On presentation, patient is in atrial fibrillation but with controlled heart rate. On chart review, patient's last stress test was April 2022. Her last echocardiogram was December 2021 with an EF of 55%. EKG and chest x-ray reviewed. CBC without leukocytosis or anemia. BMP relatively unremarkable. No VICTORINO. Magnesium level unremarkable. Troponin unremarkable x 2. BNP unremarkable. TSH unremarkable. On reevaluation, patient is now in sinus bradycardia. Repeat EKG ordered. See below. Patient states her shoulder heaviness has resolved. She is denying any palpitations. At this point in time, no clear etiology for patient's symptoms. Low suspicion for ACS. Cardiology was consulted, and I spoke with Dr. Lay. He agrees with discharge home and follow-up outpatient. I was going to have the patient placed in a monitor however he confirmed that a prescription was sent for a monitor and that it should be arriving shortly to her house. Patient was updated of all the results and confirmed understanding of the plan. Patient is able to discharge home. Return precautions explained. EKG: Interpreted by me/EM physician: EKG shows atrial fibrillation with nonspecific ST changes. Heart rate 76. Repeat EKG shows sinus bradycardia. Heart rate 54. Patient again has nonspecific ST changes that are similar to previous EKG as well as on 03/01/2024. Diagnostic: Interpreted by me/EM physician: Chest x-ray without pneumonia, effusion, cardiomegaly, pneumothorax Impression: 1. Paroxysmal atrial fibrillation 2. Shoulder heaviness Lab Data Labs: Laboratory Results - last 24 hr 05/30/24 05/30/24 11:12 13:10 WBC 5.7 RBC 4.63 Hgb 14.0 Hct 42.5 MCV 91.8 MCH 30.2 MCHC 32.9 RDW Std Deviation 47.8 H RDW Coeff of Osiris 14.2 Plt Count 222 MPV 13.6 H Immature Gran % (Auto) 0.400 Neut % (Auto) 59.7 Lymph % (Auto) 25.5 [place] % (Auto) 12.3 H Eos % (Auto) 1.4 Baso % (Auto) 0.7 Absolute Neuts (auto) 3.4 Absolute Lymphs (auto) 1.45 Nucleated RBC % 0 PT 16.1 H INR 1.3 APTT 30.4 Sodium 139 Potassium 3.9 Chloride 101 Carbon Dioxide 24.0 Anion Gap 13 BUN 14 Creatinine 0.97 Estim Creat Clear Calc 49.88 L Est GFR (MDRD) Non-Af 59 L BUN/Creatinine Ratio 14.5 Glucose 174 H Calcium 9.9 Magnesium 2.0 Troponin T High Sens 9 Troponin T Hi Sens 2 Hr 8 NT pro BNP II 422 TSH 3.400 Radiography Diagnostic Testing: Clinical Impression(s) from Imaging Studies Chest X-Ray 05/30/24 11:09 IMPRESSION: Right upper quadrant abdominal surgical clips are again seen. No interval osseous changes noted. Lungs appear clear of acute disease, and unchanged. No pleural effusion or pneumothorax is evident. The cardiomediastinal silhouette is stable, without evidence of cardiomegaly. No evidence of acute cardiopulmonary disease. Reading Location: [address] Discharge Plan Triage Chief Complaint: Chest Pain ED Provider: Dirk Albright Dx/Rx/DC Orders Clinical Impression: Paroxysmal atrial fibrillation, Chest pain Instructions: ED Chest Pain, Uncertain Cause Prescriptions: No Action omeprazole 40 mg capsule,delayed release(DR/EC) 40 mg PO DAILY multivitamin Tablet 1 tab PO DAILY ascorbate calcium (vitamin C) 500 mg tablet 500 mg PO DAILY cholecalciferol (vitamin D3) 25 mcg (1,000 unit) capsule 25 mcg PO DAILY ezetimibe [Zetia] 10 mg tablet 10 mg PO DAILY calcium carbonate [Calcium 500] 500 mg calcium (1,250 mg) tablet,chewable 500 mg PO DAILY Acidophilus Capsule 2,000 mmu cells PO DAILY acetaminophen [Arthritis Pain Relief (acetam)] 650 mg tablet extended release 1,300 mg PO Q12H albuterol sulfate 2.5 mg /3 mL (0.083 %) solution for nebulization 2.5 mg continuous nebulization ONCE Qty: 1 0RF prednisone 10 mg tablet 10 mg PO DAILY Qty: 30 0RF Rx Instructions: 4 tablets daily x3 days, then 3 tablets daily x3 days, then 2 tablets daily x3 days, then 1 tablet daily x3 days benzonatate 200 mg capsule 200 mg PO TID PRN (Reason: cough) Qty: 20 0RF albuterol sulfate 90 mcg/actuation HFA aerosol inhaler 2 puff inhalation Q6H PRN (Reason: shortness of breath or wheezing) Qty: 8.5 0RF doxycycline monohydrate 100 mg capsule 100 mg PO BID Qty: 20 0RF PreserVision AREDS-2 250-90-40-1 mg Capsule 1 ea PO BIDCM Qty: 1 0RF amiodarone 200 mg tablet 200 mg PO DAILY Qty: 90 3RF Eliquis 5 mg tablet 5 mg PO BID Qty: 180 4RF metoprolol succinate 100 mg tablet extended release 24 hr 50 mg PO DAILY Primary Care Provider: Jeramie Alba Referrals: Jeramie Alba MD [Primary Care Provider] - 3-5 Days Sea Burns NP, [employer] [Med Staff - Adv Practice Prof] - 3-5 Days Activity Restrictions/Additional Instructions: Follow-up with the cardiology office. Call to make an appointment when you leave here. Your monitor will be mailed to you per cardiology. Return back to the ED if symptoms change or worsen. Follow-up with PCP. Print Language: Turkish Disposition Disposition: Home, Self Care Discharge Date/Time: 05/30/24 15:06
[2024-05-30 11:24] LABS: Absolute Lymphocyte Count 1.45 X10^3/uL (0.83-4.51); Absolute Neutrophil Count 3.4 X10^3/uL (2.0-7.7); Basophil# 0.04 X10^3/uL; Basophil% 0.7 % (0-1); Eosinophil# 0.08 X10^3/uL; Eosinophils% 1.4 % (0-5); Hematocrit 42.5 % (37-47); Lymphocyte # 1.45 X10^3/ul (0.83-4.51); Lymphocyte % 25.5 % (19-41); Mean Corp Hgb Conc 32.9 g/dL (32-36); Mean Corpuscular Hgb 30.2 pg (27.0-32.0); Mean Corpuscular Volume 91.8 fL (81-99); Mean Platelet Vol. 13.6 fl (6.2-12.0); Monocyte% 12.3 % (0-10); NRBC Flagged by Analyzer 0 % (0-5); Neutrophil % 59.7 % (47-70); Platelet Count 222 K/mm3 (150-450); RBC Distribution Width CV 14.2 % (11.6-14.6); RBC Distribution Width SD 47.8 fl (35.1-43.9); Red Blood Count 4.63 M/mm3 (4.2-5.4); White Blood Count 5.7 K/mm3 (4.4-11.0)
[2024-05-30 11:30] VITALS: BP 128/78; PULSE 65; RESP 16; O2SAT 98
[2024-05-30 11:31] LABS: International Normalized Ratio 1.3; Prothrombin Time (Protime)PT. 16.1 SECONDS (11.7-14.9)
[2024-05-30 11:32] LABS: Partial Thromboplast Time 30.4 Seconds (24.1-36.2)
[2024-05-30 11:51] LABS: Anion Gap 13 (5-15); BUN 14 mg/dL (4-19); BUN/Creat Ratio 14.5 RATIO (10-20); Calcium,Total 9.9 mg/dL (7.6-11.0); Chloride 101 mmol/L (98-108); Creatinine, Serum 0.97 mg/dL (0.70-1.20); EST Glomerular Filtration Rate 59 (>60); Estimated Creatinine Clearance 49.88 ml/min (50-250); Glucose 174 mg/dL (70-99); Potassium 3.9 mmol/L (3.3-5.1); Sodium Level 139 mmol/L (133-145); Troponin T High Sensitivity 9 ng/L (<=14)
[2024-05-30 12:15] VITALS: BP 131/93; PULSE 54; RESP 22; O2SAT 97
[2024-05-30 12:34] LABS: Pro- Brain NATRIURETIC PEPTIDE 422 pg/mL (<=1800)
[2024-05-30 13:00] VITALS: BP 143/65; PULSE 55; RESP 15; O2SAT 95
[2024-05-30 13:49] LABS: Troponin T High Sens 2 HR 8 ng/L (<=14)
[2024-05-30 14:00] VITALS: BP 149/63; PULSE 54; RESP 19; O2SAT 96
[2024-05-30 14:45] VITALS: BP 145/66; PULSE 55; RESP 17; O2SAT 100
== END 2024-05-30 15:06 | disposition home or self-care (01) ==
PROVIDERS: Emergency Provider Surgery; PCP Family Medicine; Visit Provider Surgery
DX: R07.9 Chest pain, unspecified (principal); J44.9 Chronic obstructive pulmonary disease, unspecified; I48.0 Paroxysmal atrial fibrillation; E11.9 Type 2 diabetes mellitus without complications; I10 Essential (primary) hypertension; Z79.01 Long term (current) use of anticoagulants; Z86.73 Personal history of transient ischemic attack (TIA), and cerebral infarction without residual deficits; Z85.828 Personal history of other malignant neoplasm of skin; K21.9 Gastro-esophageal reflux disease without esophagitis; Z79.899 Other long term (current) drug therapy; Z96.652 Presence of left artificial knee joint; Z90.49 Acquired absence of other specified parts of digestive tract
CPT/HCPCS: 71046; 80048; 83735; 83880; 84443; 84484; 85025; 85610; 85730; 93005; 99285; A4216

== ENCOUNTER → 2024-06-08 | Outpatient (CLI) | payer MEDICARE, BC, SELFPAY | END | disposition home or self-care (01) | LOC: PSN 11:53 | PROVIDERS: PCP Family Medicine; Referring Provider Nurse Practitioner Family; Visit Provider Nurse Practitioner Family | DX: R55 Syncope and collapse (principal); R42 Dizziness and giddiness | CPT/HCPCS: 93225; 93226 ==

== ENCOUNTER → 2024-07-25 | Outpatient (CLI) | payer MEDICARE, BC, SELFPAY ==
[2024-07-25 13:40] LABS: Absolute Lymphocyte Count 1.59 X10^3/uL (0.83-4.51); Absolute Neutrophil Count 4.5 X10^3/uL (2.0-7.7); Basophil# 0.02 X10^3/uL; Basophil% 0.3 % (0-1); Eosinophil# 0.13 X10^3/uL; Eosinophils% 1.8 % (0-5); Hematocrit 40.9 % (37-47); Hemoglobin 13.2 g/dL (12.0-15.0); Lymphocyte # 1.59 X10^3/ul (0.83-4.51); Lymphocyte % 22.5 % (19-41); Mean Corp Hgb Conc 32.3 g/dL (32-36); Mean Corpuscular Hgb 29.7 pg (27.0-32.0); Mean Corpuscular Volume 92.1 fL (81-99); Mean Platelet Vol. 12.7 fl (6.2-12.0); Monocyte# 0.82 X10^3/uL; Monocyte% 11.6 % (0-10); NRBC Flagged by Analyzer 0 % (0-5); Neutrophil # 4.48 X10^3/uL (2.7-7.7); Neutrophil % 63.4 % (47-70); Platelet Count 249 K/mm3 (150-450); RBC Distribution Width CV 14.5 % (11.6-14.6); RBC Distribution Width SD 48.8 fl (35.1-43.9); Red Blood Count 4.44 M/mm3 (4.2-5.4); White Blood Count 7.1 K/mm3 (4.4-11.0)
[2024-07-25 14:35] LABS: ALB/GLOB Ratio 1.5 RATIO (0.9-2.4); AST(SGOT) 25 U/L (<=31); Alanine Aminotransfer ALT/SGPT 30 U/L (<=34); Albumin, Serum 4.1 g/dL (3.4-4.8); Alkaline Phosphatase 70 U/L (35-104); Anion Gap 11 (5-15); BUN 21 mg/dL (4-19); BUN/Creat Ratio 20.7 RATIO (10-20); Calcium,Total 9.6 mg/dL (7.6-11.0); Carbon Dioxide 25.7 mmol/L (21.0-32.0); Chloride 103 mmol/L (98-108); Creatinine, Serum 1.01 mg/dL (0.70-1.20); EST Glomerular Filtration Rate 57 (>60); Globulin 2.7 g/dL (2.2-4.2); Glucose 110 mg/dL (70-99); Magnesium 2.3 mg/dL (1.5-2.2); Potassium 4.6 mmol/L (3.3-5.1); Protein, Total 6.8 g/dL (5.9-8.4); Sodium Level 139 mmol/L (133-145)
== END | disposition home or self-care (01) ==
LOC: LAB 13:01
PROVIDERS: PCP Family Medicine; Referring Provider Nurse Practitioner Family; Visit Provider Nurse Practitioner Family
DX: I48.0 Paroxysmal atrial fibrillation (principal); Z79.899 Other long term (current) drug therapy; R06.09 Other forms of dyspnea
CPT/HCPCS: 36415; 80053; 83735; 84439; 84443; 85025

== ENCOUNTER → 2024-09-20 | Outpatient (CLI) | payer MEDICARE, BC, SELFPAY ==
--- NOTE | 2024-09-20 10:42 | BI_ITS ---
EXAM: SCRN MAMM (CAD)W/LAN BILAT DATE: 09/20/2024 CLINICAL HISTORY: F, Age 79 y/o , SCREENING History of aunt with breast cancer. Remote right breast cystic drainage. TECHNIQUE: SCRN MAMM (CAD)W/LAN BILAT COMPARISON: Prior exam(s) dated September 20, 2023.. FINDINGS: TISSUE DENSITY: The breasts are almost entirely fatty. Bilateral Breast Mammographic Findings: No significant masses, calcifications or other abnormalities are identified. No suspicious masses, areas of developing architectural distortion, or suspicious calcifications. There has been no significant interval change. BI/SCRN MAMM (CAD)W/LAN BILAT IMPRESSION: Stable examination. OVERALL FINAL ASSESSMENT BI-RADS 1: NEGATIVE. RECOMMEND ANNUAL MAMMOGRAPHIC SCREENING. RECOMMENDATION: Routine annual follow-up in 1 Year A letter with findings and recommendations will be mailed to the patient. Reading Location: [place] [id number]
== END | disposition home or self-care (01) ==
LOC: OPBI 10:41
PROVIDERS: PCP Family Medicine; Referring Provider Nurse Practitioner Family; Visit Provider Nurse Practitioner Family
DX: Z12.31 Encounter for screening mammogram for malignant neoplasm of breast (principal)
CPT/HCPCS: 77063; 77067

== ENCOUNTER → 2024-12-19 | Outpatient (CLI) | payer MEDICARE, BC, SELFPAY ==
--- NOTE | 2024-12-19 11:06 | RAD_ITS ---
PROCEDURE: CHEST PA AND LATERAL 12/19/2024 REASON FOR EXAM: COUGH TECHNIQUE: Procedure Code: RADCXR Modality: DX Procedure: CHEST PA AND LATERAL COMPARISON: Chest x-ray studies dated 05/30/2024 and 03/01/2024 FINDINGS: Hardware: Surgical clips are projected over the gallbladder fossa. Heart: Heart size and configuration are within normal limits. Mediastinum: Pulmonary vasculature and hilar structures are unremarkable. Trachea is midline. Arteriosclerotic vascular disease of the aorta is noted. Lungs: Lungs are expanded without evidence of atelectasis, consolidation, effusion or pneumonic infiltrate. There are nodular densities identified in both lungs which most likely represent granulomas and/or summation artifact. These are similar when compared to the prior exams. Bones: No acute fractures or osseous abnormality is noted. Diffuse osteopenia of the bony thorax is seen. There is stable pectus excavatum. Spondylosis of the thoracic spine is noted. RAD/Chest PA and Lateral IMPRESSION: No acute cardiopulmonary process identified radiographically. The overall findings are similar when compared to the prior exams. Reading Location: [id number]
== END | disposition home or self-care (01) ==
LOC: MTRAD 11:05
PROVIDERS: PCP Internal Medicine; Referring Provider Physician Assistant; Visit Provider Physician Assistant
DX: R05.9 Cough, unspecified (principal)
CPT/HCPCS: 71046